=== PATIENT | male | born 1965 | race Caucasian/White ===

== ENCOUNTER 2016-10-25 19:39 | Observation (INO) ==
[2016-10-25 20:09] LABS: Basophils # 0.1 K/mcL (0.0-0.2); Eosinophils # 0.2 K/mcL (0.0-0.6); Hematocrit 43.3 % (37.5-50.1); Hemoglobin 14.5 g/dL (12.9-16.9); Immature Granulocytes % 0.2 % (0-4); Lymphocytes # 2.7 K/mcL (0.6-4.6); Mean Corpuscular HGB Conc 33.5 g/dL (31.6-35.5); Mean Corpuscular Hemoglobin 28.5 pg (28.0-33.3); Mean Corpuscular Volume 85.2 fL (83.0-100.0); Monocytes # 0.6 K/mcL (0.0-1.3); Monocytes % 6.7 %; Neutrophils # 5.6 K/mcL (1.6-8.9); Platelet Count 250 K/mcL (140-400); Red Blood Count 5.08 M/mcL (4.19-5.50); Red Cell Distribution Width 12.3 % (11.5-14.5); Segmented Neutrophils % 61.1 %
[2016-10-25 20:14] LABS: INR 1.1; Prothrombin Time 12.1 Seconds (9.4-12.1)
[2016-10-25 20:17] LABS: Activated Partial Thrombo Time 31.1 Seconds (26.0-36.0)
[2016-10-25 20:23] LABS: Alanine Aminotransferase 13 Units/L (0-55); Albumin 3.5 g/dL (3.5-5.0); Albumin/Globulin Ratio 0.9 (1.1-2.2); Alkaline Phosphatase 86 Units/L (38-126); Aspartate Amino Transferase 13 Units/L (5-34); BUN/Creatinine Ratio 12 (6-26); Bilirubin,Direct 0.2 mg/dL (0.0-0.5); Bilirubin,Indirect 0.2 mg/dL (0.0-1.2); Bilirubin,Total 0.4 mg/dL (0.2-1.2); Blood Urea Nitrogen 14 mg/dL (8-26); Calcium 9.7 mg/dL (8.6-10.8); Carbon Dioxide 22 mEq/L (19-29); Chloride 106 mEq/L (98-109); Globulin 3.7 g/dL (2.4-3.5); Glucose 80 mg/dL (70-99); Osmolality,Calculated 283 (280-300); Potassium 3.9 mEq/L (3.5-4.5); Sodium 137 mEq/L (136-145); Total Protein 7.2 g/dL (6.0-8.3); eGFR For African Americans > 60 (> 60); eGFR For Non-African Americans > 60 (> 60)
[2016-10-25] MEDS ORDERED: Ondansetron 4 MG/2 ML VIAL IVP ONE (20:37)
[2016-10-25] MEDS ORDERED: *HR* Morphine 2 MG/ML SYRINGE IVP ONE (20:37)
--- NOTE | 2016-10-25 20:41 | Emergency Department Note ---
Disposition Clinical Impression: Chest pain Qualifiers: Chest pain type: unspecified Qualified Code(s): R07.9 - Chest pain, unspecified Disposition: Admitted As Inpatient Condition: Good Referrals: NO,PCP [Non-Partnered Physician] - Forms: ED Satisfaction Letter Chest Pain HPI - General Chief Complaint: ED Chest Pain Stated Complaint: Chest Pain, SOB Source: patient Limitations: no limitations Vital Signs Reviewed: Yes Nursing Notes Reviewed: Yes - History of Present Illness Pt complaint: chest pain Onset (ago): hour(s) (1) Duration: constant Onset: during rest Pain Location: substernal Severity scale (1-10): 4 Quality: heaviness Pain Radiation: none Improves with: nothing Worsens with: nothing Associated symptoms: Denies: nausea, vomiting, syncope Treatments prior to arrival chest pain: aspirin, nitroglycerin - Related Data Home Medications Medication Instructions Recorded Confirmed Allopurinol [Zyloprim 300 MG] 300 mg PO DAILY 05/01/15 05/26/16 Aspirin 162 mg PO DAILY 05/01/15 05/26/16 Clopidogrel Bisulfate [Plavix] 75 mg PO DAILY 05/01/15 05/26/16 Famotidine [Pepcid] 40 mg PO DAILY 05/01/15 05/26/16 Nitroglycerin [Nitrostat] 0.4 mg PO AD PRN 05/01/15 05/26/16 Pantoprazole Sodium [Protonix] 40 mg PO DAILY 05/01/15 05/26/16 Pravastatin Sodium [Pravachol] 40 mg PO HS 05/01/15 05/26/16 Sertraline [Zoloft] 100 mg PO DAILY 05/01/15 05/26/16 Fluticasone/Salmeterol [Advair 1 each IH BID 12/03/15 05/26/16 250-50 Diskus] Diclofenac Sodium [Voltaren] 1 appl TP QID PRN 05/27/16 05/27/16 Previous Rx's Medication Instructions Recorded Pregabalin [Lyrica] 25 mg PO DAILY #30 capsule 05/27/16 Allergies Allergy/AdvReac Type Severity Reaction Status Date / Time hydrocodone [From Vicodin] Allergy Hallucinati Verified 10/25/16 19:45 ng ketorolac [From Toradol] Allergy Seizure Verified 10/25/16 19:45 All systems ED: reviewed and negative except as stated. Constitutional: Denies: fever, chills, weakness Respiratory: Denies: hemoptysis Gastrointestinal: Denies: vomiting Chest Pain PMH - Past Medical History Medical history: Reports: CHF, COPD, coronary artery disease, CVA, hyperlipidemia, hypertension, myocardial infarction Surgical history: Reports: angioplasty/stent, cataract Psychiatric history: Reports: anxiety, depression - Social History Smoking Status: Never smoker Alcohol use: Reports: none Drug use: Reports: none Physical Exam - General Limitations: no limitations General appearance: alert - Head Head exam: atraumatic, normocephalic, normal inspection - Eye Eye exam: Present: normal appearance, PERRL, EOMI - Expanded Eye Exam Pupils: Left: reactive - ENT ENT exam: normal exam, normal oropharynx, mucous membranes moist - Expanded ENT Exam External ear exam: Present: normal external inspection Mouth exam: Present: normal external inspection Teeth exam: Present: normal inspection Throat exam: Present: normal inspection - Neck Neck exam: Present: normal inspection, full ROM, trachea midline - Chest Chest inspection: Present: normal inspection, symmetric chest wall rise - Respiratory Respiratory exam: Present: normal lung sounds bilaterally - Cardiovascular Cardiovascular exam: Present: bradycardia - Abdominal Exam Abdominal exam: Present: soft, Non-Tender. Absent: tenderness, distention, guarding, rebound, rigidity - Extremities Exam Extremities exam: Present: normal inspection, full ROM. Absent: tenderness, pedal edema - Expanded Upper Extremity Exam Shoulder exam: Present: normal inspection, full ROM Arm exam: Present: normal inspection, full ROM Elbow exam: Present: normal inspection, full ROM Forearm/Wrist exam: Present: normal inspection, full ROM Hand exam: Present: normal inspection, full ROM Vascular exam: Normal: capillary refill, radial pulse - Expanded Lower Extremity Exam Hip/Pelvis exam: Present: normal inspection, full ROM Upper leg exam: Present: normal inspection, full ROM Knee exam: Present: normal inspection, full ROM Lower leg exam: Present: normal inspection, full ROM Ankle exam: Present: normal inspection, full ROM Foot/toe exam: Present: normal inspection, full ROM Neurovascular/Tendon exam: Absent: motor deficit, sensory deficit, tendon deficit - Back Exam Back exam: Present: normal inspection, full ROM. Absent: tenderness - Neurological Exam Neurological exam: Present: alert, oriented X3 - Expanded Neurological Exam Patient oriented to: Present: person, place, time Coma Scale Eye Opening: Spontaneous Coma Scale Motor Response: Obeys Commands Coma Scale Verbal Response: Oriented Coma Scale Total: 15 - Psychiatric Psychiatric exam: Present: normal affect, normal mood - Skin Skin exam: Present: warm, dry, intact, normal color Course Vital Signs Temperature 97.5 F L 10/25/16 19:41 Pulse Rate 52 10/25/16 19:41 Respiratory Rate 18 10/25/16 19:41 Blood Pressure 169/101 10/25/16 19:41 O2 Sat by Pulse Oximetry 96 10/25/16 19:41 Temperature 97.5 F L 10/25/16 19:41 Pulse Rate 49 10/25/16 21:04 Respiratory Rate 14 10/25/16 20:34 Blood Pressure 157/101 10/25/16 21:04 O2 Sat by Pulse Oximetry 96 10/25/16 21:04 Oxygen Delivery Oxygen Delivery Room Air Chest Pain - Differential Diagnosis Likely: unstable angina pectoris, atypical chest pain, st elevation myocardial infraction, chest pain - Medical Records Medical records reviewed: Yes I reviewed the patient's medical records. - Lab Data Lab results reviewed: Yes I reviewed the patient's lab results. Result diagrams: 10/25/16 20:00 10/25/16 20:00 Lab Results 10/25/16 10/25/16 10/25/16 Range/Units 20:00 20:00 20:00 WBC 9.2 (4.3-11.1) K/mcL RBC 5.08 (4.19-5.50) M/mcL Hgb 14.5 (12.9-16.9) g/dL Hct 43.3 (37.5-50.1) % MCV 85.2 (83.0-100.0) fL MCH 28.5 (28.0-33.3) pg MCHC 33.5 (31.6-35.5) g/dL RDW 12.3 (11.5-14.5) % Plt Count 250 (140-400) K/mcL MPV 10.0 (9.4-12.4) fL Immature Gran % 0.2 (0-4) % Seg Neutrophils % 61.1 % Lymphocytes % 29.0 % Monocytes % 6.7 % Eosinophils % 2.0 % Basophils % 1.0 % Neutrophils # 5.6 (1.6-8.9) K/mcL Lymphocytes # 2.7 (0.6-4.6) K/mcL Monocytes # 0.6 (0.0-1.3) K/mcL Eosinophils # 0.2 (0.0-0.6) K/mcL Basophils # 0.1 (0.0-0.2) K/mcL PT (9.4-12.1) Seconds INR APTT (26.0-36.0) Seconds Sodium 137 (136-145) mEq/L Potassium 3.9 (3.5-4.5) mEq/L Chloride 106 (98-109) mEq/L Carbon Dioxide 22 (19-29) mEq/L BUN 14 (8-26) mg/dL Creatinine 1.15 (0.72-1.25) mg/dL Est GFR ( Amer) > 60 (> 60) Est GFR (Non-Af Amer) > 60 (> 60) BUN/Creatinine Ratio 12 (6-26) Glucose 80 (70-99) mg/dL Calculated Osmolality 283 (280-300) Lactic Acid 1.2 (0.5-2.2) mmol/L Calcium 9.7 (8.6-10.8) mg/dL Total Bilirubin 0.4 (0.2-1.2) mg/dL Direct Bilirubin 0.2 (0.0-0.5) mg/dL Indirect Bilirubin 0.2 (0.0-1.2) mg/dL AST 13 (5-34) Units/L ALT 13 (0-55) Units/L Alkaline Phosphatase 86 (38-126) Units/L Troponin I (0-0.03) ng/mL B-Natriuretic Peptide (0-100) pg/mL Serum Total Protein 7.2 (6.0-8.3) g/dL Albumin 3.5 (3.5-5.0) g/dL Globulin 3.7 H (2.4-3.5) g/dL Albumin/Globulin Ratio 0.9 L (1.1-2.2) 10/25/16 10/25/16 10/25/16 Range/Units 20:00 20:00 20:00 WBC (4.3-11.1) K/mcL RBC (4.19-5.50) M/mcL Hgb (12.9-16.9) g/dL Hct (37.5-50.1) % MCV (83.0-100.0) fL MCH (28.0-33.3) pg MCHC (31.6-35.5) g/dL RDW (11.5-14.5) % Plt Count (140-400) K/mcL MPV (9.4-12.4) fL Immature Gran % (0-4) % Seg Neutrophils % % Lymphocytes % % Monocytes % % Eosinophils % % Basophils % % Neutrophils # (1.6-8.9) K/mcL Lymphocytes # (0.6-4.6) K/mcL Monocytes # (0.0-1.3) K/mcL Eosinophils # (0.0-0.6) K/mcL Basophils # (0.0-0.2) K/mcL PT 12.1 (9.4-12.1) Seconds INR 1.1 APTT 31.1 (26.0-36.0) Seconds Sodium (136-145) mEq/L Potassium (3.5-4.5) mEq/L Chloride (98-109) mEq/L Carbon Dioxide (19-29) mEq/L BUN (8-26) mg/dL Creatinine (0.72-1.25) mg/dL Est GFR ( Amer) (> 60) Est GFR (Non-Af Amer) (> 60) BUN/Creatinine Ratio (6-26) Glucose (70-99) mg/dL Calculated Osmolality (280-300) Lactic Acid (0.5-2.2) mmol/L Calcium (8.6-10.8) mg/dL Total Bilirubin (0.2-1.2) mg/dL Direct Bilirubin (0.0-0.5) mg/dL Indirect Bilirubin (0.0-1.2) mg/dL AST (5-34) Units/L ALT (0-55) Units/L Alkaline Phosphatase (38-126) Units/L Troponin I 0.00 (0-0.03) ng/mL B-Natriuretic Peptide < 10 (0-100) pg/mL Serum Total Protein (6.0-8.3) g/dL Albumin (3.5-5.0) g/dL Globulin (2.4-3.5) g/dL Albumin/Globulin Ratio (1.1-2.2) - Radiology Data Radiology results reviewed: Yes I reviewed the patient's radiology results. - EKG Data EKG shows normal: sinus rhythm Rate: bradycardia (54) Linch/QRS: normal When compared to previous EKG there are: no significant changes (08/12/16)
[2016-10-25] MEDS ORDERED: GI Cocktail 40 ML EACH PO ONE (20:59)
[2016-10-25] MEDS ORDERED: *HR* Heparin 5,000 UNIT/ML VIAL IVP PRN ×2 (22:18)
[2016-10-25] MEDS ORDERED: *HR* Heparin 5,000 UNIT/ML VIAL IVP ONE (22:18)
[2016-10-25] MEDS ORDERED: Naloxone 0.4 MG/ML INJ IVP PRN (22:23)
[2016-10-25] MEDS ORDERED: Acetaminophen 325 MG TABLET PO PRN (22:23)
[2016-10-25] MEDS ORDERED: Nitroglycerin 0.4 MG TAB.SUBL SL PRN (22:28)
[2016-10-25] MEDS ORDERED: Heparin 25,000 UNIT/500 ML D5W 25,000 UNIT/500 ML MLS IVC SCH (22:30)
--- NOTE | 2016-10-25 22:36 | Internal Med History&Physical ---
<Theodora Godinez - Last Filed: 10/25/16 23:18> Date of Encounter: 10/25/16 Time of Encounter: 22:28 Assessment and Plan (1) Chest pain Current visit: Yes Status: Acute Patent reporting chest pressure with intermittent stabbing on left side of chest since 5:30 this evening. Patient with history of CAD with stent to LAD. Last cath showed 50-60% stenosis in Circ and 1st Jaky. Pain was somewhat relieved with nitro, aspirin. EKG shows sinus bradycardia. 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 echocardiogram Cardiology consulted, will need to be called in the morning. Continue aspirin, plavix, statin. Qualifiers: Chest pain type: unspecified Qualified Code(s): R07.9 - Chest pain, unspecified (2) Coronary artery disease Current visit: Yes Status: Acute Patient with history of CAD and stent to LAD in 2012. LHC on 12/04/2015 showed patent stent in LAD, 30% stenosis in mid LAD, 60% stenosis in distal Circ, 50% stenosis in 1st marginal, 30% stenosis in mid RCA and distal RCA. Stress test 05/27/16 showed no evidence of ischemia or infarct and EF of 63%. Cardiology consulted. Patient not on beta stoney due to bradycardia. Continue aspirin, plavix, statin. Qualifiers: Coronary Disease-Associated Artery/Lesion type: [place] artery [place] vs. transplanted heart: [place] heart Associated angina: angina presence unspecified Qualified Code(s): I25.10 - Atherosclerotic heart disease of [place] coronary artery without angina pectoris (3) Hypertension Current visit: Yes Status: Acute Patient's BP running 140s-150s/90s-100s. Patient not on any anti- hypertensives. He is chronically bradycardic and so unable to take beta stoney. Start losartan 12.5mg daily. Qualifiers: Hypertension type: essential hypertension Qualified Code(s): I10 - Essential (primary) hypertension (4) DVT prophylaxis Current visit: Yes Status: Acute anti-embolic stockings Patient on Heparin drip for ACS, additional pharmacologic prophylaxis is not warrented. Internal Medicine - H&P: HPI Chief complaint: chest pain Admitted From: Emergency Dept Plans for Post Hospital Care: Home History of present illness: Mr. Faustin is a 51 year old male with HTN, HLD, GERD, COPD, CAD s/p stent to LAD , CHF, presented to the ED today with complaints of chest pain and shortness of breath. Patient reports chest pain started at about 5:30 this evening, he describes it as non-radiating pressure in the left side of his chest with occasional sharp stabs of pain, accompanied by shortness of breath and occasional sweats. He reports pain is worse when he takes a deep breath, was somewhat relieved by nitro and aspirin taken at home, as well as morphine given in the ED. Patient has history of [place]/CAD with stent to LAD in 2012. He denies any lightheadedness, headache, palpitations, fever, chills, nausea, vomiting, diarrhea. Evaluation in the ED included an EKG which showed sinus bradycardia. Troponin negative at 0.00, BNP negative at < 10. On exam, patient alert and oriented, in no acute distress, reporting he is still having chest pain. Heart has regular, bradycardic rhythm, lungs are clear bilaterally to auscultation. Past Med Surg Social Fam HX - Past Medical History Medical history: CHF, COPD, coronary artery disease, GERD, hyperlipidemia, hypertension, myocardial infarction, TIA Psychiatric history: anxiety, depression - Past Surgical History Surgical History: angioplasty/stent, cataract, knee replacement - Social History Smoking Status: Never smoker Smokeless Tobacco Status: No Alcohol use: none Drug use: none - Family History Father Family Member Ethnicity: Non- Living Status: Age at : 70 Hx Family Cardiac Disorders: Yes Mother Living Status: Age at : 65 Hx Family Cancer: Yes Internal Medicine - H&P: Meds Allopurinol [Zyloprim 300 MG] 300 mg PO DAILY 05/01/15 [History] Aspirin 162 mg PO DAILY 05/01/15 [History] Clopidogrel Bisulfate [Plavix] 75 mg PO DAILY 05/01/15 [History] Famotidine [Pepcid] 40 mg PO DAILY 05/01/15 [History] Nitroglycerin [Nitrostat] 0.4 mg PO AD PRN 05/01/15 [History] Pantoprazole Sodium [Protonix] 40 mg PO DAILY 05/01/15 [History] Pravastatin Sodium [Pravachol] 40 mg PO HS 05/01/15 [History] Sertraline [Zoloft] 100 mg PO DAILY 05/01/15 [History] Fluticasone/Salmeterol [Advair 250-50 Diskus] 1 each IH BID 12/03/15 [History] Pregabalin [Lyrica] 25 mg PO DAILY #30 capsule 05/27/16 [Rx] Cyclobenzaprine [Flexeril] 10 mg PO BID PRN 10/25/16 [History] Tramadol HCl [Ultram] 50 mg PO BID PRN 10/25/16 [History] Allergies hydrocodone [From Vicodin] Allergy (Verified 10/25/16 19:45) Hallucinating ketorolac [From Toradol] Allergy (Verified 10/25/16 19:45) Seizure All Systems PM: A 10-system review of systems was performed and is negative for pertinent findings except as documented above in the HPI. - Constitutional Constitutional: no chills, no fever(s), no night sweats - EENT Eyes: no change in vision, no discharge, no pain, no photophobia Ears: no ear discharge, no ear pain, no tinnitus Nose, mouth and throat: no dysphagia, no nasal discharge, no neck pain, no sore throat - Cardiovascular Cardiovascular ROS IM: chest pain, diaphoresis, dyspnea, no lightheadedness, no palpitations, no syncope - Respiratory Respiratory: pain on inspiration, no cough, no dyspnea, no wheezing, no excessive phlegm production - Gastrointestinal Gastrointestinal: no abdominal pain, no diarrhea, no hematemesis, no hematochezia, no melena, no nausea, no vomiting - Musculoskeletal Musculoskeletal ROS IM: no numbness, no tingling - Integumentary Integumentary IM: no rash, no unusual bruising - Neurological Neurological ROS: no confusion, no convulsions, no focal weakness, no numbness, no tingling, no tremor(s) - Hematologic/Lymphatic Hematologic/Lymphatic: no easy bruising - Constitutional Vitals: Temp Pulse Resp BP Pulse Ox 97.5 F L 49 16 159/100 96 10/25/16 19:41 10/25/16 21:04 10/25/16 22:24 10/25/16 22:24 10/25/16 21:04 General appearance: Present: A&O X 3, pleasant, no acute distress - Head Head exam: Present: atraumatic, normocephalic - Eye Eye exam: Present: PERRL, conjuntiva pink, sclera anicteric Pupils: Present: PERRL - Neck Neck exam general surgery: Present: supple, trachea midline. Absent: lymphadenopathy - Respiratory Respiratory exam: Present: CTAB. Absent: accessory muscle use, rales, rhonchi, wheezes - Cardiovascular Cardiovascular exam: Present: bradycardia, RRR, +S1, +S2. Absent: diastolic murmur, gallop, rubs, systolic murmur - GI/Abdominal GI/Abdominal exam: Present: normal bowel sounds, soft, no peritoneal signs. Absent: distended, tenderness - Extremities Exam Extremities exam: Present: warm, radial pulses palpable and symetrical. Absent : calf tenderness, cyanotic, pedal edema - Neurological Exam Neurological exam: Present: CN II-XII intact, oriented X3, no focal deficits. Absent: facial droop, speech deficit - Skin Skin exam: Present: dry, intact Internal Med - H&P Results - Labs CBC & Chem 7: 10/25/16 20:00 10/25/16 20:00 Labs: All Lab Results (24 Hours) 10/25/16 10/25/16 10/25/16 Range/Units 20:00 20:00 20:00 WBC 9.2 (4.3-11.1) K/mcL RBC 5.08 (4.19-5.50) M/mcL Hgb 14.5 (12.9-16.9) g/dL Hct 43.3 (37.5-50.1) % MCV 85.2 (83.0-100.0) fL MCH 28.5 (28.0-33.3) pg MCHC 33.5 (31.6-35.5) g/dL RDW 12.3 (11.5-14.5) % Plt Count 250 (140-400) K/mcL MPV 10.0 (9.4-12.4) fL Immature Gran % 0.2 (0-4) % Seg Neutrophils % 61.1 % Lymphocytes % 29.0 % Monocytes % 6.7 % Eosinophils % 2.0 % Basophils % 1.0 % Neutrophils # 5.6 (1.6-8.9) K/mcL Lymphocytes # 2.7 (0.6-4.6) K/mcL Monocytes # 0.6 (0.0-1.3) K/mcL Eosinophils # 0.2 (0.0-0.6) K/mcL Basophils # 0.1 (0.0-0.2) K/mcL PT (9.4-12.1) Seconds INR APTT (26.0-36.0) Seconds D-Dimer (0-500) ng/mLFEU Sodium 137 (136-145) mEq/L Potassium 3.9 (3.5-4.5) mEq/L Chloride 106 (98-109) mEq/L Carbon Dioxide 22 (19-29) mEq/L BUN 14 (8-26) mg/dL Creatinine 1.15 (0.72-1.25) mg/dL Est GFR ( Amer) > 60 (> 60) Est GFR (Non-Af Amer) > 60 (> 60) BUN/Creatinine Ratio 12 (6-26) Glucose 80 (70-99) mg/dL Calculated Osmolality 283 (280-300) Lactic Acid 1.2 (0.5-2.2) mmol/L Calcium 9.7 (8.6-10.8) mg/dL Total Bilirubin 0.4 (0.2-1.2) mg/dL Direct Bilirubin 0.2 (0.0-0.5) mg/dL Indirect Bilirubin 0.2 (0.0-1.2) mg/dL AST 13 (5-34) Units/L ALT 13 (0-55) Units/L Alkaline Phosphatase 86 (38-126) Units/L Troponin I (0-0.03) ng/mL B-Natriuretic Peptide (0-100) pg/mL Serum Total Protein 7.2 (6.0-8.3) g/dL Albumin 3.5 (3.5-5.0) g/dL Globulin 3.7 H (2.4-3.5) g/dL Albumin/Globulin Ratio 0.9 L (1.1-2.2) 10/25/16 10/25/16 10/25/16 Range/Units 20:00 20:00 20:00 WBC (4.3-11.1) K/mcL RBC (4.19-5.50) M/mcL Hgb (12.9-16.9) g/dL Hct (37.5-50.1) % MCV (83.0-100.0) fL MCH (28.0-33.3) pg MCHC (31.6-35.5) g/dL RDW (11.5-14.5) % Plt Count (140-400) K/mcL MPV (9.4-12.4) fL Immature Gran % (0-4) % Seg Neutrophils % % Lymphocytes % % Monocytes % % Eosinophils % % Basophils % % Neutrophils # (1.6-8.9) K/mcL Lymphocytes # (0.6-4.6) K/mcL Monocytes # (0.0-1.3) K/mcL Eosinophils # (0.0-0.6) K/mcL Basophils # (0.0-0.2) K/mcL PT 12.1 (9.4-12.1) Seconds INR 1.1 APTT 31.1 (26.0-36.0) Seconds D-Dimer 286 (0-500) ng/mLFEU Sodium (136-145) mEq/L Potassium (3.5-4.5) mEq/L Chloride (98-109) mEq/L Carbon Dioxide (19-29) mEq/L BUN (8-26) mg/dL Creatinine (0.72-1.25) mg/dL Est GFR ( Amer) (> 60) Est GFR (Non-Af Amer) (> 60) BUN/Creatinine Ratio (6-26) Glucose (70-99) mg/dL Calculated Osmolality (280-300) Lactic Acid (0.5-2.2) mmol/L Calcium (8.6-10.8) mg/dL Total Bilirubin (0.2-1.2) mg/dL Direct Bilirubin (0.0-0.5) mg/dL Indirect Bilirubin (0.0-1.2) mg/dL AST (5-34) Units/L ALT (0-55) Units/L Alkaline Phosphatase (38-126) Units/L Troponin I 0.00 (0-0.03) ng/mL B-Natriuretic Peptide < 10 (0-100) pg/mL Serum Total Protein (6.0-8.3) g/dL Albumin (3.5-5.0) g/dL Globulin (2.4-3.5) g/dL Albumin/Globulin Ratio (1.1-2.2) - Diagnostic Studies Chest x-ray Additional comments: Chest X-Ray 10/25/16 19:46 IMPRESSION: No acute process. D/ / Buddy De La Cruz MD / Buddy De La Cruz MD Interpreting Provider: Buddy De La Cruz MD <EvieSurinder - Last Filed: 10/26/16 02:39> Date of Encounter: 10/26/16 Internal Medicine - H&P: HPI History of present illness: Mr. Faustin is a 51 year old male All Systems PM: A 10-system review of systems was performed and is negative for pertinent findings except as documented above in the HPI. - Constitutional Vitals: Temp Pulse Resp BP Pulse Ox 97.9 F 50 16 149/95 95 10/25/16 22:47 10/25/16 22:47 10/25/16 22:47 10/25/16 22:47 10/25/16 22:47 Internal Med - H&P Results - Labs CBC & Chem 7: 10/25/16 20:00 10/25/16 20:00 - Attending Attestation I examined this patient and my medical decision-making was reviewed with the LUGGAGE MAKER/PA/Advanced Practice Nurse/Resident Physician. I agree with the documented findings, disposition and treatment plan as described except to the extent set forth below. Patient with history of coronary artery disease status post stent placement presents with atypical left-sided chest pain started at rest. Currently he continues to have chest pain, somewhat improved with administration of nitroglycerin and morphine. His EKG is without any ischemic changes. Plan: We will place the patient in observation. Trend troponin. Start IV heparin drip per ACS protocol. Nothing by mouth after midnight. Cardiology consult. Check echocardiogram.
[2016-10-25] MEDS ORDERED: traMADol 50 MG TABLET PO PRN (22:56)
--- NOTE | 2016-10-25 23:23 | Event Note ---
Date of Encounter: 10/25/16 Time of Encounter: 23:19 I examined this patient and my medical decision-making was reviewed with the CLERICAL ADMINISTRATIVE ASSISTANT/PA/Advanced Practice Nurse/Resident Physician. I agree with the documented findings, disposition and treatment plan as described except to the extent set forth below. Patient presented to the hospital with precordial chest pain. Currently reports continued mild to moderate dull pressure-like left-sided chest pain associated with shortness of breath. On exam he is in no acute distress. Heart auscultation reveals bradycardic regular S1-S2. Lungs are clear bilaterally I have reviewed his catheter report from November 2016 which shows a patent stent to the LAD and a 60% lesion in the distal circumflex and 50% lesion of the OM1. Assessment: Unstable angina Plan: We will place patient in observation. Nothing by mouth. A heparin drip. Nitroglycerin and morphine IV when necessary. Cardiology consult. Echocardiogram in the morning. Patient may require cardiac catheterization tomorrow to evaluate for his distal circumflex and OM lesions. He is at high risk for morbidity and complications due to ACS and IV heparin which requires frequent monitoring of coagulation parameters.
[2016-10-26 03:47] LABS: Basophils # 0.1 K/mcL (0.0-0.2); Basophils % 0.9 %; Eosinophils # 0.2 K/mcL (0.0-0.6); Eosinophils % 2.6 %; Hematocrit 41.1 % (37.5-50.1); Immature Granulocytes % 0.2 % (0-4); Lymphocytes # 3.2 K/mcL (0.6-4.6); Lymphocytes % 36.4 %; Mean Corpuscular HGB Conc 34.1 g/dL (31.6-35.5); Mean Corpuscular Hemoglobin 29.3 pg (28.0-33.3); Mean Platelet Volume 10.6 fL (9.4-12.4); Monocytes # 0.5 K/mcL (0.0-1.3); Monocytes % 5.4 %; Neutrophils # 4.7 K/mcL (1.6-8.9); Platelet Count 228 K/mcL (140-400); Red Blood Count 4.78 M/mcL (4.19-5.50); Red Cell Distribution Width 12.7 % (11.5-14.5); Segmented Neutrophils % 54.5 %
[2016-10-26 04:01] LABS: BUN/Creatinine Ratio 14 (6-26); Blood Urea Nitrogen 15 mg/dL (8-26); Calcium 9.4 mg/dL (8.6-10.8); Carbon Dioxide 25 mEq/L (19-29); Chloride 103 mEq/L (98-109); Chol/HDL Ratio 5.4 (0-4.9); Cholesterol 196 mg/dL (< 200); Glucose 94 mg/dL (70-99); HDL Cholesterol 36 mg/dL (40-59); LDL Cholesterol,Calculated 141 mg/dL (0-99); Osmolality,Calculated 281 (280-300); Sodium 135 mEq/L (136-145); Triglycerides 93 mg/dL (< 150); eGFR For African Americans > 60 (> 60); eGFR For Non-African Americans > 60 (> 60)
[2016-10-26] MEDS ORDERED: Aspirin 81 MG TAB.CHEW PO SCH (09:00)
[2016-10-26] MEDS ORDERED: Famotidine 20 MG TABLET PO SCH (09:00)
[2016-10-26] MEDS ORDERED: Pregabalin 25 MG CAPSULE PO SCH (09:00)
[2016-10-26] MEDS ORDERED: Budesonide/Formoterol 80/4.5 MDI IH SCH (10:00)
--- NOTE | 2016-10-26 11:09 | Cardiology Consult Note ---
Date of Encounter: 10/26/16 Time of Encounter: 11:00 Assessment and Plan (1) Chest pain Current Visit: Yes Status: Acute Per Cardiology: Known history of recurrent atypical chest pain. Symptoms appear to be atypical upon exam today and reproducible with deep inspiration with production of sharp stabbing left-sided chest pain. Troponins 0.003. Has echo pending, however will switch to limit echo. We discussed potential further ischemic evaluation and the patient himself indicated "I do not think this is my heart". He is agreeable to attempt nitrates and f/u as outpatient unless any abnormal results on limited echo. Will discuss and review with Dr. Salas. Qualifiers: Chest pain type: unspecified Qualified Code(s): R07.9 - Chest pain, unspecified (2) Coronary artery disease Current Visit: Yes Status: Chronic Per Cardiology: Known history of CAD with last heart catheterization November 2015 which showed left main 20%, patent stents to LAD, mid LAD 30%, distal circumflex 60%, OM1 50% , mid RCA 30%, distal RCA 30%. Had negative nuclear stress test April 2016. Last echo November 2015 showed EF 60%, mild diastolic dysfunction, dilated RV with normal function, no significant valvular dysfunction, no pulmonary hypertension. On aspirin, Plavix, statin, and ARB. Taking Ranexa at home. Will add Imdur 30mg PO daily. Has past intolerance to beta stoney. Qualifiers: Coronary Disease-Associated Artery/Lesion type: [place] artery [place] vs. transplanted heart: [place] heart Associated angina: angina presence unspecified Qualified Code(s): I25.10 - Atherosclerotic heart disease of [place] coronary artery without angina pectoris Discussion w patient/family: The assessment and plan as outlined above was discussed with the patient who expressed understanding and agreement. All questions were answered. Thank you for involving us in the care of your patient. Please call with any questions. History of Present Illness Consult date: 10/26/16 Requesting physician: Surinder Case Consult reason: CP Chief complaint: CP History of present illness: Mr. Faustin is a 51 year old male with a relevant past medical history of CAD, obesity, obstructive sleep apnea, hypertension, and hyperlipidemia. Last seen by Dr. Salas January 2016 with recurrent atypical chest pain. Cardiology consult for chest pain evaluation and consideration of repeat catheterization. Patient reports yesterday evening around 5 PM while sitting in a chair he developed left lower chest wall pressure/stabbing sensation with a max pain of 7 out of 10 that has been intermittently waxing and waning. He currently describes it as about a 4-5 out of 10. He reports he took 2 sublingual nitroglycerin pills with minimal relief. She reports episodes of chest tightness about once or twice per day at rest. He indicates he utilize nitroglycerin maybe once or twice in the past week or 2. He does report some mild increase in fatigue and mild increase in dyspnea on exertion. He reports intermittent diaphoresis at all times and does not correlate with other symptoms. He denies any dizziness, syncope, falls. Denies any palpitations. Denies any recent fever, chills, nausea, vomiting, diarrhea. Reports compliance with medications. Past Med Surg Social Fam HX - Past Medical History Attestation: Yes The following information was validated with the patient. Source: patient, old records reviewed Medical history: CHF, COPD, coronary artery disease, GERD, hyperlipidemia, hypertension, myocardial infarction, TIA Psychiatric history: anxiety, depression - Past Surgical History Surgical History: angioplasty/stent, cataract, knee replacement - Social History Smoking Status: Never smoker Smokeless Tobacco Status: No Alcohol use: none Drug use: none - Family History Mother Living Status: Age at : 65 Hx Family Cancer: Yes Father Family Member Ethnicity: Non- Living Status: Age at : 70 Hx Family Cardiac Disorders: Yes Medications and Allergies Allopurinol [Zyloprim 300 MG] 300 mg PO DAILY 05/01/15 [History] Aspirin 162 mg PO DAILY 05/01/15 [History] Clopidogrel Bisulfate [Plavix] 75 mg PO DAILY 05/01/15 [History] Famotidine [Pepcid] 40 mg PO DAILY 05/01/15 [History] Nitroglycerin [Nitrostat] 0.4 mg PO AD PRN 05/01/15 [History] Pantoprazole Sodium [Protonix] 40 mg PO DAILY 05/01/15 [History] Pravastatin Sodium [Pravachol] 40 mg PO HS 05/01/15 [History] Sertraline [Zoloft] 100 mg PO DAILY 05/01/15 [History] Fluticasone/Salmeterol [Advair 250-50 Diskus] 1 each IH BID 12/03/15 [History] Cyclobenzaprine [Flexeril] 10 mg PO BID PRN 10/25/16 [History] Tramadol HCl [Ultram] 50 mg PO BID PRN 10/25/16 [History] Allergies hydrocodone [From Vicodin] Allergy (Verified 10/26/16 09:06) Hallucinating ketorolac [From Toradol] Allergy (Verified 10/26/16 09:06) Seizure All Systems Review: A 10-system review of systems was performed and is negative for pertinent findings except as documented above in the HPI. - Constitutional Constitutional: fatigue - Cardiovascular Cardiovascular: as per HPI, chest pain at rest, dyspnea on exertion Physical Examination Vital Signs, Last 4 Hours Temp Pulse Resp BP Pulse Ox 10/26/16 10:51 97.9 F 47 15 133/86 94 10/26/16 08:15 98 10/26/16 08:03 18 98 General: Conversant, No Apparent Distress HEENT: Atraumatic, Normocephaly, Mucus Membranes Moist Neck: No JVD, Normal carotid pulses Cardiac: Reg Rate and Rhythm, Normal S1 and S2, No Murmur Lungs: Normal Breath Sounds, No Wheeze, Rales, Rhonchi Neuro: Alert and responsive, No focal deficits noted Abdomen: Soft, Non-Tender Skin: No rashes noted on visualized skin Musculoskeletal: No Chest Wall Tenderness, Other (Left lower chest wall pressure worsened today with deep inspiration and described as a stabbing sensation) Extremities: No Clubbing, No Cyanosis, No Edema, Normal Pulses Results 10/26/16 03:18 10/26/16 03:18 Lab Results Laboratory Tests 10/25/16 10/25/16 10/25/16 20:00 20:00 20:00 INR D-Dimer AST 13 ALT 13 Troponin I 0.00 B-Natriuretic Peptide < 10 LDL Cholesterol, Calc 10/25/16 10/26/16 10/26/16 20:00 03:18 03:18 INR 1.1 D-Dimer 286 AST ALT Troponin I 0.00 B-Natriuretic Peptide LDL Cholesterol, Calc 141 H 10/26/16 08:20 INR D-Dimer AST ALT Troponin I 0.00 B-Natriuretic Peptide LDL Cholesterol, Calc ITS Impressions Chest X-Ray 10/25/16 19:46 IMPRESSION: No acute process. D/ / Buddy De La Cruz MD / Buddy De La Cruz MD Interpreting Provider: Buddy De La Cruz MD Active Medications Acetaminophen (Tylenol) 650 mg PO Q6HR PRN PRN Reason: Mild Pain (1-3) Stop: 04/26/17 22:24 Last Admin: 10/26/16 04:09 Dose: 650 mg Allopurinol (Zyloprim) 300 mg PO DAILY [facility] Stop: 04/27/17 09:01 Aspirin (Aspirin) 162 mg PO DAILY [facility] Stop: 04/27/17 09:01 Budesonide/Formoterol Fumarate (Symbicort) 2 puff IH BIDR [facility] Stop: 04/27/17 10:01 Last Admin: 10/26/16 08:02 Dose: 2 puff Clopidogrel Bisulfate (Plavix) 75 mg PO DAILY [facility] Stop: 04/27/17 09:01 Cyclobenzaprine HCl (Flexeril) 10 mg PO BID PRN PRN Reason: back pain Stop: 04/26/17 22:57 Docusate Sodium (Colace) 100 mg PO BID PRN PRN Reason: Constipation Stop: 04/26/17 22:24 Famotidine (Pepcid) 40 mg PO DAILY [facility] PRN Reason: Protocol Stop: 04/27/17 09:01 Heparin Sodium (Porcine) (Heparin) 4,000 unit IVP Q6HR PRN PRN Reason: SEE COMMENTS Stop: 04/26/17 22:19 Heparin Sodium (Porcine) (Heparin) 2,000 unit IVP Q6H PRN PRN Reason: SEE COMMENTS Stop: 04/26/17 22:19 Last Admin: 10/26/16 06:43 Dose: 2,000 unit Heparin Sodium/Dextrose (Heparin 25,000 Unit/500 Ml D5w) 25,000 unit in 500 mls @ 19.99 mls/hr IVC .Q24H SHELBY; 7.63 UNIT/KG/HR PRN Reason: Protocol Stop: 04/26/17 22:31 Last Titration: 10/26/16 06:37 Dose: 9.54 unit/kg/hr, 25 mls/hr Losartan Potassium (Cozaar) 12.5 mg PO DAILY [facility] PRN Reason: Protocol Stop: 04/26/17 23:31 Last Admin: 10/26/16 00:01 Dose: 12.5 mg Naloxone HCl (Narcan) 0.4 mg IVP Q2MIN PRN PRN Reason: Opioid Reversal Stop: 04/26/17 22:24 Nitroglycerin (Nitroglycerin) 0.4 mg SL Q5MIN PRN PRN Reason: Chest Pain Stop: 04/26/17 22:29 Last Admin: 10/26/16 04:09 Dose: 0.4 mg Omeprazole (Prilosec) 20 mg PO DAILY@0730 [facility] Stop: 04/27/17 07:31 Pregabalin (Lyrica) 25 mg PO DAILY [facility] Stop: 04/27/17 09:01 Sertraline HCl (Zoloft) 100 mg PO DAILY [facility] Stop: 04/27/17 09:01 Simvastatin (Zocor) 40 mg PO HS [facility] Stop: 04/26/17 23:01 Last Admin: 10/26/16 00:01 Dose: 40 mg Tramadol HCl (Ultram) 50 mg PO BID PRN PRN Reason: Moderate Pain Stop: 04/26/17 22:57 Last Admin: 10/26/16 00:02 Dose: 50 mg - Imaging and Cardiology Stress Test: report reviewed Echo: report reviewed Cardiac cath: report reviewed - EKG Interpretation EKG results cardiology: personally reviewed, normal ECG, sinus rhythm, no diagnostic ischemia, other (Sinus rhythm on telemetry) Consult Discharge Plan - Plan Referrals: Reddy Reich MD [Primary Care Provider] -
[2016-10-26] MEDS ORDERED: Isosorbide MONOnitrate (24 HR) 30 MG TAB.ER.24H PO SCH (12:30)
[2016-10-26] MEDS ORDERED: Perflutren Lipid Microsphere 1.3 ML in 0.9 % Sodium Chloride 8.7 ML IVP ONE (13:51)
[2016-10-26 14:45] VITALS: BP 141/99
--- NOTE | 2016-10-26 16:10 | Discharge Summary ---
Date of Encounter: 10/26/16 Time of Encounter: 14:00 - Discharge Diagnosis (1) Chest pain Priority: Primary Status: Resolved Comments: Patient denied chest pain on day of discharge. Chest x-ray negative. Troponins negative 3. Was seen and evaluated by cardiology who recommended medical management with Imdur added to his regimen. Echocardiogram revealing preserved ejection fraction. Follow-up outpatient Qualifiers: Chest pain type: unspecified Qualified Code(s): R07.9 - Chest pain, unspecified (2) COPD (chronic obstructive pulmonary disease) Priority: Secondary Status: Chronic Comments: No acute exacerbation. Patient denies shortness of breath above his norm. Qualifiers: COPD type: chronic bronchitis Qualified Code(s): J41.0 - Simple chronic bronchitis (3) Coronary artery disease Priority: Secondary Status: Chronic Qualifiers: Coronary Disease-Associated Artery/Lesion type: [place] artery [place] vs. transplanted heart: [place] heart Associated angina: angina presence unspecified Qualified Code(s): I25.10 - Atherosclerotic heart disease of [place] coronary artery without angina pectoris (4) Hypertension Priority: Primary Status: Acute Comments: Not on any antihypertensive medications at home. He is chronically bradycardic so he was started on a low dose ARB. Blood pressure improving on day of discharge, follow-up outpatient and check blood pressure daily at home Qualifiers: Hypertension type: essential hypertension Qualified Code(s): I10 - Essential (primary) hypertension (5) DVT prophylaxis Priority: Primary Status: Acute Comments: Observation patient. Up ad sonido. - Discharge Medications Prescriptions: Isosorbide MONOnitrate (24 HR) [Imdur] 30 mg PO DAILY #30 tab.er.24h Losartan [Cozaar] 12.5 mg PO DAILY #15 tablet Home Medications: Allopurinol [Zyloprim 300 MG] 300 mg PO DAILY 05/01/15 [History] Aspirin 162 mg PO DAILY 05/01/15 [History] Clopidogrel Bisulfate [Plavix] 75 mg PO DAILY 05/01/15 [History] Famotidine [Pepcid] 40 mg PO DAILY 05/01/15 [History] Nitroglycerin [Nitrostat] 0.4 mg PO AD PRN 05/01/15 [History] Pantoprazole Sodium [Protonix] 40 mg PO DAILY 05/01/15 [History] Pravastatin Sodium [Pravachol] 40 mg PO HS 05/01/15 [History] Sertraline [Zoloft] 100 mg PO DAILY 05/01/15 [History] Fluticasone/Salmeterol [Advair 250-50 Diskus] 1 each IH BID 12/03/15 [History] Cyclobenzaprine [Flexeril] 10 mg PO BID PRN 10/25/16 [History] Tramadol HCl [Ultram] 50 mg PO BID PRN 10/25/16 [History] Isosorbide MONOnitrate (24 HR) [Imdur] 30 mg PO DAILY #30 tab.er.24h 10/26/16 [ Rx] Losartan [Cozaar] 12.5 mg PO DAILY #15 tablet 10/26/16 [Rx] Allergies/Adverse Reactions: Allergies hydrocodone [From Vicodin] Allergy (Verified 10/26/16 09:06) Hallucinating ketorolac [From Toradol] Allergy (Verified 10/26/16 09:06) Seizure Procedures/tests Complete & Pending: Procedures Performed prior 72 hours Category Date Time Status ECG 12 lead ECG [ECG] AM 0600 Y 10/26/16 06:00 Ordered EV limited echo w enhance Routine Y 10/26/16 12:05 Completed Date of admission: 10/25/16 22:01 Primary care physician: Reddy Reich MD Consults: 10/25/16 22:25 Consult to Cardiology [CONS] Routine Comment: Consulting Provider: Samson James Reason for Consult: 51M with chest pain, relieved by nitro, history of CAD with stent to LAD. Call Completed: No Discharging clinician: Magaly Sahni Anticipated date of discharge: 10/26/16 - Patient Status Disposition: Home, Self-Care Condition: Good Functional capacity at discharge: independent ambulation Overall status at discharge: patient is back to baseline - Discharge Instructions Follow Up With: Reddy Reich MD [Primary Care Provider] - Cardiology [facility] [Provider Group] Additional Instructions: Follow-up with primary care provider within one to 2 weeks, follow-up with cardiology in 4-5 weeks - Diet and Activity Activity: increase activity as tolerated Diet: low fat, low cholesterol, low salt diet Hospital course: Mr. Faustin is a 51 year old male with past medical history of hypertension, hyperlipidemia, GERD, COPD, CAD status post stent to LAD. Presented to the emergency department chief complaint chest pain and shortness of breath. Patient stating that the chest pain started on the evening of presentation and was described as nonradiating, pressure-like on the left side of his chest and with occasional sharp stabs of pain. Associated symptoms include shortness of breath and occasional sweats. Patient stating the pain was worse when he took a deep breath and somewhat relieved with nitroglycerin and aspirin at home. Morphine in the emergency department also helped his pain. He is stent to LAD from 2012. Patient denied any lightheadedness, palpitations, nausea or vomiting. Workup in the emergency department unremarkable. EKG revealing sinus bradycardia. Chest x-ray negative. Patient was admitted to the hospitalist service for further evaluation and management. Cardiology was brought on board who performed a limited echocardiogram that revealed a preserved ejection fraction of 60-65% and recommended medical management with the addition of Imdur to the patient's regimen. Troponins negative 3. He was hypertensive and was started on low-dose losartan given his chronic bradycardia , he cannot tolerate a beta stoney. He was discharged home in stable condition and will follow-up with his primary care provider then with cardiology in 3-4 weeks. ITS Impressions Chest X-Ray 10/25/16 19:46 IMPRESSION: No acute process. D/ / Buddy De La Cruz MD / Buddy De La Cruz MD Interpreting Provider: Buddy De La Cruz MD Limited echocardiogram impressions: LVEF 60-65%. Normal left ventricular size and systolic function. Normal right ventricular function. - Time Spent with Patient Total time spent providing and/or coordinating discharge services: - Constitutional Vitals: Temp Pulse Resp BP Pulse Ox 97.8 F 52 18 141/99 95 10/26/16 14:45 10/26/16 14:45 10/26/16 14:45 10/26/16 14:45 10/26/16 14:45 General appearance: Present: A&O X 3, pleasant, no acute distress, answers questions appropriately - Head Head exam: Present: atraumatic, normocephalic - Eye Eye exam: Present: PERRL, conjuntiva pink, sclera anicteric Pupils: Present: PERRL - Neck Neck exam general surgery: Present: supple, trachea midline. Absent: lymphadenopathy - Respiratory Respiratory exam: Present: CTAB. Absent: accessory muscle use, rales, respiratory distress, rhonchi, wheezes - Cardiovascular Cardiovascular exam: Present: RRR, +S1, +S2. Absent: diastolic murmur, gallop, rubs, systolic murmur - GI/Abdominal GI/Abdominal exam: Present: normal bowel sounds, soft, no peritoneal signs. Absent: distended, tenderness - Extremities Exam Extremities exam: Present: warm, radial pulses palpable and symetrical. Absent : calf tenderness, cyanotic, pedal edema - Neurological Exam Neurological exam: Present: alert, CN II-XII intact, normal gait, oriented X3, no focal deficits, strengths equal and symetr throughout. Absent: pronater drift, facial droop, speech deficit - Skin Skin exam: Present: dry, intact, normal color, warm
--- NOTE | 2016-10-26 16:19 | Event Note ---
Date of Encounter: 10/26/16 Time of Encounter: 16:20 - Cardiology Event Note Per discussion with Dr. Salas, echo ok and will s/o, re-consult PRN, f/u scheduled. Patient agreeable to plan.
--- NOTE | 2016-10-26 18:20 | Electrocardiograph Report ---
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
[2016-10-27] MEDS ORDERED: Aspirin 81 MG TAB.CHEW PO SCH (09:00)
== END 2016-10-26 17:10 | disposition home or self-care (01) ==
LOC: 3BNU 19:39 → EMEROO 19:39 → SUATTDRO 22:01 → 3BNU 22:27
PROVIDERS: ADMIT Internal Medicine; ATTEND Nurse Practitioner Family

== ENCOUNTER 2017-05-06 17:19 | Observation (INO) ==
--- NOTE | 2017-05-06 17:51 | Emergency Department Note ---
Disposition Clinical Impression: Chest pain of uncertain etiology Disposition: Admitted As Inpatient Condition: Good Referrals: Davie Hanley DO [Primary Care Provider] - Forms: ED Satisfaction Letter Time of Disposition: 19:31 Chest Pain HPI - General Chief Complaint: ED Chest Pain Stated Complaint: Chest Pain Time Seen by Provider: 05/06/17 17:43 Source: patient Limitations: language barrier Vital Signs Reviewed: Yes Nursing Notes Reviewed: Yes - History of Present Illness HPI Narrative: Mr. Faustin, 52-year-old male, presents from home for evaluation of chest tightness. Onset 16:15 this afternoon while he was sitting at rest. He has associated palpitations, dyspnea, nausea, left arm heaviness and left face/jaw tingling. Dyspnea worse with light exertion. His symptoms persist at this time. Last catheter-unknown to patient Last stress test-unknown to patient PMH: HI 2 with stent 2-these symptoms are similar with the left arm heaviness, nausea, dyspnea but different in that he has palpitations and chest tightness not chest heaviness. History recurrent bronchitis-these symptoms are similar with the chest tightness but different with the presence of left arm heaviness, nausea, dyspnea. CHF, COPD, hypertension, hyperlipidemia, TIA. ROS: Positive: Chest tightness, nausea, dyspnea, left arm heaviness, left jaw/face tingling, palpitations Negative: Vomiting, back pain, diaphoresis, abdominal pain Severity scale (1-10): 7 - Related Data Home Medications Medication Instructions Recorded Confirmed Allopurinol [Zyloprim 300 MG] 300 mg PO DAILY 05/01/15 05/06/17 Aspirin 162 mg PO DAILY 05/01/15 05/06/17 Clopidogrel Bisulfate [Plavix] 75 mg PO DAILY 05/01/15 05/06/17 Famotidine [Pepcid] 40 mg PO DAILY 05/01/15 05/06/17 Nitroglycerin [Nitrostat] 0.4 mg PO AD PRN 05/01/15 05/06/17 Pantoprazole Sodium [Protonix] 40 mg PO DAILY 05/01/15 05/06/17 Sertraline [Zoloft] 100 mg PO DAILY 05/01/15 05/06/17 Fluticasone/Salmeterol [Advair 1 each IH BID 07/06/16 12/08/17 250-50 Diskus] Naproxen Sodium [Aleve] 220 mg PO BID PRN 05/06/17 05/06/17 Allergies Allergy/AdvReac Type Severity Reaction Status Date / Time hydrocodone [From Vicodin] Allergy Hallucinati Verified 10/26/16 09:06 ng ketorolac [From Toradol] Allergy Seizure Verified 10/26/16 09:06 All systems ED: reviewed and negative except as stated. Review of Systems: As Per HPI Chest Pain PMH - Past Medical History Medical history: Reports: CHF, COPD, coronary artery disease, GERD, hyperlipidemia, hypertension, myocardial infarction, TIA Surgical history: Reports: angioplasty/stent, cataract, knee replacement Psychiatric history: Reports: anxiety, depression - Social History Smoking Status: Never smoker Alcohol use: Reports: none Drug use: Reports: none Physical Exam Vital Signs Reviewed General: Patient is alert, oriented, and in no acute distress. HEENT: No facial asymmetry. Head is normocephalic and atraumatic. Oral mucosa moist. Trachea midline. Dentition poor. Trace bilateral pedal edema. Cardiovascular: Heart regular rate and rhythm without clicks, rubs, gallops, or murmurs. No JVD. PMI nondisplaced. Respiratory: Symmetric chest rise with good respiratory effort. Bilateral breath sounds are clear without wheezing, crackles, or rhonchi. Abdomen: Obese. Bowel sounds present normoactive x-4 quadrants. Abdomen is soft, nondistended, and nontender. Able to assess organomegaly secondary to patient's body habitus. Musculoskeletal: Occasionally moving all extremities. Neuro: Alert and oriented 4. Skin: Warm, dry, intact. Psych: Patient's affect is appropriate for situation. - General Limitations: language barrier General appearance: alert, in no apparent distress Course Course Narrative: Patient symptoms are clinically concerning for ACS versus pulmonary etiology. Will workup as such. Given that the patient is well within the 4 hour window of uncertainty with troponin as well as also full cardiac risk factors, will recommend bringing him into the hospital for observation to rule out ACS. Patient's lab work is grossly unremarkable with exception of mild hyperglycemia. His troponin 0.01. EKG is unchanged from previous. Chest x- ray is unremarkable. Discussed this with the patient is agreeable to admission for chest pain rule out ACS. I discussed the patient with the admitting hospitalist, Dr. Mello, who agrees to accept the patient continued evaluation and management of chest pain rule out acute coronary syndrome. Chest X-Ray 05/06/17 17:51 IMPRESSION: No acute cardiopulmonary disease. D/ / Angelo Buckner MD / Angelo Buckner MD Interpreting Provider: Angelo Buckner MD Vital Signs Temperature 98.1 F 05/06/17 17:22 Pulse Rate 57 05/06/17 17:22 Respiratory Rate 19 05/06/17 17:22 Blood Pressure 170/99 05/06/17 17:22 O2 Sat by Pulse Oximetry 96 05/06/17 17:22 Temperature 98.1 F 05/06/17 17:22 Pulse Rate 52 05/06/17 18:08 Respiratory Rate 18 05/06/17 18:08 Blood Pressure 151/92 05/06/17 18:08 O2 Sat by Pulse Oximetry 95 05/06/17 18:08 Oxygen Delivery Oxygen Delivery Room Air Chest Pain - Lab Data Result diagrams: 05/06/17 18:07 05/06/17 18:07 Lab Results 05/06/17 05/06/17 05/06/17 Range/Units 18:07 18:07 18:07 WBC 8.0 (4.3-11.1) K/mcL RBC 4.88 (4.19-5.50) M/mcL Hgb 13.9 (12.9-16.9) g/dL Hct 42.9 (37.5-50.1) % MCV 87.9 (83.0-100.0) fL MCH 28.5 (28.0-33.3) pg MCHC 32.4 (31.6-35.5) g/dL RDW 13.1 (11.5-14.5) % Plt Count 248 (140-400) K/mcL MPV 10.4 (9.4-12.4) fL Immature Gran % 0.2 (0-4) % Seg Neutrophils % 61.3 % Lymphocytes % 28.9 % Monocytes % 5.9 % Eosinophils % 2.7 % Basophils % 1.0 % Neutrophils # 4.9 (1.6-8.9) K/mcL Lymphocytes # 2.3 (0.6-4.6) K/mcL Monocytes # 0.5 (0.0-1.3) K/mcL Eosinophils # 0.2 (0.0-0.6) K/mcL Basophils # 0.1 (0.0-0.2) K/mcL Sodium 139 (136-145) mEq/L Potassium 4.3 (3.5-4.5) mEq/L Chloride 106 (98-109) mEq/L Carbon Dioxide 22 (19-29) mEq/L BUN 15 (8-26) mg/dL Creatinine 1.06 (0.72-1.25) mg/dL Est GFR ( Amer) > 60 (> 60) Est GFR (Non-Af Amer) > 60 (> 60) BUN/Creatinine Ratio 14 (6-26) Glucose 103 H (70-99) mg/dL Calculated Osmolality 289 (280-300) Calcium 9.1 (8.6-10.8) mg/dL Troponin I 0.01 (0-0.03) ng/mL B-Natriuretic Peptide (0-100) pg/mL 05/06/17 Range/Units 18:07 WBC (4.3-11.1) K/mcL RBC (4.19-5.50) M/mcL Hgb (12.9-16.9) g/dL Hct (37.5-50.1) % MCV (83.0-100.0) fL MCH (28.0-33.3) pg MCHC (31.6-35.5) g/dL RDW (11.5-14.5) % Plt Count (140-400) K/mcL MPV (9.4-12.4) fL Immature Gran % (0-4) % Seg Neutrophils % % Lymphocytes % % Monocytes % % Eosinophils % % Basophils % % Neutrophils # (1.6-8.9) K/mcL Lymphocytes # (0.6-4.6) K/mcL Monocytes # (0.0-1.3) K/mcL Eosinophils # (0.0-0.6) K/mcL Basophils # (0.0-0.2) K/mcL Sodium (136-145) mEq/L Potassium (3.5-4.5) mEq/L Chloride (98-109) mEq/L Carbon Dioxide (19-29) mEq/L BUN (8-26) mg/dL Creatinine (0.72-1.25) mg/dL Est GFR ( Amer) (> 60) Est GFR (Non-Af Amer) (> 60) BUN/Creatinine Ratio (6-26) Glucose (70-99) mg/dL Calculated Osmolality (280-300) Calcium (8.6-10.8) mg/dL Troponin I (0-0.03) ng/mL B-Natriuretic Peptide 15 (0-100) pg/mL Heart Score - Score History: Moderately Suspicious EKG: Non Specific repolarisation Disturbance Age: 45-65 Risk Factors: Equal/Greater than 3 risk factor or history of atherosclerotic disease Troponin: Less than normal limit HEART Score Total: 5
[2017-05-06] MEDS ORDERED: Aspirin 81 MG TAB.CHEW PO ONE (17:55)
[2017-05-06] MEDS ORDERED: Nitroglycerin 0.4 MG TAB.SUBL SL PRN (17:55)
[2017-05-06 18:15] LABS: Basophils # 0.1 K/mcL (0.0-0.2); Eosinophils # 0.2 K/mcL (0.0-0.6); Eosinophils % 2.7 %; Hematocrit 42.9 % (37.5-50.1); Hemoglobin 13.9 g/dL (12.9-16.9); Immature Granulocytes % 0.2 % (0-4); Lymphocytes # 2.3 K/mcL (0.6-4.6); Lymphocytes % 28.9 %; Mean Corpuscular HGB Conc 32.4 g/dL (31.6-35.5); Mean Corpuscular Hemoglobin 28.5 pg (28.0-33.3); Mean Corpuscular Volume 87.9 fL (83.0-100.0); Mean Platelet Volume 10.4 fL (9.4-12.4); Monocytes # 0.5 K/mcL (0.0-1.3); Monocytes % 5.9 %; Neutrophils # 4.9 K/mcL (1.6-8.9); Platelet Count 248 K/mcL (140-400); Red Blood Count 4.88 M/mcL (4.19-5.50); Red Cell Distribution Width 13.1 % (11.5-14.5); Segmented Neutrophils % 61.3 %
[2017-05-06 18:27] LABS: BUN/Creatinine Ratio 14 (6-26); Blood Urea Nitrogen 15 mg/dL (8-26); Calcium 9.1 mg/dL (8.6-10.8); Carbon Dioxide 22 mEq/L (19-29); Chloride 106 mEq/L (98-109); Glucose 103 mg/dL (70-99); Osmolality,Calculated 289 (280-300); Potassium 4.3 mEq/L (3.5-4.5); Sodium 139 mEq/L (136-145); eGFR For African Americans > 60 (> 60); eGFR For Non-African Americans > 60 (> 60)
--- NOTE | 2017-05-06 19:07 | Emergency Department Note ---
START Narrative - START START: I examined this patient and my medical decision-making was reviewed with the Resident Physician. I agree with the documented findings, disposition and treatment plan as described except to the extent set forth below. 52 year old male presents to the ED with complaints of midsternal chest pain that radiates into the left side of his chest associated with diaphoresis, exertional dyspnea and nausea and has a history of two cardiac stents that were placed in 2006 and 2011. Lindsey states that this is simliar to the way he felt then and in fact it feels bit worse. He follows with Dr. Salas. Cardiopulomonary workup has reuslted and the troponin is negative although he has many concerning risk factors and prediositipons to ACS. We will admit ot medicine. ASA/nitro given.
[2017-05-07] MEDS ORDERED: Naloxone 0.4 MG/ML INJ IVP PRN (01:40)
[2017-05-07] MEDS ORDERED: Acetaminophen 325 MG TABLET PO PRN (01:40)
[2017-05-07] MEDS ORDERED: Mag Hydrox/Al Hydrox/Simeth 30 ML UDC PO PRN (01:40)
[2017-05-07] MEDS ORDERED: Ondansetron 4 MG/2 ML VIAL IVP PRN (01:40)
--- NOTE | 2017-05-07 01:48 | Internal Med History&Physical ---
Date of Encounter: 05/07/17 Time of Encounter: 21:30 Assessment and Plan (1) Chest pain Current visit: Yes Status: Resolved Atypical chest pain. He had PTCA in the past. Stress test done in April last year which was negative with normal EF and echocardiogram showed no significant valvular or wall motion abnormality. We will check his cardiac enzymes and if they are negative we will do a stress test in the morning. Patient will continue aspirin and Plavix. Beta stoney cannot be given due to low heart rate. At profile will be checked in the morning Qualifiers: Chest pain type: unspecified Qualified Code(s): R07.9 - Chest pain, unspecified (2) COPD (chronic obstructive pulmonary disease) Current visit: Yes Status: Chronic Add albuterol nebs Qualifiers: COPD type: chronic bronchitis Chronic bronchitis type: unspecified Qualified Code(s): J42 - Unspecified chronic bronchitis (3) Hypertension Current visit: Yes Status: Acute Elevated blood pressure. Heart rate is under 60 therefore beta stoney cannot be used. Add lisinopril Qualifiers: Hypertension type: essential hypertension Qualified Code(s): I10 - Essential (primary) hypertension (4) Dyslipidemia Current visit: Yes Status: Acute As above Internal Medicine - H&P: HPI Chief complaint: Chest pain Admitted From: Home Plans for Post Hospital Care: Home History of present illness: Patient was seen on May 06 and note was dictated after midnight. Mr. Faustin is a 52 year old male past medical history significant for coronary artery disease status post PTCA, hypertension dyslipidemia COPD CHF and morbid obesity. Patient presented with substernal nonradiating chest pain which lasted for a few minutes but continued on on recurrent basis during last few days. He did not take nitroglycerin at home but in the ER that was given and patient has not noticed much difference. It was noticed that he takes Protonix for his GERD but also take naproxen at home. Chest pain does not aggravated with ambulation or does not get better with rest. No accompanying abdominal pain nausea vomiting diarrhea dysuria urgency frequency hematuria shortness of breath cough or any other symptoms otherwise. Past Med Surg Social Fam HX - Past Medical History Medical history: CHF, COPD, coronary artery disease, GERD, hyperlipidemia, hypertension, myocardial infarction, TIA Psychiatric history: anxiety, depression - Past Surgical History Surgical History: angioplasty/stent, cataract, knee replacement - Social History Smoking Status: Never smoker Smokeless Tobacco Status: No Alcohol use: none Drug use: none - Family History Mother Living Status: Hx Family Cancer: Yes Father Family Member Ethnicity: Non- Living Status: Hx Family Cardiac Disorders: Yes Internal Medicine - H&P: Meds Allopurinol [Zyloprim 300 MG] 300 mg PO DAILY 05/01/15 [History] Aspirin 162 mg PO DAILY 05/01/15 [History] Clopidogrel Bisulfate [Plavix] 75 mg PO DAILY 05/01/15 [History] Famotidine [Pepcid] 40 mg PO DAILY 05/01/15 [History] Nitroglycerin [Nitrostat] 0.4 mg PO AD PRN 05/01/15 [History] Pantoprazole Sodium [Protonix] 40 mg PO DAILY 05/01/15 [History] Sertraline [Zoloft] 100 mg PO DAILY 05/01/15 [History] Fluticasone/Salmeterol [Advair 250-50 Diskus] 1 each IH BID 12/03/15 [History] Naproxen Sodium [Aleve] 220 mg PO BID PRN 05/06/17 [History] 3 Allergy/AdvReac Type Severity Reaction Status Date / Time hydrocodone [From Vicodin] Allergy Hallucinati Verified 10/26/16 09:06 ng ketorolac [From Toradol] Allergy Seizure Verified 10/26/16 09:06 All Systems PM: A 10-system review of systems was performed and is negative for pertinent findings except as documented above in the HPI. - Constitutional Constitutional: no chills, no fever(s), no night sweats - EENT Eyes: no change in vision, no discharge, no pain, no photophobia Ears: no ear discharge, no ear pain, no tinnitus Nose, mouth and throat: no dysphagia, no nasal discharge, no neck pain, no sore throat - Cardiovascular Cardiovascular ROS IM: no chest pain, no diaphoresis, no dyspnea, no lightheadedness, no palpitations, no syncope - Respiratory Respiratory: no cough, no dyspnea, no wheezing, no excessive phlegm production - Gastrointestinal Gastrointestinal: no abdominal pain, no diarrhea, no hematemesis, no hematochezia, no melena, no nausea, no vomiting - Musculoskeletal Musculoskeletal ROS IM: no numbness, no tingling - Integumentary Integumentary IM: no rash, no unusual bruising - Neurological Neurological ROS: no confusion, no convulsions, no focal weakness, no numbness, no tingling, no tremor(s) - Hematologic/Lymphatic Hematologic/Lymphatic: no easy bruising - Constitutional Vitals: Temp Pulse Resp BP Pulse Ox 98.2 F 52 15 169/91 95 05/06/17 21:48 05/06/17 21:48 05/06/17 21:48 05/06/17 21:48 05/06/17 21:48 General appearance: Present: A&O X 3, no acute distress, answers questions appropriately - Head Head exam: Present: atraumatic, normocephalic - Eye Eye exam: Present: PERRL, conjuntiva pink, sclera anicteric Pupils: Present: PERRL - Neck Neck exam general surgery: Present: supple, trachea midline. Absent: lymphadenopathy - Respiratory Respiratory exam: Present: CTAB. Absent: accessory muscle use, rales, rhonchi, wheezes - Cardiovascular Cardiovascular exam: Present: RRR, +S1, +S2. Absent: diastolic murmur, gallop, rubs, systolic murmur - GI/Abdominal GI/Abdominal exam: Present: normal bowel sounds, soft, no peritoneal signs. Absent: distended, tenderness - Extremities Exam Extremities exam: Present: warm, radial pulses palpable and symmetrical. Absent : calf tenderness, cyanotic, pedal edema - Neurological Exam Neurological exam: Present: CN II-XII intact, oriented X3, no focal deficits. Absent: pronater drift, facial droop, speech deficit - Skin Skin exam: Present: dry, intact Internal Med - H&P Results - Labs CBC & Chem 7: 05/06/17 18:07 05/06/17 18:07
[2017-05-07 03:19] LABS: Chol/HDL Ratio 4.5 (0-4.9)
[2017-05-07] MEDS: Ipratropium/Albuterol Neb 3 ML IH SCH ×4 (03:46→21:48)
[2017-05-07] MEDS ORDERED: Regadenoson 0.4 MG/5 ML SYRINGE IVP ONE (07:45)
[2017-05-07] MEDS: Aspirin 81 MG TAB.CHEW PO SCH (09:50)
[2017-05-07] MEDS: Famotidine 20 MG TABLET PO SCH (09:50)
[2017-05-07] MEDS: Budesonide/Formoterol 80/4.5 MDI IH SCH ×2 (12:19→21:48)
--- NOTE | 2017-05-07 16:23 | Internal Med Progress Note ---
Date of Encounter: 05/07/17 Time of Encounter: 09:55 - Assessment and plan (1) COPD (chronic obstructive pulmonary disease) Current Visit: Yes Status: Chronic Assessment and plan: Chronic. No acute exacerbation at this time. Lungs are clear and diminished without wheezing, rales, rhonchi. Patient is not in distress. Titrate oxygen as needed and maintain sats greater than 92%. Continue nebulizer treatments as needed. Qualifiers: COPD type: chronic bronchitis Chronic bronchitis type: unspecified Qualified Code(s): J42 - Unspecified chronic bronchitis (2) Chest pain Current Visit: Yes Status: Resolved Assessment and plan: Patient is a 52-year-old male with past medical history for coronary disease status post PTCA, hypertension, dyslipidemia, CHF, obesity, COPD. With diffuse chest pain on both right and left side. Onset while watching TV on the day of admission. Admission note relates that patient had had the same chest pain in the days before. The pain was not relieved by nitroglycerin and aspirin. There are no aggravating or relieving factors. The chest pain is not reproducible. During exam today, patient reports 3/10 chest pain with associated shortness of breath nausea and diaphoresis. He denies any vomiting. Patient had limited echo in Sep, 2016. LVEF is 60-65% with normal LV size and systolic function and normal wall segment motion. Patient had LHC in November, that showed moderate atherosclerotic CAD. Left ventricle is normal. Patient had stent from prior procedure and LAD which was patent. EF was 50%. At that time on total medical therapy was recommended, as well as aggressive risk factor modification. Patient is having a stress test this visit, he has a 2 day stress test due to BMI. We do not have stress testing on Sundays, he will wait until Tuesday to continue testing. He is aware and agreeable. Into the telemetry Aspirin daily. Nitroglycerin for chest pain as needed. Stress test pending Consider cardiology consultation based on stress test results. Qualifiers: Chest pain type: unspecified Qualified Code(s): R07.9 - Chest pain, unspecified (3) Hypertension Current Visit: Yes Status: Acute Assessment and plan: Chronic. Monitor vital signs and continue home medications. Qualifiers: Hypertension type: essential hypertension Qualified Code(s): I10 - Essential (primary) hypertension (4) Dyslipidemia Current Visit: Yes Status: Acute Assessment and plan: Chronic. Continue home medications. (5) DVT prophylaxis Current Visit: Yes Status: Acute Assessment and plan: Patient is ambulatory. Heparin subcutaneous. - Time Spent With Patient less than 15 minutes - Subjective Interval history: Patient was evaluated bedtime 9:55 AM. at bedside. He reports 3/10 diffuse chest pain starting on the right radiating to the left. He describes it as a tightness. He has associated shortness of breath and nausea, diaphoresis. He denies any vomiting. Patient is a nonsmoker. Onset of chest pain yesterday at 4:30 while he was home watching TV. Patient is aware that he is a 2 day stress test. We do not have stress test tomorrow on Tuesday, he will have to wait until Tuesday to complete testing. He denies any questions. - Constitutional Vitals: Temp Pulse Resp BP Pulse Ox 97.6 F 53 16 118/55 97 05/07/17 15:22 05/07/17 15:22 05/07/17 16:14 05/07/17 15:22 05/07/17 16:14 General appearance: Present: cooperative, A&O X 3, pleasant, no acute distress, answers questions appropriately - Head Head exam: Present: atraumatic, normal inspection, normocephalic - Eye Eye exam: Present: normal appearance, conjuntiva pink, sclera anicteric - Neck Neck exam general surgery: Present: supple, trachea midline. Absent: lymphadenopathy - Respiratory Respiratory exam: Present: CTAB. Absent: accessory muscle use, rales, rhonchi, wheezes - Cardiovascular Cardiovascular exam: Present: RRR, +S1, +S2. Absent: diastolic murmur, gallop, rubs, systolic murmur - GI/Abdominal GI/Abdominal exam: Present: normal bowel sounds, soft, no peritoneal signs. Absent: distended, hepatomegaly, tenderness - Extremities Exam Extremities exam: Present: normal capillary refill, normal inspection, warm, radial pulses palpable and symmetrical. Absent: calf tenderness, cyanotic, pedal edema, tenderness - Neurological Exam Neurological exam: Present: alert, oriented X3, no focal deficits. Absent: facial droop, speech deficit - Skin Skin exam: Present: dry, intact, normal color, warm. Absent: rash Internal Medicine: Result - Labs CBC & Chem 7: 05/06/17 18:07 05/06/17 18:07 Labs: Cardiac Enzymes 05/07/17 Range/Units 02:46 Troponin I 0.01 (0-0.03) ng/mL Consult Discharge Plan - Plan Referrals: Davie Hanley DO [Primary Care Provider] -
[2017-05-07] MEDS: *HR* Heparin 5,000 UNIT/ML VIAL SQ SCH (20:35)
[2017-05-08] MEDS: *HR* Heparin 5,000 UNIT/ML VIAL SQ SCH ×3 (05:01→20:51)
[2017-05-08] MEDS: Ipratropium/Albuterol Neb 3 ML IH SCH ×4 (05:26→22:11)
[2017-05-08] MEDS: Famotidine 20 MG TABLET PO SCH (07:48)
[2017-05-08] MEDS: Aspirin 81 MG TAB.CHEW PO SCH (07:48)
[2017-05-08] MEDS: Budesonide/Formoterol 80/4.5 MDI IH SCH ×2 (11:17→22:11)
--- NOTE | 2017-05-08 12:19 | Internal Med Progress Note ---
Date of Encounter: 05/08/17 Time of Encounter: 09:05 - Assessment and plan (1) COPD (chronic obstructive pulmonary disease) Current Visit: Yes Status: Chronic Assessment and plan: Chronic. No acute exacerbation at this time. Lungs are clear and diminished without wheezing, rales, rhonchi. Patient is not in distress. Titrate oxygen as needed and maintain sats greater than 92%. Continue nebulizer treatments as needed. Patient reports relief from chest pain since getting regular breathing treatments. Qualifiers: COPD type: chronic bronchitis Chronic bronchitis type: unspecified Qualified Code(s): J42 - Unspecified chronic bronchitis (2) Chest pain Current Visit: Yes Status: Resolved Assessment and plan: Patient is a 52-year-old male with past medical history for coronary disease status post PTCA, hypertension, dyslipidemia, CHF, obesity, COPD. With diffuse chest pain on both right and left side. Onset while watching TV on the day of admission. Admission note relates that patient had had the same chest pain in the days before. The pain was not relieved by nitroglycerin and aspirin. There are no aggravating or relieving factors. The chest pain is not reproducible. During exam today, patient denies chest pain since beginning scheduled breathing treatments. The suggestive of noncardiac chest pain, however, will proceed with stress test. Patient had limited echo in Sep, 2016. LVEF is 60-65% with normal LV size and systolic function and normal wall segment motion. Patient had LHC in November, that showed moderate atherosclerotic CAD. Left ventricle is normal. Patient had stent from prior procedure and LAD which was patent. EF was 50%. At that time on total medical therapy was recommended, as well as aggressive risk factor modification. Patient is having a stress test this visit, he has a 2 day stress test due to BMI. We do not have stress testing on Sundays, he will wait until Tuesday to continue testing. He is aware and agreeable. Patient has heart score 5. Due to this moderate risk, patient will stay overnight to continue stress test tomorrow. Into the telemetry Aspirin daily. Nitroglycerin for chest pain as needed. Stress test pending Consider cardiology consultation based on stress test results. Qualifiers: Chest pain type: unspecified Qualified Code(s): R07.9 - Chest pain, unspecified (3) Hypertension Current Visit: Yes Status: Acute Assessment and plan: Chronic. Monitor vital signs and continue home medications. Qualifiers: Hypertension type: essential hypertension Qualified Code(s): I10 - Essential (primary) hypertension (4) Dyslipidemia Current Visit: Yes Status: Acute Assessment and plan: Chronic. Continue home medications. Lipid panel within normal limits. (5) DVT prophylaxis Current Visit: Yes Status: Acute Assessment and plan: Patient is ambulatory. Heparin subcutaneous. Patient is bedside in chair - Subjective Interval history: Patient was evaluated at bedside 0905 AM. Patient denies chest pain since yesterday. He states that he has not had any difficulty at all since he started doing routine breathing treatments. Chest pain could be related to COPD exacerbation, however, patient has a heart score of 5 which is concerning for moderate risk for cardiac event. Patient had asked to be discharged to return for stress test tomorrow, after consideration and patient's risk factors including obesity, hypertension, hyperlipidemia, concerning history and prior coronary artery disease, we agreed that he should stay and finish stress test tomorrow. He was agreeable. He denies chest pain, shortness of breath, nausea vomiting or diarrhea, no fever or chills. He denies headache or blurred vision. If stress test is negative in the morning, patient will be discharged. - Constitutional Vitals: Temp Pulse Resp BP Pulse Ox 97.2 F L 55 17 130/74 97 05/08/17 11:07 05/08/17 11:07 05/08/17 11:19 05/08/17 11:07 05/08/17 11:19 General appearance: Present: cooperative, A&O X 3, pleasant, no acute distress, answers questions appropriately - Head Head exam: Present: atraumatic, normal inspection, normocephalic - Eye Eye exam: Present: normal appearance, conjuntiva pink, sclera anicteric - Neck Neck exam general surgery: Present: normal inspection, supple, trachea midline. Absent: lymphadenopathy, tenderness - Respiratory Respiratory exam: Present: decreased breath sounds, CTAB. Absent: accessory muscle use, chest wall tenderness, rales, respiratory distress, rhonchi, wheezes - Cardiovascular Cardiovascular exam: Present: RRR, +S1, +S2. Absent: diastolic murmur, gallop, rubs, systolic murmur - GI/Abdominal GI/Abdominal exam: Present: normal bowel sounds, soft. Absent: distended, hepatomegaly, tenderness - Extremities Exam Extremities exam: Present: normal capillary refill, normal inspection, warm, radial pulses palpable and symmetrical. Absent: calf tenderness, cyanotic, pedal edema, tenderness - Neurological Exam Neurological exam: Present: alert, oriented X3, no focal deficits. Absent: facial droop, speech deficit - Skin Skin exam: Present: dry, intact, normal color, warm. Absent: rash Internal Medicine: Result - Labs CBC & Chem 7: 05/06/17 18:07 05/06/17 18:07 Consult Discharge Plan - Plan Referrals: Davie Hanley DO [Primary Care Provider] -
--- NOTE | 2017-05-09 02:18 | Electrocardiograph Report ---
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
[2017-05-09] MEDS: Ipratropium/Albuterol Neb 3 ML IH SCH ×2 (04:20→10:34)
[2017-05-09] MEDS: *HR* Heparin 5,000 UNIT/ML VIAL SQ SCH (04:48)
[2017-05-09] MEDS: Famotidine 20 MG TABLET PO SCH (08:32)
[2017-05-09] MEDS: Aspirin 81 MG TAB.CHEW PO SCH (08:35)
[2017-05-09] MEDS: Budesonide/Formoterol 80/4.5 MDI IH SCH (10:37)
[2017-05-09 11:39] VITALS: BP 147/66
--- NOTE | 2017-05-09 14:20 | Discharge Summary ---
Date of Encounter: 05/09/17 Time of Encounter: 08:55 - Discharge Diagnosis (1) COPD (chronic obstructive pulmonary disease) Priority: Primary Status: Chronic Comments: Chronic. No obvious acute exacerbation at this time. His lungs are clear diminished, there is no wheezing, rales, rhonchi, no respiratory distress. He is not requiring supplemental oxygen. Patient reports that he has felt better since he was receiving nebulizer treatments while he was admitted. He has had no chest pain since prior to admission. He will continue his regular home medications after discharge. Qualifiers: COPD type: chronic bronchitis Chronic bronchitis type: unspecified Qualified Code(s): J42 - Unspecified chronic bronchitis (2) Chest pain Priority: Secondary Status: Resolved Comments: Patient is a 52-year-old male with past medical history for coronary disease status post PTCA, hypertension, dyslipidemia, CHF, obesity, COPD. With diffuse chest pain on both right and left side. Onset while watching TV on the day of admission. Admission note relates that patient had had the same chest pain in the days before. The pain was not relieved by nitroglycerin and aspirin. There are no aggravating or relieving factors. The chest pain is not reproducible. During exam today, patient denies chest pain since beginning scheduled breathing treatments. The suggestive of noncardiac chest pain, however, will proceed with stress test. Patient had limited echo in Sep, 2016. LVEF is 60-65% with normal LV size and systolic function and normal wall segment motion. Patient had LHC in November, that showed moderate atherosclerotic CAD. Left ventricle is normal. Patient had stent from prior procedure and LAD which was patent. EF was 50%. At that time on total medical therapy was recommended, as well as aggressive risk factor modification. Patient is having a stress test this visit, he has a 2 day stress test due to BMI. We do not have stress testing on Sundays, he will wait until Tuesday to continue testing. He is aware and agreeable. Patient has heart score 5. Due to this moderate risk, patient will stay overnight to continue stress test as planned instead of discharging and returning to finish outpatient. Stress test was negative, gated EF is 59%. There was a mild intensity, fixed perfusion defect involving the inferior wall. Findings were sales representative advertising of artifact. Continue home medications. Qualifiers: Chest pain type: unspecified Qualified Code(s): R07.9 - Chest pain, unspecified (3) Hypertension Priority: Secondary Status: Acute Comments: Chronic. Continue home medications. Qualifiers: Hypertension type: essential hypertension Qualified Code(s): I10 - Essential (primary) hypertension (4) Dyslipidemia Priority: Secondary Status: Chronic Comments: Chronic. Continue home medications. Lipid panel was within normal limits. (5) DVT prophylaxis Priority: Secondary Status: Acute Comments: Patient is ambulatory. He was also getting heparin subcutaneously. Patient has been up and in the chair. - Discharge Medications Home Medications: Allopurinol [Zyloprim 300 MG] 300 mg PO DAILY 05/01/15 [History] Aspirin 162 mg PO DAILY 05/01/15 [History] Clopidogrel Bisulfate [Plavix] 75 mg PO DAILY 05/01/15 [History] Famotidine [Pepcid] 40 mg PO DAILY 05/01/15 [History] Nitroglycerin [Nitrostat] 0.4 mg PO AD PRN 05/01/15 [History] Pantoprazole Sodium [Protonix] 40 mg PO DAILY 05/01/15 [History] Sertraline [Zoloft] 100 mg PO DAILY 05/01/15 [History] Fluticasone/Salmeterol [Advair 250-50 Diskus] 1 each IH BID 12/03/15 [History] Naproxen Sodium [Aleve] 220 mg PO BID PRN 05/06/17 [History] Allergies/Adverse Reactions: 3 Allergy/AdvReac Type Severity Reaction Status Date / Time hydrocodone [From Vicodin] Allergy Hallucinati Verified 10/26/16 09:06 ng ketorolac [From Toradol] Allergy Seizure Verified 10/26/16 09:06 Procedures/tests Complete & Pending: Procedures Performed prior 72 hours Category Date Time Status NM ramila perf SPECT multi [NM] Routine Exams 05/07/17 01:40 Taken SP pharm nuclear stress Routine Y 05/07/17 01:39 Completed Date of admission: 05/06/17 20:34 Primary care physician: Davie Hanley DO Discharging clinician: Fiona Stanford Anticipated date of discharge: 05/09/17 - Patient Status Disposition: Home, Self-Care Condition: Good Functional capacity at discharge: independent ambulation Overall status at discharge: patient is back to baseline - Discharge Instructions Follow Up With: Davie Hanley DO [Primary Care Provider] - Additional Instructions: Please resume your normal home medications. Please follow-up with your primary care provider in the next 7-10 days for recheck. Return to the emergency department as needed for any other problems or concerns , or if symptoms return or worsen. Return to her normal activities and diet as tolerated. - Diet and Activity Activity: increase activity as tolerated Diet: advance to your usual diet Hospital course: Mr. Faustin is a 52 year old male who presented to the emergency department with COPD exacerbation, as well as chest pain. Chest pain was relieved with multiple breathing treatments. Chest pain was most likely related to COPD exacerbation. Patient with extensive prior cardiac history, due to this and the heart score 5. He was held over first 2 day stress instead of going home on the day in between. Hospital does not provide stress test on Tuesday, he was held over until Tuesday. He denies chest pain on discharge. His vitals are stable and within normal limits. He will continue his home medications after discharge. Please see assessment and plan for hospital course. - Time Spent with Patient Total time spent providing and/or coordinating discharge services: Less than 30 minutes - Constitutional Vitals: Temp Pulse Resp BP Pulse Ox 97.5 F L 74 18 147/66 96 05/09/17 11:37 05/09/17 11:37 05/09/17 11:37 05/09/17 11:37 05/09/17 11:37 General appearance: Present: cooperative, A&O X 3, pleasant, no acute distress, answers questions appropriately - Head Head exam: Present: atraumatic, normal inspection, normocephalic - Eye Eye exam: Present: normal appearance, conjuntiva pink, sclera anicteric - Neck Neck exam general surgery: Present: supple, trachea midline. Absent: lymphadenopathy, tenderness - Respiratory Respiratory exam: Present: CTAB. Absent: accessory muscle use, chest wall tenderness, rales, respiratory distress, rhonchi, wheezes - Cardiovascular Cardiovascular exam: Present: RRR, +S1, +S2. Absent: diastolic murmur, gallop, rubs, systolic murmur - GI/Abdominal GI/Abdominal exam: Present: normal bowel sounds, soft, no peritoneal signs. Absent: distended, hepatomegaly, tenderness - Extremities Exam Extremities exam: Present: normal capillary refill, normal inspection, warm, radial pulses palpable and symmetrical. Absent: calf tenderness, cyanotic, pedal edema, tenderness - Neurological Exam Neurological exam: Present: alert, oriented X3, no focal deficits, pronater drift. Absent: altered, facial droop, speech deficit - Skin Skin exam: Present: dry, intact, normal color, warm. Absent: rash
== END 2017-05-09 14:58 | disposition home or self-care (01) ==
LOC: 3BNU 17:19 → EMEROO 17:19 → 3BNU 20:47
PROVIDERS: ADMIT Internal Medicine; ATTEND Registered Nurse

== ENCOUNTER 2017-06-24 19:22 | Observation (INO) ==
[2017-06-24 21:16] LABS: Basophils # 0.1 K/mcL (0.0-0.2); Eosinophils # 0.2 K/mcL (0.0-0.6); Eosinophils % 2.6 %; Hematocrit 43.6 % (37.5-50.1); Hemoglobin 14.5 g/dL (12.9-16.9); Immature Granulocytes % 0.3 % (0-4); Lymphocytes # 2.7 K/mcL (0.6-4.6); Lymphocytes % 31.2 %; Mean Corpuscular HGB Conc 33.3 g/dL (31.6-35.5); Mean Corpuscular Hemoglobin 28.9 pg (28.0-33.3); Mean Corpuscular Volume 86.9 fL (83.0-100.0); Mean Platelet Volume 10.3 fL (9.4-12.4); Monocytes # 0.5 K/mcL (0.0-1.3); Monocytes % 5.6 %; Neutrophils # 5.2 K/mcL (1.6-8.9); Platelet Count 236 K/mcL (140-400); Red Blood Count 5.02 M/mcL (4.19-5.50); Red Cell Distribution Width 12.6 % (11.5-14.5); Segmented Neutrophils % 59.3 %
[2017-06-24 21:32] LABS: BUN/Creatinine Ratio 15 (6-26); Blood Urea Nitrogen 15 mg/dL (6-20); Calcium 9.9 mg/dL (8.6-10.3); Carbon Dioxide 23 mEq/L (23-29); Chloride 105 mEq/L (98-107); Glucose 98 mg/dL (70-105); Osmolality,Calculated 281 (280-300); Potassium 4.1 mEq/L (3.5-5.1); Sodium 135 mEq/L (136-145); eGFR For African Americans > 60 (> 60); eGFR For Non-African Americans > 60 (> 60)
--- NOTE | 2017-06-24 21:41 | Emergency Department Note ---
Disposition Clinical Impression: Chest pain Qualifiers: Chest pain type: unspecified Qualified Code(s): R07.9 - Chest pain, unspecified Disposition: Admitted As Inpatient Condition: Good Time of Disposition: 21:46 General Adult HPI - General Chief complaint: ED Chest Pain Stated complaint: CP, SOB Time Seen by Provider: 06/24/17 21:09 Source: patient Limitations: no limitations Nursing Notes Reviewed: Yes Vital Signs Reviewed: Yes - History of Present Illness HPI Narrative: Patient is a 52-year-old male that presents to the emergency department with chest pain that began around 1730. He states that the chest pain is in his left chest and radiates into his neck, jaw and into his left arm. States that he has also been a little bit lightheaded with this. The patient reports that he has been nauseated, short of breath and has had some stomach pain with it. Patient states this feels similar to a previous [place]. States that nothing seems to make it any better. He describes the pain as pressure-like and rates it as an 8 out of 10. He states that his most recent cath approximately 2 years ago. Pain Scale: 4 - Related Data Home Medications Medication Instructions Recorded Confirmed Allopurinol [Zyloprim 300 MG] 300 mg PO DAILY 05/01/15 05/06/17 Aspirin 162 mg PO DAILY 05/01/15 05/06/17 Clopidogrel Bisulfate [Plavix] 75 mg PO DAILY 05/01/15 05/06/17 Nitroglycerin [Nitrostat] 0.4 mg PO AD PRN 05/01/15 05/06/17 Sertraline [Zoloft] 100 mg PO DAILY 05/01/15 05/06/17 Fluticasone/Salmeterol [Advair 1 each IH BID 12/03/15 05/06/17 250-50 Diskus] Albuterol Sulfate [Ventolin Hfa] 2 puff IH Q4H PRN 06/24/17 06/24/17 Cyclobenzaprine HCl 5 mg PO TID PRN 06/24/17 06/24/17 Diclofenac Sodium [Voltaren] 2 - 4 gm TP QID PRN 06/24/17 06/24/17 Dicyclomine [Bentyl] 10 - 20 mg PO QID PRN 06/24/17 06/24/17 Isosorbide MONOnitrate (24 HR) 60 mg PO DAILY 06/24/17 06/24/17 [Imdur] Pantoprazole Sodium [Protonix] 40 mg PO DAILY 06/24/17 06/24/17 Ranitidine HCl [Zantac] 300 mg PO HS 06/24/17 06/24/17 Allergies Allergy/AdvReac Type Severity Reaction Status Date / Time hydrocodone [From Vicodin] Allergy Hallucinati Verified 10/26/16 09:06 ng ketorolac [From Toradol] Allergy Seizure Verified 10/26/16 09:06 All systems ED: reviewed and negative except as stated. Cardiovascular: Reports: chest pain Respiratory: Reports: dyspnea Gastrointestinal: Reports: abdominal pain, nausea Past Medical History - Past Medical History Medical history: Reports: CHF, COPD, coronary artery disease, GERD, hyperlipidemia, hypertension, myocardial infarction, TIA Surgical history: Reports: angioplasty/stent, cataract, knee replacement Psychiatric history: Reports: anxiety, depression - Social History Smoking Status: Never smoker Smokeless Tobacco Status: No Alcohol use: Reports: none Drug use: Reports: none Physical Exam - General Limitations: no limitations General appearance: alert, in no apparent distress - Head Head exam: atraumatic, normocephalic - Eye Eye exam: Present: normal appearance, EOMI - Neck Neck exam: Present: normal inspection. Absent: full ROM, trachea midline - Respiratory Respiratory exam: Present: normal lung sounds bilaterally. Absent: respiratory distress, wheezes - Cardiovascular Cardiovascular exam: Present: regular rate, normal rhythm, normal heart sounds, +S1, +S2 - Abdominal Exam Abdominal exam: Present: soft, Non-Tender, normal bowel sounds - Neurological Exam Neurological exam: Present: alert, oriented X3 - Psychiatric Psychiatric exam: Present: normal affect, normal mood - Skin Skin exam: Present: warm, dry, intact Course Vital Signs Temperature 98.5 F 06/24/17 19:47 Pulse Rate 57 06/24/17 19:47 Respiratory Rate 20 06/24/17 19:47 Blood Pressure 180/106 06/24/17 19:47 O2 Sat by Pulse Oximetry 96 06/24/17 19:47 Temperature 98.5 F 06/24/17 19:47 Pulse Rate 53 06/24/17 22:43 Respiratory Rate 16 06/24/17 22:43 Blood Pressure 134/88 06/24/17 22:43 O2 Sat by Pulse Oximetry 95 06/24/17 22:43 Oxygen Delivery Oxygen Delivery Room Air Medical Decision Making - MDM Narrative Medical decision making narrative: Due to the patient having chest pain and body aches we will order a CBC, BMP, troponin, chest x-ray and an EKG. due to the patient's presenting history and extensive cardiac history that he has had the patient will need to be admitted to the hospital for further evaluation and management. The patient's EKG showed a sinus bradycardia at a rate of 58 bpm. troponin was negative. The remainder of the patient's laboratory testing was unremarkable. Chest x-ray showed no acute process per radiology read. The patient is currently stable. The patient will be given a trial of nitroglycerin. The patient will need to be admitted to the hospital for further evaluation and management. - Medical Records Medical records reviewed: Yes I reviewed the patient's medical records. - Lab Data Lab results reviewed: Yes I reviewed the patient's lab results. Result diagrams: 06/24/17 21:01 06/24/17 21:01 Lab Results 06/24/17 06/24/17 06/24/17 Range/Units 21:01 21:01 21:01 WBC 8.7 (4.3-11.1) K/mcL RBC 5.02 (4.19-5.50) M/mcL Hgb 14.5 (12.9-16.9) g/dL Hct 43.6 (37.5-50.1) % MCV 86.9 (83.0-100.0) fL MCH 28.9 (28.0-33.3) pg MCHC 33.3 (31.6-35.5) g/dL RDW 12.6 (11.5-14.5) % Plt Count 236 (140-400) K/mcL MPV 10.3 (9.4-12.4) fL Immature Gran % 0.3 (0-4) % Seg Neutrophils % 59.3 % Lymphocytes % 31.2 % Monocytes % 5.6 % Eosinophils % 2.6 % Basophils % 1.0 % Neutrophils # 5.2 (1.6-8.9) K/mcL Lymphocytes # 2.7 (0.6-4.6) K/mcL Monocytes # 0.5 (0.0-1.3) K/mcL Eosinophils # 0.2 (0.0-0.6) K/mcL Basophils # 0.1 (0.0-0.2) K/mcL Sodium 135 L (136-145) mEq/L Potassium 4.1 (3.5-5.1) mEq/L Chloride 105 (98-107) mEq/L Carbon Dioxide 23 (23-29) mEq/L BUN 15 (6-20) mg/dL Creatinine 1.03 (0.70-1.30) mg/dL Est GFR ( Amer) > 60 (> 60) Est GFR (Non-Af Amer) > 60 (> 60) BUN/Creatinine Ratio 15 (6-26) Glucose 98 (70-105) mg/dL Calculated Osmolality 281 (280-300) Calcium 9.9 (8.6-10.3) mg/dL Troponin I < 0.03 (< 0.04) ng/mL - Radiology Data Radiology results reviewed: Yes I reviewed the patient's radiology results. Chest X-Ray 06/24/17 19:49 IMPRESSION: No acute process. D/ / Pily Cuevas MD / Pily Cuevas MD Interpreting Provider: Pily Cuevas MD - EKG Data EKG #1 EKG attestation: Yes I reviewed and interpreted this EKG. EKG results narrative: EKG showed a sinus bradycardia at a rate of 58 bpm, OK interval of 187, curious duration of 101, QTC of 377 with a normal axis. No STEMI noted on EKG. This is compared to previous EKG on 05/06/17 which showed sinus bradycardia at a rate of 54 bpm. Attestation Statement - Attestation Attestation: I examined this patient and my medical decision-making was reviewed with the Resident Physician. I agree with the documented findings, disposition and treatment plan as described except to the extent set forth below. Patiently and left chest pain radiating to his jaw and left arm. Patient is a history of coronary artery disease. His last heart catheter was then 2012, and his last heart catheter was 2 years ago. He has nitroglycerin home but he did not take it. He states he gets a headache. He recently saw Dr. Mac and stated that he would need a Holter monitor and a heart catheter coming up in the near future. On examination he is in no acute distress. He is hypertensive with a systolic blood pressure 180. Lungs clear. Heart regular rate and rhythm. His heart rate is in the 50s. Plan. Cardiac workup. Nitroglycerin trial. Likely admission.
[2017-06-24] MEDS: Nitroglycerin 0.4 MG TAB.SUBL SL PRN ×2 (21:53→22:00)
[2017-06-24] MEDS ORDERED: Aspirin 325 MG TABLET PO ONE (22:03)
[2017-06-24] MEDS ORDERED: *HR* FentaNYL (PF) 100 MCG/2 ML VIAL IVP ONE (22:36)
[2017-06-25] MEDS ORDERED: Naloxone 0.4 MG/ML INJ IVP PRN (00:07)
[2017-06-25] MEDS ORDERED: Nitroglycerin 1 INCH/GM PACKET TP ONE (00:22)
[2017-06-25] MEDS: Ondansetron 4 MG/2 ML VIAL IVP PRN ×2 (00:49→09:47)
[2017-06-25] MEDS ORDERED: Diclofenac Sodium [Voltaren] 2 GM TP PRN (00:58)
--- NOTE | 2017-06-25 01:12 | Internal Med History&Physical ---
Date of Encounter: 06/25/17 Time of Encounter: 00:15 Assessment and Plan (1) Chest pain Current visit: Yes Status: Acute left-sided chest pain. Trend troponins. Monitor with telemetry. History of coronary artery disease and PTCA. Negative stress test last month. Will consult cardiology for recommendations. Patient reports that he saw Dr. Mac recently and was advised that he may need Holter monitor and cardiac catheterization as outpatient. Qualifiers: Chest pain type: precordial pain Qualified Code(s): R07.2 - Precordial pain (2) Abdominal pain Current visit: Yes Status: Acute Patient complaining of lower abdominal pain with associated nausea. We will get CT scan of the abdomen and pelvis. Keep nothing by mouth for now. Qualifiers: Abdominal location: lower abdomen, unspecified Qualified Code(s): R10.30 - Lower abdominal pain, unspecified (3) COPD (chronic obstructive pulmonary disease) Current visit: Yes Status: Chronic Not in acute extubation. Will use bronchodilators as needed. Qualifiers: COPD type: chronic bronchitis Chronic bronchitis type: unspecified Qualified Code(s): J42 - Unspecified chronic bronchitis (4) Leg pain, bilateral Current visit: Yes Status: Acute Possibly due to restless leg syndrome. Will start Requip (5) Hypertension Current visit: Yes Status: Chronic Blood pressure was elevated earlier today but has now improved. Will continue home medications Qualifiers: Hypertension type: essential hypertension Qualified Code(s): I10 - Essential (primary) hypertension (6) Coronary artery disease Current visit: Yes Status: Chronic Continue aspirin, statin. Check lipid profile. Qualifiers: Coronary Disease-Associated Artery/Lesion type: [place] artery [place] vs. transplanted heart: [place] heart Associated angina: angina presence unspecified Qualified Code(s): I25.10 - Atherosclerotic heart disease of [place] coronary artery without angina pectoris Internal Medicine - H&P: HPI Chief complaint: Chest pain Admitted From: Emergency Dept Plans for Post Hospital Care: Home History of present illness: Mr. Faustin is a 52 year old male patient with a history of coronary artery disease status post PTCA, hypertension, dyslipidemia, COPD, CHF presented to the ER with complaints of left-sided chest pain. This began yesterday evening. Pain was mainly in the left side of the chest and radiating up to the jaw and left arm. He came to the ER and was given pain medications with improvement in his symptoms. He also describes abdominal pain in the lower abdominal quadrants. Associated with nausea. No cough but she does have occasional shortness of breath. He also complains of cramping pain in his lower extremities that again began yesterday. Patient was hospitalized in April 2017 with complaints of chest pain. During that time he underwent cardiac stress test which was negative for ischemia or infarct. He says his chest pain improved but did not go away completely following that hospitalization. Past Med Surg Social Fam HX - Past Medical History Attestation: Yes The following information was validated with the patient. Source: patient Medical history: COPD, coronary artery disease, GERD, hyperlipidemia, hypertension, myocardial infarction, TIA Psychiatric history: anxiety, depression - Past Surgical History Surgical History: angioplasty/stent, cataract, knee replacement - Social History Smoking Status: Never smoker Smokeless Tobacco Status: No Alcohol use: none Drug use: none - Family History Mother Living Status: Hx Family Cancer: Yes Father Family Member Ethnicity: Non- Living Status: Hx Family Cardiac Disorders: Yes Internal Medicine - H&P: Meds Allopurinol [Zyloprim 300 MG] 300 mg PO DAILY 05/01/15 [History] Aspirin 81 mg PO BID 05/01/15 [History] Clopidogrel Bisulfate [Plavix] 75 mg PO DAILY 05/01/15 [History] Nitroglycerin [Nitrostat] 0.4 mg PO Q5M PRN 05/01/15 [History] Sertraline [Zoloft] 100 mg PO BID 05/01/15 [History] Fluticasone/Salmeterol [Advair 250-50 Diskus] 1 each IH BID 12/03/15 [History] Albuterol Sulfate [Ventolin Hfa] 2 puff IH Q4H PRN 06/24/17 [History] Cyclobenzaprine HCl 5 mg PO TID PRN 06/24/17 [History] Diclofenac Sodium [Voltaren] 2 - 4 gm TP QID PRN 06/24/17 [History] Dicyclomine [Bentyl] 10 - 20 mg PO QID PRN 06/24/17 [History] Isosorbide MONOnitrate (24 HR) [Imdur] 60 mg PO DAILY 06/24/17 [History] Pantoprazole Sodium [Protonix] 40 mg PO DAILY 06/24/17 [History] Ranitidine HCl [Zantac] 300 mg PO HS 06/24/17 [History] 3 Allergy/AdvReac Type Severity Reaction Status Date / Time hydrocodone [From Vicodin] Allergy Hallucinati Verified 10/26/16 09:06 ng ketorolac [From Toradol] Allergy Seizure Verified 10/26/16 09:06 All Systems PM: A 10-system review of systems was performed and is negative for pertinent findings except as documented above in the HPI. - Constitutional Constitutional: no chills, no fever(s), no night sweats - EENT Eyes: no change in vision, no discharge, no pain, no photophobia Ears: no ear discharge, no ear pain, no tinnitus Nose, mouth and throat: no dysphagia, no nasal discharge, no neck pain, no sore throat - Cardiovascular Cardiovascular ROS IM: chest pain, dyspnea, no diaphoresis, no lightheadedness, no palpitations, no syncope - Respiratory Respiratory: no cough, no dyspnea, no wheezing, no excessive phlegm production - Gastrointestinal Gastrointestinal: no abdominal pain, no diarrhea, no hematemesis, no hematochezia, no melena, no nausea, no vomiting - Musculoskeletal Musculoskeletal ROS IM: no numbness, no tingling - Integumentary Integumentary IM: no rash, no unusual bruising - Neurological Neurological ROS: no confusion, no convulsions, no focal weakness, no numbness, no tingling, no tremor(s) - Hematologic/Lymphatic Hematologic/Lymphatic: no easy bruising - Constitutional Vitals: Temp Pulse Resp BP Pulse Ox 98.0 F 82 16 136/90 94 06/25/17 00:21 06/25/17 00:21 06/25/17 00:21 06/25/17 00:21 06/25/17 00:21 General appearance: Present: cooperative, A&O X 3, morbidly obese, answers questions appropriately - Respiratory Respiratory exam: Present: CTAB. Absent: accessory muscle use, rales, rhonchi, wheezes - Cardiovascular Cardiovascular exam: Present: RRR, +S1, +S2. Absent: diastolic murmur, gallop, rubs, systolic murmur Additional comments: Left-sided chest wall tenderness present - GI/Abdominal GI/Abdominal exam: Present: normal bowel sounds, soft, tenderness (Lower abdominal quadrants), no peritoneal signs. Absent: distended - Extremities Exam Extremities exam: Present: warm, radial pulses palpable and symmetrical. Absent : calf tenderness, cyanotic, pedal edema - Neurological Exam Neurological exam: Present: CN II-XII intact, oriented X3, no focal deficits. Absent: facial droop, speech deficit - Skin Skin exam: Present: dry, intact Internal Med - H&P Results - Labs CBC & Chem 7: 06/24/17 21:01 06/24/17 21:01 - EKG Data -: EKG Interpreted by Myself EKG shows normal: sinus rhythm Rate: bradycardia - EKG Data EKG comments: 06/25/17 01:13 Sinus rhythm with bradycardia heart rate of 58 - Impressions Impressions Chest X-Ray 06/24/17 19:49 IMPRESSION: No acute process. D/ / Pily Cuevas MD / Pily Cuevas MD Interpreting Provider: Pily Cuevas MD
[2017-06-25] MEDS ORDERED: Isosorbide MONOnitrate (24 HR) 60 MG TAB.ER.24H PO SCH (09:00)
--- NOTE | 2017-06-25 09:58 | Electrocardiograph Report ---
[place] [id number] Test Date: 2017-06-24 Pat Name: Kwesi Faustin Department: 102 Room: 3B Gender: M [place] Man: : 1965 Requested By: Amirah See Order Number: [id number] Reading MD: Sushila Diaz Measurements Intervals [place] Rate: 58 P: 7 PA: 187 QRS: 6 QRSD: 101 T: 34 QT: 381 QTc: 377 Interpretive Statements SINUS BRADYCARDIA Electronically Signed On 06-25-2017 9:56:42 EST by Sushila Diaz
[2017-06-25] MEDS ORDERED: Budesonide/Formoterol 80/4.5 MDI IH SCH (10:00)
[2017-06-25] MEDS: Aspirin 81 MG TAB.CHEW PO SCH ×2 (10:16→19:47)
[2017-06-25] MEDS ORDERED: Gabapentin 100 MG CAPSULE PO ONE (11:00)
--- NOTE | 2017-06-25 13:20 | Cardiology Consult Note ---
Date of Encounter: 06/25/17 Time of Encounter: 12:00 Assessment and Plan (1) Chest pain Current Visit: Yes Status: Acute Chest pain atypical, has ruled out for ACS by EKG and enzematic criteria, previous stress test normal approximately three weeks ago, low probability of cardiac etiololgy of chest pain. Pt reports previous studies were all normal before LHC/PCI 2007 at [facility], [facility], have requested previous records for evaluation. Will add low dose beta blockade, Ranexa for optimum medical tx, increase ambulation and monitor response. Qualifiers: Chest pain type: other chest pain Qualified Code(s): R07.89 - Other chest pain; R07.8 - Other chest pain (2) CAD (coronary artery disease) Current Visit: Yes Status: Chronic Qualifiers: Coronary Disease-Associated Artery/Lesion type: [place] artery [place] vs. transplanted heart: [place] heart Associated angina: angina presence unspecified Qualified Code(s): I25.10 - Atherosclerotic heart disease of [place] coronary artery without angina pectoris (3) Abdominal pain Current Visit: Yes Status: Acute unclear etiology, vague and varied response to questions, appreciate efforts of primary care team, CT pending. Qualifiers: Abdominal location: epigastric Qualified Code(s): R10.13 - Epigastric pain (4) Leg pain Current Visit: Yes Status: Acute Unclear etiology, does not describe claudication symptoms, appreciate primary care team efforts. Qualifiers: Laterality: bilateral Qualified Code(s): M79.604 - Pain in right leg; M79.605 - Pain in left leg; M79.605 - Pain in left leg (5) Hypertension Current Visit: Yes Status: Chronic Not well controlled, will monitor with addition of Ranexa and Coreg. Qualifiers: Hypertension type: essential hypertension Qualified Code(s): I10 - Essential (primary) hypertension Discussion w patient/family: The assessment and plan as outlined above was discussed with the patient and/or family members who expressed understanding and agreement. All questions were answered. Thank you for involving us in the care of your patient. Please call with any questions. History of Present Illness Consult date: 06/25/17 Requesting physician: Ondina Cochran Consult reason: Chest pain Chief complaint: Chest pain History of present illness: Mr. Faustin is a 52 year old male who presents to the ER with multple complaints, including left sided chest pain. He reports two day history of left sided chest pain, dull ache which sometimes becomes a sharp stabbing pain, 10/10 at most severe but usually 3/10, associated with radiation into left shoulder, occurs at rest, not provoked by activity, lasts two minutes to twenty four hours. He is able to fall asleep during episodes of chest pain. He has not tried sl ntg for this discomfort. Pt reports similar pain in 04/2017, when he was hospitalized for similar pain, underwent full ACS evaluation including troponins, EKg and stress imaging, all of which were essentially normal. He reports the chest pain improved for several days, now is back. He also complains of legs cramping intermittantly, GERD with epigastric burning which is more severe, does not feel medications for GERD are working. Past Med Surg Social Fam HX - Past Medical History Medical history: COPD, coronary artery disease, GERD, hyperlipidemia, hypertension, myocardial infarction, TIA Psychiatric history: anxiety, depression - Past Surgical History Surgical History: angioplasty/stent, cataract, knee replacement - Social History Smoking Status: Never smoker Smokeless Tobacco Status: No Alcohol use: none Drug use: none - Family History Mother Living Status: Hx Family Cancer: Yes Father Family Member Ethnicity: Non- Living Status: Hx Family Cardiac Disorders: Yes Medications and Allergies Allopurinol [Zyloprim 300 MG] 300 mg PO DAILY 05/01/15 [History] Aspirin 81 mg PO BID 05/01/15 [History] Clopidogrel Bisulfate [Plavix] 75 mg PO DAILY 05/01/15 [History] Nitroglycerin [Nitrostat] 0.4 mg PO Q5M PRN 05/01/15 [History] Sertraline [Zoloft] 100 mg PO BID 05/01/15 [History] Fluticasone/Salmeterol [Advair 250-50 Diskus] 1 each IH BID 12/03/15 [History] Albuterol Sulfate [Ventolin Hfa] 2 puff IH Q4H PRN 06/24/17 [History] Cyclobenzaprine HCl 5 mg PO TID PRN 06/24/17 [History] Diclofenac Sodium [Voltaren] 2 - 4 gm TP QID PRN 06/24/17 [History] Dicyclomine [Bentyl] 10 - 20 mg PO QID PRN 06/24/17 [History] Isosorbide MONOnitrate (24 HR) [Imdur] 60 mg PO DAILY 06/24/17 [History] Pantoprazole Sodium [Protonix] 40 mg PO DAILY 06/24/17 [History] Ranitidine HCl [Zantac] 300 mg PO HS 06/24/17 [History] 3 Allergy/AdvReac Type Severity Reaction Status Date / Time hydrocodone [From Vicodin] Allergy Hallucinati Verified 10/26/16 09:06 ng ketorolac [From Toradol] Allergy Seizure Verified 10/26/16 09:06 All Systems Review: A 10-system review of systems was performed and is negative for pertinent findings except as documented above in the HPI. - Constitutional Constitutional: fatigue, lethargy - Cardiovascular Cardiovascular: as per HPI - Respiratory Respiratory: cough - Gastrointestinal Gastrointestinal: abdominal pain, nausea - Musculoskeletal Musculoskeletal: arthralgias, muscle cramps, muscle weakness, other (Cramps in legs and arms, ) - Neurological Neurological: dizziness Physical Examination Vital Signs, Last 4 Hours Temp Pulse Resp BP Pulse Ox 06/25/17 12:00 97.7 F 50 16 123/81 93 General: Conversant HEENT: Atraumatic, Normocephaly Neck: No JVD Cardiac: Reg Rate and Rhythm, Normal S1 and S2, Other (positive S4, chest wall tender to palpation, does not reproduce admitting chest pain.) Lungs: Normal Breath Sounds, No Wheeze, Rales, Rhonchi Neuro: Alert and responsive, No focal deficits noted Abdomen: Soft, Other (mild epigastric tenderness, no rebound) Skin: No rashes noted on visualized skin Musculoskeletal: No Chest Wall Tenderness Extremities: No Clubbing, No Cyanosis, No Edema, Normal Pulses Results 06/24/17 21:01 06/24/17 21:01 Lab Results 06/25/17 06/25/17 03:17 09:47 Troponin I < 0.03 < 0.03 Consult Discharge Plan - Plan Referrals: Davie Hanley DO [Primary Care Provider] -
--- NOTE | 2017-06-25 16:40 | Internal Med Progress Note ---
Date of Encounter: 06/25/17 Time of Encounter: 16:36 - Assessment and plan (1) Chest pain Current Visit: Yes Status: Acute Assessment and plan: Patient presented to the emergency room for evaluation of left-sided chest pain. Toponins normal Continue cardiac monitoring History of coronary artery disease and PTCA. Patient reports that he saw Dr. Mac recently and was advised that he may need Holter monitor and cardiac catheterization as outpatient. Cardiology saw and made the following observations: Atypical chest pain, has ruled out for ACS by EKG and enzyme criteria. Stress test completed 3 weeks ago with low probability of cardiac etiology of chest pain Cardiology has requested reports from RN for LHC/PCI 2008 Added low dose beta blockade, Ranexa for optimum medical tx, increase ambulation and monitor response. Qualifiers: Chest pain type: precordial pain Qualified Code(s): R07.2 - Precordial pain (2) CAD (coronary artery disease) Current Visit: Yes Status: Chronic Assessment and plan: Please see plan above under chest pain Cardiac catheterization 12/04/[address] Mac Qualifiers: Coronary Disease-Associated Artery/Lesion type: [place] artery [place] vs. transplanted heart: [place] heart Associated angina: angina presence unspecified Qualified Code(s): I25.10 - Atherosclerotic heart disease of [place] coronary artery without angina pectoris (3) Abdominal pain Current Visit: Yes Status: Acute Assessment and plan: Patient had complained of diffuse abdominal pain Currently tolerating his diet CT of abdomen and pelvis was reviewed Impression of cholelithiasis with no CT evidence of acute cholecystitis or biliary obstruction No bowel obstruction or perforation Qualifiers: Abdominal location: lower abdomen, unspecified Qualified Code(s): R10.30 - Lower abdominal pain, unspecified (4) Leg pain, bilateral Current Visit: Yes Status: Acute Assessment and plan: Patient states he has a long history of lower back problems with multiple injections and ablation in the past. He states the leg pain has been going on for some time and wakes him up at night. Discussed different modalities. Abdomen Neurontin Continue Requip (5) Hypertension Current Visit: Yes Status: Chronic Assessment and plan: Pressure stable heart rate in the 50s Continue medications as per cardiology service Qualifiers: Hypertension type: essential hypertension Qualified Code(s): I10 - Essential (primary) hypertension (6) Cholelithiasis Current Visit: Yes Status: Acute Assessment and plan: Seen on CT of abdomen and pelvis Asymptomatic at this time Qualifiers: Cholecystitis presence: without cholecystitis Biliary obstruction: without biliary obstruction Qualified Code(s): K80.20 - Calculus of gallbladder without cholecystitis without obstruction (7) Back pain Current Visit: Yes Status: Chronic Assessment and plan: Patient has long-standing history of back problems and states he has spina bifida, reports new symptoms of leg pain and tingling add a Lidoderm patch add tramadol MRI of the thoracic and lumbar spine Qualifiers: Back pain location: low back pain Chronicity: chronic Back pain laterality: bilateral Sciatica presence: unspecified whether sciatica present Qualified Code(s): M54.5 - Low back pain; G89.29 - Other chronic pain; G89.29 - Other chronic pain - Subjective Interval history: Patient is having no chest pain at this time. His abdominal pain is much better. His major complaint now is pain and numbness and tingling of both lower extremities and tingling into his hands. He has are frustrated as he states he was told by his cardiology on an outpatient basis as he probably needed to have a cardiac catheterization. Cardiology saw him today and are going to manage him medically. He also has a history of multiple spinal injections and an ablation by that no longer practices in the area and outpatient pain clinic. He feels that his back pain and leg discomfort has been getting worse and worse and interferes with his sleep. He denies fever, chills, shortness of breath, chest pain, headache, nausea, vomiting, changes in bowel or bladder or syncope. He states his left side is weaker than his right. Discussed with him at length pain control methods that he has tried in the past and we have come to an agreement on some things to try on this admission. - Constitutional Vitals: Temp Pulse Resp BP Pulse Ox 98.5 F 55 16 113/70 93 06/25/17 15:14 06/25/17 15:14 06/25/17 15:14 06/25/17 15:14 06/25/17 15:14 General appearance: Present: cooperative, A&O X 3, morbidly obese, pleasant, no acute distress, obese, answers questions appropriately - Head Head exam: Present: atraumatic, normocephalic - Eye Eye exam: Present: conjuntiva pink, sclera anicteric - Neck Neck exam general surgery: Present: supple, trachea midline. Absent: lymphadenopathy - Respiratory Respiratory exam: Present: CTAB. Absent: accessory muscle use, rales, rhonchi, wheezes - Cardiovascular Cardiovascular exam: Present: RRR, +S1, +S2. Absent: diastolic murmur, gallop, rubs, systolic murmur - GI/Abdominal GI/Abdominal exam: Present: normal bowel sounds, soft, no peritoneal signs. Absent: distended, tenderness Additional comments: Obese - Extremities Exam Extremities exam: Present: warm, radial pulses palpable and symmetrical. Absent : calf tenderness, cyanotic, pedal edema - Neurological Exam Neurological exam: Present: alert, oriented X3, no focal deficits, strengths equal and symetr throughout. Absent: pronater drift, facial droop, speech deficit - Skin Skin exam: Present: dry, intact, warm Internal Medicine: Result - Labs CBC & Chem 7: 06/24/17 21:01 06/24/17 21:01 Labs: Cardiac Enzymes 06/25/17 06/25/17 Range/Units 03:17 09:47 Troponin I < 0.03 < 0.03 (< 0.04) ng/mL - Impressions Impressions Abdomen/Pelvis CT 06/25/17 00:58 IMPRESSION: 1. Cholelithiasis with no CT evidence of acute cholecystitis or biliary obstruction. 2. No bowel obstruction or perforation. D/ / 06/25/2017 10:27:48 Craig Causey MD / jaky Interpreting Provider: Craig Causey MD Consult Discharge Plan - Plan Referrals: Davie Hanley DO [Primary Care Provider] -
[2017-06-25] MEDS: traMADol 50 MG TABLET PO PRN (16:56)
[2017-06-25] MEDS: Gabapentin 100 MG CAPSULE PO SCH (19:47)
[2017-06-25] MEDS: Ranolazine 500 MG TAB.ER.12H PO SCH (19:47)
[2017-06-25] MEDS ORDERED: rOPINIRole 0.25 MG TABLET PO SCH (21:00)
[2017-06-26] MEDS: traMADol 50 MG TABLET PO PRN ×2 (01:13→08:40)
[2017-06-26] MEDS: Gabapentin 100 MG CAPSULE PO SCH (08:39)
[2017-06-26] MEDS: Aspirin 81 MG TAB.CHEW PO SCH (08:40)
[2017-06-26] MEDS: Ranolazine 500 MG TAB.ER.12H PO SCH (08:40)
[2017-06-26 11:26] VITALS: BP 132/82
--- NOTE | 2017-06-26 12:20 | Discharge Summary ---
Date of Encounter: 06/26/17 Time of Encounter: 12:18 - Discharge Diagnosis (1) Chest pain Priority: Primary Status: Acute Comments: Patient presented to the emergency room for evaluation of left-sided chest pain. Toponins normal History of coronary artery disease and PTCA. Patient reports that he saw Dr. Mac recently and was advised that he may need Holter monitor and cardiac catheterization as outpatient. Patient without palpitaions or chest pain overnight Cardiology saw and made the following observations: Atypical chest pain, has ruled out for ACS by EKG and enzyme criteria. Stress test completed 3 weeks ago with low probability of cardiac etiology of chest pain Cardiology has requested reports from [facility] for LHC/PCI 2008 Added low dose beta blockade, Ranexa for optimum medical tx, increase ambulation and monitor response. Qualifiers: Chest pain type: precordial pain Qualified Code(s): R07.2 - Precordial pain (2) CAD (coronary artery disease) Priority: Primary Status: Chronic Comments: Please see plan above under chest pain Cardiac catheterization 12/04/[address] Mac Qualifiers: Coronary Disease-Associated Artery/Lesion type: [place] artery [place] vs. transplanted heart: [place] heart Associated angina: angina presence unspecified Qualified Code(s): I25.10 - Atherosclerotic heart disease of [place] coronary artery without angina pectoris (3) Abdominal pain Priority: Primary Status: Chronic Comments: Patient had complained of diffuse abdominal pain Currently tolerating his diet with no further complaints positive normal bowel movement CT of abdomen and pelvis was reviewed Impression of cholelithiasis with no CT evidence of acute cholecystitis or biliary obstruction No bowel obstruction or perforation Qualifiers: Abdominal location: lower abdomen, unspecified Qualified Code(s): R10.30 - Lower abdominal pain, unspecified (4) Leg pain, bilateral Priority: Primary Status: Acute Comments: Patient states he has a long history of lower back problems with multiple injections and ablation in the past. He states the leg pain has been going on for some time and wakes him up at night. He had some leg tingeling when ambulating today but overall his symptoms are better this am Discussed different modalities. Continue Neurontin Continue Requip MRI of thoracic and lumbar spine reviewed with patient/ they are going to f/u with pain management doctor outpatient (5) Hypertension Priority: Secondary Status: Chronic Comments: Pressure stable heart rate in the 50s Continue medications as per cardiology services Qualifiers: Hypertension type: essential hypertension Qualified Code(s): I10 - Essential (primary) hypertension (6) Cholelithiasis Priority: Secondary Status: Chronic Comments: follow up with PCP Qualifiers: Cholecystitis presence: without cholecystitis Biliary obstruction: without biliary obstruction Qualified Code(s): K80.20 - Calculus of gallbladder without cholecystitis without obstruction (7) Back pain Priority: Primary Status: Chronic Comments: to f/u with outpatient pain management Qualifiers: Back pain location: low back pain Chronicity: chronic Back pain laterality: bilateral Sciatica presence: unspecified whether sciatica present Qualified Code(s): M54.5 - Low back pain; G89.29 - Other chronic pain; G89.29 - Other chronic pain - Discharge Medications Prescriptions: Gabapentin [Neurontin] 100 mg PO TID #21 capsule Ranolazine [Ranexa] 1,000 mg PO BID 30 Days #120 tab.er.12h rOPINIRole [Requip] 0.25 mg PO HS #30 tablet Home Medications: Allopurinol [Zyloprim 300 MG] 300 mg PO DAILY 05/01/15 [History] Aspirin 81 mg PO BID 05/01/15 [History] Clopidogrel Bisulfate [Plavix] 75 mg PO DAILY 05/01/15 [History] Nitroglycerin [Nitrostat] 0.4 mg PO Q5M PRN 05/01/15 [History] Sertraline [Zoloft] 100 mg PO BID 05/01/15 [History] Fluticasone/Salmeterol [Advair 250-50 Diskus] 1 each IH BID 12/03/15 [History] Albuterol Sulfate [Ventolin Hfa] 2 puff IH Q4H PRN 06/24/17 [History] Cyclobenzaprine HCl 5 mg PO TID PRN 06/24/17 [History] Diclofenac Sodium [Voltaren] 2 - 4 gm TP QID PRN 06/24/17 [History] Dicyclomine [Bentyl] 10 - 20 mg PO QID PRN 06/24/17 [History] Pantoprazole Sodium [Protonix] 40 mg PO DAILY 06/24/17 [History] Ranitidine HCl [Zantac] 300 mg PO HS 06/24/17 [History] Gabapentin [Neurontin] 100 mg PO TID #21 capsule 06/26/17 [Rx] Ranolazine [Ranexa] 1,000 mg PO BID 30 Days #120 tab.er.12h 06/26/17 [Rx] rOPINIRole [Requip] 0.25 mg PO HS #30 tablet 06/26/17 [Rx] Allergies/Adverse Reactions: 3 Allergy/AdvReac Type Severity Reaction Status Date / Time hydrocodone [From Vicodin] Allergy Hallucinati Verified 10/26/16 09:06 ng ketorolac [From Toradol] Allergy Seizure Verified 10/26/16 09:06 Procedures/tests Complete & Pending: Procedures Performed prior 72 hours Category Date Time Status CT abd pelvis w iv no oral [CT] Routine Cat Scan 06/25/17 00:58 Completed MR lumbar spine wo con [MR] Routine MRI 06/25/17 16:28 Completed MR thoracic spine wo con [MR] Routine MRI 06/25/17 16:30 Completed Date of admission: 06/24/17 23:25 Primary care physician: Davie Hanley DO Consults: 06/25/17 00:08 Consult to Cardiology [CONS] Routine Comment: Consulting Provider: Cardiology Erika Reason for Consult: Chest Pain Call Completed: No Discharging clinician: Astrid Aggarwal Anticipated date of discharge: 06/26/17 - Patient Status Disposition: Home, Self-Care Condition: Good Functional capacity at discharge: independent ambulation Overall status at discharge: patient is progressing back to baseline - Discharge Instructions Instructions: Heart Failure (DC), Chest Pain (DC), Chronic Hypertension (DC) Follow Up With: Davie Hanley DO [Primary Care Provider] - - Diet and Activity Activity: resume usual activities as tolerated Diet: advance to your usual diet Interval History: Patient sitting up in chair, no chest pain or SOB on room air, tolerating diet, leg pain and numbness/tingeling improved, tingeling remains. Ready for discharge , all questions asked. Hospital course: please see assessment and plan - Time Spent with Patient Total time spent providing and/or coordinating discharge services: - Constitutional Vitals: Temp Pulse Resp BP Pulse Ox 97.8 F 55 16 132/82 96 06/26/17 11:25 06/26/17 11:25 06/26/17 11:25 06/26/17 11:25 06/26/17 11:25 General appearance: Present: cooperative, A&O X 3, morbidly obese, pleasant, no acute distress, obese, answers questions appropriately - Head Head exam: Present: atraumatic, normocephalic - Eye Eye exam: Present: conjuntiva pink, sclera anicteric - Neck Neck exam general surgery: Present: supple, trachea midline. Absent: lymphadenopathy - Respiratory Respiratory exam: Present: CTAB. Absent: accessory muscle use, rales, rhonchi, wheezes - Cardiovascular Cardiovascular exam: Present: RRR, +S1, +S2. Absent: diastolic murmur, gallop, rubs, systolic murmur - GI/Abdominal GI/Abdominal exam: Present: normal bowel sounds, soft, no peritoneal signs. Absent: distended, tenderness - Extremities Exam Extremities exam: Present: warm, radial pulses palpable and symmetrical. Absent : calf tenderness, cyanotic, pedal edema - Neurological Exam Neurological exam: Present: alert, oriented X3, no focal deficits, strengths equal and symetr throughout. Absent: pronater drift, facial droop, speech deficit - Skin Skin exam: Present: dry, intact, warm
== END 2017-06-26 13:17 | disposition home or self-care (01) ==
LOC: 3BNU 19:22 → EMEROO 19:22 → 3BNU 23:38
PROVIDERS: ADMIT Internal Medicine; ATTEND Registered Nurse

== ENCOUNTER 2018-03-04 01:21 | Inpatient (IN) ==
[2018-03-04 01:55] LABS: Basophils # 0.1 K/mcL (0.0-0.2); Basophils % 0.6 %; Eosinophils # 0.2 K/mcL (0.0-0.6); Eosinophils % 2.1 %; Hematocrit 41.2 % (37.5-50.1); Hemoglobin 13.6 g/dL (12.9-16.9); Immature Granulocytes % 0.3 % (0-4); Lymphocytes # 2.9 K/mcL (0.6-4.6); Lymphocytes % 29.2 %; Mean Corpuscular Hemoglobin 28.6 pg (28.0-33.3); Mean Corpuscular Volume 86.6 fL (83.0-100.0); Mean Platelet Volume 10.6 fL (9.4-12.4); Monocytes # 0.6 K/mcL (0.0-1.3); Monocytes % 5.5 %; Neutrophils # 6.2 K/mcL (1.6-8.9); Platelet Count 235 K/mcL (140-400); Red Blood Count 4.76 M/mcL (4.19-5.50); Segmented Neutrophils % 62.3 %
[2018-03-04 02:01] LABS: INR 1.2; Prothrombin Time 13.2 Seconds (9.4-12.1)
[2018-03-04 02:03] LABS: Activated Partial Thrombo Time 35.1 Seconds (26.0-36.0)
[2018-03-04 02:06] LABS: BUN/Creatinine Ratio 14 (6-26); Blood Urea Nitrogen 16 mg/dL (6-20); Calcium 9.9 mg/dL (8.6-10.3); Carbon Dioxide 26 mEq/L (23-29); Chloride 103 mEq/L (98-107); Glucose 106 mg/dL (70-105); Osmolality,Calculated 282 (280-300); Potassium 3.9 mEq/L (3.5-5.1); Sodium 135 mEq/L (136-145); Troponin I < 0.03 ng/mL (< 0.04); eGFR For Non-African Americans > 60 (> 60)
[2018-03-04] MEDS ORDERED: Aspirin 81 MG TAB.CHEW PO ONE (03:21)
--- NOTE | 2018-03-04 03:23 | Emergency Department Note ---
Disposition Clinical Impression: Chest pain Qualifiers: Chest pain type: unspecified Qualified Code(s): R07.9 - Chest pain, unspecified Disposition: Admitted As Inpatient Condition: Good Referrals: Davie Hanley DO [Primary Care Provider] - Forms: ED Satisfaction Letter Chest Pain HPI - General Chief Complaint: ED Chest Pain Stated Complaint: Chest Pain Time Seen by Provider: 03/04/18 02:55 Source: patient Mode of arrival: private vehicle Limitations: no limitations Vital Signs Reviewed: Yes Nursing Notes Reviewed: Yes - History of Present Illness HPI Narrative: 53-year-old male with a past medical history of coronary and lives in, CVA, stents, GERD, CAD, hypertension, airway, degenerative disc disease presents to the emergency department for evaluation of midsternal chest pain with radiation to the left arm and neck. Patient states this started about 3 hours prior to arrival, came on all of a sudden while he was sitting in a chair fishing [place]. Pain does get worse with exertion, pain feels like a pressure and whenever he takes a deep breath he has a sharp stabbing pain. He states at home he took a nitroglycerin tablet and this was ineffective. Patient states he was prescribed lisinopril which he started today, he states the last time he was on lisinopril the same sort of pain happened, he is prescribed lisinopril by solar crew member Dr. Mac, it was not called in so Dr. Winkler his family provider reinitiated. Patient states he has had increasing shortness of breath with exertion for "a while". Patient states he is on Plavix and 162 mg of aspirin daily. He states he has been compliant. Patient also complains of increasing GERD-type symptoms for the last few days, he does take Prilosec for these symptoms. Patient denies any smoking history, history of chewing tobacco that he stopped several years ago. Patient denies any drug or alcohol use. Patient denies recent illness, fever, chills, shortness of breath, difficulty breathing, abdominal pain, nausea, vomiting, constipation, diarrhea. Patient denies edema or weight gain. Patient states during the evening and night he is frequently bradycardic and a heart rate in the 40s and 50s are his normal. Last heart catheter Has been at least 2 years ago, he follows with cardiology Dr. Salas and Dr. Mac Pt complaint: chest pain Onset (ago): hour(s) Duration: constant Onset: during rest Pain Location: substernal, left chest Severity scale (1-10): 8 Quality: other Pain Radiation: LUE, neck Improves with: nothing Worsens with: exertion Treatments prior to arrival chest pain: nitroglycerin - Related Data Home Medications Medication Instructions Recorded Confirmed Allopurinol [Zyloprim 300 MG] 300 mg PO DAILY 05/01/15 06/24/17 Aspirin 81 mg PO BID 05/01/15 06/24/17 Clopidogrel Bisulfate [Plavix] 75 mg PO DAILY 05/01/15 06/24/17 Nitroglycerin [Nitrostat] 0.4 mg PO Q5M PRN 05/01/15 06/24/17 Sertraline [Zoloft] 100 mg PO BID 05/01/15 06/24/17 Fluticasone/Salmeterol [Advair 1 each IH BID 12/03/15 06/24/17 250-50 Diskus] Albuterol Sulfate [Ventolin Hfa] 2 puff IH Q4H PRN 06/24/17 06/24/17 Cyclobenzaprine HCl 5 mg PO TID PRN 06/24/17 06/24/17 Diclofenac Sodium [Voltaren] 2 - 4 gm TP QID PRN 06/24/17 06/24/17 Dicyclomine [Bentyl] 10 - 20 mg PO QID PRN 06/24/17 06/24/17 Pantoprazole Sodium [Protonix] 40 mg PO DAILY 06/24/17 06/24/17 Ranitidine HCl [Zantac] 300 mg PO HS 06/24/17 06/24/17 Previous Rx's Medication Instructions Recorded Gabapentin [Neurontin] 100 mg PO TID #21 capsule 06/26/17 Ranolazine [Ranexa] 1,000 mg PO BID 30 Days #120 06/26/17 tab.er.12h rOPINIRole [Requip] 0.25 mg PO HS #30 tablet 06/26/17 Allergies Allergy/AdvReac Type Severity Reaction Status Date / Time hydrocodone [From Vicodin] Allergy Hallucinati Verified 03/04/18 01:31 ng ketorolac [From Toradol] Allergy Seizure Verified 10/06/18 01:31 All systems ED: reviewed and negative except as stated. Review of Systems: As Per HPI Chest Pain PMH - Past Medical History Medical history: Reports: COPD, coronary artery disease, GERD, hyperlipidemia, hypertension, myocardial infarction, TIA Surgical history: Reports: angioplasty/stent, cataract, knee replacement Psychiatric history: Reports: anxiety, depression - Social History Smoking Status: Never smoker Alcohol use: Reports: none Drug use: Reports: none Physical Exam - General Limitations: no limitations General appearance: alert, in no apparent distress - Head Head exam: atraumatic, normocephalic, normal inspection - Eye Eye exam: Present: normal appearance, PERRL, EOMI - ENT ENT exam: mucous membranes moist - Neck Neck exam: Present: normal inspection, full ROM, trachea midline - Chest Chest inspection: Present: normal inspection, symmetric chest wall rise - Respiratory Respiratory exam: Present: normal lung sounds bilaterally - Cardiovascular Cardiovascular exam: Present: normal rhythm, bradycardia, normal heart sounds - Abdominal Exam Abdominal exam: Present: soft, Non-Tender, normal bowel sounds. Absent: tenderness, distention, guarding, rebound, rigidity - Extremities Exam Extremities exam: Present: normal inspection, full ROM. Absent: tenderness, pedal edema - Neurological Exam Neurological exam: Present: alert, oriented X3 - Psychiatric Psychiatric exam: Present: normal affect, normal mood - Skin Skin exam: Present: warm, dry, intact, normal color Course Course Narrative: Well-developed, well-hydrated male in no acute distress. Respirations are easy and even. Patient is bradycardic with a resting heart rate between 45 and 50 bpm, patient is normotensive. Physical exam is benign. Lungs are clear to auscultate, heart rate. Cardiac S1, S2, no peripheral edema; EKG reveals sinus bradycardia with a ventricle rate of 53 bpm, [place] interval 164 ms, QTC 403 ms, no evidence of ischemia, no ST elevation or depression, no change from previous EKG. Initial labs returned benign, troponin less than 0.03, chest x-ray unremarkable per cardiology. Initial HEART score 4. - Reevaluation(s) Reevaluation #1: Patient's chest pain continues to be 5 or 6/10. Continues in the same intensity. He continues to rest quietly no physical change in status. We will trial nitroglycerin. Patient was given a GI cocktail, he did state that this helped his pain a little bit but not very much. Due to patient's extensive history, ongoing chest pain patient will need to be admitted to the hospital for serial troponins and ACS rule out, I spoke with patient and family was agreeable plan of care. Hospital's paged at this time. Time: 04:13 Reevaluation #2: Spoke with hospitalist Dr. Vasquez, agreeable to admit to the hospital for ACS evaluation. Patient and family who continue to be agreeable to plan of care. We will transition care to the hospitalist team at this time. Time: 04:28 Vital Signs Temperature 98 F 03/04/18 01:29 Pulse Rate 53 03/04/18 01:29 Respiratory Rate 18 03/04/18 01:29 Blood Pressure 163/89 03/04/18 01:29 O2 Sat by Pulse Oximetry 93 03/04/18 01:29 Temperature 98 F 03/04/18 01:29 Pulse Rate 47 03/04/18 03:52 Respiratory Rate 19 03/04/18 03:52 Blood Pressure 145/85 03/04/18 03:52 O2 Sat by Pulse Oximetry 98 03/04/18 03:52 Oxygen Delivery Oxygen Delivery Room Air Chest Pain - Differential Diagnosis Likely: stable angina, unstable angina pectoris, atypical chest pain. Unlikely : fracture of rib, pneumothorax, st elevation myocardial infraction, chest pain , biliary colic - Medical Records Medical records reviewed: Yes I reviewed the patient's medical records. - Lab Data Lab results reviewed: Yes I reviewed the patient's lab results. Result diagrams: 03/04/18 01:37 03/04/18 01:37 Lab Results 03/04/18 03/04/18 03/04/18 Range/Units 01:37 01:37 01:37 WBC 10.0 (4.3-11.1) K/mcL RBC 4.76 (4.19-5.50) M/mcL Hgb 13.6 (12.9-16.9) g/dL Hct 41.2 (37.5-50.1) % MCV 86.6 (83.0-100.0) fL MCH 28.6 (28.0-33.3) pg MCHC 33.0 (31.6-35.5) g/dL RDW 13.0 (11.5-14.5) % Plt Count 235 (140-400) K/mcL MPV 10.6 (9.4-12.4) fL Immature Gran % 0.3 (0-4) % Seg Neutrophils % 62.3 % Lymphocytes % 29.2 % Monocytes % 5.5 % Eosinophils % 2.1 % Basophils % 0.6 % Neutrophils # 6.2 (1.6-8.9) K/mcL Lymphocytes # 2.9 (0.6-4.6) K/mcL Monocytes # 0.6 (0.0-1.3) K/mcL Eosinophils # 0.2 (0.0-0.6) K/mcL Basophils # 0.1 (0.0-0.2) K/mcL PT 13.2 H (9.4-12.1) Seconds INR 1.2 APTT 35.1 (26.0-36.0) Seconds Sodium 135 L (136-145) mEq/L Potassium 3.9 (3.5-5.1) mEq/L Chloride 103 (98-107) mEq/L Carbon Dioxide 26 (23-29) mEq/L BUN 16 (6-20) mg/dL Creatinine 1.15 (0.70-1.30) mg/dL Est GFR ( Amer) > 60 (> 60) Est GFR (Non-Af Amer) > 60 (> 60) BUN/Creatinine Ratio 14 (6-26) Glucose 106 H (70-105) mg/dL Calculated Osmolality 282 (280-300) Calcium 9.9 (8.6-10.3) mg/dL Troponin I < 0.03 (< 0.04) ng/mL - Radiology Data Radiology results reviewed: Yes I reviewed the patient's radiology results. - EKG Data EKG attestation: Yes I reviewed and interpreted this EKG. Heart Score - Score History: Moderately Suspicious EKG: Normal Age: 45-65 Risk Factors: Equal/Greater than 3 risk factor or history of atherosclerotic disease Troponin: Less than normal limit HEART Score Total: 4
[2018-03-04] MEDS ORDERED: GI Cocktail 40 ML EACH PO ONE (03:44)
[2018-03-04] MEDS ORDERED: Nitroglycerin 0.4 MG TAB.SUBL SL ONE (03:59)
[2018-03-04] MEDS ORDERED: Nitroglycerin 0.4 MG TAB.SUBL SL PRN (06:32)
[2018-03-04] MEDS ORDERED: Acetaminophen 325 MG TABLET PO PRN (07:34)
[2018-03-04] MEDS ORDERED: *HR* OxyCODONE Immed Rel 5 MG TABLET PO PRN (07:34)
[2018-03-04] MEDS ORDERED: Naloxone 0.4 MG/ML INJ IVP PRN (07:34)
[2018-03-04] MEDS: *HR* HYDROcodone/Acet 5/325 mg TABLET PO PRN ×2 (08:08→13:58)
[2018-03-04] MEDS: Gabapentin 100 MG CAPSULE PO SCH ×3 (08:08→21:17)
[2018-03-04] MEDS: Ranolazine 500 MG TAB.ER.12H PO SCH ×2 (08:08→21:17)
[2018-03-04] MEDS: Aspirin 81 MG TAB.CHEW PO SCH ×2 (08:08→21:17)
[2018-03-04 08:34] LABS: Troponin I < 0.03 ng/mL (< 0.04)
--- NOTE | 2018-03-04 08:58 | Internal Med History&Physical ---
Date of Encounter: 03/04/18 Time of Encounter: 08:10 Internal Medicine - H&P: HPI Chief complaint: chest pain Admitted From: Home History of present illness: Mr. Faustin is a 53 year old male with past neck or history of CAD status post PCI 2, hypertension, GERD, CVA, morbid obesity, presented to the ED with sudden onset of chest pain. Started last night at 11:00pm while he was fishing , sharp in nature, radiates to left side of the neck/face, associated with nausea. No aggravating factors, no relief with nitroglycerin. He was last seen by cardiology about 3 weeks ago when he was started on lisinopril. He took the first dose yesterday and states that he may have had similar type of reaction last time he was on it too. Denies any fever/chills, shortness of breath, cough, sputum production, abdominal pain, change in bowel habits, dysuria, joint pain, or rash. No sick contacts. Claims compliance to aspirin, Plavix, Ranexa but is not taking statin or Imdur for unclear reason. He is also on CPAP for MELISSA. In the ED, he was afebrile and hemodynamically stable. Labwork was largely unremarkable with negative troponin. EKG sinus bradycardia without ST elevation or depression. Chest x-ray did not show any acute cardiopulmonary processes. He was given aspirin 324 mg, GI cocktail, and sublingual nitro with minor relief of his symptoms. Past Med Surg Social Fam HX - Past Medical History Medical history: COPD, coronary artery disease, GERD, hyperlipidemia, hypertension, myocardial infarction, TIA Additional medical history: back pain Psychiatric history: anxiety, depression - Past Surgical History Surgical History: angioplasty/stent, cataract, other Additional surgical history: LEFT KNEE SCOPE - Social History Smoking Status: Never smoker Smokeless Tobacco Status: Yes Alcohol use: none Drug use: none - Family History Mother Living Status: Hx Family Cancer: Yes Father Family Member Ethnicity: Non- Living Status: Hx Family Cardiac Disorders: Yes Internal Medicine - H&P: Meds Allopurinol [Zyloprim 300 MG] 300 mg PO DAILY 05/01/15 [History] Aspirin 81 mg PO BID 05/01/15 [History] Clopidogrel Bisulfate [Plavix] 75 mg PO DAILY 05/01/15 [History] Nitroglycerin [Nitrostat] 0.4 mg PO Q5M PRN 05/01/15 [History] Sertraline [Zoloft] 100 mg PO BID 05/01/15 [History] Fluticasone/Salmeterol [Advair 250-50 Diskus] 1 each IH BID 12/03/15 [History] Albuterol Sulfate [Ventolin Hfa] 2 puff IH Q4H PRN 06/24/17 [History] Cyclobenzaprine HCl 5 mg PO TID PRN 06/24/17 [History] Pantoprazole Sodium [Protonix] 40 mg PO DAILY 06/24/17 [History] Ranitidine HCl [Zantac] 300 mg PO HS 06/24/17 [History] Gabapentin [Neurontin] 100 mg PO TID #21 capsule 06/26/17 [Rx] Ranolazine [Ranexa] 1,000 mg PO BID 30 Days #120 tab.er.12h 06/26/17 [Rx] 3 Allergy/AdvReac Type Severity Reaction Status Date / Time hydrocodone [From Vicodin] Allergy Hallucinati Verified 03/04/18 01:31 ng ketorolac [From Toradol] Allergy Seizure Verified 03/04/18 01:31 All Systems PM: A 10-system review of systems was performed and is negative for pertinent findings except as documented above in the HPI. - Constitutional Vitals: Temp Pulse Resp BP Pulse Ox 97.6 F 45 16 129/84 96 03/04/18 05:47 03/04/18 05:47 03/04/18 05:47 03/04/18 05:47 03/04/18 05:47 Exam: General: Alert and oriented, not in acute distress. HEENT:EOM, pupils equal, round and reactive. Cardiovascular:Normal S1 & S2, No JVD. Pulse regular. Epigastric/subxiphoid tenderness on palpation Lungs: clear to auscultation, no wheezes/rales Abdomen:Soft, non-tender, no rigidity. Epigastric/subxiphoid tenderness Extremities:No deformity or swelling Neurological:Normal cognition and motor skills. Non-focal Skin:Normal color, no rash, no lesions. Pulses:Carotid and radial pulses normal +2. Rest of the physical exam is non contributory Internal Med - H&P Results - Labs CBC & Chem 7: 03/04/18 01:37 03/04/18 01:37 Labs: Cardiac Enzymes 03/04/18 Range/Units 08:00 Troponin I < 0.03 (< 0.04) ng/mL - Assessment and plan (1) Chest pain Current Visit: Yes Status: Acute Assessment and plan: Atypical in nature, less likely to be cardiac in origin with epigastric/ subxiphoid tenderness with negative cardiac markers and EKG Stress test April 2017 was negative. Left heart catheterization in November 2015 did not show any significant obstructive CAD that needed intervention claims compliance to dual antiplatelet and Ranexa, but not on statin or Imdur ? reason He is certainly at risk to develop PUD given his usages of DAPT. Patient does not recall having any significant findings on EGD done > 5 years ago Will check 1 more troponin to rule out ACS Echocardiogram Will add Carafate to Protonix and Zantac. May benefit from outpatient EGD Will defer initiation of statin and Imdur to outpatient Qualifiers: Chest pain type: unspecified Qualified Code(s): R07.9 - Chest pain, unspecified (2) CAD (coronary artery disease) Current Visit: No Status: Chronic Assessment and plan: Status post PCI 2. On dual-antiplatelet agents and Ranexa Unclear why patient is not on statin or Imdur resume home meds, check troponin as above Echo defer decision on statin and imdur to outpatient Qualifiers: Coronary Disease-Associated Artery/Lesion type: [place] artery [place] vs. transplanted heart: [place] heart Associated angina: angina presence unspecified Qualified Code(s): I25.10 - Atherosclerotic heart disease of [place] coronary artery without angina pectoris (3) GERD (gastroesophageal reflux disease) Current Visit: Yes Status: Chronic Assessment and plan: on protonix and zantac at home add carafate as above may benefit from outpatient EGD Qualifiers: Esophagitis presence: esophagitis presence not specified Qualified Code(s) : K21.9 - Gastro-esophageal reflux disease without esophagitis (4) Morbid obesity with BMI of 40.0-44.9, adult Current Visit: No Status: Chronic Assessment and plan: Counseling and education provided (5) DVT prophylaxis Current Visit: No Status: Acute Assessment and plan: SCD - Time Spent With Patient Total time spent is greater than 50% in coordination of care (as documented) at patient's floor/unit and/or counseling patient:
[2018-03-04 09:48] LABS: Cholesterol 174 mg/dL (< 200); HDL Cholesterol 35 mg/dL (40-59); LDL Cholesterol,Calculated 124 mg/dL (0-99); Triglycerides 76 mg/dL (< 150)
[2018-03-04] MEDS: Budesonide/Formoterol 80/4.5 MDI IH SCH ×2 (10:59→20:55)
[2018-03-04] MEDS: Sucralfate 1 GM TABLET PO SCH ×3 (11:55→21:17)
[2018-03-04] MEDS: Famotidine 20 MG TABLET PO SCH (21:17)
[2018-03-05 05:10] LABS: Basophils # 0.1 K/mcL (0.0-0.2); Basophils % 0.8 %; Eosinophils # 0.2 K/mcL (0.0-0.6); Eosinophils % 2.3 %; Hematocrit 40.8 % (37.5-50.1); Hemoglobin 13.3 g/dL (12.9-16.9); Immature Granulocytes % 0.4 % (0-4); Lymphocytes # 2.5 K/mcL (0.6-4.6); Lymphocytes % 34.9 %; Mean Corpuscular HGB Conc 32.6 g/dL (31.6-35.5); Mean Corpuscular Hemoglobin 28.4 pg (28.0-33.3); Mean Corpuscular Volume 87.2 fL (83.0-100.0); Mean Platelet Volume 10.8 fL (9.4-12.4); Monocytes # 0.4 K/mcL (0.0-1.3); Monocytes % 5.6 %; Platelet Count 201 K/mcL (140-400); Red Blood Count 4.68 M/mcL (4.19-5.50); Red Cell Distribution Width 13.3 % (11.5-14.5)
[2018-03-05 05:31] LABS: BUN/Creatinine Ratio 16 (6-26); Blood Urea Nitrogen 20 mg/dL (6-20); Calcium 9.6 mg/dL (8.6-10.3); Carbon Dioxide 28 mEq/L (23-29); Chloride 104 mEq/L (98-107); Glucose 99 mg/dL (70-105); Magnesium 2.1 mg/dL (1.6-2.6); Osmolality,Calculated 285 (280-300); Potassium 4.3 mEq/L (3.5-5.1); Sodium 136 mEq/L (136-145); eGFR For Non-African Americans 59 (> 60)
[2018-03-05] MEDS ORDERED: Perflutren Lipid Microsphere 1.3 ML in 0.9 % Sodium Chloride 8.7 ML IVP ONE (07:37)
[2018-03-05] MEDS ORDERED: Perflutren Lipid Microsphere 2 ML VIAL ONE (07:43)
[2018-03-05] MEDS: Ranolazine 500 MG TAB.ER.12H PO SCH ×2 (08:28→21:00)
[2018-03-05] MEDS: Aspirin 81 MG TAB.CHEW PO SCH ×2 (08:28→21:00)
[2018-03-05] MEDS: Gabapentin 100 MG CAPSULE PO SCH ×3 (08:28→21:00)
[2018-03-05] MEDS: Sucralfate 1 GM TABLET PO SCH ×4 (08:28→21:00)
[2018-03-05] MEDS: Budesonide/Formoterol 80/4.5 MDI IH SCH ×2 (10:31→22:49)
--- NOTE | 2018-03-05 13:50 | Internal Med Progress Note ---
<DashawnGentry Tavares - Last Filed: 03/05/18 16:22> Hospitalist Progress Note - Encounter Date of Encounter: 03/05/18 Time of Encounter: 13:50 - Subjective Interval History: Mr. Faustin is a 53M with PMH of CAD s/p PCI 2, HTN, GERD, CVA, morbid obesity. He presented to the ED on 03/04 with sudden onset of chest pain which started the previous night at 11:00pm while he was fishing. He described it as sharp in nature, radiating to left side of the neck/face, and accompanied by some dizziness and nausea. The chest pain was refractory to nitroglycerin, but reproducible with palpation and on deep inspiration. He was last seen by cardiology about 3 weeks ago when he was started on lisinopril. He took the first dose on 03/03 and states that he may have had similar type of reaction last time he was on it too. CXR from the ED revealed no acute abnormalities. EKG showed sinus bradycardia with no ST changes. Troponins x2 were <0.03. Pt seen and examined at bedside. No acute events overnight. Pt states he still is experiencing chest pain rated 8/10. He denies any fever, chills, shortness of breath, cough, sputum production, abdominal pain, change in bowel habits, difficulty urinating, numbness, or headache. He does complain of some tingling in his right foot which started this morning. - Exam Vitals: Temp Pulse Resp BP Pulse Ox 97.4 F L 49 18 162/88 96 03/05/18 11:59 03/05/18 11:59 03/05/18 11:59 03/05/18 11:59 03/05/18 11:59 Exam: General: obese male. no acute distress HEENT: normocephalic and atraumatic head. Eyes PERRL, EOMI, with no scleral icterus. Poor dentition. Neck: supple, trachea midline, no lymphadenopathy Heart: RRR +S1 +S2. no murmurs, clicks, or rubs appreciated Lungs: CTA bilaterally. Non-labored breathing. no wheezes, rales, or rhonchi GI: abdomen soft, mildly distended, non-tender. normoactive bowel sounds Extremities: radial pulses palpable and symmetrical. no cyanosis or edema. Neuro: A&Ox3. no focal deficits. no speech difficulty or abnormality Skin: warm, dry, intact - Assessment and Plan (1) Chest pain Current Visit: Yes Status: Acute Assessment and Plan: Atypical chest pain with features resembling stable angina when pt walking down the hallway, however pain is also reproducible on palpation and during deep inspiration. Stress test April 2017 was negative does have hx of GERD Negative troponins x3 No EKG changes CXR was unremarkable Echo showed LVEF 60-65%, mild LV diastolic dsyfunction, mild mitral regurg, and mild pulmonary HTN Pt cannot tolerate BB due to bradycardia Unable to tolerate statin due to nausea and stomach upset Continue Pepcid, Prilosec, and Carafate. May benefit from outpatient EGD Consulted cardio and wait for their recommendations (2) CAD (coronary artery disease) Current Visit: No Status: Chronic Assessment and Plan: Status post PCI 2 On ASA, Plavix, and Ranexa (3) GERD (gastroesophageal reflux disease) Current Visit: Yes Status: Chronic Assessment and Plan: On Protonix and Zantac at home Continue dual PPI and carafate may benefit from outpatient EGD (4) Morbid obesity with BMI of 40.0-44.9, adult Current Visit: Yes Status: Chronic Assessment and Plan: Chronic issue Discussed lifestyle modifications. DVT Prophylaxis: pt ambulatory. Discussed the importance of ambulating each hour while awake. - Time Spent with Patient Total time spent is greater than 50% in coordination of care (as documented) at patient's floor/unit and/or counseling patient: Internal Medicine: Result - Labs CBC & Chem 7: 03/05/18 03:37 03/05/18 03:37 Labs: Short CBC 03/05/18 Range/Units 03:37 WBC 7.1 (4.3-11.1) K/mcL Hgb 13.3 (12.9-16.9) g/dL Hct 40.8 (37.5-50.1) % Plt Count 201 (140-400) K/mcL Neutrophils # 4.0 (1.6-8.9) K/mcL BMP 03/05/18 03:37 Sodium 136 Potassium 4.3 Chloride 104 Carbon Dioxide 28 BUN 20 Creatinine 1.27 Glucose 99 Calcium 9.6 - ABG Interpretation ABG results: PT/INR, D-dimer PT 13.2 Seconds (9.4-12.1) H 03/04/18 01:37 - Impressions Impressions Echocardiogram 03/05/18 09:47 Impressions: LVEF 60-65%. Normal LV chamber size, wall thickness and function. Mild left ventricular diastolic dysfunction. Normal right ventricular structure and function. Mild mitral regurgitation. Consult Discharge Plan - Plan Referrals: Davie Hanley DO [Primary Care Provider] - <Cortez Flanagan - Last Filed: 03/05/18 16:53> Hospitalist Progress Note - Encounter Date of Encounter: 03/05/18 - Exam Vitals: Temp Pulse Resp BP Pulse Ox 98.3 F 65 16 164/94 97 03/05/18 16:26 03/05/18 16:26 03/05/18 16:26 03/05/18 16:26 03/05/18 16:26 - Assessment and Plan (1) Chest pain Current Visit: Yes Status: Acute (2) CAD (coronary artery disease) Current Visit: No Status: Chronic (3) GERD (gastroesophageal reflux disease) Current Visit: Yes Status: Chronic (4) Morbid obesity with BMI of 40.0-44.9, adult Current Visit: Yes Status: Chronic - Time Spent with Patient Total time spent is greater than 50% in coordination of care (as documented) at patient's floor/unit and/or counseling patient: Internal Medicine: Result - Labs CBC & Chem 7: 03/05/18 03:37 03/05/18 03:37 Labs: Short CBC 03/05/18 Range/Units 03:37 WBC 7.1 (4.3-11.1) K/mcL Hgb 13.3 (12.9-16.9) g/dL Hct 40.8 (37.5-50.1) % Plt Count 201 (140-400) K/mcL Neutrophils # 4.0 (1.6-8.9) K/mcL BMP 03/05/18 03:37 Sodium 136 Potassium 4.3 Chloride 104 Carbon Dioxide 28 BUN 20 Creatinine 1.27 Glucose 99 Calcium 9.6 Cardiac Enzymes 03/05/18 Range/Units 14:41 Troponin I < 0.03 (< 0.04) ng/mL - ABG Interpretation ABG results: PT/INR, D-dimer PT 13.2 Seconds (9.4-12.1) H 03/04/18 01:37 - Impressions Impressions Echocardiogram 03/05/18 09:47 Impressions: LVEF 60-65%. Normal LV chamber size, wall thickness and function. Mild left ventricular diastolic dysfunction. Normal right ventricular structure and function. Mild mitral regurgitation. - Attending Attestation I examined this patient and my medical decision-making was reviewed with the Resident Physician Dr. Tamez. I agree with the documented findings, disposition and treatment plan as described except to the extent set forth below. Mr. Faustin is a 53 year old male with past neck or history of CAD status post PCI 2, hypertension, GERD, CVA, morbid obesity, presented to the ED with sudden onset of chest pain. Pt stated his CP located subs sternal and epigastric region , radiating to his neck and arm. He got another episode of CP this morning after taking a small walk. gen: A, A, O x 3 Chest: Diminished BS B/l Heart: S1S2+ RRR No murmurs a/p 1. Acute CP 2. h/o CAD Angina equivalent chest pain No acute ischemic changes on EKG Had normal stress test in 05/15, however high risk pt and his CP is concerning so consulted Card for further eval <Gentry Tamez - Last Filed: 03/05/18 16:22> (1) Chest pain Qualifiers: Chest pain type: unspecified Qualified Code(s): R07.9 - Chest pain, unspecified (2) CAD (coronary artery disease) Qualifiers: Coronary Disease-Associated Artery/Lesion type: [place] artery [place] vs. transplanted heart: [place] heart Associated angina: angina presence unspecified Qualified Code(s): I25.10 - Atherosclerotic heart disease of [place] coronary artery without angina pectoris (3) GERD (gastroesophageal reflux disease) Qualifiers: Esophagitis presence: esophagitis presence not specified Qualified Code(s): K21.9 - Gastro-esophageal reflux disease without esophagitis <Cortez Flanagan - Last Filed: 03/05/18 16:53> (1) Chest pain Qualifiers: Chest pain type: unspecified Qualified Code(s): R07.9 - Chest pain, unspecified (2) CAD (coronary artery disease) Qualifiers: Coronary Disease-Associated Artery/Lesion type: [place] artery [place] vs. transplanted heart: [place] heart Associated angina: angina presence unspecified Qualified Code(s): I25.10 - Atherosclerotic heart disease of [place] coronary artery without angina pectoris (3) GERD (gastroesophageal reflux disease) Qualifiers: Esophagitis presence: esophagitis presence not specified Qualified Code(s): K21.9 - Gastro-esophageal reflux disease without esophagitis
[2018-03-05] MEDS: *HR* HYDROcodone/Acet 5/325 mg TABLET PO PRN ×2 (14:20→21:01)
[2018-03-05] MEDS: Famotidine 20 MG TABLET PO SCH (21:00)
[2018-03-06] MEDS: Sucralfate 1 GM TABLET PO SCH ×4 (07:37→19:51)
[2018-03-06] MEDS: *HR* HYDROcodone/Acet 5/325 mg TABLET PO PRN (07:58)
[2018-03-06] MEDS: Aspirin 81 MG TAB.CHEW PO SCH ×2 (07:58→19:52)
[2018-03-06] MEDS: Ranolazine 500 MG TAB.ER.12H PO SCH ×2 (07:58→19:51)
[2018-03-06] MEDS: Gabapentin 100 MG CAPSULE PO SCH ×3 (07:59→19:51)
[2018-03-06] MEDS: Budesonide/Formoterol 80/4.5 MDI IH SCH ×2 (08:26→21:59)
--- NOTE | 2018-03-06 09:56 | Cardiology Consult Note ---
<Evie Blackwell Nuha - Last Filed: 03/06/18 10:19> Date of Encounter: 03/06/18 Time of Encounter: 09:00 Assessment and Plan (1) Chest pain Current Visit: Yes Status: Acute Atypical/typical chest pain symptoms. Worsens with exertion, improves with rest. Also with reproducible chest wall tenderness. Multiple recent admissions with chest pain. Troponin negative, ECG without ischemic changes. Recent negative nuclear stress 04/2017. On nitrates/ranexa; unable to tolerate BB d/t bradycardia (avg HR=50's). On asa/ plavix. Cannot tolerate statin d/t nausea. Given recurrent symptoms recommend LHC with possible PCI to r/o ischemic etiology. A/R/B discussed, he is agreeable to proceed. Keep NPO except medications. Recommend outpatient MELISSA evaluation. Qualifiers: Chest pain type: precordial pain Qualified Code(s): R07.2 - Precordial pain (2) Hypertension Current Visit: No Status: Chronic Resume home Imdur. Recently started on norvasc as outpt, reportedly unable to tolerate. Further mgmt per primary service. Qualifiers: Hypertension type: essential hypertension Qualified Code(s): I10 - Essential (primary) hypertension (3) CAD (coronary artery disease) Current Visit: No Status: Chronic Plan as above. Hx of CAD s/p PCI most recently in 2012. Asa, plavix, nitrates and ranexa. Unable to tolerate statin d/t nausea. Qualifiers: Coronary Disease-Associated Artery/Lesion type: [place] artery [place] vs. transplanted heart: [place] heart Associated angina: angina presence unspecified Qualified Code(s): I25.10 - Atherosclerotic heart disease of [place] coronary artery without angina pectoris Discussion w patient/family: The assessment and plan as outlined above was discussed with the patient and/or family members who expressed understanding and agreement. All questions were answered. Thank you for involving us in the care of your patient. Please call with any questions. The patient will be discussed and reviewed with Dr. Bauman; changes to be made accordingly. History of Present Illness Consult date: 03/06/18 Requesting physician: Cortez Flanagan Consult reason: Chest pain Chief complaint: Chest pain History of present illness: Mr. Faustin is a 53 year old male with PMHx significant of CAD s/p PCI (2012), HTN , obesity, GERD, and CVA who presented to the ED early Tuesday morning after developing midsternal chest discomfort while fishing late Tuesday evening. Chest discomfort described as sharp, stabbing with radiation to left side of chest, down left arm, and up into left side of neck. He reports he took a NTG with minor relief which prompted ED evaluation. Associated symptoms include elevated blood pressure, which, per patient, is new. Pain lasted for several hours until given medications in the ED. Troponin negative. No acute ischemic ECG changes present. He reports ambulating in the hallways over the weekend and chest discomfort worsened; was associated with shortness of breath and dizziness; Cardiology consulted for further recommendations. Prior CV testing: TTE 03/05/18: LVEF 60-65%, mild LVDD< mild MR, mild PH, normal wall motion Nuclear stress (2-day) 11/2015: perfusion imaging negative for ischemia or infarct. LHC 11/2015: stable CAD; patent pLAD stent, otherwise mild-moderate non- obstructive CAD. Past Med Surg Social Fam HX - Past Medical History Attestation: Yes The following information was validated with the patient. Source: patient Medical history: COPD, coronary artery disease, GERD, hyperlipidemia, hypertension, myocardial infarction, TIA Additional medical history: back pain Psychiatric history: anxiety, depression - Past Surgical History Surgical History: angioplasty/stent, cataract, other Additional surgical history: LEFT KNEE SCOPE - Social History Smoking Status: Never smoker Smokeless Tobacco Status: Yes Alcohol use: none Drug use: none - Family History Mother Living Status: Hx Family Cardiac Disorders: Yes (HTN) Hx Family Cancer: Yes Hx Family Psychosocial Disorders: Yes (mental illness) Father Family Member Ethnicity: Non- Living Status: Hx Family Cardiac Disorders: Yes (CAD) Hx Family Neurologic Disorders: Yes (CVA) Medications and Allergies Allopurinol [Zyloprim 300 MG] 300 mg PO DAILY 05/01/15 [History] Aspirin 81 mg PO BID 05/01/15 [History] Clopidogrel Bisulfate [Plavix] 75 mg PO DAILY 05/01/15 [History] Nitroglycerin [Nitrostat] 0.4 mg PO Q5M PRN 05/01/15 [History] Sertraline [Zoloft] 200 mg PO DAILY 05/01/15 [History] Fluticasone/Salmeterol [Advair 250-50 Diskus] 1 each IH BID 12/03/15 [History] Albuterol Sulfate [Ventolin Hfa] 2 puff IH Q4H PRN 06/24/17 [History] Cyclobenzaprine HCl 5 mg PO TID PRN 06/24/17 [History] Pantoprazole Sodium [Protonix] 40 mg PO DAILY 06/24/17 [History] Ranitidine HCl [Zantac] 300 mg PO HS 06/24/17 [History] Gabapentin [Neurontin] 100 mg PO TID #21 capsule 06/26/17 [Rx] Isosorbide MONOnitrate (24 HR) [Imdur] 60 mg PO DAILY 03/06/18 [History] Lisinopril-HCTZ 20-12.5 [Prinzide 20-12.5] 1 tab PO DAILY 03/06/18 [History] 3 Allergy/AdvReac Type Severity Reaction Status Date / Time hydrocodone [From Vicodin] Allergy Hallucinati Verified 03/04/18 01:31 ng ketorolac [From Toradol] Allergy Seizure Verified 03/04/18 01:31 All Systems Review: The remainder of the systems were reviewed and are negative - Cardiovascular Cardiovascular: as per HPI Physical Examination Vital Signs, Last 4 Hours Temp Pulse Resp BP Pulse Ox 03/06/18 08:28 16 98 03/06/18 07:06 97.7 F 50 17 144/91 95 General: Conversant, Other (morbidly obese) HEENT: Atraumatic, Normocephaly, Mucus Membranes Moist Neck: No JVD, Normal carotid pulses Cardiac: Reg Rate and Rhythm, Normal S1 and S2, No Murmur Lungs: Normal Breath Sounds, No Wheeze, Rales, Rhonchi Neuro: Alert and responsive, No focal deficits noted Abdomen: Soft, Non-Tender Skin: No rashes noted on visualized skin Musculoskeletal: No Chest Wall Tenderness Extremities: No Clubbing, No Cyanosis, No Edema, Normal Pulses Results 03/05/18 03:37 03/05/18 03:37 Lab Results 03/05/18 14:41 Troponin I < 0.03 Active Medications Acetaminophen (Tylenol) 650 mg PO Q6HR PRN PRN Reason: Mild Pain/Fever Stop: 09/03/18 07:35 Hydrocodone Bitart/Acetaminophen (Delight 5-325 Mg) 1 tab PO Q6HR PRN PRN Reason: Moderate Pain Stop: 09/03/18 07:35 Last Admin: 03/06/18 07:58 Dose: 1 tab Albuterol Sulfate (Albuterol Inhaler) 2 puff IH Q4H PRN PRN Reason: Shortness Of Breath Stop: 09/03/18 07:36 Allopurinol (Zyloprim) 300 mg PO DAILY [facility] Stop: 09/03/18 09:01 Last Admin: 03/06/18 07:58 Dose: 300 mg Aspirin (Aspirin) 81 mg PO BID [facility] Stop: 09/03/18 09:01 Last Admin: 03/06/18 07:58 Dose: 81 mg Budesonide/Formoterol Fumarate (Symbicort) 2 puff IH BIDR [facility] Stop: 09/03/18 10:01 Last Admin: 03/06/18 08:26 Dose: 2 puff Clopidogrel Bisulfate (Plavix) 75 mg PO DAILY [facility] Stop: 09/03/18 09:01 Last Admin: 03/06/18 07:59 Dose: 75 mg Cyclobenzaprine HCl (Flexeril) 5 mg PO TID PRN PRN Reason: Muscle Spasm Famotidine (Pepcid) 40 mg PO HS [facility] Stop: 09/03/18 21:01 Last Admin: 03/05/18 21:00 Dose: 40 mg Gabapentin (Neurontin) 100 mg PO TID [facility] Stop: 09/03/18 09:01 Last Admin: 03/06/18 07:59 Dose: 100 mg Naloxone HCl (Narcan) 0.4 mg IVP Q2MIN PRN PRN Reason: SEE COMMENTS Stop: 09/03/18 07:35 Nitroglycerin (Nitroglycerin) 0.4 mg SL Q5MIN PRN PRN Reason: Chest Pain Stop: 09/03/18 06:33 Omeprazole (Prilosec) 20 mg PO DAILY@0630 [facility] Stop: 09/03/18 09:01 Last Admin: 03/06/18 04:22 Dose: Not Given Oxycodone HCl (Roxicodone) 10 mg PO Q6HR PRN PRN Reason: Severe Pain Stop: 09/03/18 07:35 Ranolazine (Ranexa) 1,000 mg PO BID [facility] Stop: 09/03/18 09:01 Last Admin: 03/06/18 07:58 Dose: 1,000 mg Sertraline HCl (Zoloft) 100 mg PO BID [facility] Stop: 09/03/18 09:01 Last Admin: 03/06/18 07:59 Dose: 100 mg Sucralfate (Carafate) 1 gm PO QIDAC [facility] Stop: 09/03/18 11:31 Last Admin: 03/06/18 07:37 Dose: Not Given - Imaging and Cardiology Stress Test: report reviewed Echo: report reviewed Cardiac cath: report reviewed Other Results: 12 hour tele avg HR: 50 SB. - EKG Interpretation EKG results cardiology: personally reviewed, normal ECG Consult Discharge Plan - Plan Referrals: Davie Hanley DO [Primary Care Provider] - 03/11/18 8:00 am <Berny Bauman - Last Filed: 03/06/18 11:27> Date of Encounter: 03/06/18 - Attending Attestation I have personally performed a face to face evaluation on this patient. I have reviewed and agree with the care plan. History and Exam by me shows: CC: Chest pain Pt presented to ER with ongoing chest pain. Pt reports was fishing, sitting still, developed severe 8/10 chest pain, sharp, stabbing, radiating into his left shoulder and left jaw, associated with nausea and shortness of breath, mild diaphoresis. Severe pain lasted around fifteen minutes, improved to 4/10, nausea resolved. He went home, took sl ntg approx 45 mins after pain started, with no change in chest discomfort. He came to the ER, chest pain relieved with sl ntg and narcotic analgesia. His intial troponins were normal. He was admitted to [facility], and has provoked similar chest pain with ambulation in the [place] after fifty feet of walking, improved with rest. He did not report symptoms to nursing or request sl ntg. He reports chest pain is similar to previous presentations for unstable angina, for which he underwent LHC/PCI with ERIKA LAD. PMH: reviewed. ROS: reviewed, addition: pt is on disability due to chronic low back pain, reports ruptured discs. PE: Pt seen and examined, agree with findings as documented IMP/Plan: 1. Unstable angina, troponins negativbe so far. Discussed risks and benefits of LHC/Possible, pt elects to proceed. 2. CAD; severe single vessel CAD, previous PCI with ERIKA LAD, undertaken for acute AR, stent site widely patent at last [facility] 12/12, mild to moderate other vessels, no focal obstruction requiring intervention at that time. 3. Hypertension: controlled on current meds, intolerant of beta blockers due to bradycardia and fatique.. 4. Hyperlipidemia, following with primary care, has been unable to tolerate statin tx. 5. GERD: fairly well controlled on current meds. 6. Depresson: stable at present 7. Chronic low back pain secondary to multiple level disc disease. Assessment and Plan Discussion w patient/family: The assessment and plan as outlined above was discussed with the patient and/or family members who expressed understanding and agreement. All questions were answered. Thank you for involving us in the care of your patient. Please call with any questions. History of Present Illness History of present illness: Mr. Faustin is a 53 year old male All Systems Review: The remainder of the systems were reviewed and are negative Physical Examination Vital Signs, Last 4 Hours Temp Pulse Resp BP Pulse Ox 03/06/18 10:51 97.6 F 49 17 156/100 97 03/06/18 08:28 16 98 Results 03/05/18 03:37 03/06/18 09:19 Lab Results 03/05/18 03/06/18 14:41 09:19 Sodium 137 Potassium 4.6 Chloride 104 Carbon Dioxide 27 BUN 18 Creatinine 1.26 Glucose 102 Calcium 9.9 Troponin I < 0.03
[2018-03-06] MEDS ORDERED: Ondansetron 4 MG/2 ML VIAL IVP PRN (10:05)
[2018-03-06 10:24] LABS: BUN/Creatinine Ratio 14 (6-26); Blood Urea Nitrogen 18 mg/dL (6-20); Calcium 9.9 mg/dL (8.6-10.3); Carbon Dioxide 27 mEq/L (23-29); Chloride 104 mEq/L (98-107); Glucose 102 mg/dL (70-105); Osmolality,Calculated 286 (280-300); Potassium 4.6 mEq/L (3.5-5.1); Sodium 137 mEq/L (136-145); eGFR For Non-African Americans 59 (> 60)
--- NOTE | 2018-03-06 10:47 | Internal Med Progress Note ---
<DashawnGentry Tavares - Last Filed: 03/06/18 16:41> Hospitalist Progress Note - Encounter Date of Encounter: 03/06/18 Time of Encounter: 10:47 - Subjective Interval History: Mr. Faustin is a 53M with PMH of CAD s/p PCI 2, HTN, GERD, CVA, morbid obesity. He presented to the ED on 03/04 with sudden onset of chest pain which started the previous night at 11:00pm while he was fishing. He described it as sharp in nature, radiating to left side of the neck/face, and accompanied by some dizziness and nausea. The chest pain was refractory to nitroglycerin, but reproducible with palpation and on deep inspiration. He was last seen by cardiology about 3 weeks ago when he was started on lisinopril. He took the first dose on 03/03 and states that he may have had similar type of reaction last time he was on it too. CXR from the ED revealed no acute abnormalities. EKG showed sinus bradycardia with no ST changes. Troponins x2 were <0.03. Pt seen and examined at bedside. No acute events overnight. Pt states he still is experiencing chest pain rated 5/10. He denies any fever, chills, shortness of breath, cough, sputum production, abdominal pain, change in bowel habits, difficulty urinating, numbness, or headache. He does complain of some continued tingling in his right foot. - Exam Vitals: Temp Pulse Resp BP Pulse Ox 97.7 F 50 16 144/91 98 03/06/18 07:06 03/06/18 07:06 03/06/18 08:28 03/06/18 07:06 03/06/18 08:28 Exam: General: obese male. no acute distress HEENT: normocephalic and atraumatic head. Eyes PERRL, EOMI, with no scleral icterus. Poor dentition. Neck: supple, trachea midline, no lymphadenopathy Heart: RRR +S1 +S2. no murmurs, clicks, or rubs appreciated Lungs: CTA bilaterally. Non-labored breathing. no wheezes, rales, or rhonchi GI: abdomen soft, mildly distended, non-tender. normoactive bowel sounds Extremities: radial pulses palpable and symmetrical. no cyanosis or edema. Neuro: A&Ox3. no focal deficits. no speech difficulty or abnormality Skin: warm, dry, intact - Assessment and Plan (1) Chest pain Current Visit: Yes Status: Acute Assessment and Plan: Atypical chest pain with features resembling stable angina when pt walking down the hallway, however pain is also reproducible on palpation and during deep inspiration. Stress test April 2017 was negative does have hx of GERD Negative troponins x3 No EKG changes CXR was unremarkable Echo showed LVEF 60-65%, mild LV diastolic dsyfunction, mild mitral regurg, and mild pulmonary HTN Pt cannot tolerate BB due to bradycardia Unable to tolerate statin due to nausea and stomach upset Continue Pepcid, Prilosec, and Carafate. May benefit from outpatient EGD Scheduled for [facility] today with cardiology (2) Hypertension Current Visit: No Status: Chronic Assessment and Plan: Continued HTN Most recent BP 144/91 Start Imdur Unable to tolerate BB due to bradycardia (3) CAD (coronary artery disease) Current Visit: No Status: Chronic Assessment and Plan: Status post PCI 2 On ASA, Plavix, and Ranexa (4) GERD (gastroesophageal reflux disease) Current Visit: Yes Status: Chronic Assessment and Plan: On Protonix and Zantac at home Continue dual PPI and carafate may benefit from outpatient EGD (5) Morbid obesity with BMI of 40.0-44.9, adult Current Visit: Yes Status: Chronic Assessment and Plan: Chronic issue Discussed lifestyle modifications. DVT Prophylaxis: SQ Lovenox - Time Spent with Patient Total time spent is greater than 50% in coordination of care (as documented) at patient's floor/unit and/or counseling patient: Internal Medicine: Result - Labs CBC & Chem 7: 03/06/18 10:34 03/06/18 09:19 Labs: BMP 03/06/18 09:19 Sodium 137 Potassium 4.6 Chloride 104 Carbon Dioxide 27 BUN 18 Creatinine 1.26 Glucose 102 Calcium 9.9 Cardiac Enzymes 03/05/18 Range/Units 14:41 Troponin I < 0.03 (< 0.04) ng/mL - ABG Interpretation ABG results: PT/INR, D-dimer PT 13.2 Seconds (9.4-12.1) H 03/04/18 01:37 - Impressions Impressions Echocardiogram 03/05/18 09:47 Impressions: LVEF 60-65%. Normal LV chamber size, wall thickness and function. Mild left ventricular diastolic dysfunction. Normal right ventricular structure and function. Mild mitral regurgitation. Consult Discharge Plan - Plan Referrals: Davie Hanley DO [Primary Care Provider] - 03/11/18 8:00 am <Cortez Flanagan - Last Filed: 03/06/18 17:24> Hospitalist Progress Note - Encounter Date of Encounter: 03/06/18 - Exam Vitals: Temp Pulse Resp BP Pulse Ox 97.6 F 45 16 111/70 94 03/06/18 16:46 03/06/18 17:08 03/06/18 17:08 03/06/18 17:08 03/06/18 17:08 - Assessment and Plan (1) Hypertension Current Visit: No Status: Chronic (2) Chest pain Current Visit: Yes Status: Acute (3) CAD (coronary artery disease) Current Visit: No Status: Chronic (4) GERD (gastroesophageal reflux disease) Current Visit: Yes Status: Chronic (5) Morbid obesity with BMI of 40.0-44.9, adult Current Visit: Yes Status: Chronic - Time Spent with Patient Total time spent is greater than 50% in coordination of care (as documented) at patient's floor/unit and/or counseling patient: Internal Medicine: Result - Labs CBC & Chem 7: 03/06/18 10:34 03/06/18 09:19 Labs: Short CBC 03/06/18 Range/Units 10:34 WBC 7.7 (4.3-11.1) K/mcL Hgb 14.2 (12.9-16.9) g/dL Hct 43.6 (37.5-50.1) % Plt Count 236 (140-400) K/mcL Neutrophils # 4.9 (1.6-8.9) K/mcL BMP 03/06/18 09:19 Sodium 137 Potassium 4.6 Chloride 104 Carbon Dioxide 27 BUN 18 Creatinine 1.26 Glucose 102 Calcium 9.9 - ABG Interpretation ABG results: PT/INR, D-dimer PT 13.2 Seconds (9.4-12.1) H 03/04/18 01:37 - Attending Attestation I examined this patient and my medical decision-making was reviewed with the Resident Physician Dr. Tamez. I agree with the documented findings, disposition and treatment plan as described except to the extent set forth below. Mr. Faustin is a 53 year old male with past neck or history of CAD status post PCI 2, hypertension, GERD, CVA, morbid obesity, presented to the ED with sudden onset of chest pain. Pt stated his CP located subs sternal and epigastric region , radiating to his neck and arm. He got another episode of CP this morning after taking a small walk. He still c/o on and off CP and GONZALEZ. gen: A, A, O x 3 Chest: Diminished BS B/l Heart: S1S2+ RRR No murmurs a/p 1. Acute CP 2. h/o CAD Angina equivalent chest pain No acute ischemic changes on EKG Had normal stress test in 05/15, however high risk pt and his CP is concerning Scheduled for LHC today switched him to full admission today since he needs to stay in the hospital more than 2 nights. <Gentry Tamez - Last Filed: 03/06/18 16:41> (1) Chest pain Qualifiers: Chest pain type: unspecified Qualified Code(s): R07.9 - Chest pain, unspecified (2) Hypertension Qualifiers: Hypertension type: essential hypertension Qualified Code(s): I10 - Essential (primary) hypertension (3) CAD (coronary artery disease) Qualifiers: Coronary Disease-Associated Artery/Lesion type: [place] artery [place] vs. transplanted heart: [place] heart Associated angina: angina presence unspecified Qualified Code(s): I25.10 - Atherosclerotic heart disease of [place] coronary artery without angina pectoris (4) GERD (gastroesophageal reflux disease) Qualifiers: Esophagitis presence: esophagitis presence not specified Qualified Code(s): K21.9 - Gastro-esophageal reflux disease without esophagitis <Cortez Flanagan - Last Filed: 03/06/18 17:24> (1) Hypertension Qualifiers: Hypertension type: essential hypertension Qualified Code(s): I10 - Essential (primary) hypertension (2) Chest pain Qualifiers: Chest pain type: unspecified Qualified Code(s): R07.9 - Chest pain, unspecified (3) CAD (coronary artery disease) Qualifiers: Coronary Disease-Associated Artery/Lesion type: [place] artery [place] vs. transplanted heart: [place] heart Associated angina: angina presence unspecified Qualified Code(s): I25.10 - Atherosclerotic heart disease of [place] coronary artery without angina pectoris (4) GERD (gastroesophageal reflux disease) Qualifiers: Esophagitis presence: esophagitis presence not specified Qualified Code(s): K21.9 - Gastro-esophageal reflux disease without esophagitis
[2018-03-06 11:24] LABS: Basophils # 0.1 K/mcL (0.0-0.2); Basophils % 0.9 %; Eosinophils # 0.2 K/mcL (0.0-0.6); Eosinophils % 2.6 %; Hematocrit 43.6 % (37.5-50.1); Hemoglobin 14.2 g/dL (12.9-16.9); Immature Granulocytes % 0.4 % (0-4); Lymphocytes # 2.2 K/mcL (0.6-4.6); Lymphocytes % 28.8 %; Mean Corpuscular HGB Conc 32.6 g/dL (31.6-35.5); Mean Corpuscular Hemoglobin 28.5 pg (28.0-33.3); Mean Corpuscular Volume 87.4 fL (83.0-100.0); Mean Platelet Volume 10.8 fL (9.4-12.4); Monocytes # 0.4 K/mcL (0.0-1.3); Monocytes % 4.7 %; Neutrophils # 4.9 K/mcL (1.6-8.9); Platelet Count 236 K/mcL (140-400); Red Blood Count 4.99 M/mcL (4.19-5.50); Red Cell Distribution Width 13.1 % (11.5-14.5); Segmented Neutrophils % 62.6 %
[2018-03-06] MEDS: Isosorbide MONOnitrate (24 HR) 60 MG TAB.ER.24H PO SCH (12:15)
[2018-03-06] MEDS ORDERED: Heparin 1,000 UNITS/500 mL 500 ML ONE (14:46)
[2018-03-06] MEDS ORDERED: *HR* Heparin 10,000 UNIT/10 ML VIAL ONE (14:46)
[2018-03-06] MEDS ORDERED: 0.9 % Sodium Chloride 2,000 ML ONE (14:46)
[2018-03-06] MEDS ORDERED: Nitroglycerin 1,000 MCG/10 ML VIAL IV ONE (14:47)
[2018-03-06] MEDS ORDERED: ISOVUE-370 200 ML INFUS..BTL IV ONE (14:47)
--- NOTE | 2018-03-06 14:58 | Pre-Sedation Evaluation ---
Pre-sedation evaluation - Pre-sedation checklist Date of procedure: 03/06/18 Procedure: heart cath Recent Vitals: Last Vital Signs Temp 97.6 F 03/06/18 10:51 Pulse 49 03/06/18 10:51 Resp 17 03/06/18 10:51 BP 156/100 03/06/18 10:51 Pulse Ox 97 03/06/18 10:51 H&P (including ROS) documented in medical record: Yes Previous reaction to sedatives/anesthetics: No Dietary Status: NPO after Midnight Dentition: No loose teeth or bridges ASA Classification *see protocol: CLASS II-Mild systemic disease Cardiac Registry (Cardio Only) - Functional Capacity Functional Capacity: >=4 METS with symptoms - Clincal Frailty Scale Clinical Frailty Scale: Managing Well
[2018-03-06] MEDS ORDERED: *HR* Midazolam HCl 2 MG/2 ML VIAL ONE (15:17)
[2018-03-06] MEDS ORDERED: *HR* FentaNYL (PF) 100 MCG/2 ML VIAL ONE (15:17)
[2018-03-06] MEDS ORDERED: Tirofiban 12.5 MG/250ML 12.5 MG/250 ML BAG IVC SCH (16:15)
--- NOTE | 2018-03-06 16:28 | Invasive Diagnostic Lab Proc ---
Name: Kwesi Faustin Date of Study: 03/06/2018 Date: 1965 Ht: 72.0in Medical Record#: [id number] Age: 53 Wt: 306.66lb Gender: Male BSA: 2.55 Order #: [id number] BMI: 41.58 Physicians Procedure Physician: Marek Paz MD Referring MD: Referring MD: Staff Name Position Time In [facility] RT (R) Monitor 03:19 PM Mamie Hyman RN Loop Drier Operator 03:19 PM [facility] RT (R) Scrub 03:19 PM Indications Indication Unstable Angina Procedures Performed Procedure L HRT ARTERY/VENTRICLE ANGIO PRQ CARD ERIKA STENT W/ANGIO 1 VSL PRQ CARD STENT W/ANGIO ADDL Pre-Procedure Checklist Informed consent is complete signed and on chart. H&P is on chart. ID band is on and ID verified with patient. Patient NPO for procedure The procedure was described for the patient and questions were answered. Blood Pressure: 156/100 ECG is on chart. Rhythm: NSR Plan of Care Patient will tolerate the procedure without complications. Adequate level of comfort will be maintained. Hemodynamics will remain stable Patient will recover from procedure without complications. Respiratory function will be maintained. Cardiac rhythm will remain stable. Patient temperature will be maintained. Patient and/or family have verbalized understanding of the procedure. Patient Education Chief Complaint/Reason for Test: Cardiac Cath Developmental Category: Adult (18-64 years) Developmentally Appropriate for Age: Yes Learning Barriers: None Education Needs: Procedure Education Method: Verbal Information Taught: Cardiac Cath Educational Evaluation: Able to repeat information Intravenous Access Time IV Size Location DC'd Fluid/Drip Rate Units RN 03:00 PM 20g 1 1/4" Patent On Arrival Rt Antecubital 0.9NaCl 25 ml/hr Mamie Hyman RN Allergies TORADOL VICODIN hydrocodone ketorolac acetaminophen Hydromorphone Vital Signs Time BP (mmHg) HR (bpm) O2 Sat. RR (bpm) LOC 156 / 100 49 97 % 17 5 = Fully awake and oriented or at pre-proc level 03:20 PM / % 5 = Fully awake and oriented or at pre-proc level 03:20 PM / % 4 = Oriented but drowsy 03:35 PM / % 4 = Oriented but drowsy 03:50 PM / % 4 = Oriented but drowsy 03:17 PM 155 / 124 49 99 % 18 03:19 PM 132 / 82 47 98 % 15 03:23 PM 128 / 84 47 97 % 14 03:28 PM 135 / 81 47 98 % 16 03:33 PM 136 / 79 48 96 % 12 03:38 PM 139 / 79 48 98 % 15 03:43 PM 137 / 72 48 97 % 13 03:48 PM 132 / 78 46 98 % 11 03:53 PM 133 / 79 46 99 % 14 03:58 PM 129 / 74 46 98 % 12 04:03 PM 139 / 78 47 99 % 12 04:08 PM 145 / 76 48 99 % 16 04:13 PM 127 / 81 49 % 14 Procedural Medications Time Medication Dose Units Method Given By 03:20 PM Oxygen 2 L/min nasal cannula Mamie Hyman RN 03:20 PM Versed 1 mg Intravenous Mamie Hyman RN 03:20 PM Fentanyl 50 mcg Intravenous Mamie Hyman RN 03:30 PM Lidocaine 2% 20 ml Subcutaneous Marek Paz MD 03:37 PM Heparin 5000 units Intravenous Mamie Hyman RN 03:37 PM Aggrastat Bolus: 71 ml Intravenous Mamie Hyman RN 03:38 PM Aggrastat 12.5mg/250ml 25.5 ml Intravenous Mamie Hyman RN 04:09 PM Plavix 75 mg Orally Mamie Hyman RN ASA Classification: CLASS II- Mild systemic disease (i.e. well-controlled diabetes, hypertension, asthma, cigarette smoking) Nahum Score Preprocedure Postprocedure Activity 2- Moves 4 extremities sustained head lift Activity 2- Moves 4 extremities sustained head lift Circulation 2- SBP +/= 20 points of pre-anesthetic level Circulation 2- SBP +/= 20 points of pre-anesthetic level Consciousness 2- Awake and alert oriented x 3 Consciousness 2- Awake and alert oriented x 3 O2 Saturation 2- Able to maintain O2 satruation of 92% on room air O2 Saturation 2- Able to maintain O2 satruation of 92% on room air Respiratory 2- Able to deep breathe and cough well Respiratory 2- Able to deep breathe and cough well Total Score 10 Total Score 10 Contrast Agent: Isovue Diagnostic Contrast: 269 ml Total Contrast: 269 ml Fluoro Dose: 61875 mGy Activated Clotting Time Time Seconds to Clot 04:11 PM 232 Procedure Log Time Note Enter By 02:59 PM CathStat 03:17 PM Vitals capture started with the following parameters, Patient=Adult, Interval=5 min, Initial Cnnsnlnw=118 mmHg, Deflation Rate=5 mmHg, Cuff placed on Right Arm 03:17 PM HR=49 bpm, BNPR=529/124 mmhg, SpO2=99.0 %, Resp=18 B/min 03:18 PM NIBP STAT measurement started. 03:19 PM HR=47 bpm, SOSV=916/82 mmhg, SpO2=98.0 %, Resp=15 B/min 03:19 PM Pt arrived to bed laborer 2 at 15:19 twilson 03:19 PM Theodora Ruiz RT (R) Position: Monitor Time in: 15:19 twilson 03:19 PM Mamie Hyman RN Position: Loop Drier Operator Time in: 15:19 twilson 03:19 PM Theodora Whaley (R) Position: Scrub Time in: 15:19 twilson 03:19 PM Patient charges- Angio tray pack, Navilyst 3mm J, Pulse Oximetry and ACIST tubing and transducer twilson : PM Case Delayed no twilson : PM Hair removed from procedure site in procedure lab using clippers. Bilateral groin prepped with Chloraprep by Theodora Ruiz (R), then patient was draped. Skin intact. tw: PM Physician arrived 15:20 twilson :20 PM Meet and greet completed : PM Sign in performed according to hospital policy. Informed consent was obtained. tw: PM Procedure start 15:20 twilson PM Time: 15:20 Oxygen on at 2 L/min per nasal cannula by Mamie Hyman RN ilson : PM Time: 15:20 Versed 1 mg Intravenous Given by Mamie Hyman RN ilson PM Time: 15:20 Fentanyl 50 mcg Intravenous Given by Mamie Hyman RN ilson : PM Time: 15:20 Patient comfortable and pain free: Yes tw: PM Time: 15:20LOC: 5 = Fully awake and oriented or at pre-proc level twilson : PM Recorded ECG: HR=48 Condition=Condition 1 03:22 PM ASA Class CLASS II- Mild systemic disease (i.e. well-controlled diabetes, hypertension, asthma, cigarette smoking) twilson 03:23 PM HR=47 bpm, XUOO=271/84 mmhg, SpO2=97.0 %, Resp=14 B/min 03:27 PM Time out was performed according to hospital policy. Conscious sedation and anesthesia was achieved (see medication log with in this report above) twilson 03:28 PM HR=47 bpm, UNAW=931/81 mmhg, SpO2=98.0 %, Resp=16 B/min 03:30 PM Time: 15:30 20 ml Lidocaine 2% to right groin Subcutaneous Given by Marek Paz MD twilson 03:30 PM Micro-Introducer Kit utilized for sheath placement twilson 03:31 PM Isovue 370 - 200ml contrast [address] Paz. twilson 03:31 PM Access obtained by percutaneous puncture. 6Fr 10cm Terumo [place] sheath placed in right Femoral artery. [id number] twilson 03:31 PM 5Fr FR 4 catheter inserted over the wire DN twilson 03:31 PM Wire removed twilson 03:31 PM RCA angiography performed in multiple views. twilson 03:31 PM Recorded Pressure: Ao, HR=48, Condition=Condition 1 (Aorta) Ao 124/89/105 03:32 PM Wire reinserted. twilson 03:32 PM Catheter removed twilson 03:33 PM HR=48 bpm, RILW=287/79 mmhg, SpO2=96.0 %, Resp=12 B/min 03:33 PM 5Fr FL 4 catheter inserted over the wire DN twilson 03:34 PM Recorded Pressure: Ao, HR=51, Condition=Condition 1 (Aorta) Ao 118/81/98 03:34 PM Wire removed twilson 03:35 PM LCA angiography performed in multiple views. twilson 03:35 PM Time: 15:20LOC: 4 = Oriented but drowsy twilson 03:35 PM Time: 15:20 Patient comfortable and pain free: Yes twilson 03:36 PM Wire reinserted. twilson 03:36 PM Catheter removed twilson 03:36 PM Recorded Pressure: LV, HR=50, Condition=Condition 1 (Left Ventricle) LV 145/22/24 03:36 PM Recorded Pressure: LV, Ao, HR=68, Condition=Condition 1 (Left Ventricle) LV 116/22/35, (Aorta) Ao 161/22/104 03:37 PM 6Fr XB LAD 3.5 Cordis guide catheter was used to cannulate the PCI vessel successfully. reused? No twilson 03:37 PM Wire removed twilson 03:37 PM Time: 15:37 Heparin 5000 units Intravenous Given by Mamie Hyman RN twilson 03:38 PM HR=48 bpm, TSYN=755/79 mmhg, SpO2=98.0 %, Resp=15 B/min 03:38 PM Time: 15:37 Aggrastat Bolus: 71 ml Intravenous Given by Mamie Hyman RN Oliver pump twilson 03:38 PM Time: 15:38 Aggrastat 12.5mg/250ml 25.5 ml Intravenous Given by Mamie Hyman RN Oliver pump twilson 03:38 PM Recorded Pressure: Ao, HR=48, Condition=Condition 1 (Aorta) Ao 131/79/99 03:40 PM .014 BMW Jones 190cm guide wire across target lesion- successful. reused? No twilson 03:41 PM Recorded Pressure: Ao, HR=49, Condition=Condition 1 (Aorta) Ao 116/78/95 03:41 PM 2.0 mm x 12 mm Emerge Monorail balloon across target lesion- successful. reused? No twilson 03:42 PM Inflation device was opened. twilson 03:42 PM Balloon inflated @ 6 rose marie for 10 seconds twilson 03:42 PM Balloon catheter removed intact. twilson 03:42 PM Recorded Pressure: Ao, HR=47, Condition=Condition 1 (Aorta) Ao 120/73/93 03:42 PM PCI lesion in 1st Marginal. Pre Stenosis: 90 Pre SHANDRA Flow: 3: Complete and Brisk Flow/Perfusion twilson 03:42 PM Coronary Dominance: right twilson 03:43 PM HR=48 bpm, TDHW=027/72 mmhg, SpO2=97.0 %, Resp=13 B/min 03:43 PM Lesion found in Distal Circumflex. Pre Stenosis: 70 Pre SHANDRA Flow: 3: Complete and Brisk Flow/Perfusion twilson 03:43 PM Circumflex, Obtuse Marginal, Left Posterior Descending, and Left Posterolateral Coronary Arteries with 90 % stenosis. If graft is supplying this area, 0 % stenosis twilson 03:43 PM Lesion found in Proximal LAD. Pre Stenosis: 70 Pre SHANDRA Flow: 3: Complete and Brisk Flow/Perfusion twilson 03:43 PM Proximal Left Anterior Descending Coronary Artery with 70% stenosis. If graft is supplying this territory, 0 % stenosis. twilson 03:43 PM 2.75mm x 16mm Synergy drug-eluting stent across target lesion- successful Lot #[id number] twilson 03:45 PM Stent deployed @ 11 rose marie for 10 seconds twilson 03:45 PM Stent balloon reinflated @ 11 rose marie for 8 seconds twilson 03:45 PM Stent balloon reinflated @ 15 rose marie for 9 seconds twilson 03:45 PM Recorded Pressure: Ao, HR=49, Condition=Condition 1 (Aorta) Ao 131/84/104 03:48 PM HR=46 bpm, FDXW=964/78 mmhg, SpO2=98.0 %, Resp=11 B/min 03:49 PM Stent delivery system removed intact. twilson 03:49 PM BMW guidewire repositioned into LAD. twilson 03:49 PM 2.0x12 balloon reinserted. twilson 03:49 PM Balloon inflated @ 6 rose marie for 6 seconds twilson 03:50 PM Time: 15:35 Patient comfortable and pain free: Yes twilson 03:50 PM Time: 15:35LOC: 4 = Oriented but drowsy twilson 03:50 PM Recorded Pressure: Ao, HR=46, Condition=Condition 1 (Aorta) Ao 145/83/106 03:51 PM Balloon catheter removed intact. twilson 03:52 PM Recorded Pressure: Ao, HR=46, Condition=Condition 1 (Aorta) Ao 142/83/105 03:52 PM Called for 2N bed. twilson 03:53 PM HR=46 bpm, SDTE=542/79 mmhg, SpO2=99.0 %, Resp=14 B/min 03:53 PM 3.0mm x 24mm Synergy drug-eluting stent across target lesion- successful Lot #[id number] twilson 03:54 PM Stent deployed @ 9 rose marie for 11 seconds twilson 03:55 PM Stent balloon reinflated @ 16 rose marie for 15 seconds twilson 03:55 PM Stent balloon reinflated @ 18 rose marie for 12 seconds twilson 03:55 PM Patient will go to 2N5 when procedure is complete. twilson 03:56 PM Stent balloon reinflated @ 18 rose marie for 5 seconds twilson 03:56 PM Recorded Pressure: Ao, HR=48, Condition=Condition 1 (Aorta) Ao 136/86/107 03:56 PM Stent balloon reinflated @ 18 orse marie for 5 seconds twilson 03:58 PM HR=46 bpm, ANSE=369/74 mmhg, SpO2=98.0 %, Resp=12 B/min 03:59 PM 3.5 mm x 20mm NC Emerge balloon across target lesion- successful. reused? No twilson 03:59 PM Balloon inflated @ 12 rose marie for 20 seconds twilson 03:59 PM Balloon inflated @ 12 rose marie for 16 seconds twilson 03:59 PM Recorded Pressure: Ao, HR=47, Condition=Condition 1 (Aorta) Ao 130/82/101 04:00 PM Balloon inflated @ 18 rose marie for 10 seconds twilson 04:01 PM Balloon catheter removed intact. twilson 04:01 PM Repositioning guidewire. twilson 04:02 PM Reshaping guidewire. twilson 04:02 PM Guidewire reinserted. twilson 04:03 PM HR=47 bpm, XTRG=922/78 mmhg, SpO2=99.0 %, Resp=12 B/min 04:04 PM Recorded Pressure: Ao, HR=48, Condition=Condition 1 (Aorta) Ao 125/74/96 04:08 PM HR=48 bpm, SYXJ=904/76 mmhg, SpO2=99.0 %, Resp=16 B/min 04:08 PM Guidewire removed, intact. twilson 04:09 PM J-wire reinserted. twilson 04:09 PM Guide catheter removed, intact. twilson 04:09 PM J-wire removed, intact. twilson 04:09 PM ACT drawn. twilson 04:09 PM Time: 16:09 Plavix 75 mg Orally Given by Mamie Hyman RN twilson 04:09 PM Aggrastat to run for 6 hours. twilson 04:10 PM Procedure completed at 16:10 03/06/2018 twilson 04:10 PM Did you address SHANDRA flow and Dominance? Yes twilson 04:10 PM Sign out completed: Radiation Dose 2253.12 mGy, 90910 cGy/cm2 Fluoro Time: 13.7 Isovue 370 - 200ml contrast 269 ml given by Marek Paz MD. Complications: None. The patient was discharged out of the catheterization laboratory technician in stable condition. Cardiac Rehab Consult needed: YesConfirmed administered medications: Yes twilson 04:10 PM Isovue 370 - 500ml,1 Bottle(s) used. twilson 04:11 PM Sheath left in place to be pulled on floor/holding areaV+Pad twilson 04:11 PM At 16:11 the ACT was 232 seconds. twilson 04:11 PM Estimated Blood Loss: less than 20cc twilson 04:11 PM Post ECG Sinus Bradycardia twilson 04:11 PM Post Blood Pressure 145/76 twilson 04:12 PM 16:11 Post Pulses Bilateral DP & PT 2+ twilson 04:12 PM 16:12 Post Pulses Bilateral radial 2+ twilson 04:12 PM Information taught Cardiac Cath and PCI twilson 04:12 PM Education needs Procedure, Plan of Care, and Responsibilities of Patient in Care twilson 04:12 PM Learning barriers :None twilson 04:12 PM Education Methods Verbal twilson 04:12 PM Education evaluation Able to repeat information twilson 04:12 PM Site status No bleeding/hematoma - Rt Groin as reported by Sites, Theodora RT (R) at 16:12 twilson 04:12 PM Opsite applied twilson 04:12 PM Family placed in consult room. twilson 04:12 PM Delay to floor No twilson 04:13 PM Patient to return to lab for staged PCI of distal circ and ramus. twilson 04:13 PM HR=49 bpm, GYHD=367/81 mmhg, Resp=14 B/min 04:14 PM Time: 15:50 Patient comfortable and pain free: Yes twilson 04:14 PM Time: 15:50LOC: 4 = Oriented but drowsy twilson 04:16 PM Report given to Ludmila DE GUZMAN Pt taken to 2N Room #5. 16:16 twilson 04:17 PM Patient out of room: 16:17 twilson 04:18 PM Lesion found in Ramus. Pre Stenosis: 70 Pre SHANDRA Flow: twilson 04:18 PM Ramus with 70% stenosis. If graft is supplying this area, 0 % stenosis twilson Complications Complication None Hemodynamics Pressures Site Systolic/A Wave Diastolic/V Wave Mean AO 124 89 105 AO 118 81 98 LV 145 22 24 LV 116 22 35 AO 161 22 104 AO 131 79 99 AO 116 78 95 AO 120 73 93 AO 131 84 104 AO 145 83 106 AO 142 83 105 AO 136 86 107 AO 130 82 101 AO 125 74 96 Post Procedure Information Blood Pressure: 145/76 mmHg Rhythm: Sinus Bradycardia Post procedural instructions were given Closure Device Time Device Success/Fail 03/06/2018 4:17:00 PM Manual Compression Site Checks Time Location Status Staff Sheath In? Note 04:12 PM Rt Groin No bleeding/hematoma Sites, Theodora RT (R) Pulses Time Site Pre-Procedure Post-Procedure Note 03/06/2018 3:00:00 PM Bilateral DP 2+ 03/06/2018 3:00:00 PM Bilateral radial 2+ 4:11:00 PM Bilateral DP & PT 2+ 4:12:00 PM Bilateral radial 2+ Updated by Theodora Ruiz RT (R) on 03/06/2018 4:23:16 PM electronically signed on 03/06/2018 4:24:24 PM with status of Final
[2018-03-06] MEDS ORDERED: *HR* Atropine Sulfate 1 MG/10 ML SYRINGE ONE (18:17)
[2018-03-06] MEDS ORDERED: 0.9 % Sodium Chloride 1,000 ML ONE (18:18)
[2018-03-06] MEDS: Famotidine 20 MG TABLET PO SCH (19:51)
[2018-03-07 04:31] LABS: Basophils # 0.1 K/mcL (0.0-0.2); Basophils % 0.7 %; Eosinophils # 0.2 K/mcL (0.0-0.6); Eosinophils % 2.7 %; Hematocrit 37.7 % (37.5-50.1); Immature Granulocytes % 0.3 % (0-4); Lymphocytes # 1.8 K/mcL (0.6-4.6); Lymphocytes % 23.8 %; Mean Corpuscular HGB Conc 33.2 g/dL (31.6-35.5); Mean Corpuscular Hemoglobin 28.7 pg (28.0-33.3); Mean Corpuscular Volume 86.5 fL (83.0-100.0); Mean Platelet Volume 10.5 fL (9.4-12.4); Monocytes # 0.5 K/mcL (0.0-1.3); Monocytes % 7.1 %; Neutrophils # 4.9 K/mcL (1.6-8.9); Platelet Count 137 K/mcL (140-400); Red Blood Count 4.36 M/mcL (4.19-5.50); Red Cell Distribution Width 13.3 % (11.5-14.5); Segmented Neutrophils % 65.4 %
[2018-03-07 04:32] LABS: Hemoglobin 12.5 g/dL (12.9-16.9)
[2018-03-07 04:50] LABS: BUN/Creatinine Ratio 12 (6-26); Blood Urea Nitrogen 16 mg/dL (6-20); Calcium 9.5 mg/dL (8.6-10.3); Carbon Dioxide 27 mEq/L (23-29); Chloride 106 mEq/L (98-107); Glucose 89 mg/dL (70-105); Osmolality,Calculated 285 (280-300); Potassium 4.2 mEq/L (3.5-5.1); Sodium 137 mEq/L (136-145); eGFR For Non-African Americans 55 (> 60)
[2018-03-07] MEDS ORDERED: *HR* Enoxaparin 40 MG/0.4 ML SYRINGE SQ SCH (06:00)
[2018-03-07] MEDS: Budesonide/Formoterol 80/4.5 MDI IH SCH (07:43)
[2018-03-07] MEDS: Sucralfate 1 GM TABLET PO SCH ×2 (07:44→11:14)
[2018-03-07] MEDS: Ranolazine 500 MG TAB.ER.12H PO SCH (07:44)
[2018-03-07] MEDS: Gabapentin 100 MG CAPSULE PO SCH (07:44)
[2018-03-07] MEDS: Isosorbide MONOnitrate (24 HR) 60 MG TAB.ER.24H PO SCH (07:44)
[2018-03-07] MEDS: Aspirin 81 MG TAB.CHEW PO SCH (07:44)
--- NOTE | 2018-03-07 07:48 | Internal Med Progress Note ---
Hospitalist Progress Note - Encounter Date of Encounter: 03/07/18 Time of Encounter: 07:48 - Subjective Interval History: Mr. Faustin is a 53M with PMH of CAD s/p PCI 2, HTN, GERD, CVA, morbid obesity. He presented to the ED on 03/04 with sudden onset of chest pain which started the previous night at 11:00pm while he was fishing. He described it as sharp in nature, radiating to left side of the neck/face, and accompanied by some dizziness and nausea. The chest pain was refractory to nitroglycerin, but reproducible with palpation and on deep inspiration. He was last seen by cardiology about 3 weeks ago when he was started on lisinopril. He took the first dose on 03/03 and states that he may have had similar type of reaction last time he was on it too. CXR from the ED revealed no acute abnormalities. EKG showed sinus bradycardia with no ST changes. Troponins x2 were <0.03. Pt seen and examined at bedside. No acute events overnight. Pt states he still is experiencing chest pain rated 5/10. He denies any fever, chills, shortness of breath, cough, sputum production, abdominal pain, change in bowel habits, difficulty urinating, numbness, or headache. He does complain of some continued tingling in his right foot. - Exam Vitals: Temp Pulse Resp BP Pulse Ox 98.5 F 50 16 111/66 95 03/07/18 07:35 03/07/18 07:41 03/07/18 07:43 03/07/18 07:35 03/07/18 07:43 - Assessment and Plan (1) Chest pain Current Visit: Yes Status: Acute (2) Hypertension Current Visit: No Status: Chronic (3) CAD (coronary artery disease) Current Visit: No Status: Chronic (4) GERD (gastroesophageal reflux disease) Current Visit: Yes Status: Chronic (5) Morbid obesity with BMI of 40.0-44.9, adult Current Visit: Yes Status: Chronic - Time Spent with Patient Total time spent is greater than 50% in coordination of care (as documented) at patient's floor/unit and/or counseling patient: Internal Medicine: Result - Labs CBC & Chem 7: 03/07/18 04:08 03/07/18 04:08 Labs: Short CBC 03/07/18 Range/Units 04:08 WBC 7.4 (4.3-11.1) K/mcL Hgb 12.5 L D (12.9-16.9) g/dL Hct 37.7 (37.5-50.1) % Plt Count 137 L (140-400) K/mcL Neutrophils # 4.9 (1.6-8.9) K/mcL BMP 03/07/18 04:08 Sodium 137 Potassium 4.2 Chloride 106 Carbon Dioxide 27 BUN 16 Creatinine 1.35 H Glucose 89 Calcium 9.5 - ABG Interpretation ABG results: PT/INR, D-dimer PT 13.2 Seconds (9.4-12.1) H 03/04/18 01:37 Consult Discharge Plan - Plan Referrals: Davie Hanley DO [Primary Care Provider] - 03/11/18 8:00 am (1) Chest pain Qualifiers: Chest pain type: unspecified Qualified Code(s): R07.9 - Chest pain, unspecified (2) Hypertension Qualifiers: Hypertension type: essential hypertension Qualified Code(s): I10 - Essential (primary) hypertension (3) CAD (coronary artery disease) Qualifiers: Coronary Disease-Associated Artery/Lesion type: [place] artery Teller vs. transplanted heart: [place] heart Associated angina: angina presence unspecified Qualified Code(s): I25.10 - Atherosclerotic heart disease of [place] coronary artery without angina pectoris (4) GERD (gastroesophageal reflux disease) Qualifiers: Esophagitis presence: esophagitis presence not specified Qualified Code(s): K21.9 - Gastro-esophageal reflux disease without esophagitis
[2018-03-07] MEDS ORDERED: 0.9 % Sodium Chloride 1,000 ML IVC SCH (09:15)
--- NOTE | 2018-03-07 09:52 | Electrocardiograph Report ---
[place] [id number] Test Date: 2018-03-04 Pat Name: Kwesi Faustin Department: 104 Room: [facility] Gender: M Survey Party Chief: STEVAN : 1965 Requested By: Errol Delgadillo Order Number: [id number] Reading MD: Joey Salas Measurements Intervals [place] Rate: 53 P: -5 MO: 164 QRS: 8 QRSD: 93 T: 34 QT: 421 QTc: 403 Interpretive Statements SINUS BRADYCARDIA Electronically Signed On 03-07-2018 9:51:14 EDT by Joey Salas
--- NOTE | 2018-03-07 10:56 | Cardiology Progress Note ---
Date of Encounter: 03/07/18 Time of Encounter: 09:30 Assessment and Plan (1) Chest pain Current Visit: Yes Status: Acute Atypical/typical chest pain symptoms. Worsens with exertion, improves with rest. Also with reproducible chest wall tenderness. Multiple recent admissions with chest pain. Troponin negative, ECG without ischemic changes. Recent negative nuclear stress 04/2017. On nitrates/ranexa; unable to tolerate BB d/t bradycardia (avg HR=50's). On asa/ plavix. Cannot tolerate statin d/t nausea. [facility] 03/06/18: s/p successful PTCA/ERIKA to OM and pLAD; recommended for outpatient staged PCI to Ramus and dLCX--will coordinate outpatient f/u with Dr. Paz. Importance of uninterrupted DAPT (asa + plavix) discussed for a minimum of 1 year, continue nitrates and ranexa. Cardiac rehab. Mild KESHA noted, IVF ordered by primary service. Mild reduction in H/H, order placed to recheck CBC at 12. Cardiology will sign-off, will coordinate outpatient follow-up. Recommend outpatient MELISSA evaluation. Qualifiers: Chest pain type: precordial pain Qualified Code(s): R07.2 - Precordial pain (2) Hypertension Current Visit: No Status: Chronic Resume home Imdur. Recently started on norvasc as outpt, reportedly unable to tolerate. Further mgmt per primary service. Qualifiers: Hypertension type: essential hypertension Qualified Code(s): I10 - Essential (primary) hypertension (3) CAD (coronary artery disease) Current Visit: No Status: Chronic Plan as above. Hx of CAD s/p PCI most recently in 2012. Asa, plavix, nitrates and ranexa. Unable to tolerate statin d/t nausea. Qualifiers: Coronary Disease-Associated Artery/Lesion type: [place] artery [place] vs. transplanted heart: [place] heart Associated angina: angina presence unspecified Qualified Code(s): I25.10 - Atherosclerotic heart disease of [place] coronary artery without angina pectoris Discussion w patient/family: The assessment and plan as outlined above was discussed with the patient and/or family members who expressed understanding and agreement. All questions were answered. Thank you for involving us in the care of your patient. Please call with any questions. The patient will be discussed and reviewed with Dr. Bauman; changes to be made accordingly. Subjective Principal diagnosis: Chest pain, unstable angina Interval history: Seen and examined. No chest pain overnight. No issues with right groin cath site. Plan of care discussed with patient and family. Objective Vital Signs, Last 4 Hours Temp Pulse Resp BP Pulse Ox 03/07/18 10:12 50 18 92 03/07/18 07:43 16 95 03/07/18 07:41 50 03/07/18 07:35 98.5 F 46 16 111/66 96 General: Conversant, Other (morbidly obese) HEENT: Atraumatic, Normocephaly Cardiac: Reg Rate and Rhythm (bradycardiac), Normal S1 and S2 Lungs: Normal Breath Sounds Neuro: Alert and responsive Abdomen: Soft Skin: No rashes noted on visualized skin Musculoskeletal: No Chest Wall Tenderness Extremities: No Edema, Normal Pulses Other: right groin cath site: no hematoma, ecchymosis, or bleeding noted. +2 DP/PT pulses. Results 03/07/18 04:08 03/07/18 04:08 Lab Results 03/07/18 03/07/18 04:08 04:08 WBC 7.4 Hgb 12.5 L D Hct 37.7 Plt Count 137 L Sodium 137 Potassium 4.2 Chloride 106 Carbon Dioxide 27 BUN 16 Creatinine 1.35 H Glucose 89 Calcium 9.5 Active Medications Acetaminophen (Tylenol) 650 mg PO Q6HR PRN PRN Reason: Mild Pain/Fever Stop: 09/03/18 07:35 Hydrocodone Bitart/Acetaminophen ([place] 5-325 Mg) 1 tab PO Q6HR PRN PRN Reason: Moderate Pain Stop: 09/03/18 07:35 Last Admin: 03/06/18 07:58 Dose: 1 tab Albuterol Sulfate (Albuterol Inhaler) 2 puff IH Q4H PRN PRN Reason: Shortness Of Breath Stop: 09/03/18 07:36 Allopurinol (Zyloprim) 300 mg PO DAILY [facility] Stop: 09/03/18 09:01 Last Admin: 03/07/18 07:44 Dose: 300 mg Aspirin (Aspirin) 81 mg PO BID [place] Stop: 09/03/18 09:01 Last Admin: 03/07/18 07:44 Dose: 81 mg Budesonide/Formoterol Fumarate (Symbicort) 2 puff IH BIDR [facility] Stop: 09/03/18 10:01 Last Admin: 03/07/18 07:43 Dose: 2 puff Clopidogrel Bisulfate (Plavix) 75 mg PO DAILY [facility] Stop: 09/03/18 09:01 Last Admin: 03/07/18 07:44 Dose: 75 mg Cyclobenzaprine HCl (Flexeril) 5 mg PO TID PRN PRN Reason: Muscle Spasm Enoxaparin Sodium (Lovenox) 40 mg SQ 0600 [facility] PRN Reason: Protocol Stop: 09/06/18 06:01 Last Admin: 03/07/18 06:20 Dose: 40 mg Famotidine (Pepcid) 40 mg PO HS [facility] Stop: 09/03/18 21:01 Last Admin: 03/06/18 19:51 Dose: 40 mg Gabapentin (Neurontin) 100 mg PO TID [facility] Stop: 09/03/18 09:01 Last Admin: 03/07/18 07:44 Dose: 100 mg Sodium Chloride (0.9 % Sodium Chloride) 1,000 mls @ 75 mls/hr IVC .[id number] [facility] Stop: 09/06/18 09:16 Last Admin: 03/07/18 10:11 Dose: 75 mls/hr Isosorbide Mononitrate (Imdur) 60 mg PO DAILY [facility] Stop: 09/05/18 10:31 Last Admin: 03/07/18 07:44 Dose: 60 mg Naloxone HCl (Narcan) 0.4 mg IVP Q2MIN PRN PRN Reason: SEE COMMENTS Stop: 09/03/18 07:35 Nitroglycerin (Nitroglycerin) 0.4 mg SL Q5MIN PRN PRN Reason: Chest Pain Stop: 09/03/18 06:33 Omeprazole (Prilosec) 20 mg PO DAILY@0630 [facility] Stop: 09/03/18 09:01 Last Admin: 03/07/18 06:20 Dose: 20 mg Ondansetron HCl (Zofran) 4 mg IVP Q6HR PRN; Protocol PRN Reason: Nausea Stop: 09/05/18 10:06 Last Admin: 03/06/18 10:16 Dose: 4 mg Oxycodone HCl (Roxicodone) 10 mg PO Q6HR PRN PRN Reason: Severe Pain Stop: 09/03/18 07:35 Last Admin: 03/06/18 17:21 Dose: 10 mg Ranolazine (Ranexa) 1,000 mg PO BID [facility] Stop: 09/03/18 09:01 Last Admin: 03/07/18 07:44 Dose: 1,000 mg Sertraline HCl (Zoloft) 100 mg PO BID [facility] Stop: 09/03/18 09:01 Last Admin: 03/07/18 07:44 Dose: 100 mg Sucralfate (Carafate) 1 gm PO QIDAC [facility] Stop: 09/03/18 11:31 Last Admin: 03/07/18 07:44 Dose: 1 gm - Imaging and Cardiology Echo: report reviewed Cardiac cath: report reviewed Other Results: 12 hour tele: avg HR=49 SB. No events noted. - EKG Interpretation EKG results cardiology: personally reviewed Consult Discharge Plan - Plan Referrals: Davie Hanley DO [Primary Care Provider] - 03/11/18 8:00 am
[2018-03-07 11:18] VITALS: BP 135/76
[2018-03-07 12:36] LABS: Basophils # 0.1 K/mcL (0.0-0.2); Basophils % 0.6 %; Eosinophils # 0.2 K/mcL (0.0-0.6); Eosinophils % 2.1 %; Hematocrit 39.1 % (37.5-50.1); Hemoglobin 12.6 g/dL (12.9-16.9); Immature Granulocytes % 0.4 % (0-4); Lymphocytes # 2.1 K/mcL (0.6-4.6); Lymphocytes % 27.1 %; Mean Corpuscular HGB Conc 32.2 g/dL (31.6-35.5); Mean Corpuscular Hemoglobin 28.6 pg (28.0-33.3); Mean Corpuscular Volume 88.9 fL (83.0-100.0); Monocytes # 0.4 K/mcL (0.0-1.3); Monocytes % 5.2 %; Platelet Count 158 K/mcL (140-400); Red Cell Distribution Width 13.2 % (11.5-14.5); Segmented Neutrophils % 64.6 %
--- NOTE | 2018-03-07 14:13 | Discharge Summary ---
<Gentry Tamez - Last Filed: 03/07/18 17:00> - NOTES TO OUTPATIENT PROVIDER Notes to Outpatient Provider: see hospital course Date of Encounter: 03/07/18 Time of Encounter: 14:11 - Discharge Diagnosis (1) Chest pain Priority: Primary Status: Acute Assessment and Plan: Atypical chest pain with features resembling stable angina when pt walking down the hallway, however pain is also reproducible on palpation and during deep inspiration. Stress test April 2017 was negative does have hx of GERD Negative troponins x3 No EKG changes CXR was unremarkable Echo showed LVEF 60-65%, mild LV diastolic dsyfunction, mild mitral regurg, and mild pulmonary HTN Pt cannot tolerate BB due to bradycardia Unable to tolerate statin due to nausea and stomach upset Continue Pepcid, Prilosec, and Carafate. May benefit from outpatient EGD Had LHC on 03/06 with 2 stents placed Continue ASA, Plavix, Ranexa, Lisinopril, and Imdur Qualifiers: Chest pain type: unspecified Qualified Code(s): R07.9 - Chest pain, unspecified (2) Hypertension Priority: Secondary Status: Chronic Assessment and Plan: Continued HTN Most recent BP 135/76 Unable to tolerate BB due to bradycardia Continue Lisinopril and Imdur Qualifiers: Hypertension type: essential hypertension Qualified Code(s): I10 - Essential (primary) hypertension (3) CAD (coronary artery disease) Priority: Secondary Status: Chronic Assessment and Plan: Status post LHC as above Continue ASA, Plavix, and Ranexa Unable to tolerate BB due to bradycardia Unable to tolerate statin due to nausea/vomiting Qualifiers: Coronary Disease-Associated Artery/Lesion type: [place] artery [place] vs. transplanted heart: [place] heart Associated angina: angina presence unspecified Qualified Code(s): I25.10 - Atherosclerotic heart disease of [place] coronary artery without angina pectoris (4) GERD (gastroesophageal reflux disease) Priority: Secondary Status: Chronic Assessment and Plan: On Protonix and Zantac at home Continue dual PPI and carafate may benefit from outpatient EGD Qualifiers: Esophagitis presence: esophagitis presence not specified Qualified Code(s) : K21.9 - Gastro-esophageal reflux disease without esophagitis (5) Morbid obesity with BMI of 40.0-44.9, adult Priority: Secondary Status: Chronic Assessment and Plan: Chronic issue Discussed lifestyle modifications. Hospital course: Mr. Faustin is a 53 year old male with PMH of CAD s/p PCI 2, HTN, GERD, CVA, morbid obesity. He presented to the ED on 03/04 with sudden onset of chest pain which started the previous night at 11:00pm while he was fishing. He described it as sharp in nature, radiating to left side of the neck/face, and accompanied by some dizziness and nausea. The chest pain was refractory to nitroglycerin, but reproducible with palpation and on deep inspiration. He was last seen by cardiology about 3 weeks ago when he was started on lisinopril. He took the first dose on 03/03 and states that he may have had similar type of reaction last time he was on it too. CXR from the ED revealed no acute abnormalities. EKG showed sinus bradycardia with no ST changes. Troponins x2 were <0.03. While in the hospital the chest pain did not improve and worsened with exertion. Cardiology was consulted and a LHC was scheduled. 2 stents were placed during LHC on 03/06. Discharge discussed with: patient, nurse, inbound sales consultant - Time Spent with Patient Total time spent providing and/or coordinating discharge services: - Discharge Medications Prescriptions: Aspirin 81 mg PO BID 30 Days #30 tab.chew Clopidogrel Bisulfate [Plavix] 75 mg PO DAILY 30 Days #30 tablet Ranolazine [Ranexa] 1,000 mg PO BID 30 Days #120 tab.er.12h Sucralfate [Carafate] 1 gm PO QIDAC 30 Days #60 tablet Home Medications: Allopurinol [Zyloprim 300 MG] 300 mg PO DAILY 05/01/15 [History] Nitroglycerin [Nitrostat] 0.4 mg PO Q5M PRN 05/01/15 [History] Sertraline [Zoloft] 200 mg PO DAILY 05/01/15 [History] Fluticasone/Salmeterol [Advair 250-50 Diskus] 1 each IH BID 12/03/15 [History] Albuterol Sulfate [Ventolin Hfa] 2 puff IH Q4H PRN 06/24/17 [History] Cyclobenzaprine HCl 5 mg PO TID PRN 06/24/17 [History] Pantoprazole Sodium [Protonix] 40 mg PO DAILY 06/24/17 [History] Ranitidine HCl [Zantac] 300 mg PO HS 06/24/17 [History] Gabapentin [Neurontin] 100 mg PO TID #21 capsule 06/26/17 [Rx] Isosorbide MONOnitrate (24 HR) [Imdur] 60 mg PO DAILY 03/06/18 [History] Lisinopril-HCTZ 20-12.5 [Prinzide 20-12.5] 1 tab PO DAILY 03/06/18 [History] Aspirin 81 mg PO BID 30 Days #30 tab.chew 03/07/18 [Rx] Clopidogrel Bisulfate [Plavix] 75 mg PO DAILY 30 Days #30 tablet 03/07/18 [Rx] Ranolazine [Ranexa] 1,000 mg PO BID 30 Days #120 tab.er.12h 03/07/18 [Rx] Sucralfate [Carafate] 1 gm PO QIDAC 30 Days #60 tablet 03/07/18 [Rx] Allergies/Adverse Reactions: 3 Allergy/AdvReac Type Severity Reaction Status Date / Time hydrocodone [From Vicodin] Allergy Hallucinati Verified 03/04/18 01:31 ng ketorolac [From Toradol] Allergy Seizure Verified 03/04/18 01:31 Date of admission: 03/06/18 18:22 Primary care physician: Davie Hanley DO Discharging clinician: Gentry Mullins Constitutional Vitals: Temp Pulse Resp BP Pulse Ox 98.3 F 52 17 135/76 96 03/07/18 11:30 03/07/18 11:30 03/07/18 11:30 03/07/18 11:30 03/07/18 11:30 Exam: General: obese male. no acute distress HEENT: normocephalic and atraumatic head. Eyes PERRL, EOMI, with no scleral icterus. Poor dentition. Neck: supple, trachea midline, no lymphadenopathy Heart: RRR +S1 +S2. no murmurs, clicks, or rubs appreciated Lungs: CTA bilaterally. Non-labored breathing. no wheezes, rales, or rhonchi GI: abdomen soft, mildly distended, non-tender. normoactive bowel sounds Extremities: radial pulses palpable and symmetrical. no cyanosis or edema. Neuro: A&Ox3. no focal deficits. no speech difficulty or abnormality Skin: warm, dry, intact - Patient Status Disposition: Home, Self-Care Condition: Good Functional capacity at discharge: independent ambulation Overall status at discharge: patient is back to baseline - Discharge Instructions Instructions: Left Heart Catheterization (DC) Follow Up With: Davie Hanley DO [Primary Care Provider] - 03/11/18 8:00 am - Diet and Activity Activity: increase activity as tolerated, resume usual activities as tolerated Diet: low fat, low cholesterol, low salt diet <[id number] A - Last Filed: 03/07/18 17:28> Orders not resulted at time of discharge: Pending orders 03/08/18 04:00 Basic Metabolic Panel AM 0400 Complete Blood Count [HEME] AM 0400 Date of Encounter: 03/07/18 - Discharge Diagnosis (1) Hypertension Status: Chronic Qualifiers: Hypertension type: essential hypertension Qualified Code(s): I10 - Essential (primary) hypertension (2) Chest pain Status: Acute Qualifiers: Chest pain type: unspecified Qualified Code(s): R07.9 - Chest pain, unspecified (3) CAD (coronary artery disease) Status: Chronic Qualifiers: Coronary Disease-Associated Artery/Lesion type: [place] artery [place] vs. transplanted heart: [place] heart Associated angina: angina presence unspecified Qualified Code(s): I25.10 - Atherosclerotic heart disease of [place] coronary artery without angina pectoris (4) GERD (gastroesophageal reflux disease) Status: Chronic Qualifiers: Esophagitis presence: esophagitis presence not specified Qualified Code(s) : K21.9 - Gastro-esophageal reflux disease without esophagitis (5) Morbid obesity with BMI of 40.0-44.9, adult Status: Chronic Hospital course: Mr. Faustin is a 53 year old male - Time Spent with Patient Total time spent providing and/or coordinating discharge services: Date of admission: 03/06/18 18:22 Primary care physician: Davie Hanley DO - Constitutional Vitals: Temp Pulse Resp BP Pulse Ox 98.3 F 52 17 135/76 96 03/07/18 11:30 03/07/18 11:30 03/07/18 11:30 03/07/18 11:30 03/07/18 11:30 - Attending Attestation Agree with discharge summary as above. He was discharged on aspirin and plavix s /p [facility] with drug eluting stents to OM and LAD. Follow up with cardiology outpatient
--- NOTE | 2018-03-08 09:45 | Electrocardiograph Report ---
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
== END 2018-03-07 14:31 | disposition home or self-care (01) | DRG 247 ==
LOC: EMEROOARM 01:21 → 3BNU 01:21 → SUATTDRO 04:33 → 3BNU 05:25 → 2NNU 03-06 16:11 → SUATTDRO 03-06 18:22
PROVIDERS: ADMIT Pediatrics; ATTEND Student in an Organized Health Care Education/Training Program

== ENCOUNTER 2018-03-07 20:59 | Observation (INO) ==
[2018-03-07 23:19] LABS: Basophils # 0.1 K/mcL (0.0-0.2); Basophils % 0.6 %; Eosinophils # 0.2 K/mcL (0.0-0.6); Eosinophils % 2.3 %; Hematocrit 37.5 % (37.5-50.1); Hemoglobin 12.4 g/dL (12.9-16.9); Immature Granulocytes % 0.3 % (0-4); Lymphocytes # 2.3 K/mcL (0.6-4.6); Lymphocytes % 29.1 %; Mean Corpuscular HGB Conc 33.1 g/dL (31.6-35.5); Mean Corpuscular Hemoglobin 28.4 pg (28.0-33.3); Mean Platelet Volume 10.7 fL (9.4-12.4); Monocytes # 0.5 K/mcL (0.0-1.3); Monocytes % 5.6 %; Platelet Count 161 K/mcL (140-400); Red Blood Count 4.36 M/mcL (4.19-5.50); Red Cell Distribution Width 13.2 % (11.5-14.5); Segmented Neutrophils % 62.1 %
[2018-03-07 23:46] LABS: BUN/Creatinine Ratio 13 (6-26); Blood Urea Nitrogen 17 mg/dL (6-20); Calcium 9.8 mg/dL (8.6-10.3); Carbon Dioxide 24 mEq/L (23-29); Chloride 105 mEq/L (98-107); Glucose 113 mg/dL (70-105); Osmolality,Calculated 286 (280-300); Sodium 137 mEq/L (136-145); eGFR For Non-African Americans 56 (> 60)
[2018-03-07 23:52] LABS: Troponin I 0.16 ng/mL (< 0.04)
[2018-03-08] MEDS ORDERED: Nitroglycerin 0.4 MG TAB.SUBL SL ONE (00:26)
[2018-03-08] MEDS ORDERED: Aspirin 325 MG TABLET PO ONE (00:26)
--- NOTE | 2018-03-08 00:32 | Emergency Department Note ---
Disposition Clinical Impression: Elevated troponin I level Chest pain Qualifiers: Chest pain type: precordial pain Qualified Code(s): R07.2 - Precordial pain Disposition: Admitted As Inpatient Condition: Good Chest Pain HPI - General Chief Complaint: ED Chest Pain Stated Complaint: "CP/Had 2 Stents Put in 03/06/18" Time Seen by Provider: 03/07/18 23:59 Source: patient Mode of arrival: private vehicle Limitations: no limitations Vital Signs Reviewed: Yes Nursing Notes Reviewed: Yes - History of Present Illness HPI Narrative: 53-year-old male presents emergency department for a pressure type of chest pain that radiates up to his left neck that started around 1800, this has remained constant. It is worse with ambulation as he become short of breath with exertion. Patient states chest pain started after he stood up from a chair and walked across the living room to a couch, once he got lay down the chest pain started has not lessened. She also states an elevated blood pressure from his normal. Patient denies diaphoresis, nausea, vomiting, edema, fevers, chills. Pt is not on anticoagulation, he is on DAPT. Patient was released earlier yesterday around 3 PM after being admitted for chest pain Days prior, on 03/06/18 he underwent a PCI where he received 2 stents with a plan for 2 more stents on an outpatient basis. Patient denies complications with PCI, he states dressing is dry and intact without complications. PCI was obtained through the right femoral. Pt complaint: chest pain Onset (ago): hour(s) Duration: constant Pain Location: substernal, left chest Severity scale (1-10): 8 Pain Radiation: neck Improves with: nothing Worsens with: nothing - Related Data Home Medications Medication Instructions Recorded Confirmed Allopurinol [Zyloprim 300 MG] 300 mg PO DAILY 05/01/15 03/08/18 Nitroglycerin [Nitrostat] 0.4 mg PO Q5M PRN 05/01/15 03/08/18 Sertraline [Zoloft] 200 mg PO DAILY 05/01/15 03/08/18 Fluticasone/Salmeterol [Advair 1 each IH BID 12/03/15 03/08/18 250-50 Diskus] Albuterol Sulfate [Ventolin Hfa] 2 puff IH Q4H PRN 06/24/17 03/08/18 Cyclobenzaprine HCl 5 mg PO TID PRN 06/24/17 03/08/18 Pantoprazole Sodium [Protonix] 40 mg PO DAILY 06/24/17 03/08/18 Ranitidine HCl [Zantac] 300 mg PO HS 06/24/17 03/08/18 Isosorbide MONOnitrate (24 HR) 60 mg PO DAILY 03/06/18 03/08/18 [Imdur] Lisinopril-HCTZ 20-12.5 [Prinzide 1 each PO DAILY 03/08/18 03/08/18 20-12.5] Sucralfate [Carafate] 1 gm PO ACHS 03/08/18 03/08/18 Previous Rx's Medication Instructions Recorded Gabapentin [Neurontin] 100 mg PO TID #21 capsule 06/26/17 Aspirin 81 mg PO BID 30 Days #30 tab.chew 03/07/18 Clopidogrel Bisulfate [Plavix] 75 mg PO DAILY 30 Days #30 tablet 03/07/18 Ranolazine [Ranexa] 1,000 mg PO BID 30 Days #120 03/07/18 tab.er.12h Allergies Allergy/AdvReac Type Severity Reaction Status Date / Time hydrocodone [From Vicodin] Allergy Hallucinati Verified 03/04/18 01:31 ng ketorolac [From Toradol] Allergy Seizure Verified 03/04/18 01:31 All systems ED: reviewed and negative except as stated. Review of Systems: As Per HPI Chest Pain PMH - Past Medical History Medical history: Reports: COPD, coronary artery disease, GERD, hyperlipidemia, hypertension, myocardial infarction, TIA Surgical history: Reports: angioplasty/stent, cataract, other Psychiatric history: Reports: anxiety, depression - Social History Smoking Status: Never smoker Alcohol use: Reports: none Drug use: Reports: none Physical Exam - General Limitations: no limitations General appearance: alert, in no apparent distress - Head Head exam: atraumatic, normocephalic, normal inspection - Eye Eye exam: Present: normal appearance, PERRL, EOMI - ENT ENT exam: mucous membranes moist - Neck Neck exam: Present: normal inspection, full ROM, trachea midline - Chest Chest inspection: Present: normal inspection, symmetric chest wall rise - Respiratory Respiratory exam: Present: normal lung sounds bilaterally - Cardiovascular Cardiovascular exam: Present: regular rate, normal rhythm, normal heart sounds, other (Procedures the right femoral artery from PCI is dry and intact, no palpable hematoma, no complications) - Abdominal Exam Abdominal exam: Present: soft, Non-Tender, normal bowel sounds - Back Exam Back exam: Present: normal inspection - Neurological Exam Neurological exam: Present: alert, oriented X3 - Psychiatric Psychiatric exam: Present: normal affect, normal mood - Skin Skin exam: Present: warm, dry, intact, normal color Course Course Narrative: Pleasant male in no acute distress. Respirations are easy and even. Patient is afebrile, not hypoxic. Physical exam is essentially benign. There is a dressing to the right groin from PCI on 03/06/18. Dressing is dry and intact, no palpable hematoma, no complications. EKG reveals sinus bradycardia with ventricular rate of 54 beats for minute DE interval 165 ms, QTC 402 ms, no sign of ST elevation or depression, comparison to this recent EKG there is no acute changes. Patient is chronically bradycardic. I do not appreciate any peripheral edema, no adventitious lung sounds. We will give 325 mg of aspirin, nitroglycerin sublingual, repeat EKG, and monitor with telemetry. Protocol orders were placed in triage, CBC and BMP are at baseline and benign, chest x-ray is negative. Troponin is elevated at 0.16, I am more inclined to believe this is related to the heart catheter patient had yesterday versus any ischemia that his current. We do not have a troponin after PCI to ensure that they are trending down. Initial plan will be admission for serial troponins pending repeat EKG. Patient and are agreeable to plan of care. - Reevaluation(s) Reevaluation #1: Patient resting quietly, repeat EKG with sinus bradycardia, continues without evidence of ST elevation or depression. At this time we will plan for admission to the hospital and will page the hospitalist. Patient continues to be agreeable plan of care. Time: 01:41 Reevaluation #2: Patient has been resting comfortably, chest pain greatly reduce after 1 nitroglycerin. He remained vitally stable. Spoke with hospitalist regarding case for admission, they prefer a consult with cardiology regarding possible need for heparinization patient has elevated troponin after a cardiac procedureyesterday. I did speak with Dr. Salas through cardiology, due to patient resting without any chest pain at this time, they state to hold heparin and to continue to monitor with serial troponins. I have re-paged hospitalist with plan for admission. Time: 02:39 Reevaluation #3: Spoke with hospitalist, plan for admission at this time. Patient continues to be agreeable plan of care. He continues to be comfortable. We will transfer care to the hospitalist inpatient team at this time. Vital Signs Temperature 98.4 F 03/07/18 21:08 Pulse Rate 55 03/07/18 21:08 Respiratory Rate 16 03/07/18 21:08 Blood Pressure 154/87 03/07/18 21:08 O2 Sat by Pulse Oximetry 96 03/07/18 21:08 Temperature 97.9 F 03/08/18 23:41 Pulse Rate 57 03/08/18 23:41 Respiratory Rate 15 03/08/18 23:41 Blood Pressure 136/68 03/08/18 23:41 O2 Sat by Pulse Oximetry 94 03/08/18 23:41 Oxygen Delivery Oxygen Delivery Room Air Chest Pain - Differential Diagnosis Likely: stable angina, unstable angina pectoris, chest pain. Unlikely: fracture of rib, pneumothorax, atypical chest pain, st elevation myocardial infraction, costalchondritis, biliary colic - Medical Records Medical records reviewed: Yes I reviewed the patient's medical records. - Lab Data Lab results reviewed: Yes I reviewed the patient's lab results. Result diagrams: 03/08/18 12:22 03/08/18 12:22 Lab Results 03/07/18 03/07/18 03/08/18 Range/Units 22:53 22:53 01:34 WBC 8.0 (4.3-11.1) K/mcL RBC 4.36 (4.19-5.50) M/mcL Hgb 12.4 L (12.9-16.9) g/dL Hct 37.5 (37.5-50.1) % MCV 86.0 (83.0-100.0) fL MCH 28.4 (28.0-33.3) pg MCHC 33.1 (31.6-35.5) g/dL RDW 13.2 (11.5-14.5) % Plt Count 161 (140-400) K/mcL MPV 10.7 (9.4-12.4) fL Immature Gran % 0.3 (0-4) % Seg Neutrophils % 62.1 % Lymphocytes % 29.1 % Monocytes % 5.6 % Eosinophils % 2.3 % Basophils % 0.6 % Neutrophils # 5.0 (1.6-8.9) K/mcL Lymphocytes # 2.3 (0.6-4.6) K/mcL Monocytes # 0.5 (0.0-1.3) K/mcL Eosinophils # 0.2 (0.0-0.6) K/mcL Basophils # 0.1 (0.0-0.2) K/mcL Sodium 137 (136-145) mEq/L Potassium 4.0 (3.5-5.1) mEq/L Chloride 105 (98-107) mEq/L Carbon Dioxide 24 (23-29) mEq/L BUN 17 (6-20) mg/dL Creatinine 1.32 H (0.70-1.30) mg/dL Est GFR ( Amer) > 60 (> 60) Est GFR (Non-Af Amer) 56 L (> 60) BUN/Creatinine Ratio 13 (6-26) Glucose 113 H (70-105) mg/dL Calculated Osmolality 286 (280-300) Calcium 9.8 (8.6-10.3) mg/dL Troponin I 0.16 H* 0.19 H* (< 0.04) ng/mL - Radiology Data Radiology results reviewed: Yes I reviewed the patient's radiology results. - EKG Data EKG attestation: Yes I reviewed and interpreted this EKG. Heart Score - Score History: Highly Suspicious EKG: Normal Age: 45-65 Risk Factors: Equal/Greater than 3 risk factor or history of atherosclerotic disease Troponin: Greater than 3x normal limit HEART Score Total: 7
--- NOTE | 2018-03-08 03:06 | Emergency Department Note ---
Disposition Clinical Impression: Elevated troponin I level Chest pain Qualifiers: Chest pain type: unspecified Qualified Code(s): R07.9 - Chest pain, unspecified Disposition: Admitted As Inpatient Condition: Good General Adult HPI - General Chief complaint: ED Chest Pain Stated complaint: "CP/Had 2 Stents Put in 03/06/18" Time Seen by Provider: 03/07/18 23:59 Source: patient Mode of arrival: private vehicle Limitations: no limitations Nursing Notes Reviewed: Yes Vital Signs Reviewed: Yes - History of Present Illness Pain Scale: 8 - Related Data Home Medications Medication Instructions Recorded Confirmed Allopurinol [Zyloprim 300 MG] 300 mg PO DAILY 05/01/15 03/06/18 Nitroglycerin [Nitrostat] 0.4 mg PO Q5M PRN 05/01/15 03/06/18 Sertraline [Zoloft] 200 mg PO DAILY 05/01/15 03/06/18 Fluticasone/Salmeterol [Advair 1 each IH BID 12/03/15 03/06/18 250-50 Diskus] Albuterol Sulfate [Ventolin Hfa] 2 puff IH Q4H PRN 06/24/17 03/06/18 Cyclobenzaprine HCl 5 mg PO TID PRN 06/24/17 03/06/18 Pantoprazole Sodium [Protonix] 40 mg PO DAILY 06/24/17 03/06/18 Ranitidine HCl [Zantac] 300 mg PO HS 06/24/17 03/06/18 Isosorbide MONOnitrate (24 HR) 60 mg PO DAILY 03/06/18 03/06/18 [Imdur] Lisinopril-HCTZ 20-12.5 [Prinzide 1 tab PO DAILY 03/06/18 03/06/18 20-12.5] Previous Rx's Medication Instructions Recorded Gabapentin [Neurontin] 100 mg PO TID #21 capsule 06/26/17 Aspirin 81 mg PO BID 30 Days #30 tab.chew 03/07/18 Clopidogrel Bisulfate [Plavix] 75 mg PO DAILY 30 Days #30 tablet 03/07/18 Ranolazine [Ranexa] 1,000 mg PO BID 30 Days #120 03/07/18 tab.er.12h Sucralfate [Carafate] 1 gm PO QIDAC 30 Days #60 tablet 03/07/18 Allergies Allergy/AdvReac Type Severity Reaction Status Date / Time hydrocodone [From Vicodin] Allergy Hallucinati Verified 03/04/18 01:31 ng ketorolac [From Toradol] Allergy Seizure Verified 03/04/18 01:31 Past Medical History - Past Medical History Medical history: Reports: COPD, coronary artery disease, GERD, hyperlipidemia, hypertension, myocardial infarction, TIA Surgical history: Reports: angioplasty/stent, cataract, other Psychiatric history: Reports: anxiety, depression - Social History Smoking Status: Never smoker Smokeless Tobacco Status: Yes Alcohol use: Reports: none Drug use: Reports: none Physical Exam - General Limitations: no limitations General appearance: alert, in no apparent distress Course Vital Signs Temperature 98.4 F 03/07/18 21:08 Pulse Rate 55 03/07/18 21:08 Respiratory Rate 16 03/07/18 21:08 Blood Pressure 154/87 03/07/18 21:08 O2 Sat by Pulse Oximetry 96 03/07/18 21:08 Temperature 98.4 F 03/07/18 21:08 Pulse Rate 50 03/08/18 02:14 Respiratory Rate 16 03/08/18 02:14 Blood Pressure 147/86 03/08/18 02:14 O2 Sat by Pulse Oximetry 96 03/08/18 02:14 Oxygen Delivery Oxygen Delivery Room Air Medical Decision Making - Medical Records Medical records reviewed: Yes I reviewed the patient's medical records. - Lab Data Lab results reviewed: Yes I reviewed the patient's lab results. Result diagrams: 03/07/18 22:53 03/07/18 22:53 Lab Results 03/07/18 03/07/18 Range/Units 22:53 22:53 WBC 8.0 (4.3-11.1) K/mcL RBC 4.36 (4.19-5.50) M/mcL Hgb 12.4 L (12.9-16.9) g/dL Hct 37.5 (37.5-50.1) % MCV 86.0 (83.0-100.0) fL MCH 28.4 (28.0-33.3) pg MCHC 33.1 (31.6-35.5) g/dL RDW 13.2 (11.5-14.5) % Plt Count 161 (140-400) K/mcL MPV 10.7 (9.4-12.4) fL Immature Gran % 0.3 (0-4) % Seg Neutrophils % 62.1 % Lymphocytes % 29.1 % Monocytes % 5.6 % Eosinophils % 2.3 % Basophils % 0.6 % Neutrophils # 5.0 (1.6-8.9) K/mcL Lymphocytes # 2.3 (0.6-4.6) K/mcL Monocytes # 0.5 (0.0-1.3) K/mcL Eosinophils # 0.2 (0.0-0.6) K/mcL Basophils # 0.1 (0.0-0.2) K/mcL Sodium 137 (136-145) mEq/L Potassium 4.0 (3.5-5.1) mEq/L Chloride 105 (98-107) mEq/L Carbon Dioxide 24 (23-29) mEq/L BUN 17 (6-20) mg/dL Creatinine 1.32 H (0.70-1.30) mg/dL Est GFR ( Amer) > 60 (> 60) Est GFR (Non-Af Amer) 56 L (> 60) BUN/Creatinine Ratio 13 (6-26) Glucose 113 H (70-105) mg/dL Calculated Osmolality 286 (280-300) Calcium 9.8 (8.6-10.3) mg/dL Troponin I 0.16 H* (< 0.04) ng/mL - Radiology Data Radiology results reviewed: Yes I reviewed the patient's radiology results. Chest X-Ray 03/07/18 21:11 IMPRESSION: 1. No acute cardiopulmonary disease. D/ / Chilango Atkinson MD / Chilango Atkinson MD Interpreting Provider: Chilango Atkinson MD - EKG Data EKG #1 EKG attestation: Yes I reviewed and interpreted this EKG. EKG results narrative: EKG shows a sinus bradycardia with ventricular rate of 54. Nonspecific T-wave abnormality. No acute ST segment elevation or depression. No significant change from prior EKG dated 03/04/2018. Attestation Statement - Attestation Attestation: I, Freddy Lopez MD, personally evaluated this patient and discussed their management with the resident physician. I reviewed the resident's note and agree with the documented findings, medical decision making, and plan of care. 53-year-old male who had a cardiac catheter and stent placement a on 03/06 and presents to the emergency department tonight complaining of some left lower chest pain which started about 6 PM this evening while he was lying on the couch watching television. He states this feels similar to his usual heart pains. The pain did radiate up to his neck. It also made him short of breath with mild nausea and mild diaphoresis. Pain was improved here with nitroglycerin. At time of my exam patient resting comfortably states he still has very minimal discomfort in his left lower chest. On examination patient is a well-developed obese male in no acute distress. He is alert and oriented 3. There is no cyanosis or diaphoresis. Chest is nontender to palpation. Breath sounds are clear and equal bilaterally. Heart regular. Abdomen soft and nontender with normal bowel sounds. No pedal edema. EKG shows a sinus bradycardia with no acute changes. Chest x-ray negative. Labs reviewed. Troponin 0.16. This is likely related to his recent stent placement however he will need admitted for trending of the troponin. Elisha discussed the case with the hospital manager grain origination specialist, Dr. Salas, and he recommended admission for trending of troponins but did not recommend heparin at this time. The hospitalist, Dr. Zambrano, was consulted and accepted admission of the patient.
--- NOTE | 2018-03-08 04:49 | Internal Med History&Physical ---
Date of Encounter: 03/08/18 Time of Encounter: 04:46 Internal Medicine - H&P: HPI Chief complaint: Chest pain Admitted From: Home Plans for Post Hospital Care: Home History of present illness: Kwesi Faustin is a 53 year old obese man with a history of hypertension and CAD s/p PCI x 2 who was admitted here from 03/04- for acute onset chest pain requiring nitroglycerin drip. EKG showed sinus bradycardia and troponins were negative. He ended up having left heart cath done for unstable angina on 03/06 with 2 stents placed although was found to have severe three-vessel CAD and is recommended to have a staged intervention in a month for 2 more vessels. He was discharged yesterday on dual antiplatelet therapy, nitrates and ranolazine. He is unable to tolerate beta blockers due to bradycardia and statin because of nausea. He presents now for hours after his discharge stating that about 6 PM while sitting at rest watching TV he started having sharp chest pain with associated shortness of breath. He did not take nitroglycerin at home and waited till he arrived here where he received 1 sublingual dose which brought on modest relief but not completely. He also received another loading dose of aspirin. EKG showed again sinus bradycardia with no acute ischemic changes and nitroglycerin nitrator operator batch sr technical sales consultant was contacted who recommended continue to trend troponins but not initiating heparin at this time pending their evaluation. At this time he is laying comfortably in bed in no acute distress but states that the pain lingers although mild. He is no longer short of breath and feels he will be able to get some sleep. Past Med Surg Social Fam HX - Past Medical History Medical history: COPD, coronary artery disease, GERD, hyperlipidemia, hypertension, myocardial infarction, TIA Additional medical history: back pain Psychiatric history: anxiety, depression - Past Surgical History Surgical History: angioplasty/stent, cataract, other Additional surgical history: LEFT KNEE SCOPE - Social History Smoking Status: Never smoker Smokeless Tobacco Status: Yes Alcohol use: none Drug use: none - Family History Mother Living Status: Hx Family Cardiac Disorders: Yes (HTN) Hx Family Cancer: Yes Father Family Member Ethnicity: Non- Living Status: Hx Family Cardiac Disorders: Yes (CAD) Hx Family Neurologic Disorders: Yes (CVA) Internal Medicine - H&P: Meds Allopurinol [Zyloprim 300 MG] 300 mg PO DAILY 05/01/15 [History] Nitroglycerin [Nitrostat] 0.4 mg PO Q5M PRN 05/01/15 [History] Sertraline [Zoloft] 200 mg PO DAILY 05/01/15 [History] Fluticasone/Salmeterol [Advair 250-50 Diskus] 1 each IH BID 12/03/15 [History] Albuterol Sulfate [Ventolin Hfa] 2 puff IH Q4H PRN 06/24/17 [History] Cyclobenzaprine HCl 5 mg PO TID PRN 06/24/17 [History] Pantoprazole Sodium [Protonix] 40 mg PO DAILY 06/24/17 [History] Ranitidine HCl [Zantac] 300 mg PO HS 06/24/17 [History] Gabapentin [Neurontin] 100 mg PO TID #21 capsule 06/26/17 [Rx] Isosorbide MONOnitrate (24 HR) [Imdur] 60 mg PO DAILY 03/06/18 [History] Lisinopril-HCTZ 20-12.5 [Prinzide 20-12.5] 1 tab PO DAILY 03/06/18 [History] Aspirin 81 mg PO BID 30 Days #30 tab.chew 03/07/18 [Rx] Clopidogrel Bisulfate [Plavix] 75 mg PO DAILY 30 Days #30 tablet 03/07/18 [Rx] Ranolazine [Ranexa] 1,000 mg PO BID 30 Days #120 tab.er.12h 03/07/18 [Rx] Sucralfate [Carafate] 1 gm PO QIDAC 30 Days #60 tablet 03/07/18 [Rx] 3 Allergy/AdvReac Type Severity Reaction Status Date / Time hydrocodone [From Vicodin] Allergy Hallucinati Verified 03/04/18 01:31 ng ketorolac [From Toradol] Allergy Seizure Verified 03/04/18 01:31 All Systems PM: A 10-system review of systems was performed and is negative for pertinent findings except as documented above in the HPI. - Constitutional Vitals: Temp Pulse Resp BP Pulse Ox 98.4 F 50 13 137/75 96 03/07/18 21:08 03/08/18 02:14 03/08/18 03:26 03/08/18 03:26 03/08/18 02:14 Exam: Vitals: Reviewed General: Obese white male lying comfortably in bed in no acute distress Skin: Warm and supple HEENT: Moist mucous membranes. No conjunctivae pallor. Neck: No lymphadenopathy. No JVD. No carotid bruits. No palpable thyroid. Chest: Normal thoracic expansion. Normal breath sounds. Clear to auscultation. Heart: Normal S1 & S2; rhythmic. No rubs or murmurs. Abdomen: Non-distended, soft and non-tender to palpation. No peritoneal reaction. Extremities: No clubbing, cyanosis or edema. No calf tenderness. Normal distal pulses. Neurological: Awake, alert and oriented to person, place and time. No focal deficits. Psych: Affect appropriate. Internal Med - H&P Results - Labs CBC & Chem 7: 03/07/18 22:53 03/07/18 22:53 - Assessment and plan (1) Chest pain Current Visit: Yes Status: Acute Assessment and plan: The patient has known CAD w/ recent PCI and could be having post-PCI ACS. For now we will continue to trend troponins, monitor on telemetry and continue dual-antiplatelet therapy. Cardiology consult requested. Qualifiers: Chest pain type: precordial pain Qualified Code(s): R07.2 - Precordial pain (2) Elevated troponin I level Current Visit: Yes Status: Acute Assessment and plan: Unclear how new this finding is in relation to the PCI as the procedure itself could have caused this mild elevation however we do not have a post-procedure level and prior to that they were negative. Therefore it warrants continued follow up especially given his current clinical symptoms. (3) Hypertension Current Visit: Yes Status: Chronic Assessment and plan: Will resume home antihypertensives. Qualifiers: Hypertension type: essential hypertension Qualified Code(s): I10 - Essential (primary) hypertension (4) GERD (gastroesophageal reflux disease) Current Visit: Yes Status: Chronic Assessment and plan: On PPI. Qualifiers: Esophagitis presence: without esophagitis Qualified Code(s): K21.9 - Gastro -esophageal reflux disease without esophagitis (5) Morbid obesity with BMI of 40.0-44.9, adult Current Visit: Yes Status: Chronic Assessment and plan: Will benefit from billet bed operator consultation (6) DVT prophylaxis Current Visit: Yes Status: Acute Assessment and plan: Heparin SubQ - Time Spent With Patient Total time spent is greater than 50% in coordination of care (as documented) at patient's floor/unit and/or counseling patient: Greater than 35 minutes
[2018-03-08] MEDS: *HR* Heparin 5,000 UNIT/ML VIAL SQ SCH ×3 (06:10→20:03)
[2018-03-08] MEDS: Budesonide/Formoterol 80/4.5 MDI IH SCH ×2 (07:49→20:24)
[2018-03-08 08:16] LABS: INR 1.1; Prothrombin Time 12.5 Seconds (9.4-12.1)
--- NOTE | 2018-03-08 08:54 | Cardiology Consult Note ---
<Sammi Perez E - Last Filed: 03/08/18 08:51> Date of Encounter: 03/08/18 Time of Encounter: 08:53 Assessment and Plan (1) Chest pain Current Visit: Yes Status: Acute Patient had PCI with placement of 2 ERIKA on 03/06 with original plan being to return in 1 month for outpatient staged PCI. Patient returned to ED after discharge on 03/07/18 with the same symptoms of chest pressure with radiation of pain to the neck as he had on 03/06/18. LHC showed LAD 24 mm 70 stenosis, ERIKA was placed. 1st marginal showed 16mm 90% stenosis, ERIKA was placed. Circumflex showed 70% stenosis of the distal circumflex, Ramus showed 70% steonsis. RCA and LMCA free of disease. Echo shoed LVEF 60-65% mild Left ventricular diastolic disfunction, mild mitral regurgitation, and mild pulmonary hypertension. Patient currently on ASA, Plavix, Renexa, Lisinopril, and Imdur. Cannot tolerate BB due to bradycardia or statins due to nausea/vomiting. Plan is for PCI later this afternoon. (2) Elevated troponin I level Current Visit: Yes Status: Acute on admission on 03/06/18 serial troponins <0.03, on admission 03/08/18 serial troponins 0.16 and 0.19 No post PCI troponin from 03/06/18 Plan: PCI later today (3) Hypertension Current Visit: Yes Status: Chronic Currently on Lisinopril at home Well controlled when not having chest pain in the systolic pressures in the 100' s-120's and diastolic pressures in the 60's-70's Continue Lisinopril (4) Morbid obesity with BMI of 40.0-44.9, adult Current Visit: Yes Status: Chronic nutritional consult as per medicine service (5) DVT prophylaxis Current Visit: Yes Status: Acute Currently Heparin SubQ Discussion w patient/family: The assessment and plan as outlined above was discussed with the patient and/or family members who expressed understanding and agreement. All questions were answered. Thank you for involving us in the care of your patient. Please call with any questions. History of Present Illness Consult date: 03/08/18 Requesting physician: Nahum Zambrano Consult reason: Recurrent chest pain after PCI 03/06 Chief complaint: Chest pressure and pain History of present illness: Mr. Faustin is a 53 year old male post PCI 03/06/18 with two ERIKA placed in the LAD and 1st marginal. Scheduled for outpatient staged PCI for remaining lesions in circumflex and ramus stenosis in one month. Patient was discharged home on and return to the ED with chest pressure that radiated to his neck that started at 1800 on 03/08/18. He was laying on the couch when this pressure started. He stated that this is the same feeling that brought him in on 03/06/18 and in 2012 when he had his original two ERIKA placed. EKG in ED showed sinus bradycardia with no ischemic changes. Was given ASA and one nitro in the ED with partial resolution of his chest pressure. Troponins were trended and were 0.16 and 0.19. Past Med Surg Social Fam HX - Past Medical History Medical history: COPD, coronary artery disease, GERD, hyperlipidemia, hypertension, myocardial infarction, TIA Additional medical history: back pain Psychiatric history: anxiety, depression - Past Surgical History Surgical History: angioplasty/stent, cataract, other Additional surgical history: LEFT KNEE SCOPE - Social History Smoking Status: Never smoker Smokeless Tobacco Status: Yes Alcohol use: none Drug use: none - Family History Mother Living Status: Hx Family Cardiac Disorders: Yes (HTN) Hx Family Cancer: Yes Father Family Member Ethnicity: Non- Living Status: Hx Family Cardiac Disorders: Yes (CAD) Hx Family Neurologic Disorders: Yes (CVA) Medications and Allergies Allopurinol [Zyloprim 300 MG] 300 mg PO DAILY 05/01/15 [History] Nitroglycerin [Nitrostat] 0.4 mg PO Q5M PRN 05/01/15 [History] Sertraline [Zoloft] 200 mg PO DAILY 05/01/15 [History] Fluticasone/Salmeterol [Advair 250-50 Diskus] 1 each IH BID 12/03/15 [History] Albuterol Sulfate [Ventolin Hfa] 2 puff IH Q4H PRN 06/24/17 [History] Cyclobenzaprine HCl 5 mg PO TID PRN 06/24/17 [History] Pantoprazole Sodium [Protonix] 40 mg PO DAILY 06/24/17 [History] Ranitidine HCl [Zantac] 300 mg PO HS 06/24/17 [History] Gabapentin [Neurontin] 100 mg PO TID #21 capsule 06/26/17 [Rx] Isosorbide MONOnitrate (24 HR) [Imdur] 60 mg PO DAILY 03/06/18 [History] Aspirin 81 mg PO BID 30 Days #30 tab.chew 03/07/18 [Rx] Clopidogrel Bisulfate [Plavix] 75 mg PO DAILY 30 Days #30 tablet 03/07/18 [Rx] Ranolazine [Ranexa] 1,000 mg PO BID 30 Days #120 tab.er.12h 03/07/18 [Rx] Lisinopril-HCTZ 20-12.5 [Prinzide 20-12.5] 1 each PO DAILY 03/08/18 [History] Sucralfate [Carafate] 1 gm PO ACHS 03/08/18 [History] 3 Allergy/AdvReac Type Severity Reaction Status Date / Time hydrocodone [From Vicodin] Allergy Hallucinati Verified 03/04/18 01:31 ng ketorolac [From Toradol] Allergy Seizure Verified 03/04/18 01:31 All Systems Review: The remainder of the systems were reviewed and are negative - Constitutional Constitutional: fatigue, no weakness, no weight gain - Cardiovascular Cardiovascular: chest pain at rest, radiating jaw, neck or arm pain, no irregular heart rhythm, no leg edema, no palpitations - Respiratory Respiratory: no cough, no wheezing - Integumentary Integumentary: no erythema, no rash, no unusual bruising Physical Examination Vital Signs, Last 4 Hours Temp Pulse Resp BP Pulse Ox 03/08/18 07:52 16 97 03/08/18 07:09 98.1 F 49 14 131/7 94 General: Conversant HEENT: Atraumatic, Normocephaly Neck: No JVD, Normal carotid pulses Cardiac: No Murmur, Other (bradycardia, regular rhythm) Lungs: Normal Breath Sounds, No Wheeze, Rales, Rhonchi Neuro: Alert and responsive, No focal deficits noted Abdomen: Soft, Non-Tender Skin: No rashes noted on visualized skin Musculoskeletal: No Chest Wall Tenderness Extremities: No Clubbing, No Cyanosis, No Edema Results 03/07/18 22:53 03/07/18 22:53 Lab Results 03/08/18 03/08/18 03/08/18 07:09 07:09 07:09 INR 1.1 APTT 34.0 Troponin I 0.16 H* Consult Discharge Plan - Plan Referrals: Davie Hanley, [Primary Care Provider] - 03/16/18 8:30 am <Berny Bauman - Last Filed: 03/08/18 12:14> Date of Encounter: 03/08/18 - Attending Attestation I examined this patient and my medical decision-making was reviewed with the Resident Physician. I agree with the documented findings, disposition and treatment plan as described except to the extent set forth below. CC: Chest pain HPI: Pt reports was at rest sitting on his couch, developed sudden onset of 8/ 10 chest pain, mid sternal, accompanied by shortness of breath, mild diaphoresis , lasted approximately 5 mins at that severity, then slowly decreased to 4/10 for another twenty minutes. He presented to the ER, received sl ntg with improvement in his chest pain from 5/10 to 1/10 over fifteen minutes. He notes chest pain completely resolved after approx. an hour, has not reoccurred since admit. He notes chest pain consistent with previous anginal pain, same as during balloon inflation 03/06/2018. He recently underwent PCI Proximal OM1 and proximal LAD with placement of ERIKA x 1 at each site, plan was for staged PCI of mid LAD and distal CX at a later date. PMH: Reviewed ROS: Reviewed Labs, Xrays reviewed PE: pt seen and examined, agree with findings as documented. IMP:Plan: 1. Unstable angina, recurrent CP with known 2 vessel CAD, recommend proceed to [facility] with anticipation of PCI distal CX and possible PCI mid LAD, risk ahnd benefits discussed, pt elects to proceed. 2. CAD : severe double vessel CAD with so far partial revascularization 3. Troponin elevation: unclear if new or residual minimal elevation following successful PCI x 2 sites 03/06/2018, will continue to trend in AM 4. Hypertension: controlled on current meds. 5. Morbid obesity: will discuss more aggressive lifestyle changes at hospital discharge. Assessment and Plan Discussion w patient/family: The assessment and plan as outlined above was discussed with the patient and/or family members who expressed understanding and agreement. All questions were answered. Thank you for involving us in the care of your patient. Please call with any questions. History of Present Illness History of present illness: Mr. Faustin is a 53 year old male All Systems Review: The remainder of the systems were reviewed and are negative Physical Examination Vital Signs, Last 4 Hours Temp Pulse Resp BP Pulse Ox 03/08/18 07:52 16 97 03/08/18 07:09 98.1 F 49 14 131/7 94 Results 03/07/18 22:53 03/07/18 22:53 Lab Results 03/08/18 03/08/18 03/08/18 07:09 07:09 07:09 INR 1.1 APTT 34.0 Troponin I 0.16 H*
[2018-03-08] MEDS: Sucralfate 1 GM TABLET PO SCH ×4 (09:44→20:03)
[2018-03-08] MEDS: Gabapentin 100 MG CAPSULE PO SCH ×3 (09:44→20:03)
[2018-03-08] MEDS: Ranolazine 500 MG TAB.ER.12H PO SCH ×2 (09:46→20:03)
[2018-03-08] MEDS: Lisinopril-HCTZ 20-12.5mg TABLET PO SCH (09:47)
[2018-03-08] MEDS: Aspirin 81 MG TAB.CHEW PO SCH (09:48)
[2018-03-08] MEDS: Isosorbide MONOnitrate (24 HR) 60 MG TAB.ER.24H PO SCH (09:49)
--- NOTE | 2018-03-08 09:50 | Electrocardiograph Report ---
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
--- NOTE | 2018-03-08 11:10 | Event Note ---
Date of Encounter: 03/08/18 Time of Encounter: 11:09 P53 M with Morbid Obesity, HTN, CAD, s/p [facility] 03/06 , patient had PCI with placement of 2 ERIKA on 03/06 with original plan being to return in 1 month for outpatient staged PCI. Patient returned to ED after discharge on 03/07/18 with chest pain and troponin elevation At time of review, still complaining of 2/10 chest pain Physical exam unremarkable Cardio is following and plans to go to cath this afternoon Continue current management
--- NOTE | 2018-03-08 11:46 | Pre-Sedation Evaluation ---
Pre-sedation evaluation - Pre-sedation checklist Date of procedure: 03/08/18 Procedure: heart cath Recent Vitals: Last Vital Signs Temp 98.1 F 03/08/18 07:09 Pulse 49 03/08/18 07:09 Resp 16 03/08/18 07:52 BP 131/7 03/08/18 07:09 Pulse Ox 97 03/08/18 07:52 H&P (including ROS) documented in medical record: Yes Previous reaction to sedatives/anesthetics: No Dietary Status: NPO after Midnight Dentition: No loose teeth or bridges ASA Classification *see protocol: CLASS II-Mild systemic disease Plan of Care: Pt appropriate candidate for procedure/moderate/conscious sedation , Risks/benefits of procedure/sedation discussed w/ patient/family Cardiac Registry (Cardio Only) - Functional Capacity Functional Capacity: >=4 METS with symptoms - Clincal Frailty Scale Clinical Frailty Scale: Managing Well
[2018-03-08 12:43] LABS: Basophils % 0.6 %; Eosinophils # 0.2 K/mcL (0.0-0.6); Eosinophils % 2.6 %; Hematocrit 39.6 % (37.5-50.1); Hemoglobin 12.9 g/dL (12.9-16.9); Immature Granulocytes % 0.3 % (0-4); Lymphocytes # 1.7 K/mcL (0.6-4.6); Lymphocytes % 25.7 %; Mean Corpuscular HGB Conc 32.6 g/dL (31.6-35.5); Mean Corpuscular Hemoglobin 28.6 pg (28.0-33.3); Mean Corpuscular Volume 87.8 fL (83.0-100.0); Mean Platelet Volume 10.8 fL (9.4-12.4); Monocytes # 0.3 K/mcL (0.0-1.3); Monocytes % 5.2 %; Neutrophils # 4.3 K/mcL (1.6-8.9); Platelet Count 170 K/mcL (140-400); Red Blood Count 4.51 M/mcL (4.19-5.50); Red Cell Distribution Width 13.1 % (11.5-14.5); Segmented Neutrophils % 65.6 %
[2018-03-08 13:13] LABS: BUN/Creatinine Ratio 13 (6-26); Blood Urea Nitrogen 15 mg/dL (6-20); Calcium 9.7 mg/dL (8.6-10.3); Carbon Dioxide 27 mEq/L (23-29); Chloride 105 mEq/L (98-107); Glucose 106 mg/dL (70-105); Osmolality,Calculated 287 (280-300); Potassium 4.3 mEq/L (3.5-5.1); Sodium 138 mEq/L (136-145); eGFR For Non-African Americans > 60 (> 60)
[2018-03-08] MEDS: Famotidine 20 MG TABLET PO SCH (20:03)
[2018-03-09] MEDS: *HR* Heparin 5,000 UNIT/ML VIAL SQ SCH ×3 (05:37→21:25)
[2018-03-09] MEDS: Budesonide/Formoterol 80/4.5 MDI IH SCH ×2 (07:41→21:02)
[2018-03-09] MEDS: Isosorbide MONOnitrate (24 HR) 60 MG TAB.ER.24H PO SCH (09:00)
[2018-03-09] MEDS: Aspirin 81 MG TAB.CHEW PO SCH (09:00)
[2018-03-09] MEDS: Gabapentin 100 MG CAPSULE PO SCH ×3 (09:00→21:25)
[2018-03-09] MEDS: Lisinopril-HCTZ 20-12.5mg TABLET PO SCH (09:01)
[2018-03-09] MEDS: Sucralfate 1 GM TABLET PO SCH ×4 (09:01→21:25)
[2018-03-09] MEDS: Ranolazine 500 MG TAB.ER.12H PO SCH ×2 (09:01→21:25)
[2018-03-09 09:27] LABS: Basophils # 0.1 K/mcL (0.0-0.2); Eosinophils # 0.2 K/mcL (0.0-0.6); Eosinophils % 2.9 %; Hematocrit 41.5 % (37.5-50.1); Hemoglobin 13.5 g/dL (12.9-16.9); Immature Granulocytes % 0.4 % (0-4); Lymphocytes # 2.2 K/mcL (0.6-4.6); Lymphocytes % 29.9 %; Mean Corpuscular HGB Conc 32.5 g/dL (31.6-35.5); Mean Corpuscular Hemoglobin 28.7 pg (28.0-33.3); Mean Corpuscular Volume 88.1 fL (83.0-100.0); Mean Platelet Volume 10.9 fL (9.4-12.4); Monocytes # 0.4 K/mcL (0.0-1.3); Monocytes % 5.3 %; Neutrophils # 4.4 K/mcL (1.6-8.9); Platelet Count 167 K/mcL (140-400); Red Blood Count 4.71 M/mcL (4.19-5.50); Red Cell Distribution Width 13.2 % (11.5-14.5); Segmented Neutrophils % 60.5 %
[2018-03-09 09:46] LABS: BUN/Creatinine Ratio 11 (6-26); Blood Urea Nitrogen 14 mg/dL (6-20); Calcium 9.8 mg/dL (8.6-10.3); Carbon Dioxide 24 mEq/L (23-29); Chloride 105 mEq/L (98-107); Glucose 106 mg/dL (70-105); Osmolality,Calculated 283 (280-300); Potassium 4.2 mEq/L (3.5-5.1); Sodium 136 mEq/L (136-145); eGFR For Non-African Americans 59 (> 60)
--- NOTE | 2018-03-09 10:03 | Internal Med Progress Note ---
Hospitalist Progress Note - Encounter Date of Encounter: 03/09/18 Time of Encounter: 10:03 - Subjective Interval History: Seen and examined at the bedside Awaiting [facility] Chest pain free But complaining of epigastric discomfort, has a hx of GERD - Exam Vitals: Temp Pulse Resp BP Pulse Ox 98.3 F 50 16 135/74 95 03/09/18 04:24 03/09/18 04:24 03/09/18 07:41 03/09/18 04:24 03/09/18 07:41 Exam: Vitals: Reviewed General: Obese white male lying comfortably in bed in no acute distress Skin: Warm and supple HEENT: Moist mucous membranes. No conjunctivae pallor. Neck: No lymphadenopathy. No JVD. No carotid bruits. No palpable thyroid. Chest: Normal thoracic expansion. Normal breath sounds. Clear to auscultation. Heart: Normal S1 & S2; rhythmic. No rubs or murmurs. Abdomen: Non-distended, soft and non-tender to palpation. No peritoneal reaction. Extremities: No clubbing, cyanosis or edema. No calf tenderness. Normal distal pulses. Neurological: Awake, alert and oriented to person, place and time. No focal deficits. Psych: Affect appropriate. - Assessment and Plan (1) Hypertension Current Visit: Yes Status: Chronic Assessment and Plan: Continue home meds (2) DVT prophylaxis Current Visit: Yes Status: Acute Assessment and Plan: Heparin SubQ (3) Chest pain Current Visit: Yes Status: Acute Assessment and Plan: The patient has known CAD w/ recent PCI He was scheduled for outpatient staged PCI Awaiting [facility] by cardio today Continue ASA, Plavix, ACEI Not on BB due to bradycardia Not on statin due to intolerance Cardio following, input appreciated (4) GERD (gastroesophageal reflux disease) Current Visit: Yes Status: Chronic Assessment and Plan: continue home PPI (5) Morbid obesity with BMI of 40.0-44.9, adult Current Visit: Yes Status: Chronic Assessment and Plan: 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 (6) Elevated troponin I level Current Visit: Yes Status: Acute Assessment and Plan: as in chest pain - Time Spent with Patient Total time spent is greater than 50% in coordination of care (as documented) at patient's floor/unit and/or counseling patient: Plan of Care Discussed with: patient Internal Medicine: Result - Labs CBC & Chem 7: 03/09/18 08:18 03/09/18 08:18 Labs: Short CBC 03/08/18 03/09/18 Range/Units 12:22 08:18 WBC 6.5 7.3 (4.3-11.1) K/mcL Hgb 12.9 13.5 (12.9-16.9) g/dL Hct 39.6 41.5 (37.5-50.1) % Plt Count 170 167 (140-400) K/mcL Neutrophils # 4.3 4.4 (1.6-8.9) K/mcL BMP 03/08/18 03/09/18 12:22 08:18 Sodium 138 136 Potassium 4.3 4.2 Chloride 105 105 Carbon Dioxide 27 24 BUN 15 14 Creatinine 1.12 1.26 Glucose 106 H 106 H Calcium 9.7 9.8 - ABG Interpretation ABG results: PT/INR, D-dimer PT 12.5 Seconds (9.4-12.1) H 03/08/18 07:09 Consult Discharge Plan - Plan Referrals: Davie Hanley DO [Primary Care Provider] - 03/16/18 8:30 am (1) Hypertension Qualifiers: Hypertension type: essential hypertension Qualified Code(s): I10 - Essential (primary) hypertension (3) Chest pain Qualifiers: Chest pain type: precordial pain Qualified Code(s): R07.2 - Precordial pain (4) GERD (gastroesophageal reflux disease) Qualifiers: Esophagitis presence: without esophagitis Qualified Code(s): K21.9 - Gastro- esophageal reflux disease without esophagitis
[2018-03-09] MEDS ORDERED: Heparin 1,000 UNITS/500 mL 500 ML ONE (14:39)
[2018-03-09] MEDS ORDERED: ISOVUE-370 200 ML INFUS..BTL IV ONE (14:39)
[2018-03-09] MEDS ORDERED: Nitroglycerin 1,000 MCG/10 ML VIAL IV ONE (14:39)
[2018-03-09] MEDS ORDERED: 0.9 % Sodium Chloride 1,000 ML ONE ×2 (14:39→14:58)
[2018-03-09] MEDS ORDERED: *HR* Heparin 10,000 UNIT/10 ML VIAL ONE (14:39)
[2018-03-09] MEDS ORDERED: *HR* Midazolam HCl 5 MG/5 ML VIAL IVP ONE (14:58)
[2018-03-09] MEDS ORDERED: *HR* Bivalirudin 250 MG VIAL IVC ONE (14:58)
--- NOTE | 2018-03-09 15:05 | Pre-Sedation Evaluation ---
Pre-sedation evaluation - Pre-sedation checklist Date of procedure: 03/09/18 Procedure: heart cath Recent Vitals: Last Vital Signs Temp 98.3 F 03/09/18 11:29 Pulse 56 03/09/18 11:29 Resp 16 03/09/18 11:29 BP 133/96 03/09/18 11:29 Pulse Ox 93 03/09/18 11:29 H&P (including ROS) documented in medical record: Yes Previous reaction to sedatives/anesthetics: No Dietary Status: NPO after Midnight Airway Assessment: Patient can open mouth completely, TMJ function normal Dentition: No loose teeth or bridges Possible difficult airway: No ASA Classification *see protocol: CLASS IV-Severe systemic disease/constant threat to pt's life Cardiac Registry (Cardio Only) - Functional Capacity Functional Capacity: >=4 METS without symptoms - Clincal Frailty Scale Clinical Frailty Scale: Managing Well
--- NOTE | 2018-03-09 16:29 | Event Note ---
Date of Encounter: 03/09/18 Time of Encounter: 16:27 - Cardiology Event Note Discussed with Dr Bauman, diagnostic C completed today. Unable to insert correct catheter size in the right femoral artery to complete PCI. Recommended radial approach tomorrow.
[2018-03-09] MEDS ORDERED: *HR* Morphine 2 MG/ML SYRINGE ONE (16:56)
--- NOTE | 2018-03-09 17:57 | Invasive Diagnostic Lab Proc ---
Name: Kwesi Faustin Date of Study: 03/09/2018 Date: 1965 Ht: 72.0in Medical Record#: [id number] Age: 53 Wt: 299.83lb Gender: Male BSA: 2.53 Order #: [id number] BMI: 40.61 Physicians Procedure Physician: Alonzo Mac MD, [facility] Referring MD: Referring MD: Staff Name Position Time In Joseph Theodora RT (R) Scrub 02:56 PM [facility] RT (R) Monitor 02:56 PM Piedad Roy RN Psychologist Industrial Organizational 02:56 PM Indications Indication Non-Stemi Procedures Performed Procedure Failed Procedure Pre-Procedure Checklist Informed consent is complete signed and on chart. H&P is on chart. ID band is on and ID verified with patient. Patient NPO for procedure The procedure was described for the patient and questions were answered. Blood Pressure: 133/96 ECG is on chart. Rhythm: NSR Plan of Care Patient will tolerate the procedure without complications. Adequate level of comfort will be maintained. Hemodynamics will remain stable Patient will recover from procedure without complications. Respiratory function will be maintained. Cardiac rhythm will remain stable. Patient temperature will be maintained. Patient and/or family have verbalized understanding of the procedure. Patient Education Chief Complaint/Reason for Test: Cardiac Cath Developmental Category: Adult (18-64 years) Developmentally Appropriate for Age: Yes Learning Barriers: None Education Needs: Procedure Education Method: Verbal Information Taught: Cardiac Cath Educational Evaluation: Able to repeat information Intravenous Access Time IV Size Location DC'd Fluid/Drip Rate Units RN 18g 1 /" Patent On Arrival Rt Antecubital 0.9NaCl 50 ml/hr Piedad Roy RN Allergies TORADOL VICODIN hydrocodone ketorolac acetaminophen Hydromorphone Vital Signs Time BP (mmHg) HR (bpm) O2 Sat. RR (bpm) LOC 02:57 PM / % 5 = Fully awake and oriented or at pre-proc level 02:59 PM 137 / 68 48 94 % 20 03:04 PM 124 / 70 48 98 % 22 03:09 PM 123 / 74 47 95 % 18 03:14 PM 116 / 65 49 96 % 18 03:19 PM 125 / 71 48 98 % 15 03:24 PM 121 / 71 47 97 % 6 03:29 PM 111 / 65 48 96 % 16 03:34 PM 114 / 70 48 96 % 12 03:39 PM 118 / 63 48 95 % 19 03:44 PM 121 / 67 47 98 % 3 03:49 PM 125 / 63 48 92 % 5 03:55 PM 121 / 70 46 95 % 17 03:59 PM 127 / 68 46 93 % 12 04:04 PM 128 / 73 46 96 % 10 04:20 PM 122 / 82 48 94 % 16 5 = Fully awake and oriented or at pre-proc level 04:35 PM 131 / 80 49 94 % 18 5 = Fully awake and oriented or at pre-proc level 04:50 PM 162 / 99 46 94 % 18 5 = Fully awake and oriented or at pre-proc level 05:05 PM 162 / 98 47 95 % 18 5 = Fully awake and oriented or at pre-proc level 05:20 PM 139 / 92 52 95 % 16 5 = Fully awake and oriented or at pre-proc level 05:30 PM 140 / 93 47 95 % 18 5 = Fully awake and oriented or at pre-proc level 05:45 PM 139 / 83 47 95 % 18 5 = Fully awake and oriented or at pre-proc level Procedural Medications Time Medication Dose Units Method Given By 03:03 PM Oxygen 2 L/min nasal cannula Piedad Roy RN 03:03 PM Versed 2 mg Intravenous Piedad Roy RN 03:12 PM Lidocaine 2% 10 ml Subcutaneous Alonzo Mac MD, FACC 03:12 PM Versed 1 mg Intravenous Piedad Roy RN 03:20 PM Lidocaine 2% 5 ml Subcutaneous Alonzo Mac MD, FACC 03:37 PM Heparin 5000 units Intravenous Piedad Roy RN 05:02 PM Morphine mg ASA Classification: CLASS III- Severe systemic disease (i.e. prior AMI, diabetes with vascular complications, morbid obesity) Nahum Score Preprocedure Postprocedure Activity 2- Moves 4 extremities sustained head lift Activity 2- Moves 4 extremities sustained head lift Circulation 2- SBP +/= 20 points of pre-anesthetic level Circulation 2- SBP +/= 20 points of pre-anesthetic level Consciousness 2- Awake and alert oriented x 3 Consciousness 2- Awake and alert oriented x 3 O2 Saturation 2- Able to maintain O2 satruation of 92% on room air O2 Saturation 2- Able to maintain O2 satruation of 92% on room air Respiratory 2- Able to deep breathe and cough well Respiratory 2- Able to deep breathe and cough well Total Score 10 Total Score 10 Contrast Agent: Isovue Diagnostic Contrast: 30 ml Total Contrast: 30 ml Fluoro Dose: 7087 mGy Activated Clotting Time Time Seconds to Clot 03:47 PM 400 04:00 PM 204 Procedure Log Time Note Enter By 02:56 PM 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 [email or web address] 02:57 PM Case Delayed No kkallner :57 PM Physician arrived 14:57 kkallner :57 PM ASA Class CLASS III- Severe systemic disease (i.e. prior AMI, diabetes with vascular complications, morbid obesity) kkallner 02:57 PM Meet and greet completed kk:57 PM Sign in performed according to hospital policy. Informed consent was obtained. kkallner :57 PM Procedure start 14:57 kkallner :57 PM Time: 14:57 Patient comfortable and pain free: Yes kkallner :57 PM Time: 14:57LOC: 5 = Fully awake and oriented or at pre-proc level kkallner 02:57 PM Clinical Presentation: Unstable angina kkallner :57 PM Hair removed from procedure site in holding area using clippers. Bilateral groin prepped with Chloraprep by Theodora Ruiz RT (R), then patient was draped. Skin intact. [email or web address] 02:58 PM CathStat 02:59 PM Vitals capture started with the following parameters, Patient=Adult, Interval=5 min, Initial Lxeihtlc=078 mmHg, Deflation Rate=5 mmHg, Cuff placed on Right Arm 02:59 PM HR=48 bpm, NFBC=100/68 mmhg, SpO2=94 %, Resp=20 B/min 03:03 PM Time: 15:03 Oxygen on at 2 L/min per nasal cannula by Piedad Roy RN kkall 03:03 PM Time: 15:03 Versed 2 mg Intravenous Given by Piedad Roy RN [email or web address] 03:04 PM HR=48 bpm, IQLR=600/70 mmhg, SpO2=98 %, Resp=22 B/min 03:08 PM Recorded ECG: HR=49 Condition=Condition 1 03:09 PM HR=47 bpm, PHWW=833/74 mmhg, SpO2=95.0 %, Resp=18 B/min 03:11 PM Pressure channel 2 zeroed. 03:12 PM Time out was performed according to hospital policy. Conscious sedation and anesthesia was achieved (see medication log with in this report above) tsites 03:12 PM Time: 15:12 10 ml Lidocaine 2% to right groin Subcutaneous Given by Alonzo Mac MD, [facility] tsites 03:12 PM Time: 15:12 Versed 1 mg Intravenous Given by Piedad Roy RN tsites 03:14 PM HR=49 bpm, TXYJ=466/65 mmhg, SpO2=96.0 %, Resp=18 B/min 03:19 PM HR=48 bpm, UDBB=851/71 mmhg, SpO2=98.0 %, Resp=15 B/min 03:20 PM Time: 15:20 5 ml Lidocaine 2% to right groin Subcutaneous Given by Alonzo Mac MD, [facility] tsites 03:21 PM Unsuccessful access attempt # 1 into the right Femoral artery. Manual pressure applied to achieve hemostasis.. tsites 03:22 PM Micro-Introducer Kit utilized for sheath placement tsites 03:22 PM Access obtained by percutaneous puncture. 5Fr 10cm Micro kit sheath placed in right Femoral artery. [id number] tsites 03:22 PM Sheath exchanged for a 6 Fr 11 cm Terumo Quentin sheath [id number] tsites 03:22 PM PCI Status Urgent tsites 03:23 PM Inflation device was opened. tsites 03:24 PM HR=47 bpm, TGLK=308/71 mmhg, SpO2=97 %, Resp=6 B/min 03:25 PM unable to advance sheath . sheath pulled manual pressure held to right groin per Dr. Bauman tsites 03:29 PM HR=48 bpm, FIBO=484/65 mmhg, SpO2=96 %, Resp=16 B/min 03:30 PM Micro-Introducer Kit utilized for sheath placement tsites 03:30 PM Access obtained by percutaneous puncture. 5Fr 10cm Micro kit sheath placed in right Femoral artery. [id number] tsites 03:30 PM Sheath exchanged for a 6 Fr 11 cm Terumo Quentin sheath [id number] tsites 03:32 PM 0.035 145cm Navilyst 3mmJ wire [id number] tsites 03:32 PM .035 Amplatz 260cm guide wire across target lesion- successful. reused? No tsites 03:33 PM 6Fr XB LAD 3.5 [place] Bright-Tip guide catheter was used to cannulate the PCI vessel successfully. reused? No tsites 03:34 PM HR=48 bpm, ROGL=570/70 mmhg, SpO2=96 %, Resp=12 B/min 03:37 PM Time: 15:37 Heparin 5000 units Intravenous Given by Piedad Roy RN tsites 03:38 PM wire reinserted catheter removed tsites 03:39 PM HR=48 bpm, XBDC=433/63 mmhg, SpO2=95 %, Resp=19 B/min 03:40 PM 6Fr JL4 [place] Bright-Tip guide catheter was used to cannulate the PCI vessel successfully. reused? No tsites 03:44 PM HR=47 bpm, VBZS=742/67 mmhg, SpO2=98.0 %, Resp=3 B/min 03:45 PM .014 ChoICE PT Extra Support 260cm guide wire across target lesion- successful. reused? No tsites 03:47 PM ACT drawn tsites 03:47 PM At 15:47 the ACT was 400 seconds. tsites 03:48 PM Guide wire removed intact. tsites 03:48 PM amplatz reinserted catheter removed tsites 03:49 PM HR=48 bpm, HJXU=181/63 mmhg, SpO2=92 %, Resp=5 B/min 03:50 PM 6Fr JL5 Runway guide catheter was used to cannulate the PCI vessel successfully. reused? No tsites 03:50 PM amplatz reinserted catheter removed tsites 03:51 PM 6Fr AL2 Runway guide catheter was used to cannulate the PCI vessel successfully. reused? No tsites 03:53 PM choice PT reinserted tsites 03:55 PM HR=46 bpm, DIUF=168/70 mmhg, SpO2=95 %, Resp=17 B/min 03:59 PM HR=46 bpm, AUGU=839/68 mmhg, SpO2=93 %, Resp=12 B/min 04:03 PM Guide catheter removed intact. tsites 04:03 PM Guide wire removed intact. tsites 04:03 PM unable to get wire across lesion tsites 04:04 PM HR=46 bpm, GBDG=767/73 mmhg, SpO2=96 %, Resp=10 B/min 04:05 PM Procedure completed at 16:05 03/09/2018 tsites 04:05 PM Sign out completed: Radiation Dose 1010 mGy, 7087 cGy/cm2 Fluoro Time: 10.8 Isovue 370 - 200ml contrast 30 ml given by Alonzo Mac MD, [facility]. Complications: None. 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 Cardiac Rehab Consult needed: NoConfirmed administered medications: Yes tsites 04:06 PM Isovue 370 - 200ml,1 Bottle(s) used. tsites 04:06 PM Sheath left in place to be pulled on floor/holding areaV+Pad tsites 04:06 PM Estimated Blood Loss: minimal tsites 04:06 PM Post ECG Sinus Bradycardia tsites 04:06 PM Post Blood Pressure 128/73 tsites 04:06 PM 16:06 Post Pulses Bilateral DP & PT 2+ tsites 04:06 PM Information taught Cardiac Cath tsites 04:07 PM Education needs Procedure, Plan of Care, and Responsibilities of Patient in Care tsites 04:07 PM Learning barriers :None tsites 04:07 PM Education Methods Verbal tsites 04:07 PM Education evaluation Able to repeat information tsites 04:07 PM Site status No bleeding/hematoma - Rt Groin as reported by Theodora Ruiz RT (R) at 16:07 tsites 04:07 PM Opsite applied tsites 04:09 PM Report given to zackary DE GUZMAN Pt taken to Holding room Room #3. 16:09 tsites 04:09 PM Delay to floor Bed availability tsites 04:10 PM Patient out of room: 16:09 tsites 04:10 PM Family placed in consult room. tsites 04:10 PM Lesion found in Distal Circumflex. Pre Stenosis: 70 Pre SHANDRA Flow: 3: Complete and Brisk Flow/Perfusion tsites 04:11 PM Circumflex, Obtuse Marginal, Left Posterior Descending, and Left Posterolateral Coronary Arteries with 70 % stenosis. If graft is supplying this area, 0 % stenosis tsites 04:[address] Bauman notified of patient's c/o mid chest pain 6-12/06. New orders received for Morphine 2 mg IV x 1 now. [email or web address] 05:00 PM Morphine 2 mg IV slow push as per 's order for c/o chest pain -12/06. [email or web address] 05:02 PM Time: 17:02 Morphine 2 mg IV Given by Carl DE GUZMAN. kwitte 05:[address] Bauman in to see patient and speak with him and his . kwitte 05:16 PM right femoral artery sheath pulled per Piedad Roy RN. Manual pressure being held with Vpad at present. kwitte 05:26 PM Bleeding noted to right femoral artery, Manual pressure continues per Theodora Ruiz RT. Piedad Roy RN at bedside. kwitte 05:40 PM Oozing noted to right femoral artery, Manual pressure continues with Vpad per Theodora Ruiz RT. kwitte 05:45 PM Hemostasis obtained to right femoral artery. kwitte 05:50 PM Report given to Koko DE GUZMAN Pt taken to Holding room Room #[id number]. 17:50 kwitte 05:50 PM Complications: None kwitte 05:50 PM Patient out of room: 17:50 carl Complications Complication None None Hemodynamics Post Procedure Information Blood Pressure: 128/73 mmHg Rhythm: Sinus Bradycardia Post procedural instructions were given Closure Device Time Device Success/Fail 03/09/2018 4:09:00 PM Manual Compression Successful Site Checks Time Location Status Staff Sheath In? Note 04:07 PM Rt Groin No bleeding/hematoma Theodora Ruiz RT (R) Yes 04:20 PM Rt Groin No bleeding/ No Hematoma Zackary Sneed RN Yes 04:35 PM Rt Groin No bleeding/ No Hematoma Zackary Sneed RN Yes 04:50 PM Rt Groin No bleeding/ No Hematoma Zackary Sneed RN Yes 05:05 PM Rt Groin No bleeding/ No Hematoma Zackary Sneed RN Yes 05:20 PM Rt Groin No bleeding/ No Hematoma Zackary Sneed RN Yes 05:26 PM Rt Groin Bleeding Zackary Sneed RN 05:40 PM Rt Groin Oozing Zackary Sneed RN 05:45 PM Rt Groin No bleeding/ No Hematoma Naren, Zackary RN Pulses Time Site Pre-Procedure Post-Procedure Note Bilateral DP & PT 2+ Bilateral radial 2+ 4:06:00 PM Bilateral DP & PT 2+ 03/09/2018 4:50:00 PM Bilateral DP & PT 2+ 03/09/2018 5:20:00 PM Bilateral DP & PT 2+ Updated by Zackary Sneed RN on 03/09/2018 5:52:02 PM Zackary Sneed RN electronically signed on 03/09/2018 5:52:38 PM with status of Final
[2018-03-09] MEDS: 0.9 % Sodium Chloride 1,000 ML IVC SCH (18:04)
[2018-03-09] MEDS: Famotidine 20 MG TABLET PO SCH (21:25)
[2018-03-10 04:35] LABS: Basophils # 0.1 K/mcL (0.0-0.2); Basophils % 0.9 %; Eosinophils # 0.2 K/mcL (0.0-0.6); Eosinophils % 2.4 %; Hematocrit 37.9 % (37.5-50.1); Hemoglobin 12.7 g/dL (12.9-16.9); Immature Granulocytes % 0.2 % (0-4); Lymphocytes # 2.4 K/mcL (0.6-4.6); Lymphocytes % 30.3 %; Mean Corpuscular HGB Conc 33.5 g/dL (31.6-35.5); Mean Corpuscular Hemoglobin 28.8 pg (28.0-33.3); Mean Corpuscular Volume 85.9 fL (83.0-100.0); Mean Platelet Volume 10.6 fL (9.4-12.4); Monocytes # 0.5 K/mcL (0.0-1.3); Monocytes % 5.7 %; Neutrophils # 4.9 K/mcL (1.6-8.9); Platelet Count 183 K/mcL (140-400); Red Blood Count 4.41 M/mcL (4.19-5.50); Red Cell Distribution Width 13.2 % (11.5-14.5); Segmented Neutrophils % 60.5 %
[2018-03-10 04:56] LABS: BUN/Creatinine Ratio 14 (6-26); Blood Urea Nitrogen 17 mg/dL (6-20); Calcium 9.6 mg/dL (8.6-10.3); Carbon Dioxide 24 mEq/L (23-29); Chloride 105 mEq/L (98-107); Glucose 106 mg/dL (70-105); Osmolality,Calculated 282 (280-300); Potassium 3.9 mEq/L (3.5-5.1); Sodium 135 mEq/L (136-145); eGFR For Non-African Americans 60 (> 60)
[2018-03-10] MEDS: *HR* Heparin 5,000 UNIT/ML VIAL SQ SCH ×3 (05:50→22:54)
[2018-03-10] MEDS: Lisinopril-HCTZ 20-12.5mg TABLET PO SCH (07:59)
[2018-03-10] MEDS: Aspirin 81 MG TAB.CHEW PO SCH (07:59)
[2018-03-10] MEDS: Ranolazine 500 MG TAB.ER.12H PO SCH ×2 (08:00→20:44)
[2018-03-10] MEDS: Isosorbide MONOnitrate (24 HR) 60 MG TAB.ER.24H PO SCH (08:00)
[2018-03-10] MEDS: Gabapentin 100 MG CAPSULE PO SCH ×3 (08:00→20:44)
[2018-03-10] MEDS: Sucralfate 1 GM TABLET PO SCH ×4 (08:00→20:44)
--- NOTE | 2018-03-10 10:29 | Internal Med Progress Note ---
Hospitalist Progress Note - Encounter Date of Encounter: 03/10/18 Time of Encounter: 10:27 - Subjective Interval History: Patient states he has 2/10 chest pain this AM. Denies SOB, fevers/chills, palpitations. - Exam Vitals: Temp Pulse Resp BP Pulse Ox 98.4 F 50 17 135/65 95 03/10/18 06:46 03/10/18 06:46 03/10/18 06:46 03/10/18 06:46 03/10/18 06:46 Exam: General: Obese, NAD Skin: Warm and supple HEENT: Moist mucous membranes. No conjunctivae pallor. Neck: No lymphadenopathy. No JVD. No carotid bruits. No palpable thyroid. Chest: Normal thoracic expansion. Normal breath sounds. Clear to auscultation. Heart: Normal S1 & S2; rhythmic. No rubs or murmurs. Abdomen: Non-distended, soft and non-tender to palpation. No peritoneal reaction. Extremities: No clubbing, cyanosis or edema. No calf tenderness. Normal distal pulses. Neurological: Awake, alert and oriented to person, place and time. No focal deficits. - Assessment and Plan (1) Chest pain Current Visit: Yes Status: Acute Assessment and Plan: The patient has known CAD w/ recent PCI He was scheduled for outpatient staged PCI Continue ASA, Plavix, ACEI Not on BB due to bradycardia Not on statin due to intolerance Cardio following, input appreciated LHC via femoral access unsuccessful. Plan for LHC via radial access today. (2) Hypertension Current Visit: Yes Status: Chronic Assessment and Plan: Continue home meds (3) GERD (gastroesophageal reflux disease) Current Visit: Yes Status: Chronic Assessment and Plan: continue home PPI (4) Morbid obesity with BMI of 40.0-44.9, adult Current Visit: Yes Status: Chronic Assessment and Plan: Chronic (5) Elevated troponin I level Current Visit: Yes Status: Acute Assessment and Plan: Plan as above. Peaked at 0.19 now improved to 0.16 (6) DVT prophylaxis Current Visit: Yes Status: Acute Assessment and Plan: Heparin SubQ - Time Spent with Patient Total time spent is greater than 50% in coordination of care (as documented) at patient's floor/unit and/or counseling patient: Internal Medicine: Result - Labs CBC & Chem 7: 03/10/18 04:02 03/10/18 04:02 Labs: Short CBC 03/10/18 Range/Units 04:02 WBC 8.0 (4.3-11.1) K/mcL Hgb 12.7 L (12.9-16.9) g/dL Hct 37.9 (37.5-50.1) % Plt Count 183 (140-400) K/mcL Neutrophils # 4.9 (1.6-8.9) K/mcL BMP 03/10/18 04:02 Sodium 135 L Potassium 3.9 Chloride 105 Carbon Dioxide 24 BUN 17 Creatinine 1.25 Glucose 106 H Calcium 9.6 - ABG Interpretation ABG results: PT/INR, D-dimer PT 12.5 Seconds (9.4-12.1) H 03/08/18 07:09 Consult Discharge Plan - Plan Referrals: Davie Hanley DO [Primary Care Provider] - 03/16/18 8:30 am (1) Chest pain Qualifiers: Chest pain type: precordial pain Qualified Code(s): R07.2 - Precordial pain (2) Hypertension Qualifiers: Hypertension type: essential hypertension Qualified Code(s): I10 - Essential (primary) hypertension (3) GERD (gastroesophageal reflux disease) Qualifiers: Esophagitis presence: without esophagitis Qualified Code(s): K21.9 - Gastro- esophageal reflux disease without esophagitis
[2018-03-10] MEDS: Budesonide/Formoterol 80/4.5 MDI IH SCH ×2 (11:05→20:02)
--- NOTE | 2018-03-10 14:41 | Pre-Sedation Evaluation ---
Pre-sedation evaluation - Pre-sedation checklist Date of procedure: 03/09/18 Procedure: heart cath Recent Vitals: Last Vital Signs Temp 97.9 F 03/10/18 10:57 Pulse 57 03/10/18 10:57 Resp 16 03/10/18 11:07 BP 111/69 03/10/18 10:57 Pulse Ox 95 03/10/18 11:07 H&P (including ROS) documented in medical record: Yes Previous reaction to sedatives/anesthetics: No Dietary Status: NPO after Midnight Dentition: No loose teeth or bridges ASA Classification *see protocol: CLASS II-Mild systemic disease Cardiac Registry (Cardio Only) - Functional Capacity Functional Capacity: >=4 METS with symptoms - Clincal Frailty Scale Clinical Frailty Scale: Vulnerable
[2018-03-10] MEDS ORDERED: 0.9 % Sodium Chloride 1,000 ML ONE (14:50)
[2018-03-10] MEDS ORDERED: Heparin 1,000 UNITS/500 mL 500 ML ONE (14:50)
[2018-03-10] MEDS ORDERED: *HR* Heparin 10,000 UNIT/10 ML VIAL ONE (14:50)
[2018-03-10] MEDS ORDERED: ISOVUE-370 200 ML INFUS..BTL IV ONE (14:50)
[2018-03-10] MEDS ORDERED: Nitroglycerin 1,000 MCG/10 ML VIAL IV ONE (14:51)
[2018-03-10] MEDS ORDERED: *HR* FentaNYL (PF) 100 MCG/2 ML VIAL ONE (15:25)
[2018-03-10] MEDS ORDERED: *HR* Midazolam HCl 2 MG/2 ML VIAL ONE (15:25)
[2018-03-10] MEDS ORDERED: Tirofiban 12.5 MG/250ML 12.5 MG/250 ML BAG IVC SCH (16:15)
[2018-03-10] MEDS ORDERED: Tirofiban 12.5 MG/250ML 12.5 MG/250 ML BAG ONE (16:18)
--- NOTE | 2018-03-10 16:26 | Invasive Diagnostic Lab Proc ---
Name: Kwesi Faustin Date of Study: 03/10/2018 Date: 1965 Ht: 72.0in Medical Record#: [id number] Age: 53 Wt: 297.62lb Gender: Male BSA: 2.52 Order #: [id number] BMI: 40.31 Physicians Procedure Physician: Marek Paz MD Referring MD: Referring MD: Staff Name Position Time In RonnieMusa nguyen RN Monitor 03:17 PM Mamie Hyman RN Mill Oiler 03:17 PM Theodora Whaley RT (R) Scrub 03:17 PM Indications Indication Unstable Angina Procedures Performed Procedure PRQ CARD ERIKA STENT W/ANGIO 1 VSL Pre-Procedure Checklist Informed consent is complete signed and on chart. H&P is on chart. ID band is on and ID verified with patient. Patient NPO for procedure The procedure was described for the patient and questions were answered. Blood Pressure: 135/65 ECG is on chart. Rhythm: Sinus Bradycardia Plan of Care Patient will tolerate the procedure without complications. Adequate level of comfort will be maintained. Hemodynamics will remain stable Patient will recover from procedure without complications. Respiratory function will be maintained. Cardiac rhythm will remain stable. Patient temperature will be maintained. Patient and/or family have verbalized understanding of the procedure. Patient Education Chief Complaint/Reason for Test: PCI Developmental Category: Adult (18-64 years) Developmentally Appropriate for Age: Yes Learning Barriers: None Education Needs: Procedure Education Method: Verbal Information Taught: PCI Educational Evaluation: Able to repeat information Intravenous Access Time IV Size Location DC'd Fluid/Drip Rate Units RN 18g 1 /" Patent On Arrival Rt Antecubital 0.9NaCl Mamie Hyman RN Allergies TORADOL VICODIN hydrocodone ketorolac acetaminophen Hydromorphone Vital Signs Time BP (mmHg) HR (bpm) O2 Sat. RR (bpm) LOC 03:19 PM / % 5 = Fully awake and oriented or at pre-proc level 03:23 PM 112 / 69 48 92 % 15 03:38 PM 122 / 68 48 98 % 12 03:43 PM 125 / 74 51 96 % 10 03:49 PM 129 / 75 52 98 % 11 03:53 PM 118 / 67 53 95 % 13 03:59 PM 124 / 72 49 98 % 15 04:03 PM 117 / 70 48 95 % 15 Procedural Medications Time Medication Dose Units Method Given By 03:20 PM Oxygen 2 L/min nasal cannula Mamie Hyman RN 03:29 PM Versed 1 mg Intravenous Musa Trujillo RN 03:29 PM Fentanyl 50 mcg Intravenous Musa Trujillo RN 03:34 PM Lidocaine 2% 15 ml Subcutaneous Marek Paz MD 03:36 PM Fentanyl 50 mcg Intravenous Mamie Hyman RN 03:37 PM Heparin 5000 units Intravenous Mamie Hyman RN 03:51 PM Nitroglycerin 200 mcg Intracoronary Yusuf Paz MD 03:53 PM Nitroglycerin 200 mcg Intracoronary Yusuf Paz MD 03:38 PM Aggrastat Bolus: 66.5 ml Intravenous Mamie Hyman RN 03:39 PM Aggrastat 12.5mg/250ml 24 ml/hr Intravenous Mamie Hyman RN ASA Classification: CLASS II- Mild systemic disease (i.e. well-controlled diabetes, hypertension, asthma, cigarette smoking) Nahum Score Preprocedure Postprocedure Activity 2- Moves 4 extremities sustained head lift Activity 2- Moves 4 extremities sustained head lift Circulation 2- SBP +/= 20 points of pre-anesthetic level Circulation 2- SBP +/= 20 points of pre-anesthetic level Consciousness 2- Awake and alert oriented x 3 Consciousness 2- Awake and alert oriented x 3 O2 Saturation 2- Able to maintain O2 satruation of 92% on room air O2 Saturation 2- Able to maintain O2 satruation of 92% on room air Respiratory 2- Able to deep breathe and cough well Respiratory 2- Able to deep breathe and cough well Total Score 10 Total Score 10 Contrast Agent: Isovue Diagnostic Contrast: 80 ml Total Contrast: 80 ml Fluoro Dose: 6588 mGy Procedure Log Time Note Enter By 03:08 PM CathStat 03:17 PM 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 Bilateral groin prepped with Chloraprep by Mamie Hyman RN, then patient was draped. Skin intact. [facility] : PM Physician arrived 15: [facility] : PM Meet and greet completed [facility] : PM Sign in performed according to hospital policy. Informed consent was obtained. [facility] : PM Procedure start 15:[facility] : PM Time: 15:19 Patient comfortable and pain free: Yes [facility] : PM Time: 15:LOC: 5 = Fully awake and oriented or at pre-proc level [facility] : PM Time: 15:20 Oxygen on at 2 L/min per nasal cannula by Mamie Hyman RN 03:22 PM Vitals capture started with the following parameters, Patient=Adult, Interval=5 min, Initial Rhthurzq=585 mmHg, Deflation Rate=5 mmHg, Cuff placed on Right Arm 03:22 PM Vitals capture stopped. 03:23 PM NIBP STAT measurement started. 03:23 PM HR=48 bpm, PDWP=211/69 mmhg, SpO2=92.0 %, Resp=15 B/min, Comment=nsr 03:29 PM Time: 15:29 Versed 1 mg Intravenous Given by Musa Trujillo RN 03:29 PM Time: 15:29 Fentanyl 50 mcg Intravenous Given by Musa Trujillo RN 03:34 PM Time out was performed according to hospital policy. Conscious sedation and anesthesia was achieved (see medication log with in this report above) [facility] :34 PM Time: 15:34 15 ml Lidocaine 2% to right groin Subcutaneous Given by MD devi Chavira 03:35 PM Micro-Introducer Kit utilized for sheath placement [facility] 03:35 PM Access obtained by percutaneous puncture. 6Fr 10cm Cordis Mee sheath placed in right Femoral artery. [id number] [facility] PM PCI Status [facility]gent [facility] 03:35 PM 6Fr XB3.5 Cordis guide catheter was used to cannulate the PCI vessel successfully. reused? No [facility] 03:36 PM Time: 15:36 Fentanyl 50 mcg Intravenous Given by Mamie Hyman RN jcenid 03:38 PM Time: 15:37 Heparin 5000 units Intravenous Given by Mamie Hyman RN jcenid 03:38 PM Vitals capture started with the following parameters, Patient=Adult, Interval=5 min, Initial Bsavkjco=999 mmHg, Deflation Rate=5 mmHg, Cuff placed on Right Arm 03:38 PM .014 [employer] [place] 300cm guide wire across target lesion- successful. reused? No jcallihan 03:38 PM Inflation device was opened. [email or web address] 03:38 PM HR=48 bpm, JPCK=404/68 mmhg, SpO2=98.0 %, Resp=12 B/min 03:38 PM Time: 15:38 Aggrastat Bolus: 66.5 ml Intravenous Given by Mamie Hyman RN Oliver pump jcallihan 03:39 PM Recorded Pressure: Ao, HR=49, Condition=Condition 1 (Aorta) Ao 114/75/92 03:39 PM Time: 15:39 Aggrastat 12.5mg/250ml 24 ml/hr Intravenous Given by Mamie Hyman RN Oliver pump jcallihan 03:40 PM Lesion found in Distal Circumflex. Pre Stenosis: 70 Pre SHANDRA Flow: 3: Complete and Brisk Flow/Perfusion jcallihan 03:40 PM Circumflex, Obtuse Marginal, Left Posterior Descending, and Left Posterolateral Coronary Arteries with 70 % stenosis. If graft is supplying this area, 0 % stenosis jcallihan 03:43 PM HR=51 bpm, OPLX=723/74 mmhg, SpO2=96.0 %, Resp=10 B/min, Comment=sb 03:44 PM 2.0 mm x 12 mm Emerge Monorail balloon across target lesion- successful. reused? No jcallihan 03:44 PM Recorded Pressure: Ao, HR=51, Condition=Condition 1 (Aorta) Ao 91/63/76 03:44 PM Balloon inflated @ 6 rose marie for 10 seconds [email or web address] 03:45 PM Balloon inflated @ 6 rose marie for 10 seconds jcallihan 03:45 PM Recorded Pressure: Ao, HR=51, Condition=Condition 1 (Aorta) Ao 118/75/93 03:46 PM Balloon catheter removed intact. jcallihan 03:47 PM 2.5mm x 15mm Cordis EluNIR drug-eluting stent across target lesion- successful Lot #[id number] jcallihan 03:48 PM Recorded Pressure: Ao, HR=52, Condition=Condition 1 (Aorta) Ao 115/77/95 03:49 PM Stent deployed @ 10 rose marie for 12 seconds [email or web address] 03:49 PM HR=52 bpm, TQYB=450/75 mmhg, SpO2=98.0 %, Resp=11 B/min, Comment=sb 03:49 PM Stent balloon reinflated @ 12 rose marie for 9 seconds [email or web address] 03:50 PM Recorded Pressure: Ao, HR=53, Condition=Condition 1 (Aorta) Ao 126/81/100 03:51 PM Time: 15:51 Nitroglycerin 200 mcg Intracoronary Given by Yusuf Paz MD [facility] 03:52 PM Stent delivery system removed intact. [email or web address] 03:53 PM Time: 15:53 Nitroglycerin 200 mcg Intracoronary Given by Yusuf Paz MD jcallihwendy 03:53 PM HR=53 bpm, KUIB=976/67 mmhg, SpO2=95.0 %, Resp=13 B/min, Comment=sb 03:54 PM Guide catheter removed intact. jcallihan 03:54 PM Guide wire removed intact. [email or web address] 03:56 PM Procedure completed at 15:56 03/10/2018 jcallihan 03:56 PM Did you address SHANDRA flow and Dominance? Yes jcallihan 03:58 PM Sign out completed: Radiation Dose 950 mGy, 6588 cGy/cm2 Fluoro Time: 5.8 Isovue 370 - 200ml contrast 80 ml given by Marek Paz MD. Complications: None. 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 Cardiac Rehab Consult needed: YesConfirmed administered medications: Yes jcallihan 03:59 PM Isovue 370 - 200ml,1 Bottle(s) used. [email or web address] 03:59 PM HR=49 bpm, LJHA=483/72 mmhg, SpO2=98.0 %, Resp=15 B/min, Comment=sb 03:59 PM Arterial sheath pulled, Angio-seal closure device used and was Successful [id number] S/N. jcallihan 03:59 PM Estimated Blood Loss: less than 20cc jcallihan 03:59 PM Post ECG Sinus Bradycardia jcallihan 03:59 PM Post Blood Pressure 124[facility] PM 16:00 Post Pulses Bilateral DP 2+ [facility] 04[facility] PM Information taught Cardiac Cath, PCI, and [facility]ioseal [facility] 04:02 PM ASA Class CLASS II- Mild systemic disease (i.e. well-controlled diabetes, hypertension, asthma, cigarette smoking) [facility] 04:02 PM Education needs Procedure, Plan of Care, and Responsibilities of Patient in Care [facility] 04:02 PM Learning barriers :None [facility] 04:02 PM Education Methods Verbal [facility] 04:02 PM Education evaluation Able to repeat information [facility] 04:02 PM Site status No bleeding/hematoma - Rt Groin as reported by Sites, Theodora RT (R) at 16:02 [facility] 04:02 PM Opsite applied [facility] 04:02 PM Plavix, Effient or Brilinta given Yes [facility] 04:03 PM Family placed in consult room. [facility] 04:03 PM Complications: None [facility] 04:03 PM HR=48 bpm, KHJF=584/70 mmhg, SpO2=95.0 %, Resp=15 B/min, Comment=sb Complications Complication None None None Hemodynamics Pressures Site Systolic/A Wave Diastolic/V Wave Mean AO 114 75 92 AO 91 63 76 AO 118 75 93 AO 115 77 95 AO 126 81 100 Post Procedure Information Blood Pressure: 124/72 mmHg Rhythm: Sinus Bradycardia Post procedural instructions were given Closure Device Time Device Success/Fail 03/10/2018 3:56:00 PM Angio-Seal VIP Successful Site Checks Time Location Status Staff Sheath In? Note 04:02 PM Rt Groin No bleeding/hematoma Sites, Theodora RT (R) Pulses Time Site Pre-Procedure Post-Procedure Note Bilateral radial 2+ Bilateral DP 2+ 4:00:00 PM Bilateral DP 2+ Updated by Musa Trujillo RN on 03/10/2018 4:17:34 PM electronically signed on 03/10/2018 4:18:21 PM with status of Final
[2018-03-10] MEDS: Famotidine 20 MG TABLET PO SCH (20:44)
[2018-03-11] MEDS: 0.9 % Sodium Chloride 1,000 ML IVC SCH (05:18)
[2018-03-11] MEDS: *HR* Heparin 5,000 UNIT/ML VIAL SQ SCH (05:25)
[2018-03-11 06:07] LABS: Basophils % 0.5 %; Eosinophils # 0.2 K/mcL (0.0-0.6); Eosinophils % 1.9 %; Hemoglobin 12.6 g/dL (12.9-16.9); Immature Granulocytes % 0.4 % (0-4); Lymphocytes # 2.2 K/mcL (0.6-4.6); Lymphocytes % 26.9 %; Mean Corpuscular HGB Conc 33.2 g/dL (31.6-35.5); Mean Corpuscular Hemoglobin 28.5 pg (28.0-33.3); Mean Platelet Volume 10.6 fL (9.4-12.4); Monocytes # 0.4 K/mcL (0.0-1.3); Monocytes % 5.3 %; Neutrophils # 5.4 K/mcL (1.6-8.9); Platelet Count 170 K/mcL (140-400); Red Blood Count 4.42 M/mcL (4.19-5.50); Red Cell Distribution Width 12.9 % (11.5-14.5)
[2018-03-11 06:26] LABS: BUN/Creatinine Ratio 13 (6-26); Blood Urea Nitrogen 18 mg/dL (6-20); Calcium 9.8 mg/dL (8.6-10.3); Carbon Dioxide 24 mEq/L (23-29); Chloride 104 mEq/L (98-107); Glucose 104 mg/dL (70-105); Osmolality,Calculated 282 (280-300); Potassium 3.9 mEq/L (3.5-5.1); Sodium 135 mEq/L (136-145); eGFR For Non-African Americans 54 (> 60)
[2018-03-11 06:43] VITALS: BP 134/68
[2018-03-11] MEDS: Budesonide/Formoterol 80/4.5 MDI IH SCH (07:40)
[2018-03-11] MEDS: Sucralfate 1 GM TABLET PO SCH (08:19)
[2018-03-11] MEDS: Ranolazine 500 MG TAB.ER.12H PO SCH (08:19)
[2018-03-11] MEDS: Gabapentin 100 MG CAPSULE PO SCH (08:19)
[2018-03-11] MEDS: Lisinopril-HCTZ 20-12.5mg TABLET PO SCH (08:20)
[2018-03-11] MEDS: Aspirin 81 MG TAB.CHEW PO SCH (08:20)
[2018-03-11] MEDS: Isosorbide MONOnitrate (24 HR) 60 MG TAB.ER.24H PO SCH (08:20)
--- NOTE | 2018-03-11 10:03 | Cardiology Progress Note ---
Date of Encounter: 03/11/18 Time of Encounter: 10:01 Assessment and Plan (1) Chest pain Current Visit: No Status: Acute Mr. Faustin presented to the hospital with chest pain after recent PCI on 03/06. He was seen to have mild troponin elevation may been secondary to his recent stent placement. Known residual disease on heart catheter. He was recommended for repeat left heart catheter. 03/06/18 out-pt LHC showed LAD 24 mm 70 stenosis, ERIKA was placed. 1st marginal showed 16mm 90% stenosis, ERIKA was placed. Circumflex showed 70% stenosis of the distal circumflex, Ramus showed 70% steonsis. RCA and LMCA free of disease. Echo showed LVEF 60-65% mild Left ventricular diastolic disfunction, mild mitral regurgitation, and mild pulmonary hypertension. On repeat left heart catheter on 03/09/2018 catheter was unable to be advanced for circumflex PCI. He underwent a third heart catheterization on 03/10/2018 with successful PCI to his left circumflex artery. He is chest pain-free. There is no complications from this procedure. His kidney function remains normal. Patient currently on ASA, Plavix, Renexa, Lisinopril, and Imdur. importance of DAPT uninterrupted for one year reviewed with patient. Cannot tolerate BB due to bradycardia or statins due to nausea/vomiting. We will schedule outpatient follow-up in 2-[address] Paz. Cardiac rehabilitation consulted. Qualifiers: Chest pain type: precordial pain Qualified Code(s): R07.2 - Precordial pain (2) Elevated troponin I level Current Visit: Yes Status: Acute on admission on 03/06/18 serial troponins <0.03, on admission 03/08/18 serial troponins 0.16 and 0.19 No post PCI troponin from 03/06/18, may be secondary to recent intervention. No thrombus seen on repeat LHC. (3) Hypertension Current Visit: No Status: Chronic Blood pressure is acceptable. Qualifiers: Hypertension type: essential hypertension Qualified Code(s): I10 - Essential (primary) hypertension (4) Morbid obesity with BMI of 40.0-44.9, adult Current Visit: Yes Status: Chronic nutritional consult as per medicine service Discussion w patient/family: The assessment and plan as outlined above was discussed with the patient and/or family members who expressed understanding and agreement. All questions were answered. Thank you for involving us in the care of your patient. Please call with any questions. Subjective Principal diagnosis: CAD Interval history: Mr. Venegas is status post PCI to his circumflex artery. He denies problems with his right groin site. Objective Vital Signs, Last 4 Hours Temp Pulse Resp BP Pulse Ox 03/11/18 07:41 18 96 03/11/18 06:41 98.2 F 56 18 134/68 92 General: Conversant, No Apparent Distress HEENT: Atraumatic, Normocephaly, Mucus Membranes Moist Neck: No JVD, Normal carotid pulses Cardiac: Reg Rate and Rhythm, Normal S1 and S2, No Murmur Lungs: Normal Breath Sounds, No Wheeze, Rales, Rhonchi Neuro: Alert and responsive, No focal deficits noted Abdomen: Soft, Non-Tender Skin: No rashes noted on visualized skin Musculoskeletal: No Chest Wall Tenderness Extremities: No Clubbing, No Cyanosis, No Edema, Normal Pulses Results 03/11/18 05:38 03/11/18 05:38 Lab Results 03/11/18 03/11/18 05:38 05:38 WBC 8.3 Hgb 12.6 L Hct 38.0 Plt Count 170 Sodium 135 L Potassium 3.9 Chloride 104 Carbon Dioxide 24 BUN 18 Creatinine 1.37 H Glucose 104 Calcium 9.8 - Imaging and Cardiology Echo: report reviewed Cardiac cath: report reviewed - EKG Interpretation EKG results cardiology: personally reviewed Consult Discharge Plan - Plan Referrals: Davie Hanley DO [Primary Care Provider] - 03/16/18 8:30 am
--- NOTE | 2018-03-11 11:10 | Discharge Summary ---
- NOTES TO OUTPATIENT PROVIDER Notes to Outpatient Provider: Follow-up with Cardiology 2-3 weeks. Orders not resulted at time of discharge: Pending orders 03/10/18 16:03 ECG 12 lead ECG [ECG] Routine ECG 12 lead ECG [ECG] Stat 03/11/18 07:00 ECG 12 lead ECG [ECG] Routine Date of Encounter: 03/11/18 Time of Encounter: 11:07 - Discharge Diagnosis (1) Chest pain Priority: Primary Status: Acute Qualifiers: Chest pain type: precordial pain Qualified Code(s): R07.2 - Precordial pain (2) Hypertension Priority: Secondary Status: Chronic Qualifiers: Hypertension type: essential hypertension Qualified Code(s): I10 - Essential (primary) hypertension (3) GERD (gastroesophageal reflux disease) Priority: Secondary Status: Chronic Qualifiers: Esophagitis presence: without esophagitis Qualified Code(s): K21.9 - Gastro -esophageal reflux disease without esophagitis (4) Morbid obesity with BMI of 40.0-44.9, adult Priority: Secondary Status: Chronic (5) Elevated troponin I level Priority: Secondary Status: Acute (6) DVT prophylaxis Priority: Secondary Status: Acute Hospital course: Kwesi Faustin is a 53 year old obese man with a history of hypertension and CAD s/p PCI x 2 who was admitted here from Mar 04- Mar 07 for acute onset chest pain requiring nitroglycerin drip. EKG showed sinus bradycardia and troponins were negative. He ended up having left heart cath done on 03/06 with 2 stents placed although was found to have severe three-vessel CAD and is recommended to have a staged intervention in a month for 2 more vessels. He was discharged yesterday on dual antiplatelet therapy, nitrates and ranolazine. He is unable to tolerate beta blockers due to bradycardia and statin because of nausea. He presents now 4 hours after his discharge stating that about 6 PM while sitting at rest watching TV he started having sharp chest pain with associated shortness of breath. He did not take nitroglycerin at home and waited till he arrived here where he received 1 sublingual dose which brought on modest relief but not completely. He also received another loading dose of aspirin. EKG showed again sinus bradycardia with no acute ischemic changes and dining room hostess education assistant was contacted who recommended continue to trend troponins. Given he has known CAD with recent stent, he was admitted for ACS likely post- PCI. Cardiology was consulted. Troponin treded andstated in 0.16 to 0.19 range. He underwent a repeat LHC on 03/10/18 via radial artery with successful PCI to left circumflex artery. (a femoral artery attempt was not successful on 03/09/18). He has remained chest pain free since procedure. Creatinine ranged from 1.1-1.37 during hospitalization which is his baseline. Patient stable for discharge to follow-up with Cardiology in 2-3 weeks. Continuing DAPT on discharge. - Time Spent with Patient Total time spent providing and/or coordinating discharge services: - Discharge Medications Home Medications: Allopurinol [Zyloprim 300 MG] 300 mg PO DAILY 05/01/15 [History] Nitroglycerin [Nitrostat] 0.4 mg PO Q5M PRN 05/01/15 [History] Fluticasone/Salmeterol [Advair 250-50 Diskus] 1 each IH BID 12/03/15 [History] Albuterol Sulfate [Ventolin Hfa] 2 puff IH Q4H PRN 06/24/17 [History] Cyclobenzaprine HCl 5 mg PO TID PRN 06/24/17 [History] Pantoprazole Sodium [Protonix] 40 mg PO DAILY 06/24/17 [History] Ranitidine HCl [Zantac] 300 mg PO HS 06/24/17 [History] Gabapentin [Neurontin] 100 mg PO TID #21 capsule 06/26/17 [Rx] Isosorbide MONOnitrate (24 HR) [Imdur] 60 mg PO DAILY 03/06/18 [History] Aspirin 81 mg PO BID 30 Days #30 tab.chew 03/07/18 [Rx] Clopidogrel Bisulfate [Plavix] 75 mg PO DAILY 30 Days #30 tablet 03/07/18 [Rx] Ranolazine [Ranexa] 1,000 mg PO BID 30 Days #120 tab.er.12h 03/07/18 [Rx] Lisinopril-HCTZ 20-12.5 [Prinzide 20-12.5] 1 each PO DAILY 03/08/18 [History] Sucralfate [Carafate] 1 gm PO ACHS 03/08/18 [History] Sertraline [Zoloft] 200 mg PO DAILY 03/09/18 [History] rOPINIRole [Requip] 0.25 mg PO HS 03/09/18 [History] Allergies/Adverse Reactions: 3 Allergy/AdvReac Type Severity Reaction Status Date / Time hydrocodone [From Vicodin] Allergy Hallucinati Verified 03/04/18 01:31 ng ketorolac [From Toradol] Allergy Seizure Verified 03/04/18 01:31 Date of admission: 03/08/18 02:55 Primary care physician: Davie Hanley DO Consults: 03/08/18 03:09 Consult to Cardiology [CONS] Routine Comment: Consulting Provider: Cardiology [place] Reason for Consult: Recurring chest pain after recent PCI Call Completed: Yes 03/08/18 04:52 Consult to Nutrition [CONS] Routine Comment: Consulting Provider: NUTRITION Reason for Dietary Consult: Diet Education 03/10/18 16:03 Consult to Cardiac Rehabilitation-Phase1 [CONS] Routine Comment: Reason for Consult: AMI Call Completed: Yes Consult to Nurse Navigator [CONS] Routine Comment: Discharging clinician: Rafael Mello - Constitutional Vitals: Temp Pulse Resp BP Pulse Ox 98.2 F 56 18 134/68 96 03/11/18 06:41 03/11/18 06:41 03/11/18 07:41 03/11/18 06:41 03/11/18 07:41 Exam: General: Obese, NAD Skin: Warm and supple HEENT: Moist mucous membranes. No conjunctivae pallor. Neck: No lymphadenopathy. No JVD. No carotid bruits. No palpable thyroid. Chest: Normal thoracic expansion. Normal breath sounds. Clear to auscultation. Heart: Normal S1 & S2; rhythmic. No rubs or murmurs. Abdomen: Non-distended, soft and non-tender to palpation. No peritoneal reaction. Extremities: No clubbing, cyanosis or edema. No calf tenderness. Normal distal pulses. Neurological: Awake, alert and oriented to person, place and time. No focal deficits. - Patient Status Disposition: Home, Self-Care Condition: Good Functional capacity at discharge: independent ambulation Overall status at discharge: patient is back to baseline - Discharge Instructions Follow Up With: Davie Hanley DO [Primary Care Provider] - 03/16/18 8:30 am - Diet and Activity Activity: return to work once cleared by your PCP/specialist Diet: low fat, low cholesterol, low salt diet
== END 2018-03-11 13:12 | disposition home or self-care (01) ==
LOC: EMEROOARM 20:59 → 2NENU 20:59 → SUATTDRO 03-08 02:55 → 2NENU 03-08 03:33
PROVIDERS: ADMIT Internal Medicine; ATTEND Student in an Organized Health Care Education/Training Program

== ENCOUNTER 2018-12-03 16:28 | Inpatient (IN) ==
[2018-12-03] MEDS ORDERED: Aspirin 81 MG TAB.CHEW PO STA (16:36)
[2018-12-03] MEDS ORDERED: Ondansetron ODT 4 MG TAB.RAPDIS SL ONE (17:05)
[2018-12-03] MEDS: Nitroglycerin 0.4 MG TAB.SUBL SL PRN ×3 (17:07→17:44)
[2018-12-03 17:13] LABS: Basophils # 0.1 K/mcL (0.0-0.2); Basophils % 0.6 %; Eosinophils # 0.3 K/mcL (0.0-0.6); Eosinophils % 3.5 %; Hematocrit 40.6 % (37.5-50.1); Hemoglobin 13.2 g/dL (12.9-16.9); Immature Granulocytes % 0.3 % (0-4); Lymphocytes % 25.3 %; Mean Corpuscular HGB Conc 32.5 g/dL (31.6-35.5); Mean Corpuscular Hemoglobin 27.4 pg (28.0-33.3); Mean Corpuscular Volume 84.2 fL (83.0-100.0); Mean Platelet Volume 10.8 fL (9.4-12.4); Monocytes # 0.4 K/mcL (0.0-1.3); Monocytes % 5.7 %; Platelet Count 241 K/mcL (140-400); Red Blood Count 4.82 M/mcL (4.19-5.50); Red Cell Distribution Width 13.4 % (11.5-14.5); Segmented Neutrophils % 64.6 %; White Blood Count 7.8 K/mcL (4.3-11.1)
[2018-12-03 17:35] LABS: BUN/Creatinine Ratio 10 (6-26); Blood Urea Nitrogen 10 mg/dL (6-20); Calcium 9.2 mg/dL (8.6-10.3); Carbon Dioxide 25 mEq/L (23-29); Chloride 107 mEq/L (98-107); Glucose 121 mg/dL (70-105); Osmolality,Calculated 288 (280-300); Potassium 3.2 mEq/L (3.5-5.1); Sodium 139 mEq/L (136-145); eGFR For African Americans > 60 (> 60); eGFR For Non-African Americans > 60 (> 60)
[2018-12-03 17:38] LABS: Troponin I < 0.03 ng/mL (< 0.04)
[2018-12-03] MEDS ORDERED: *HR* Heparin 5,000 UNIT/ML VIAL IVP PRN (18:13)
[2018-12-03] MEDS ORDERED: *HR* Heparin 5,000 UNIT/ML VIAL IVP ONE (18:13)
[2018-12-03] MEDS: Heparin 25,000 UNIT/250 ML D5W 25,000 UNIT/250 ML IV.SOLN IVC SCH (18:43)
[2018-12-03 19:16] LABS: INR 1.1
[2018-12-03] MEDS ORDERED: Nitroglycerin 0.4 MG TAB.SUBL SL PRN (20:37)
[2018-12-03] MEDS ORDERED: Pantoprazole 40 MG VIAL IVP ONE (21:26)
[2018-12-03] MEDS ORDERED: Morphine Sulfate 2 MG/ML SYRINGE IVP ONE (21:27)
[2018-12-03] MEDS ORDERED: Benzonatate 100 MG CAPSULE PO PRN (21:28)
[2018-12-03] MEDS ORDERED: Budesonide/Formoterol 160/4.5 1 PUFF INH IH PRN (21:28)
[2018-12-03] MEDS: Lisinopril-HCTZ 20-12.5mg TABLET PO SCH (21:49)
[2018-12-03] MEDS: amLODIPine 5 MG TABLET PO SCH (21:50)
[2018-12-04 01:13] LABS: Basophils # 0.1 K/mcL (0.0-0.2); Basophils % 0.8 %; Eosinophils # 0.3 K/mcL (0.0-0.6); Eosinophils % 3.7 %; Hematocrit 40.1 % (37.5-50.1); Hemoglobin 12.9 g/dL (12.9-16.9); Immature Granulocytes % 0.4 % (0-4); Lymphocytes # 2.8 K/mcL (0.6-4.6); Lymphocytes % 33.1 %; Mean Corpuscular HGB Conc 32.2 g/dL (31.6-35.5); Mean Corpuscular Volume 87.2 fL (83.0-100.0); Mean Platelet Volume 10.6 fL (9.4-12.4); Monocytes # 0.5 K/mcL (0.0-1.3); Monocytes % 6.1 %; Neutrophils # 4.7 K/mcL (1.6-8.9); Platelet Count 231 K/mcL (140-400); Red Cell Distribution Width 13.5 % (11.5-14.5); Segmented Neutrophils % 55.9 %; White Blood Count 8.5 K/mcL (4.3-11.1)
[2018-12-04 01:35] LABS: Alanine Aminotransferase 16 Units/L (7-52); Albumin 3.7 g/dL (3.5-5.7); Albumin/Globulin Ratio 1.4 (1.1-2.2); Alkaline Phosphatase 104 Units/L (34-104); Aspartate Amino Transferase 14 Units/L (13-39); BUN/Creatinine Ratio 12 (6-26); Bilirubin,Total 0.4 mg/dL (0.3-1.0); Blood Urea Nitrogen 13 mg/dL (6-20); Calcium 9.3 mg/dL (8.6-10.3); Carbon Dioxide 27 mEq/L (23-29); Chloride 106 mEq/L (98-107); Globulin 2.7 g/dL (2.4-3.5); Glucose 99 mg/dL (70-105); Magnesium 2.1 mg/dL (1.6-2.6); Osmolality,Calculated 292 (280-300); Potassium 3.6 mEq/L (3.5-5.1); Sodium 141 mEq/L (136-145); Total Protein 6.4 g/dL (6.4-8.9); eGFR For African Americans > 60 (> 60); eGFR For Non-African Americans > 60 (> 60)
[2018-12-04 01:47] LABS: Thyroid Stimulating Hormone 1.215 mcIU/mL (0.340-5.600)
[2018-12-04] MEDS: *HR* Heparin 5,000 UNIT/ML VIAL IVP PRN (04:50)
[2018-12-04] MEDS ORDERED: Regadenoson 0.4 MG/5 ML SYRINGE IVP ONE (11:32)
[2018-12-04] MEDS: Gabapentin 100 MG CAPSULE PO SCH ×3 (13:06→20:22)
[2018-12-04] MEDS: Aspirin 81 MG TAB.CHEW PO SCH ×2 (13:06→20:21)
[2018-12-04] MEDS: Lisinopril-HCTZ 20-12.5mg TABLET PO SCH (13:06)
[2018-12-04] MEDS: amLODIPine 5 MG TABLET PO SCH (13:06)
[2018-12-04] MEDS: Heparin 25,000 UNIT/250 ML D5W 25,000 UNIT/250 ML IV.SOLN IVC SCH (16:38)
[2018-12-04] MEDS: rOPINIRole 0.25 MG TABLET PO SCH (20:21)
[2018-12-05] MEDS: amLODIPine 5 MG TABLET PO SCH (09:35)
[2018-12-05] MEDS: Lisinopril-HCTZ 20-12.5mg TABLET PO SCH (09:35)
[2018-12-05] MEDS: Gabapentin 100 MG CAPSULE PO SCH ×3 (09:35→20:11)
[2018-12-05] MEDS: Aspirin 81 MG TAB.CHEW PO SCH ×2 (09:35→20:12)
[2018-12-05] MEDS: Heparin 25,000 UNIT/250 ML D5W 25,000 UNIT/250 ML IV.SOLN IVC SCH (14:27)
[2018-12-05] MEDS: *HR* Heparin 5,000 UNIT/ML VIAL IVP PRN (20:10)
[2018-12-05] MEDS: rOPINIRole 0.25 MG TABLET PO SCH (20:12)
[2018-12-06] MEDS: Heparin 25,000 UNIT/250 ML D5W 25,000 UNIT/250 ML IV.SOLN IVC SCH (09:10)
[2018-12-06] MEDS: Lisinopril-HCTZ 20-12.5mg TABLET PO SCH (09:11)
[2018-12-06] MEDS: Gabapentin 100 MG CAPSULE PO SCH ×3 (09:11→20:10)
[2018-12-06] MEDS: Aspirin 81 MG TAB.CHEW PO SCH ×2 (09:11→20:10)
[2018-12-06] MEDS: amLODIPine 5 MG TABLET PO SCH (09:11)
[2018-12-06] MEDS ORDERED: Verapamil 5 MG/2 ML VIAL ONE (10:27)
[2018-12-06] MEDS ORDERED: *HR* Midazolam HCl 2 MG/2 ML VIAL ONE ×2 (10:27→10:46)
[2018-12-06] MEDS ORDERED: *HR* Heparin 10,000 UNIT/10 ML VIAL ONE (10:28)
[2018-12-06] MEDS ORDERED: *HR* FentaNYL (PF) 100 MCG/2 ML VIAL ONE (10:28)
[2018-12-06] MEDS ORDERED: Heparin 1,000 UNITS/500 mL 500 ML ONE (10:28)
[2018-12-06] MEDS ORDERED: 0.9 % Sodium Chloride 1,000 ML ONE ×2 (10:28→10:31)
[2018-12-06] MEDS ORDERED: ISOVUE-370 200 ML INFUS..BTL ONE ×2 (10:28→11:03)
[2018-12-06] MEDS ORDERED: Nitroglycerin 1,000 MCG/10 ML VIAL IV ONE (10:29)
[2018-12-06] MEDS: rOPINIRole 0.25 MG TABLET PO SCH (20:09)
[2018-12-07 02:32] LABS: Hematocrit 38.3 % (37.5-50.1); Hemoglobin 12.4 g/dL (12.9-16.9); Mean Corpuscular HGB Conc 32.4 g/dL (31.6-35.5); Mean Corpuscular Hemoglobin 27.9 pg (28.0-33.3); Mean Corpuscular Volume 86.3 fL (83.0-100.0); Mean Platelet Volume 11.2 fL (9.4-12.4); Platelet Count 220 K/mcL (140-400); Red Blood Count 4.44 M/mcL (4.19-5.50); Red Cell Distribution Width 13.6 % (11.5-14.5)
[2018-12-07 02:45] LABS: BUN/Creatinine Ratio 14 (6-26); Blood Urea Nitrogen 14 mg/dL (6-20); Calcium 9.4 mg/dL (8.6-10.3); Carbon Dioxide 25 mEq/L (23-29); Chloride 104 mEq/L (98-107); Glucose 112 mg/dL (70-105); Osmolality,Calculated 285 (280-300); Potassium 3.4 mEq/L (3.5-5.1); Sodium 137 mEq/L (136-145); eGFR For African Americans > 60 (> 60); eGFR For Non-African Americans > 60 (> 60)
[2018-12-07 07:58] VITALS: BP 141/82
[2018-12-07] MEDS: Lisinopril-HCTZ 20-12.5mg TABLET PO SCH (08:48)
[2018-12-07] MEDS: Aspirin 81 MG TAB.CHEW PO SCH (08:49)
[2018-12-07] MEDS: Gabapentin 100 MG CAPSULE PO SCH (08:49)
[2018-12-07] MEDS: amLODIPine 5 MG TABLET PO SCH (08:49)
== END 2018-12-07 11:03 | disposition home or self-care (01) | DRG 246 ==
LOC: 3BNU 16:28 → EMEROOARM 16:28 → SUATTDRO 20:35 → 3BNU 20:52
PROVIDERS: ADMIT Internal Medicine Nephrology; ATTEND Family Medicine

== ENCOUNTER 2019-01-06 11:41 | Inpatient (IN) ==
[2019-01-06 12:29] LABS: Basophils # 0.1 K/mcL (0.0-0.2); Basophils % 0.7 %; Eosinophils # 0.2 K/mcL (0.0-0.6); Eosinophils % 2.8 %; Hematocrit 39.2 % (37.5-50.1); Hemoglobin 12.9 g/dL (12.9-16.9); Immature Granulocytes % 0.3 % (0-4); Lymphocytes # 1.5 K/mcL (0.6-4.6); Lymphocytes % 22.4 %; Mean Corpuscular HGB Conc 32.9 g/dL (31.6-35.5); Mean Corpuscular Hemoglobin 27.6 pg (28.0-33.3); Mean Corpuscular Volume 83.9 fL (83.0-100.0); Mean Platelet Volume 10.6 fL (9.4-12.4); Monocytes # 0.4 K/mcL (0.0-1.3); Monocytes % 6.1 %; Neutrophils # 4.6 K/mcL (1.6-8.9); Platelet Count 232 K/mcL (140-400); Red Blood Count 4.67 M/mcL (4.19-5.50); Red Cell Distribution Width 14.4 % (11.5-14.5); Segmented Neutrophils % 67.7 %; White Blood Count 6.8 K/mcL (4.3-11.1)
[2019-01-06 12:46] LABS: BUN/Creatinine Ratio 11 (6-26); Blood Urea Nitrogen 10 mg/dL (6-20); Calcium 9.9 mg/dL (8.6-10.3); Carbon Dioxide 25 mEq/L (23-29); Chloride 106 mEq/L (98-107); Glucose 126 mg/dL (70-105); Osmolality,Calculated 283 (280-300); Potassium 3.5 mEq/L (3.5-5.1); Sodium 136 mEq/L (136-145); Troponin I < 0.03 ng/mL (< 0.04); eGFR For African Americans > 60 (> 60); eGFR For Non-African Americans > 60 (> 60)
[2019-01-06] MEDS ORDERED: *HR* Heparin 5,000 UNIT/ML VIAL IVP ONE (13:47)
[2019-01-06] MEDS ORDERED: *HR* Heparin 5,000 UNIT/ML VIAL IVP PRN ×2 (13:47)
[2019-01-06] MEDS ORDERED: Heparin 25,000 UNIT/250 ML D5W 25,000 UNIT/250 ML IV.SOLN IVC SCH (14:00)
[2019-01-06] MEDS ORDERED: Aspirin 325 MG TABLET PO ONE (14:06)
[2019-01-06] MEDS ORDERED: Ondansetron 4 MG/2 ML VIAL IVP PRN (14:23)
[2019-01-06] MEDS ORDERED: Naloxone 0.4 MG/ML INJ IVP PRN (14:23)
[2019-01-06] MEDS ORDERED: 0.9 % Sodium Chloride 1,000 ML ONE ×2 (15:42→15:50)
[2019-01-06] MEDS ORDERED: ISOVUE-370 200 ML INFUS..BTL ONE (15:42)
[2019-01-06] MEDS ORDERED: *HR* Heparin 10,000 UNIT/10 ML VIAL ONE (15:42)
[2019-01-06] MEDS ORDERED: Nitroglycerin 1,000 MCG/10 ML VIAL IV ONE (15:42)
[2019-01-06] MEDS ORDERED: Heparin 1,000 UNITS/500 mL 500 ML ONE (15:42)
[2019-01-06] MEDS ORDERED: Verapamil 5 MG/2 ML VIAL ONE (15:48)
[2019-01-06] MEDS ORDERED: *HR* Midazolam HCl 2 MG/2 ML VIAL ONE ×2 (15:50→16:12)
[2019-01-06] MEDS ORDERED: *HR* FentaNYL (PF) 100 MCG/2 ML VIAL ONE (15:50)
[2019-01-06] MEDS ORDERED: Tirofiban 12.5 MG/250ML 0 MG/0 ML BAG ONE (16:14)
[2019-01-06] MEDS ORDERED: Ketorolac 15 MG/ML VIAL IVP ONE (17:07)
[2019-01-06] MEDS: Gabapentin 100 MG CAPSULE PO SCH ×2 (17:45→23:19)
[2019-01-06 18:24] LABS: Albumin 3.5 g/dL (3.5-5.7); Albumin/Globulin Ratio 1.3 (1.1-2.2); Bilirubin,Direct 0.1 mg/dL (0.0-0.2); Bilirubin,Indirect 0.4 mg/dL (0.0-1.2); Bilirubin,Total 0.5 mg/dL (0.3-1.0); Globulin 2.8 g/dL (2.4-3.5); Total Protein 6.3 g/dL (6.4-8.9)
[2019-01-06] MEDS: Sucralfate 1 GM TABLET PO SCH (21:23)
[2019-01-07 05:53] LABS: Basophils # 0.1 K/mcL (0.0-0.2); Basophils % 0.8 %; Eosinophils # 0.2 K/mcL (0.0-0.6); Eosinophils % 1.9 %; Hematocrit 40.8 % (37.5-50.1); Immature Granulocytes % 0.4 % (0-4); Lymphocytes # 2.1 K/mcL (0.6-4.6); Mean Corpuscular HGB Conc 31.9 g/dL (31.6-35.5); Mean Corpuscular Hemoglobin 27.1 pg (28.0-33.3); Mean Platelet Volume 10.4 fL (9.4-12.4); Monocytes # 0.4 K/mcL (0.0-1.3); Monocytes % 4.8 %; Neutrophils # 5.2 K/mcL (1.6-8.9); Platelet Count 238 K/mcL (140-400); Red Cell Distribution Width 14.5 % (11.5-14.5); Segmented Neutrophils % 66.1 %; White Blood Count 7.9 K/mcL (4.3-11.1)
[2019-01-07 06:14] LABS: BUN/Creatinine Ratio 12 (6-26); Blood Urea Nitrogen 13 mg/dL (6-20); Calcium 9.7 mg/dL (8.6-10.3); Carbon Dioxide 26 mEq/L (23-29); Chloride 104 mEq/L (98-107); Glucose 113 mg/dL (70-105); Osmolality,Calculated 289 (280-300); Sodium 139 mEq/L (136-145); eGFR For African Americans > 60 (> 60); eGFR For Non-African Americans > 60 (> 60)
[2019-01-07] MEDS: Gabapentin 100 MG CAPSULE PO SCH ×3 (08:27→19:23)
[2019-01-07] MEDS: Sucralfate 1 GM TABLET PO SCH ×2 (08:27→19:23)
[2019-01-07] MEDS: Aspirin 81 MG TAB.CHEW PO SCH (08:27)
[2019-01-07] MEDS ORDERED: Nitroglycerin 0.4 MG TAB.SUBL SL PRN (11:47)
[2019-01-07] MEDS ORDERED: Perflutren Lipid Microsphere 1.3 ML in 0.9 % Sodium Chloride 8.7 ML IVP ONE (12:27)
[2019-01-07] MEDS: *HR* Heparin 5,000 UNIT/ML VIAL SQ SCH (17:36)
[2019-01-07] MEDS ORDERED: *HR* OxyCODONE/APAP 5/325 TABLET PO ONE (17:47)
[2019-01-08 02:58] LABS: BUN/Creatinine Ratio 13 (6-26); Blood Urea Nitrogen 14 mg/dL (6-20); Calcium 9.4 mg/dL (8.6-10.3); Carbon Dioxide 25 mEq/L (23-29); Chloride 103 mEq/L (98-107); Glucose 102 mg/dL (70-105); Osmolality,Calculated 285 (280-300); Potassium 3.7 mEq/L (3.5-5.1); Sodium 137 mEq/L (136-145); eGFR For African Americans > 60 (> 60); eGFR For Non-African Americans > 60 (> 60)
[2019-01-08] MEDS ORDERED: *HR* OxyCODONE/APAP 5/325 TABLET PO ONE (04:49)
[2019-01-08] MEDS: *HR* Heparin 5,000 UNIT/ML VIAL SQ SCH (04:58)
[2019-01-08] MEDS: Gabapentin 100 MG CAPSULE PO SCH ×2 (08:47→15:39)
[2019-01-08] MEDS: Aspirin 81 MG TAB.CHEW PO SCH (08:47)
[2019-01-08] MEDS: Sucralfate 1 GM TABLET PO SCH (08:48)
[2019-01-08 09:38] LABS: Thyroid Stimulating Hormone 1.708 mcIU/mL (0.340-5.600)
[2019-01-08 15:52] VITALS: BP 113/70
== END 2019-01-08 16:27 | disposition home or self-care (01) | DRG 204 ==
LOC: EMEROOARM 11:41 → 3BNU 11:41 → SUATTDRO 13:40 → 3BNU 14:43
PROVIDERS: ADMIT Internal Medicine; ATTEND Internal Medicine

== ENCOUNTER 2019-05-21 18:16 | Observation (INO) ==
[2019-05-21 19:43] LABS: INR 1.1; Prothrombin Time 12.3 Seconds (9.4-12.1)
[2019-05-21 19:44] LABS: Basophils # 0.1 K/mcL (0.0-0.2); Basophils % 0.8 %; Eosinophils # 0.2 K/mcL (0.0-0.6); Eosinophils % 2.5 %; Hematocrit 41.6 % (37.5-50.1); Hemoglobin 14.1 g/dL (12.9-16.9); Immature Granulocytes % 0.4 % (0-4); Lymphocytes # 2.5 K/mcL (0.6-4.6); Lymphocytes % 31.5 %; Mean Corpuscular HGB Conc 33.9 g/dL (31.6-35.5); Mean Corpuscular Hemoglobin 29.1 pg (28.0-33.3); Mean Corpuscular Volume 85.8 fL (83.0-100.0); Mean Platelet Volume 10.2 fL (9.4-12.4); Monocytes # 0.4 K/mcL (0.0-1.3); Monocytes % 5.1 %; Neutrophils # 4.7 K/mcL (1.6-8.9); Platelet Count 264 K/mcL (140-400); Red Blood Count 4.85 M/mcL (4.19-5.50); Red Cell Distribution Width 13.2 % (11.5-14.5); Segmented Neutrophils % 59.7 %; White Blood Count 7.9 K/mcL (4.3-11.1)
[2019-05-21 19:46] LABS: Activated Partial Thrombo Time 32.9 Seconds (26.0-36.0)
[2019-05-21 19:50] LABS: BUN/Creatinine Ratio 11 (6-26); Blood Urea Nitrogen 14 mg/dL (6-20); Carbon Dioxide 27 mEq/L (23-29); Chloride 103 mEq/L (98-107); Glucose 113 mg/dL (70-105); Osmolality,Calculated 287 (280-300); Potassium 4.2 mEq/L (3.5-5.1); Sodium 138 mEq/L (136-145); Troponin I < 0.03 ng/mL (< 0.04); eGFR For African Americans > 60 (> 60); eGFR For Non-African Americans 60 (> 60)
[2019-05-21] MEDS ORDERED: *HR* HYDROmorphone 2 MG TABLET PO STA (21:18)
[2019-05-21] MEDS ORDERED: Naloxone 0.4 MG/ML INJ IVP PRN (23:21)
[2019-05-21] MEDS ORDERED: Nitroglycerin 0.4 MG TAB.SUBL SL PRN (23:24)
[2019-05-22] MEDS: *HR* Heparin 5,000 UNIT/ML VIAL SQ SCH ×3 (05:16→22:30)
[2019-05-22] MEDS: Gabapentin 100 MG CAPSULE PO SCH (08:25)
[2019-05-22] MEDS: Sucralfate 1 GM TABLET PO SCH ×2 (08:25→22:30)
[2019-05-22] MEDS: Aspirin 81 MG TAB.CHEW PO SCH (08:25)
[2019-05-22] MEDS: amLODIPine 5 MG TABLET PO SCH (08:27)
[2019-05-22] MEDS: Budesonide/Formoterol 80/4.5 1 PUFF INH IH SCH ×2 (10:20→20:25)
[2019-05-22] MEDS: Isosorbide MONOnitrate (24 HR) 30 MG TAB.ER.24H PO SCH (16:19)
[2019-05-22] MEDS: Acetaminophen 325 MG TABLET PO PRN ×2 (16:24→22:30)
[2019-05-22] MEDS ORDERED: Ipratropium/Albuterol Neb 3 ML IH PRN (16:40)
[2019-05-23 01:38] LABS: Basophils # 0.1 K/mcL (0.0-0.2); Basophils % 0.9 %; Eosinophils # 0.2 K/mcL (0.0-0.6); Hematocrit 41.5 % (37.5-50.1); Hemoglobin 13.7 g/dL (12.9-16.9); Immature Granulocytes % 0.3 % (0-4); Lymphocytes # 2.7 K/mcL (0.6-4.6); Lymphocytes % 36.8 %; Mean Corpuscular Hemoglobin 29.3 pg (28.0-33.3); Mean Corpuscular Volume 88.9 fL (83.0-100.0); Mean Platelet Volume 10.3 fL (9.4-12.4); Monocytes # 0.5 K/mcL (0.0-1.3); Monocytes % 6.6 %; Neutrophils # 3.9 K/mcL (1.6-8.9); Platelet Count 246 K/mcL (140-400); Red Blood Count 4.67 M/mcL (4.19-5.50); Red Cell Distribution Width 13.1 % (11.5-14.5); Segmented Neutrophils % 53.4 %; White Blood Count 7.4 K/mcL (4.3-11.1)
[2019-05-23 01:53] LABS: BUN/Creatinine Ratio 16 (6-26); Blood Urea Nitrogen 19 mg/dL (6-20); Calcium 9.5 mg/dL (8.6-10.3); Carbon Dioxide 25 mEq/L (23-29); Chloride 104 mEq/L (98-107); Glucose 105 mg/dL (70-105); Magnesium 2.2 mg/dL (1.6-2.6); Osmolality,Calculated 285 (280-300); Potassium 4.2 mEq/L (3.5-5.1); Sodium 136 mEq/L (136-145); eGFR For African Americans > 60 (> 60); eGFR For Non-African Americans > 60 (> 60)
[2019-05-23] MEDS: *HR* Heparin 5,000 UNIT/ML VIAL SQ SCH (05:11)
[2019-05-23 07:31] VITALS: BP 143/93
[2019-05-23] MEDS: Budesonide/Formoterol 80/4.5 1 PUFF INH IH SCH (07:31)
[2019-05-23] MEDS: Gabapentin 100 MG CAPSULE PO SCH (08:58)
[2019-05-23] MEDS: Sucralfate 1 GM TABLET PO SCH (08:58)
[2019-05-23] MEDS: Isosorbide MONOnitrate (24 HR) 30 MG TAB.ER.24H PO SCH (08:58)
[2019-05-23] MEDS: amLODIPine 5 MG TABLET PO SCH (08:58)
[2019-05-23] MEDS: Aspirin 81 MG TAB.CHEW PO SCH (08:58)
== END 2019-05-23 11:37 | disposition home or self-care (01) ==
LOC: EMEROOARM 18:16 → 2NENU 18:16 → SUATTDRO 21:55 → 2NENU 22:10
PROVIDERS: ADMIT Internal Medicine; ATTEND Pharmacist

== ENCOUNTER 2019-08-11 21:57 | Observation (INO) ==
[2019-08-11] MEDS ORDERED: Aspirin 81 MG TAB.CHEW PO STA (22:36)
[2019-08-11 23:20] LABS: BUN/Creatinine Ratio 17 (6-26); Blood Urea Nitrogen 17 mg/dL (6-20); Calcium 9.6 mg/dL (8.6-10.3); Carbon Dioxide 25 mEq/L (23-29); Chloride 107 mEq/L (98-107); Glucose 96 mg/dL (70-105); Osmolality,Calculated 285 (280-300); Potassium 3.9 mEq/L (3.5-5.1); Sodium 137 mEq/L (136-145); eGFR For African Americans > 60 (> 60); eGFR For Non-African Americans > 60 (> 60)
[2019-08-11 23:21] LABS: Troponin I < 0.03 ng/mL (< 0.04)
[2019-08-11 23:27] LABS: Basophils # 0.1 K/mcL (0.0-0.2); Basophils % 0.9 %; Eosinophils # 0.2 K/mcL (0.0-0.6); Hematocrit 39.4 % (37.5-50.1); Hemoglobin 13.1 g/dL (12.9-16.9); Immature Granulocytes % 0.3 % (0-4); Lymphocytes # 2.5 K/mcL (0.6-4.6); Lymphocytes % 34.1 %; Mean Corpuscular HGB Conc 33.2 g/dL (31.6-35.5); Mean Corpuscular Hemoglobin 29.6 pg (28.0-33.3); Mean Corpuscular Volume 89.1 fL (83.0-100.0); Mean Platelet Volume 10.5 fL (9.4-12.4); Monocytes # 0.5 K/mcL (0.0-1.3); Monocytes % 6.7 %; Neutrophils # 4.1 K/mcL (1.6-8.9); Platelet Count 220 K/mcL (140-400); Red Blood Count 4.42 M/mcL (4.19-5.50); Red Cell Distribution Width 13.1 % (11.5-14.5); White Blood Count 7.4 K/mcL (4.3-11.1)
[2019-08-12] MEDS ORDERED: Nitroglycerin 0.4 MG TAB.SUBL SL PRN ×2 (00:50→01:49)
[2019-08-12] MEDS ORDERED: Naloxone 0.4 MG/ML INJ IVP PRN (01:47)
[2019-08-12] MEDS ORDERED: Ondansetron 4 MG/2 ML VIAL IVP PRN (01:47)
[2019-08-12] MEDS: *HR* Heparin 5,000 UNIT/ML VIAL SQ SCH ×2 (05:05→17:04)
[2019-08-12] MEDS: Aspirin 81 MG TAB.CHEW PO SCH (08:39)
[2019-08-12] MEDS: allopurinoL 300 MG TABLET PO SCH (08:39)
[2019-08-12] MEDS: Sucralfate 1 GM TABLET PO SCH ×2 (08:39→19:29)
[2019-08-12] MEDS: Gabapentin 100 MG CAPSULE PO SCH (08:39)
[2019-08-12] MEDS: amLODIPine 5 MG TABLET PO SCH (08:39)
[2019-08-12] MEDS: Isosorbide MONOnitrate (24 HR) 60 MG TAB.ER.24H PO SCH (08:40)
[2019-08-12] MEDS: Budesonide/Formoterol 80/4.5 1 PUFF INH IH SCH ×2 (08:55→21:55)
[2019-08-12] MEDS ORDERED: Gabapentin 100 MG CAPSULE PO ONE (11:05)
[2019-08-13 04:01] LABS: Hematocrit 37.1 % (37.5-50.1); Hemoglobin 12.5 g/dL (12.9-16.9); Mean Corpuscular HGB Conc 33.7 g/dL (31.6-35.5); Mean Corpuscular Volume 89.2 fL (83.0-100.0); Mean Platelet Volume 9.9 fL (9.4-12.4); Platelet Count 216 K/mcL (140-400); Red Blood Count 4.16 M/mcL (4.19-5.50); Red Cell Distribution Width 13.2 % (11.5-14.5); White Blood Count 8.5 K/mcL (4.3-11.1)
[2019-08-13] MEDS: *HR* Heparin 5,000 UNIT/ML VIAL SQ SCH (06:00)
[2019-08-13 06:59] VITALS: BP 131/73
[2019-08-13] MEDS: allopurinoL 300 MG TABLET PO SCH (07:43)
[2019-08-13] MEDS: Gabapentin 100 MG CAPSULE PO SCH (07:43)
[2019-08-13] MEDS: Sucralfate 1 GM TABLET PO SCH (07:43)
[2019-08-13] MEDS: amLODIPine 5 MG TABLET PO SCH (07:44)
[2019-08-13] MEDS: Aspirin 81 MG TAB.CHEW PO SCH (07:44)
[2019-08-13] MEDS: Isosorbide MONOnitrate (24 HR) 60 MG TAB.ER.24H PO SCH (07:46)
[2019-08-13] MEDS: Budesonide/Formoterol 80/4.5 1 PUFF INH IH SCH (08:11)
== END 2019-08-13 09:32 | disposition home or self-care (01) ==
LOC: EMEROOARM 21:57 → 3BNU 21:57
PROVIDERS: ADMIT Student in an Organized Health Care Education/Training Program; ATTEND Student in an Organized Health Care Education/Training Program

== ENCOUNTER 2019-10-06 16:06 | Observation (INO) ==
[2019-10-06] MEDS ORDERED: Aspirin 81 MG TAB.CHEW PO ONE (16:26)
[2019-10-06 16:39] LABS: Basophils # 0.1 K/mcL (0.0-0.2); Basophils % 0.8 %; Eosinophils # 0.2 K/mcL (0.0-0.6); Eosinophils % 2.1 %; Hematocrit 39.9 % (37.5-50.1); Hemoglobin 13.2 g/dL (12.9-16.9); Immature Granulocytes % 0.3 % (0-4); Lymphocytes % 23.2 %; Mean Corpuscular HGB Conc 33.1 g/dL (31.6-35.5); Mean Corpuscular Hemoglobin 29.3 pg (28.0-33.3); Mean Corpuscular Volume 88.5 fL (83.0-100.0); Monocytes # 0.5 K/mcL (0.0-1.3); Monocytes % 5.7 %; Neutrophils # 5.9 K/mcL (1.6-8.9); Platelet Count 253 K/mcL (140-400); Red Blood Count 4.51 M/mcL (4.19-5.50); Red Cell Distribution Width 13.1 % (11.5-14.5); Segmented Neutrophils % 67.9 %; White Blood Count 8.7 K/mcL (4.3-11.1)
[2019-10-06 16:45] LABS: INR 1.1; Prothrombin Time 12.5 Seconds (9.4-12.1)
[2019-10-06 16:48] LABS: Activated Partial Thrombo Time 34.2 Seconds (26.0-36.0)
[2019-10-06] MEDS: Nitroglycerin 0.4 MG TAB.SUBL SL PRN ×3 (16:52→17:23)
[2019-10-06 17:02] LABS: Alanine Aminotransferase 16 Units/L (7-52); Albumin 3.9 g/dL (3.5-5.7); Albumin/Globulin Ratio 1.4 (1.1-2.2); Alkaline Phosphatase 85 Units/L (34-104); Aspartate Amino Transferase 14 Units/L (13-39); BUN/Creatinine Ratio 15 (6-26); Bilirubin,Total 0.4 mg/dL (0.3-1.0); Blood Urea Nitrogen 15 mg/dL (6-20); Calcium 9.8 mg/dL (8.6-10.3); Carbon Dioxide 24 mEq/L (23-29); Chloride 106 mEq/L (98-107); Globulin 2.8 g/dL (2.4-3.5); Glucose 108 mg/dL (70-105); Osmolality,Calculated 285 (280-300); Potassium 3.8 mEq/L (3.5-5.1); Sodium 137 mEq/L (136-145); Total Protein 6.7 g/dL (6.4-8.9); Troponin I < 0.03 ng/mL (< 0.04); eGFR For African Americans > 60 (> 60); eGFR For Non-African Americans > 60 (> 60)
[2019-10-06] MEDS ORDERED: Naloxone 0.4 MG/ML INJ IVP PRN (17:45)
[2019-10-06] MEDS ORDERED: Ondansetron 4 MG/2 ML VIAL IVP PRN (17:45)
[2019-10-06] MEDS ORDERED: Morphine Sulfate 2 MG/ML SYRINGE IVP PRN (18:21)
[2019-10-06] MEDS: Budesonide/Formoterol 160/4.5 1 PUFF INH IH SCH (20:23)
[2019-10-06] MEDS: Sucralfate 1 GM TABLET PO SCH (21:04)
[2019-10-06] MEDS: Gabapentin 100 MG CAPSULE PO SCH (21:04)
[2019-10-06] MEDS: *HR* Heparin 5,000 UNIT/ML VIAL SQ SCH (21:04)
[2019-10-07] MEDS: *HR* Heparin 5,000 UNIT/ML VIAL SQ SCH ×3 (05:07→20:26)
[2019-10-07 05:33] LABS: Basophils # 0.1 K/mcL (0.0-0.2); Basophils % 1.3 %; Eosinophils # 0.2 K/mcL (0.0-0.6); Eosinophils % 2.5 %; Hematocrit 40.7 % (37.5-50.1); Hemoglobin 13.6 g/dL (12.9-16.9); Immature Granulocytes % 0.4 % (0-4); Lymphocytes # 2.3 K/mcL (0.6-4.6); Lymphocytes % 32.4 %; Mean Corpuscular HGB Conc 33.4 g/dL (31.6-35.5); Mean Corpuscular Hemoglobin 29.7 pg (28.0-33.3); Mean Corpuscular Volume 88.9 fL (83.0-100.0); Mean Platelet Volume 10.2 fL (9.4-12.4); Monocytes # 0.4 K/mcL (0.0-1.3); Monocytes % 5.6 %; Neutrophils # 4.1 K/mcL (1.6-8.9); Platelet Count 232 K/mcL (140-400); Red Blood Count 4.58 M/mcL (4.19-5.50); Red Cell Distribution Width 13.2 % (11.5-14.5); Segmented Neutrophils % 57.8 %; White Blood Count 7.2 K/mcL (4.3-11.1)
[2019-10-07 05:51] LABS: BUN/Creatinine Ratio 16 (6-26); Blood Urea Nitrogen 16 mg/dL (6-20); Calcium 9.4 mg/dL (8.6-10.3); Carbon Dioxide 24 mEq/L (23-29); Chloride 106 mEq/L (98-107); Glucose 104 mg/dL (70-105); Osmolality,Calculated 279 (280-300); Potassium 4.1 mEq/L (3.5-5.1); Sodium 134 mEq/L (136-145); eGFR For African Americans > 60 (> 60); eGFR For Non-African Americans > 60 (> 60)
[2019-10-07 05:52] LABS: Troponin I < 0.03 ng/mL (< 0.04)
[2019-10-07] MEDS: allopurinoL 300 MG TABLET PO SCH (09:08)
[2019-10-07] MEDS: Gabapentin 100 MG CAPSULE PO SCH ×3 (09:08→20:25)
[2019-10-07] MEDS: Aspirin 81 MG TAB.CHEW PO SCH (09:08)
[2019-10-07] MEDS: Sucralfate 1 GM TABLET PO SCH ×2 (09:08→20:25)
[2019-10-07] MEDS: Ranolazine 500 MG TAB.ER.12H PO SCH ×2 (09:12→20:25)
[2019-10-07] MEDS: Budesonide/Formoterol 160/4.5 1 PUFF INH IH SCH ×2 (10:09→20:18)
[2019-10-07] MEDS: Isosorbide MONOnitrate (24 HR) 60 MG TAB.ER.24H PO SCH (11:23)
[2019-10-07] MEDS ORDERED: Perflutren Lipid Microsphere 1.3 ML in 0.9 % Sodium Chloride 8.7 ML IVP ONE (12:38)
[2019-10-08] MEDS: *HR* Heparin 5,000 UNIT/ML VIAL SQ SCH (05:50)
[2019-10-08] MEDS: Ranolazine 500 MG TAB.ER.12H PO SCH (07:58)
[2019-10-08] MEDS: allopurinoL 300 MG TABLET PO SCH (07:59)
[2019-10-08] MEDS: Aspirin 81 MG TAB.CHEW PO SCH (07:59)
[2019-10-08] MEDS: Sucralfate 1 GM TABLET PO SCH (07:59)
[2019-10-08] MEDS: Isosorbide MONOnitrate (24 HR) 60 MG TAB.ER.24H PO SCH (07:59)
[2019-10-08] MEDS: Gabapentin 100 MG CAPSULE PO SCH (07:59)
[2019-10-08] MEDS: Budesonide/Formoterol 160/4.5 1 PUFF INH IH SCH (08:07)
[2019-10-08 11:20] VITALS: BP 145/84
== END 2019-10-08 13:10 | disposition home or self-care (01) ==
LOC: 3BNU 16:06 → EMEROOARM 16:06 → SUATTDRO 17:58 → 3BNU 18:16
PROVIDERS: ADMIT Family Medicine; ATTEND Internal Medicine

== ENCOUNTER 2020-04-18 19:02 | Inpatient (IN) ==
[2020-04-18] MEDS ORDERED: Nitroglycerin 0.4 MG TAB.SUBL SL PRN (19:26)
[2020-04-18] MEDS ORDERED: Aspirin 325 MG TABLET PO ONE (19:26)
[2020-04-18 20:16] LABS: BUN/Creatinine Ratio 12 (6-26); Blood Urea Nitrogen 15 mg/dL (6-20); Calcium 9.6 mg/dL (8.6-10.3); Carbon Dioxide 25 mEq/L (23-29); Chloride 104 mEq/L (98-107); Glucose 100 mg/dL (70-105); Osmolality,Calculated 281 (280-300); Potassium 4.6 mEq/L (3.5-5.1); Sodium 135 mEq/L (136-145); Troponin I < 0.03 ng/mL (< 0.04); eGFR For African Americans > 60 (> 60); eGFR For Non-African Americans 60 (> 60)
[2020-04-18 20:46] LABS: Basophils # 0.1 K/mcL (0.0-0.2); Basophils % 0.8 %; Eosinophils # 0.2 K/mcL (0.0-0.6); Eosinophils % 2.5 %; Hematocrit 40.9 % (37.5-50.1); Hemoglobin 13.5 g/dL (12.9-16.9); Immature Granulocytes % 0.2 % (0-4); Lymphocytes # 2.5 K/mcL (0.6-4.6); Lymphocytes % 26.5 %; Mean Corpuscular Volume 87.8 fL (83.0-100.0); Mean Platelet Volume 10.3 fL (9.4-12.4); Monocytes # 0.5 K/mcL (0.0-1.3); Monocytes % 5.7 %; Neutrophils # 6.1 K/mcL (1.6-8.9); Platelet Count 240 K/mcL (140-400); Red Blood Count 4.66 M/mcL (4.19-5.50); Red Cell Distribution Width 13.2 % (11.5-14.5); Segmented Neutrophils % 64.3 %; White Blood Count 9.4 K/mcL (4.3-11.1)
[2020-04-18] MEDS ORDERED: Morphine Sulfate 2 MG/ML SYRINGE IVP PRN (22:42)
[2020-04-18] MEDS ORDERED: Budesonide/Formoterol 160/4.5 1 PUFF INH IH PRN (22:53)
[2020-04-18] MEDS ORDERED: Ondansetron 4 MG/2 ML VIAL IVP PRN (23:51)
[2020-04-19] MEDS: *HR* Heparin 5,000 UNIT/ML VIAL SQ SCH ×4 (00:10→21:04)
[2020-04-19 02:59] LABS: Basophils # 0.1 K/mcL (0.0-0.2); Basophils % 0.7 %; Eosinophils # 0.3 K/mcL (0.0-0.6); Eosinophils % 3.1 %; Hematocrit 41.6 % (37.5-50.1); Hemoglobin 13.3 g/dL (12.9-16.9); Immature Granulocytes % 0.2 % (0-4); Lymphocytes # 2.7 K/mcL (0.6-4.6); Lymphocytes % 32.5 %; Mean Corpuscular Hemoglobin 28.6 pg (28.0-33.3); Mean Corpuscular Volume 89.5 fL (83.0-100.0); Mean Platelet Volume 10.3 fL (9.4-12.4); Monocytes # 0.4 K/mcL (0.0-1.3); Monocytes % 4.5 %; Neutrophils # 4.9 K/mcL (1.6-8.9); Platelet Count 202 K/mcL (140-400); Red Blood Count 4.65 M/mcL (4.19-5.50); Red Cell Distribution Width 12.9 % (11.5-14.5); White Blood Count 8.4 K/mcL (4.3-11.1)
[2020-04-19 03:33] LABS: Alanine Aminotransferase 19 Units/L (7-52); Albumin 3.9 g/dL (3.5-5.7); Albumin/Globulin Ratio 1.4 (1.1-2.2); Alkaline Phosphatase 81 Units/L (34-104); Aspartate Amino Transferase 21 Units/L (13-39); BUN/Creatinine Ratio 13 (6-26); Bilirubin,Total 0.5 mg/dL (0.3-1.0); Blood Urea Nitrogen 15 mg/dL (6-20); Calcium 9.3 mg/dL (8.6-10.3); Carbon Dioxide 26 mEq/L (23-29); Chloride 104 mEq/L (98-107); Globulin 2.7 g/dL (2.4-3.5); Glucose 123 mg/dL (70-105); Osmolality,Calculated 284 (280-300); Potassium 4.3 mEq/L (3.5-5.1); Sodium 136 mEq/L (136-145); Total Protein 6.6 g/dL (6.4-8.9); Troponin I < 0.03 ng/mL (< 0.04); eGFR For African Americans > 60 (> 60); eGFR For Non-African Americans > 60 (> 60)
[2020-04-19 07:38] LABS: Estimated Average Glucose 128 mg/dl
[2020-04-19] MEDS ORDERED: allopurinoL 300 MG TABLET PO SCH (09:00)
[2020-04-19] MEDS: Aspirin 81 MG TAB.CHEW PO SCH (09:04)
[2020-04-19] MEDS: Gabapentin 100 MG CAPSULE PO SCH ×2 (09:04→14:50)
[2020-04-19] MEDS: Sucralfate 1 GM TABLET PO SCH ×2 (09:04→21:14)
[2020-04-19] MEDS: Ranolazine 500 MG TAB.ER.12H PO SCH ×2 (09:05→21:14)
[2020-04-19] MEDS ORDERED: Regadenoson 0.4 MG/5 ML SYRINGE IVP ONE (11:13)
[2020-04-20] MEDS: *HR* Heparin 5,000 UNIT/ML VIAL SQ SCH ×2 (05:21→13:08)
[2020-04-20 05:44] LABS: Basophils # 0.1 K/mcL (0.0-0.2); Basophils % 1.2 %; Eosinophils # 0.2 K/mcL (0.0-0.6); Eosinophils % 2.8 %; Hemoglobin 13.6 g/dL (12.9-16.9); Immature Granulocytes % 0.4 % (0-4); Lymphocytes # 2.3 K/mcL (0.6-4.6); Lymphocytes % 30.4 %; Mean Corpuscular HGB Conc 31.6 g/dL (31.6-35.5); Mean Corpuscular Hemoglobin 28.4 pg (28.0-33.3); Mean Corpuscular Volume 89.8 fL (83.0-100.0); Mean Platelet Volume 10.3 fL (9.4-12.4); Monocytes # 0.5 K/mcL (0.0-1.3); Monocytes % 6.2 %; Neutrophils # 4.5 K/mcL (1.6-8.9); Platelet Count 214 K/mcL (140-400); Red Blood Count 4.79 M/mcL (4.19-5.50); White Blood Count 7.6 K/mcL (4.3-11.1)
[2020-04-20 05:58] LABS: BUN/Creatinine Ratio 16 (6-26); Blood Urea Nitrogen 19 mg/dL (6-20); Calcium 9.3 mg/dL (8.6-10.3); Carbon Dioxide 25 mEq/L (23-29); Chloride 105 mEq/L (98-107); Glucose 108 mg/dL (70-105); Osmolality,Calculated 285 (280-300); Potassium 4.2 mEq/L (3.5-5.1); Sodium 136 mEq/L (136-145); eGFR For African Americans > 60 (> 60); eGFR For Non-African Americans > 60 (> 60)
[2020-04-20] MEDS ORDERED: Acetaminophen 325 MG TABLET PO PRN (06:00)
[2020-04-20] MEDS: Aspirin 81 MG TAB.CHEW PO SCH (09:04)
[2020-04-20] MEDS: Ranolazine 500 MG TAB.ER.12H PO SCH (09:04)
[2020-04-20] MEDS: Sucralfate 1 GM TABLET PO SCH (09:05)
[2020-04-20 11:24] VITALS: BP 152/89
== END 2020-04-20 14:00 | disposition home or self-care (01) | DRG 303 ==
LOC: EMEROOARM 19:02 → 3BNU 19:02 → SUATTDRO 21:44 → 3BNU 22:48
PROVIDERS: ADMIT Student in an Organized Health Care Education/Training Program; ATTEND Family Medicine

== ENCOUNTER 2020-10-06 15:22 | Inpatient (IN) ==
[2020-10-06] MEDS ORDERED: *HR* Heparin 5,000 UNIT/ML VIAL IVP ONE (15:42)
[2020-10-06] MEDS ORDERED: ISOVUE-370 200 ML INFUS..BTL ONE ×2 (15:44→16:31)
[2020-10-06] MEDS ORDERED: *HR* Heparin 10,000 UNIT/10 ML VIAL ONE (15:44)
[2020-10-06] MEDS ORDERED: 0.9 % Sodium Chloride 2,000 ML ONE (15:44)
[2020-10-06] MEDS ORDERED: Nitroglycerin 1,000 MCG/5 ML VIAL IV ONE (15:44)
[2020-10-06] MEDS ORDERED: Heparin 1,000 UNITS/500 mL 500 ML ONE (15:44)
[2020-10-06] MEDS ORDERED: Tirofiban 12.5 MG/250ML 12.5 MG/250 ML BAG ONE (15:49)
[2020-10-06] MEDS ORDERED: *HR* FentaNYL (PF) 100 MCG/2 ML VIAL ONE (15:50)
[2020-10-06] MEDS ORDERED: *HR* Midazolam HCl 2 MG/2 ML VIAL ONE (15:50)
[2020-10-06 15:52] LABS: Basophils # 0.1 K/mcL (0.0-0.2); Eosinophils # 0.2 K/mcL (0.0-0.6); Eosinophils % 2.5 %; Hematocrit 42.2 % (37.5-50.1); Hemoglobin 13.8 g/dL (12.9-16.9); Immature Granulocytes % 0.4 % (0-4); Lymphocytes # 2.4 K/mcL (0.6-4.6); Lymphocytes % 29.5 %; Mean Corpuscular HGB Conc 32.7 g/dL (31.6-35.5); Mean Corpuscular Hemoglobin 29.3 pg (28.0-33.3); Mean Corpuscular Volume 89.6 fL (83.0-100.0); Mean Platelet Volume 10.2 fL (9.4-12.4); Monocytes # 0.5 K/mcL (0.0-1.3); Monocytes % 5.8 %; Platelet Count 232 K/mcL (140-400); Red Blood Count 4.71 M/mcL (4.19-5.50); Red Cell Distribution Width 12.9 % (11.5-14.5); Segmented Neutrophils % 60.8 %; White Blood Count 8.3 K/mcL (4.3-11.1)
[2020-10-06 16:10] LABS: Alanine Aminotransferase 19 Units/L (7-52); Albumin 3.9 g/dL (3.5-5.7); Albumin/Globulin Ratio 1.4 (1.1-2.2); Alkaline Phosphatase 87 Units/L (34-104); Aspartate Amino Transferase 15 Units/L (13-39); BUN/Creatinine Ratio 13 (6-26); Bilirubin,Total 0.5 mg/dL (0.3-1.0); Blood Urea Nitrogen 13 mg/dL (6-20); Calcium 9.6 mg/dL (8.6-10.3); Carbon Dioxide 25 mEq/L (23-29); Chloride 107 mEq/L (98-107); Globulin 2.8 g/dL (2.4-3.5); Glucose 110 mg/dL (70-105); Osmolality,Calculated 287 (280-300); Sodium 138 mEq/L (136-145); Total Protein 6.7 g/dL (6.4-8.9); eGFR For African Americans > 60 (> 60); eGFR For Non-African Americans > 60 (> 60)
[2020-10-06] MEDS ORDERED: Perflutren Lipid Microsphere 1.3 ML in 0.9 % Sodium Chloride 8.7 ML IVP PRN (16:41)
[2020-10-06] MEDS ORDERED: Tirofiban 12.5 MG/250ML 12.5 MG/250 ML BAG IVC SCH (16:45)
[2020-10-06] MEDS ORDERED: *HR* Atropine Sulfate 1 MG/10 ML SYRINGE ONE (19:17)
[2020-10-07 04:48] LABS: Basophils # 0.1 K/mcL (0.0-0.2); Eosinophils # 0.2 K/mcL (0.0-0.6); Eosinophils % 3.4 %; Hematocrit 38.7 % (37.5-50.1); Hemoglobin 13.1 g/dL (12.9-16.9); Immature Granulocytes % 0.3 % (0-4); Lymphocytes # 1.3 K/mcL (0.6-4.6); Lymphocytes % 21.4 %; Mean Corpuscular HGB Conc 33.9 g/dL (31.6-35.5); Mean Corpuscular Hemoglobin 29.8 pg (28.0-33.3); Monocytes # 0.4 K/mcL (0.0-1.3); Neutrophils # 4.2 K/mcL (1.6-8.9); Platelet Count 156 K/mcL (140-400); Segmented Neutrophils % 66.9 %; White Blood Count 6.3 K/mcL (4.3-11.1)
[2020-10-07 05:09] LABS: BUN/Creatinine Ratio 13 (6-26); Blood Urea Nitrogen 12 mg/dL (6-20); Calcium 9.1 mg/dL (8.6-10.3); Carbon Dioxide 25 mEq/L (23-29); Chloride 107 mEq/L (98-107); Glucose 102 mg/dL (70-105); Osmolality,Calculated 284 (280-300); Sodium 137 mEq/L (136-145); eGFR For African Americans > 60 (> 60); eGFR For Non-African Americans > 60 (> 60)
[2020-10-07] MEDS ORDERED: Aspirin 81 MG TAB.CHEW PO SCH (09:00)
[2020-10-07] MEDS ORDERED: Nitroglycerin 0.4 MG TAB.SUBL SL PRN ×2 (09:02→11:09)
[2020-10-07] MEDS ORDERED: *HR* Heparin 5,000 UNIT/ML VIAL SQ SCH (11:00)
[2020-10-07] MEDS: *HR* Heparin 5,000 UNIT/ML VIAL SQ SCH (19:07)
[2020-10-08] MEDS: *HR* Heparin 5,000 UNIT/ML VIAL SQ SCH (06:20)
[2020-10-08] MEDS ORDERED: Aspirin 81 MG TAB.CHEW PO SCH (09:00)
[2020-10-08] MEDS ORDERED: Sucralfate 1 GM TABLET PO SCH ×2 (09:30)
[2020-10-08] MEDS ORDERED: Isosorbide MONOnitrate (24 HR) 30 MG TAB.ER.24H PO SCH (10:15)
[2020-10-08 11:19] VITALS: BP 121/66
== END 2020-10-08 12:04 | disposition home or self-care (01) | DRG 251 ==
LOC: EMEROOARM 15:22 → ICNU 16:00 → 2NENU 10-07 17:36
PROVIDERS: ADMIT Internal Medicine Cardiovascular Disease; ATTEND Internal Medicine Cardiovascular Disease

== ENCOUNTER 2020-11-17 16:26 | Inpatient (IN) ==
[2020-11-17 17:39] LABS: Basophils # 0.1 K/mcL (0.0-0.2); Basophils % 1.2 %; Eosinophils # 0.2 K/mcL (0.0-0.6); Eosinophils % 2.2 %; Hematocrit 42.1 % (37.5-50.1); Hemoglobin 13.5 g/dL (12.9-16.9); Immature Granulocytes % 0.5 % (0-4); Lymphocytes # 2.3 K/mcL (0.6-4.6); Lymphocytes % 26.3 %; Mean Corpuscular HGB Conc 32.1 g/dL (31.6-35.5); Mean Corpuscular Hemoglobin 28.7 pg (28.0-33.3); Mean Corpuscular Volume 89.4 fL (83.0-100.0); Mean Platelet Volume 10.1 fL (9.4-12.4); Monocytes # 0.4 K/mcL (0.0-1.3); Monocytes % 4.8 %; Neutrophils # 5.6 K/mcL (1.6-8.9); Platelet Count 218 K/mcL (140-400); Red Blood Count 4.71 M/mcL (4.19-5.50); Red Cell Distribution Width 12.5 % (11.5-14.5); White Blood Count 8.6 K/mcL (4.3-11.1)
[2020-11-17 17:51] LABS: INR 1.2; Prothrombin Time 13.4 Seconds (9.4-12.1)
[2020-11-17 17:53] LABS: Activated Partial Thrombo Time 24.4 Seconds (26.0-36.0)
[2020-11-17] MEDS: Nitroglycerin 0.4 MG TAB.SUBL SL SCH ×3 (17:53→22:31)
[2020-11-17 18:10] LABS: Troponin I < 0.03 ng/mL (< 0.04)
[2020-11-17 18:52] LABS: BUN/Creatinine Ratio 12 (6-26); Blood Urea Nitrogen 13 mg/dL (6-20); Calcium 9.7 mg/dL (8.6-10.3); Carbon Dioxide 22 mEq/L (23-29); Glucose 120 mg/dL (70-105); eGFR For African Americans > 60 (> 60); eGFR For Non-African Americans > 60 (> 60)
[2020-11-17 18:54] LABS: Chloride 106 mEq/L (98-107); Osmolality,Calculated 289 (280-300); Sodium 139 mEq/L (136-145)
[2020-11-17] MEDS ORDERED: *HR* FentaNYL (PF) 100 MCG/2 ML VIAL IVP ONE (19:42)
[2020-11-17] MEDS ORDERED: Naloxone 0.4 MG/ML INJ IVP PRN (20:04)
[2020-11-17] MEDS ORDERED: Ondansetron 4 MG/2 ML VIAL IVP PRN (20:04)
[2020-11-17] MEDS ORDERED: Nitroglycerin 0.4 MG TAB.SUBL SL PRN (20:06)
[2020-11-18 00:40] LABS: Hematocrit 38.7 % (37.5-50.1); Hemoglobin 12.7 g/dL (12.9-16.9); Mean Corpuscular HGB Conc 32.8 g/dL (31.6-35.5); Mean Corpuscular Hemoglobin 29.2 pg (28.0-33.3); Mean Platelet Volume 10.3 fL (9.4-12.4); Platelet Count 202 K/mcL (140-400); Red Blood Count 4.35 M/mcL (4.19-5.50); Red Cell Distribution Width 12.7 % (11.5-14.5); White Blood Count 9.1 K/mcL (4.3-11.1)
[2020-11-18 00:59] LABS: BUN/Creatinine Ratio 14 (6-26); Blood Urea Nitrogen 13 mg/dL (6-20); Calcium 9.2 mg/dL (8.6-10.3); Carbon Dioxide 23 mEq/L (23-29); Chloride 106 mEq/L (98-107); Glucose 101 mg/dL (70-105); Osmolality,Calculated 282 (280-300); Potassium 3.8 mEq/L (3.5-5.1); Sodium 136 mEq/L (136-145); Troponin I < 0.03 ng/mL (< 0.04); eGFR For African Americans > 60 (> 60); eGFR For Non-African Americans > 60 (> 60)
[2020-11-18] MEDS ORDERED: Sucralfate 1 GM TABLET PO SCH (09:15)
[2020-11-18] MEDS ORDERED: Aspirin 81 MG TAB.CHEW PO SCH (09:15)
[2020-11-18] MEDS ORDERED: Isosorbide MONOnitrate (24 HR) 60 MG TAB.ER.24H PO SCH (09:15)
[2020-11-18] MEDS: Ranolazine 500 MG TAB.ER.12H PO SCH ×2 (17:24→19:49)
[2020-11-19] MEDS: Morphine Sulfate 2 MG/ML SYRINGE IVP PRN ×2 (01:18→05:36)
[2020-11-19 07:06] VITALS: BP 123/80
[2020-11-19] MEDS ORDERED: Isosorbide MONOnitrate (24 HR) 60 MG TAB.ER.24H PO SCH (09:00)
== END 2020-11-19 11:22 | disposition home or self-care (01) | DRG 303 ==
LOC: 3BNU 16:26 → EMEROOARM 16:26 → SUATTDRO 19:51 → 3BNU 20:55
PROVIDERS: ADMIT Student in an Organized Health Care Education/Training Program; ATTEND Internal Medicine

== ENCOUNTER 2020-11-25 14:10 | Inpatient (IN) ==
[2020-11-25] MEDS ORDERED: *HR* Heparin 5,000 UNIT/ML VIAL IVP ONE (15:34)
[2020-11-25] MEDS ORDERED: *HR* Heparin 5,000 UNIT/ML VIAL IVP PRN ×2 (15:34)
[2020-11-25] MEDS ORDERED: Heparin 25,000UNIT/250ML 1/2NS 25,000 UNIT/250 ML IV.SOLN IVC SCH (15:45)
[2020-11-25 15:46] LABS: Basophils # 0.1 K/mcL (0.0-0.2); Basophils % 0.8 %; Eosinophils # 0.2 K/mcL (0.0-0.6); Eosinophils % 1.9 %; Hematocrit 42.8 % (37.5-50.1); Hemoglobin 14.3 g/dL (12.9-16.9); Immature Granulocytes % 0.4 % (0-4); Lymphocytes % 20.4 %; Mean Corpuscular HGB Conc 33.4 g/dL (31.6-35.5); Mean Corpuscular Volume 86.8 fL (83.0-100.0); Mean Platelet Volume 10.4 fL (9.4-12.4); Monocytes # 0.5 K/mcL (0.0-1.3); Monocytes % 4.9 %; Neutrophils # 6.9 K/mcL (1.6-8.9); Platelet Count 250 K/mcL (140-400); Red Blood Count 4.93 M/mcL (4.19-5.50); Red Cell Distribution Width 12.8 % (11.5-14.5); Segmented Neutrophils % 71.6 %; White Blood Count 9.6 K/mcL (4.3-11.1)
[2020-11-25 15:54] LABS: Heparin anti-factor XA UFH < 0.04 IU/mL (0.30-0.70); INR 1.2; Prothrombin Time 13.9 Seconds (9.4-12.1)
[2020-11-25 15:56] LABS: Activated Partial Thrombo Time 30.8 Seconds (26.0-36.0)
[2020-11-25 16:01] LABS: Alanine Aminotransferase 17 Units/L (7-52); Albumin 4.1 g/dL (3.5-5.7); Albumin/Globulin Ratio 1.4 (1.1-2.2); Alkaline Phosphatase 99 Units/L (34-104); Aspartate Amino Transferase 14 Units/L (13-39); BUN/Creatinine Ratio 13 (6-26); Bilirubin,Direct 0.2 mg/dL (0.0-0.2); Bilirubin,Indirect 0.4 mg/dL (0.0-1.0); Bilirubin,Total 0.6 mg/dL (0.3-1.0); Blood Urea Nitrogen 15 mg/dL (6-20); Calcium 10.2 mg/dL (8.6-10.3); Carbon Dioxide 22 mEq/L (23-29); Chloride 104 mEq/L (98-107); Globulin 2.9 g/dL (2.4-3.5); Glucose 108 mg/dL (70-105); Osmolality,Calculated 291 (280-300); Potassium 4.2 mEq/L (3.5-5.1); Sodium 140 mEq/L (136-145); Troponin I < 0.03 ng/mL (< 0.04); eGFR For African Americans > 60 (> 60); eGFR For Non-African Americans > 60 (> 60)
[2020-11-25] MEDS ORDERED: Heparin 1,000 UNITS/500 mL 500 ML ONE (16:01)
[2020-11-25] MEDS ORDERED: Nitroglycerin 1,000 MCG/5 ML VIAL IV ONE (16:01)
[2020-11-25] MEDS ORDERED: 0.9 % Sodium Chloride 2,000 ML ONE (16:01)
[2020-11-25] MEDS ORDERED: ISOVUE-370 200 ML INFUS..BTL ONE ×2 (16:01→17:11)
[2020-11-25] MEDS ORDERED: *HR* Heparin 10,000 UNIT/10 ML VIAL ONE (16:01)
[2020-11-25] MEDS ORDERED: *HR* FentaNYL (PF) 100 MCG/2 ML VIAL ONE (16:36)
[2020-11-25] MEDS ORDERED: *HR* Midazolam HCl 2 MG/2 ML VIAL ONE ×2 (16:36→16:53)
[2020-11-25] MEDS ORDERED: *HR* Bivalirudin 250 MG VIAL IVC ONE ×2 (16:56→17:16)
[2020-11-25] MEDS ORDERED: *HR* Ticagrelor 90 MG TABLET ONE (17:32)
[2020-11-25] MEDS ORDERED: Nitroglycerin 0.4 MG TAB.SUBL SL PRN (17:34)
[2020-11-25] MEDS ORDERED: Acetaminophen 325 MG TABLET PO PRN (17:36)
[2020-11-25] MEDS ORDERED: 0.9 % Sodium Chloride 1,000 ML IVC SCH (18:15)
[2020-11-25] MEDS ORDERED: *HR* Atropine Sulfate 1 MG/10 ML SYRINGE ONE (20:46)
[2020-11-25] MEDS ORDERED: Sucralfate 1 GM TABLET PO SCH (21:00)
[2020-11-25] MEDS ORDERED: Ranolazine 500 MG TAB.ER.12H PO SCH (21:00)
[2020-11-25] MEDS: Ranolazine 500 MG TAB.ER.12H PO SCH (21:28)
[2020-11-25] MEDS: Metoprolol XL (24 HR) Succ 25 MG TAB.ER.24H PO SCH (21:28)
[2020-11-25] MEDS: *HR* Heparin 5,000 UNIT/ML VIAL SQ SCH (21:29)
[2020-11-26] MEDS: *HR* Heparin 5,000 UNIT/ML VIAL SQ SCH (05:32)
[2020-11-26] MEDS: Ranolazine 500 MG TAB.ER.12H PO SCH (08:52)
[2020-11-26] MEDS ORDERED: Aspirin 81 MG TAB.CHEW PO SCH (09:00)
[2020-11-26] MEDS ORDERED: *HR* Ticagrelor 90 MG TABLET PO SCH (09:00)
[2020-11-26] MEDS ORDERED: Isosorbide MONOnitrate (24 HR) 60 MG TAB.ER.24H PO SCH (09:00)
[2020-11-26 11:31] VITALS: BP 110/65
[2020-11-26 13:28] LABS: Basophils # 0.1 K/mcL (0.0-0.2); Basophils % 0.7 %; Eosinophils # 0.2 K/mcL (0.0-0.6); Hematocrit 40.2 % (37.5-50.1); Hemoglobin 13.3 g/dL (12.9-16.9); Immature Granulocytes % 0.4 % (0-4); Lymphocytes # 1.7 K/mcL (0.6-4.6); Mean Corpuscular HGB Conc 33.1 g/dL (31.6-35.5); Mean Corpuscular Volume 87.6 fL (83.0-100.0); Mean Platelet Volume 10.1 fL (9.4-12.4); Monocytes # 0.3 K/mcL (0.0-1.3); Monocytes % 3.6 %; Neutrophils # 5.8 K/mcL (1.6-8.9); Platelet Count 214 K/mcL (140-400); Red Blood Count 4.59 M/mcL (4.19-5.50); Segmented Neutrophils % 72.3 %
[2020-11-26 13:44] LABS: BUN/Creatinine Ratio 15 (6-26); Blood Urea Nitrogen 17 mg/dL (6-20); Calcium 9.5 mg/dL (8.6-10.3); Carbon Dioxide 22 mEq/L (23-29); Chloride 107 mEq/L (98-107); Glucose 141 mg/dL (70-105); Osmolality,Calculated 284 (280-300); Potassium 4.1 mEq/L (3.5-5.1); Sodium 135 mEq/L (136-145); eGFR For African Americans > 60 (> 60); eGFR For Non-African Americans > 60 (> 60)
[2020-11-26] MEDS: Metoprolol XL (24 HR) Succ 25 MG TAB.ER.24H PO SCH (13:52)
== END 2020-11-26 15:57 | disposition home or self-care (01) | DRG 247 ==
LOC: 2NNU 14:10 → EMEROOARM 14:10 → 2NNU 18:30
PROVIDERS: ADMIT Internal Medicine; ATTEND Internal Medicine

== ENCOUNTER 2021-06-17 14:58 | Observation (INO) ==
[2021-06-17] MEDS ORDERED: 0.9 % Sodium Chloride 500 ML IVC ONE (15:17)
[2021-06-17] MEDS ORDERED: Aspirin 81 MG TAB.CHEW PO ONE ×2 (15:17→16:00)
[2021-06-17] MEDS ORDERED: *HR* FentaNYL (PF) 100 MCG/2 ML VIAL IVP ONE (15:29)
[2021-06-17 15:54] LABS: Basophils # 0.1 K/mcL (0.0-0.2); Basophils % 0.7 %; Eosinophils # 0.2 K/mcL (0.0-0.6); Eosinophils % 2.6 %; Hematocrit 43.1 % (37.5-50.1); Hemoglobin 14.5 g/dL (12.9-16.9); Immature Granulocytes % 0.4 % (0-4); Lymphocytes # 2.1 K/mcL (0.6-4.6); Lymphocytes % 27.8 %; Mean Corpuscular HGB Conc 33.6 g/dL (31.6-35.5); Mean Corpuscular Hemoglobin 29.8 pg (28.0-33.3); Mean Corpuscular Volume 88.7 fL (83.0-100.0); Mean Platelet Volume 10.3 fL (9.4-12.4); Monocytes # 0.4 K/mcL (0.0-1.3); Monocytes % 5.5 %; Neutrophils # 4.7 K/mcL (1.6-8.9); Platelet Count 220 K/mcL (140-400); Red Blood Count 4.86 M/mcL (4.19-5.50); Red Cell Distribution Width 13.2 % (11.5-14.5); White Blood Count 7.4 K/mcL (4.3-11.1)
[2021-06-17 16:11] LABS: INR 1.2; Prothrombin Time 12.9 Seconds (9.4-12.1)
[2021-06-17 16:14] LABS: Activated Partial Thrombo Time 35.1 Seconds (26.0-36.0)
[2021-06-17 16:15] LABS: Alanine Aminotransferase 27 Units/L (7-52); Albumin 4.1 g/dL (3.5-5.7); Albumin/Globulin Ratio 1.6 (1.1-2.2); Alkaline Phosphatase 79 Units/L (34-104); Aspartate Amino Transferase 17 Units/L (13-39); BUN/Creatinine Ratio 13 (6-26); Bilirubin,Direct 0.2 mg/dL (0.0-0.2); Bilirubin,Indirect 0.5 mg/dL (0.0-1.0); Bilirubin,Total 0.7 mg/dL (0.3-1.0); Blood Urea Nitrogen 15 mg/dL (6-20); Calcium 9.8 mg/dL (8.6-10.3); Carbon Dioxide 23 mEq/L (23-29); Chloride 105 mEq/L (98-107); Globulin 2.6 g/dL (2.4-3.5); Glucose 115 mg/dL (70-105); Lipase 38 Units/L (11-82); Osmolality,Calculated 282 (280-300); Potassium 4.1 mEq/L (3.5-5.1); Sodium 135 mEq/L (136-145); Total Protein 6.7 g/dL (6.4-8.9); Troponin I < 0.03 ng/mL (< 0.04); eGFR For African Americans > 60 (> 60); eGFR For Non-African Americans > 60 (> 60)
[2021-06-17] MEDS ORDERED: Ondansetron 4 MG/2 ML VIAL IVP PRN (18:07)
[2021-06-17] MEDS ORDERED: Naloxone 0.4 MG/ML INJ IVP PRN (18:07)
[2021-06-17] MEDS ORDERED: Melatonin 3 MG TABLET PO PRN (18:07)
[2021-06-17] MEDS: Ranolazine 500 MG TAB.ER.12H PO SCH (20:11)
[2021-06-18 05:04] LABS: Basophils # 0.1 K/mcL (0.0-0.2); Basophils % 0.9 %; Eosinophils # 0.2 K/mcL (0.0-0.6); Eosinophils % 2.5 %; Hematocrit 42.8 % (37.5-50.1); Hemoglobin 13.7 g/dL (12.9-16.9); Immature Granulocytes % 0.5 % (0-4); Lymphocytes # 2.5 K/mcL (0.6-4.6); Lymphocytes % 30.5 %; Mean Corpuscular Hemoglobin 29.1 pg (28.0-33.3); Mean Corpuscular Volume 90.9 fL (83.0-100.0); Mean Platelet Volume 10.3 fL (9.4-12.4); Monocytes # 0.5 K/mcL (0.0-1.3); Monocytes % 6.3 %; Neutrophils # 4.8 K/mcL (1.6-8.9); Platelet Count 203 K/mcL (140-400); Red Blood Count 4.71 M/mcL (4.19-5.50); Red Cell Distribution Width 13.2 % (11.5-14.5); Segmented Neutrophils % 59.3 %; White Blood Count 8.1 K/mcL (4.3-11.1)
[2021-06-18 05:25] LABS: BUN/Creatinine Ratio 17 (6-26); Blood Urea Nitrogen 19 mg/dL (6-20); Calcium 9.5 mg/dL (8.6-10.3); Carbon Dioxide 24 mEq/L (23-29); Chloride 108 mEq/L (98-107); Chol/HDL Ratio 3.2 (0-4.9); Cholesterol 126 mg/dL (< 200); Glucose 100 mg/dL (70-105); HDL Cholesterol 40 mg/dL (40-59); LDL Cholesterol,Calculated 69 mg/dL (< 100); Osmolality,Calculated 280 (280-300); Potassium 4.1 mEq/L (3.5-5.1); Sodium 134 mEq/L (136-145); Triglycerides 86 mg/dL (< 150); eGFR For African Americans > 60 (> 60); eGFR For Non-African Americans > 60 (> 60)
[2021-06-18] MEDS ORDERED: Perflutren Lipid Microsphere 1.3 ML in 0.9 % Sodium Chloride 8.7 ML IVP PRN (07:27)
[2021-06-18] MEDS: Ranolazine 500 MG TAB.ER.12H PO SCH ×2 (07:44→19:27)
[2021-06-18] MEDS: Aspirin Enteric Coated 81 MG Tablet PO SCH (07:44)
[2021-06-18 09:48] LABS: Amphetamine Screen,Urine Negative ng/mL (Cutoff=1000); Barbiturate Screen,Urine Negative ng/mL (Cutoff=200); Benzodiazepines Screen,Urine Negative ng/mL (Cutoff=200); Cannabinoid Screen,Urine Negative ng/mL (Cutoff = 50); Cocaine Screen,Urine Negative ng/mL (Cutoff= 300); Opiate Screen,Urine Negative ng/mL (Cutoff=300); Phencyclidine Screen,Urine Negative ng/mL (Cutoff=25)
[2021-06-18 10:18] LABS: Estimated Average Glucose 120 mg/dl; Hemoglobin A1C 5.8 %
[2021-06-18] MEDS: Isosorbide MONOnitrate (24 HR) 30 MG TAB.ER.24H PO SCH (11:14)
[2021-06-18] MEDS: Acetaminophen 325 MG TABLET PO PRN (14:51)
[2021-06-18] MEDS ORDERED: *HR* LORazepam 2 MG/ML VIAL IVP ONE (15:27)
[2021-06-19 06:13] VITALS: TEMP 97.4
[2021-06-19] MEDS: Ranolazine 500 MG TAB.ER.12H PO SCH (07:41)
[2021-06-19] MEDS: Isosorbide MONOnitrate (24 HR) 30 MG TAB.ER.24H PO SCH (07:41)
[2021-06-19] MEDS: Acetaminophen 325 MG TABLET PO PRN (07:41)
[2021-06-19] MEDS: Aspirin Enteric Coated 81 MG Tablet PO SCH (07:41)
[2021-06-19 10:35] VITALS: BP 133/72; PULSE 56; O2SAT 93
== END 2021-06-19 12:15 | disposition home or self-care (01) ==
LOC: 2ANU 14:58 → EMEROOARM 14:58 → SUATTDRO 17:31 → 2ANU 18:24
PROVIDERS: ADMIT Internal Medicine; ATTEND Internal Medicine

== ENCOUNTER 2021-07-22 12:20 | Inpatient (IN) ==
[2021-07-22] MEDS: Nitroglycerin 0.4 MG TAB.SUBL SL PRN ×3 (14:01→20:06)
[2021-07-22 14:35] LABS: Basophils # 0.1 K/mcL (0.0-0.2); Basophils % 0.6 %; Eosinophils # 0.2 K/mcL (0.0-0.6); Eosinophils % 2.2 %; Hematocrit 41.4 % (37.5-50.1); Hemoglobin 13.8 g/dL (12.9-16.9); Immature Granulocytes % 0.5 % (0-4); Lymphocytes # 1.9 K/mcL (0.6-4.6); Lymphocytes % 23.5 %; Mean Corpuscular HGB Conc 33.3 g/dL (31.6-35.5); Mean Corpuscular Hemoglobin 30.3 pg (28.0-33.3); Mean Corpuscular Volume 90.8 fL (83.0-100.0); Mean Platelet Volume 10.1 fL (9.4-12.4); Monocytes # 0.5 K/mcL (0.0-1.3); Monocytes % 5.8 %; Neutrophils # 5.5 K/mcL (1.6-8.9); Platelet Count 228 K/mcL (140-400); Red Blood Count 4.56 M/mcL (4.19-5.50); Red Cell Distribution Width 13.2 % (11.5-14.5); Segmented Neutrophils % 67.4 %; White Blood Count 8.1 K/mcL (4.3-11.1)
[2021-07-22 15:01] LABS: BUN/Creatinine Ratio 11 (6-26); Blood Urea Nitrogen 13 mg/dL (6-20); Calcium 9.9 mg/dL (8.6-10.3); Carbon Dioxide 27 mEq/L (23-29); Chloride 103 mEq/L (98-107); Glucose 99 mg/dL (70-105); Osmolality,Calculated 280 (280-300); Potassium 4.8 mEq/L (3.5-5.1); Sodium 135 mEq/L (136-145); Troponin I < 0.03 ng/mL (< 0.04); eGFR For African Americans > 60 (> 60); eGFR For Non-African Americans > 60 (> 60)
[2021-07-22] MEDS ORDERED: Ondansetron 4 MG/2 ML VIAL IVP PRN (15:40)
[2021-07-22] MEDS ORDERED: Naloxone 0.4 MG/ML INJ IVP PRN (15:40)
[2021-07-22 16:42] LABS: Influenza A PCR Negative (Negative); Influenza B PCR Negative (Negative); Resp. Syncytial Virus PCR Negative (Negative); SARS-CoV-2 by PCR (In House) Negative (Negative)
[2021-07-22] MEDS: Ranolazine 500 MG TAB.ER.12H PO SCH (20:06)
[2021-07-22] MEDS: Morphine Sulfate 2 MG/ML SYRINGE IVP PRN (20:28)
[2021-07-22 21:27] LABS: Magnesium 2.2 mg/dL (1.6-2.6)
[2021-07-22 21:28] LABS: Troponin I < 0.03 ng/mL (< 0.04)
[2021-07-23 02:51] LABS: Basophils # 0.1 K/mcL (0.0-0.2); Basophils % 0.6 %; Eosinophils # 0.2 K/mcL (0.0-0.6); Eosinophils % 2.3 %; Hematocrit 39.7 % (37.5-50.1); Immature Granulocytes % 0.5 % (0-4); Lymphocytes # 2.6 K/mcL (0.6-4.6); Lymphocytes % 29.6 %; Mean Corpuscular HGB Conc 32.7 g/dL (31.6-35.5); Mean Corpuscular Hemoglobin 29.3 pg (28.0-33.3); Mean Corpuscular Volume 89.4 fL (83.0-100.0); Mean Platelet Volume 10.2 fL (9.4-12.4); Monocytes # 0.5 K/mcL (0.0-1.3); Monocytes % 5.6 %; Neutrophils # 5.3 K/mcL (1.6-8.9); Platelet Count 207 K/mcL (140-400); Red Blood Count 4.44 M/mcL (4.19-5.50); Red Cell Distribution Width 13.2 % (11.5-14.5); Segmented Neutrophils % 61.4 %; White Blood Count 8.7 K/mcL (4.3-11.1)
[2021-07-23 02:52] LABS: BUN/Creatinine Ratio 13 (6-26); Blood Urea Nitrogen 15 mg/dL (6-20); Calcium 9.4 mg/dL (8.6-10.3); Carbon Dioxide 24 mEq/L (23-29); Chloride 105 mEq/L (98-107); Glucose 123 mg/dL (70-105); Magnesium 2.1 mg/dL (1.6-2.6); Osmolality,Calculated 282 (280-300); Phosphorous 3.1 mg/dL (2.7-4.5); Potassium 3.9 mEq/L (3.5-5.1); Sodium 135 mEq/L (136-145); eGFR For African Americans > 60 (> 60); eGFR For Non-African Americans > 60 (> 60)
[2021-07-23] MEDS: Aspirin 81 MG TAB.CHEW PO SCH (07:36)
[2021-07-23] MEDS: Morphine Sulfate 2 MG/ML SYRINGE IVP PRN ×3 (07:36→19:58)
[2021-07-23] MEDS: Ranolazine 500 MG TAB.ER.12H PO SCH ×2 (07:36→19:51)
[2021-07-23] MEDS ORDERED: Isosorbide MONOnitrate (24 HR) 30 MG TAB.ER.24H PO SCH (09:00)
[2021-07-24] MEDS ORDERED: Regadenoson 0.4 MG/5 ML SYRINGE IVP ONE (07:43)
[2021-07-24] MEDS: Ranolazine 500 MG TAB.ER.12H PO SCH (09:29)
[2021-07-24] MEDS: Aspirin 81 MG TAB.CHEW PO SCH (09:29)
[2021-07-24 10:34] VITALS: BP 131/79; PULSE 55; TEMP 97.8; O2SAT 96
[2021-07-24] MEDS ORDERED: Isosorbide MONOnitrate (24 HR) 60 MG TAB.ER.24H PO SCH (11:00)
== END 2021-07-24 15:48 | disposition home or self-care (01) | DRG 303 ==
LOC: EMEROOARM 12:20 → 2ANU 12:20 → SUATTDRO 16:51 → 2ANU 17:27
PROVIDERS: ADMIT Family Medicine; ATTEND Student in an Organized Health Care Education/Training Program

== ENCOUNTER 2022-01-20 20:32 | Observation (INO) ==
[2022-01-20 21:27] LABS: Basophils # 0.1 K/mcL (0.0-0.2); Basophils % 0.7 %; Eosinophils # 0.2 K/mcL (0.0-0.6); Eosinophils % 2.5 %; Hematocrit 41.2 % (37.5-50.1); Hemoglobin 13.7 g/dL (12.9-16.9); Immature Granulocytes % 0.4 % (0-4); Lymphocytes % 25.8 %; Mean Corpuscular HGB Conc 33.3 g/dL (31.6-35.5); Mean Corpuscular Hemoglobin 29.5 pg (28.0-33.3); Mean Corpuscular Volume 88.6 fL (83.0-100.0); Mean Platelet Volume 10.5 fL (9.4-12.4); Monocytes # 0.4 K/mcL (0.0-1.3); Monocytes % 5.3 %; Neutrophils # 4.9 K/mcL (1.6-8.9); Platelet Count 234 K/mcL (140-400); Red Blood Count 4.65 M/mcL (4.19-5.50); Red Cell Distribution Width 13.3 % (11.5-14.5); Segmented Neutrophils % 65.3 %; White Blood Count 7.6 K/mcL (4.3-11.1)
[2022-01-20 22:03] LABS: BUN/Creatinine Ratio 14 (6-26); Blood Urea Nitrogen 16 mg/dL (6-20); Calcium 9.8 mg/dL (8.6-10.3); Carbon Dioxide 20 mEq/L (23-29); Chloride 106 mEq/L (98-107); Glucose 118 mg/dL (70-105); Osmolality,Calculated 284 (280-300); Sodium 136 mEq/L (136-145)
[2022-01-20 22:10] LABS: Troponin I < 0.03 ng/mL (< 0.04)
[2022-01-20] MEDS ORDERED: Aspirin 325 MG TABLET PO ONE (22:42)
[2022-01-20] MEDS ORDERED: Morphine Sulfate 2 MG/ML SYRINGE IVP ONE (22:42)
[2022-01-20 22:45] LABS: INR 1.1; Prothrombin Time 12.6 Seconds (9.4-12.1)
[2022-01-20 22:46] LABS: Alanine Aminotransferase 19 Units/L (7-52); Albumin/Globulin Ratio 1.4 (1.1-2.2); Alkaline Phosphatase 103 Units/L (34-104); Aspartate Amino Transferase 14 Units/L (13-39); Bilirubin,Indirect 0.3 mg/dL (0.0-1.0); Bilirubin,Total 0.3 mg/dL (0.3-1.0); Globulin 2.9 g/dL (2.4-3.5); Lipase 45 Units/L (11-82); Total Protein 6.9 g/dL (6.4-8.9)
[2022-01-20 22:47] LABS: Activated Partial Thrombo Time 34.3 Seconds (26.0-36.0)
[2022-01-20] MEDS ORDERED: Ondansetron 4 MG/2 ML VIAL IVP ONE (23:15)
[2022-01-21] MEDS ORDERED: Morphine Sulfate 2 MG/ML SYRINGE IVP ONE (00:15)
[2022-01-21] MEDS ORDERED: Acetaminophen 325 MG TABLET PO PRN (01:17)
[2022-01-21] MEDS ORDERED: Naloxone 0.4 MG/ML INJ IVP PRN (01:17)
[2022-01-21] MEDS ORDERED: Ondansetron 4 MG/2 ML VIAL IVP PRN (01:17)
[2022-01-21 03:03] LABS: Basophils # 0.1 K/mcL (0.0-0.2); Eosinophils # 0.3 K/mcL (0.0-0.6); Eosinophils % 3.1 %; Hematocrit 41.5 % (37.5-50.1); Hemoglobin 13.5 g/dL (12.9-16.9); Immature Granulocytes % 0.5 % (0-4); Lymphocytes # 2.6 K/mcL (0.6-4.6); Lymphocytes % 32.3 %; Mean Corpuscular HGB Conc 32.5 g/dL (31.6-35.5); Mean Corpuscular Hemoglobin 29.1 pg (28.0-33.3); Mean Corpuscular Volume 89.4 fL (83.0-100.0); Mean Platelet Volume 10.6 fL (9.4-12.4); Monocytes # 0.5 K/mcL (0.0-1.3); Monocytes % 6.1 %; Neutrophils # 4.6 K/mcL (1.6-8.9); Platelet Count 217 K/mcL (140-400); Red Blood Count 4.64 M/mcL (4.19-5.50); Red Cell Distribution Width 13.5 % (11.5-14.5)
[2022-01-21 03:23] LABS: Calcium 9.7 mg/dL (8.6-10.3); Magnesium 2.1 mg/dL (1.6-2.6); Potassium 4.2 mEq/L (3.5-5.1)
[2022-01-21 03:27] LABS: INR 1.1; Prothrombin Time 12.2 Seconds (9.4-12.1)
[2022-01-21 03:32] LABS: Thyroid Stimulating Hormone 2.535 mcIU/mL (0.340-5.600)
[2022-01-21 06:18] LABS: Bilirubin,Urine Negative (Negative); Blood,Urine Negative (Negative); Clarity,Urine Clear (Clear); Color,Urine Light-Yellow (Yellow); Glucose,Urine (UA) Normal (Normal); Ketones,Urine Negative (Negative); Leukocyte Esterase,Urine Negative (Negative); Nitrite,Urine Negative (Negative); Protein,Urine Negative (Neg-Trace); Specific Gravity,Urine 1.012 (1.010-1.025); Urobilinogen,Urine Normal (Normal)
[2022-01-21] MEDS ORDERED: Regadenoson 0.4 MG/5 ML SYRINGE IVP ONE (06:29)
[2022-01-21 07:16] VITALS: BP 113/69; PULSE 52; TEMP 97.7; O2SAT 96
[2022-01-21] MEDS ORDERED: Ticagrelor [Brilinta] 60 MG Tablet PO SCH (09:00)
[2022-01-21] MEDS ORDERED: Aspirin 81 MG TAB.CHEW PO SCH (09:00)
[2022-01-21] MEDS ORDERED: Isosorbide MONOnitrate (24 HR) 60 MG TAB.ER.24H PO SCH (13:00)
[2022-01-21] MEDS ORDERED: Ranolazine 500 MG TAB.ER.12H PO SCH (21:00)
== END 2022-01-21 13:29 | disposition home or self-care (01) ==
LOC: 3BNU 20:32 → EMEROOARM 20:32 → SUATTDRO 01-21 00:48 → 3BNU 01-21 01:27
PROVIDERS: ADMIT Internal Medicine; ATTEND Internal Medicine

== ENCOUNTER 2022-03-11 17:57 | Inpatient (IN) ==
[2022-03-11 19:35] LABS: BUN/Creatinine Ratio 13 (6-26); Blood Urea Nitrogen 18 mg/dL (6-20); Calcium 10.2 mg/dL (8.6-10.3); Carbon Dioxide 24 mEq/L (23-29); Chloride 105 mEq/L (98-107); Glucose 104 mg/dL (70-105); Osmolality,Calculated 288 (280-300); Sodium 138 mEq/L (136-145); Troponin I < 0.03 ng/mL (< 0.04)
[2022-03-11 19:54] LABS: Basophils # 0.1 K/mcL (0.0-0.2); Basophils % 0.8 %; Eosinophils # 0.2 K/mcL (0.0-0.6); Eosinophils % 2.1 %; Hematocrit 40.1 % (37.5-50.1); Hemoglobin 13.3 g/dL (12.9-16.9); Immature Granulocytes % 0.5 % (0-4); Lymphocytes # 2.1 K/mcL (0.6-4.6); Lymphocytes % 23.5 %; Mean Corpuscular HGB Conc 33.2 g/dL (31.6-35.5); Mean Corpuscular Hemoglobin 29.4 pg (28.0-33.3); Mean Corpuscular Volume 88.7 fL (83.0-100.0); Mean Platelet Volume 10.1 fL (9.4-12.4); Monocytes # 0.4 K/mcL (0.0-1.3); Monocytes % 4.9 %; Platelet Count 233 K/mcL (140-400); Red Blood Count 4.52 M/mcL (4.19-5.50); Red Cell Distribution Width 13.4 % (11.5-14.5); Segmented Neutrophils % 68.2 %; White Blood Count 8.9 K/mcL (4.3-11.1)
[2022-03-11] MEDS ORDERED: Aspirin 325 MG TABLET PO ONE ×2 (20:14→20:30)
[2022-03-11] MEDS ORDERED: *HR* Heparin 5,000 UNIT/ML VIAL IVP ONE (20:15)
[2022-03-11] MEDS ORDERED: *HR* Heparin 5,000 UNIT/ML VIAL IVP PRN ×2 (20:15)
[2022-03-11] MEDS ORDERED: Melatonin 3 MG TABLET PO PRN (20:32)
[2022-03-11] MEDS: Heparin 25,000UNIT/250ML 1/2NS 25,000 UNIT/250 ML IV.SOLN IVC SCH (20:32)
[2022-03-11] MEDS ORDERED: Ondansetron ODT 4 MG TAB.RAPDIS SL PRN (20:32)
[2022-03-11] MEDS ORDERED: Acetaminophen 325 MG TABLET PO PRN ×2 (20:32)
[2022-03-11] MEDS ORDERED: Naloxone 0.4 MG/ML INJ IVP PRN (20:32)
[2022-03-11] MEDS ORDERED: Dextrose Gel 15 GM/37.5 ML TUBE PO PRN ×2 (20:38)
[2022-03-11] MEDS ORDERED: D5% in Water 1,000 ML IVC PRN (20:38)
[2022-03-11] MEDS ORDERED: *HR* Dextrose 50 % in Water (Syg) 50 ML SYRINGE IVP PRN (20:38)
[2022-03-11 21:08] LABS: Heparin anti-factor XA UFH < 0.04 IU/mL (0.30-0.70)
[2022-03-11 21:09] LABS: INR 1.1; Prothrombin Time 12.3 Seconds (9.4-12.1)
[2022-03-12 01:54] LABS: Hematocrit 41.2 % (37.5-50.1); Hemoglobin 13.5 g/dL (12.9-16.9); Mean Corpuscular HGB Conc 32.8 g/dL (31.6-35.5); Mean Corpuscular Hemoglobin 29.5 pg (28.0-33.3); Mean Platelet Volume 10.5 fL (9.4-12.4); Platelet Count 221 K/mcL (140-400); Red Blood Count 4.58 M/mcL (4.19-5.50); Red Cell Distribution Width 13.2 % (11.5-14.5); White Blood Count 9.4 K/mcL (4.3-11.1)
[2022-03-12 02:18] LABS: Calcium 9.8 mg/dL (8.6-10.3); Chol/HDL Ratio 3.1 (0-4.9); Phosphorous 3.5 mg/dL (2.7-4.5); Potassium 3.9 mEq/L (3.5-5.1)
[2022-03-12 02:30] LABS: Thyroid Stimulating Hormone 1.697 mcIU/mL (0.340-5.600)
[2022-03-12 03:13] LABS: Estimated Average Glucose 123 mg/dl; Hemoglobin A1C 5.9 %
[2022-03-12] MEDS ORDERED: Ticagrelor [Brilinta] 60 MG Tablet PO SCH (09:00)
[2022-03-12] MEDS ORDERED: Aspirin 81 MG TAB.CHEW PO SCH (09:00)
[2022-03-12] MEDS: Isosorbide MONOnitrate (24 HR) 60 MG TAB.ER.24H PO SCH (10:17)
[2022-03-12] MEDS: lisinopriL 5 MG TABLET PO SCH (10:17)
[2022-03-12] MEDS: Ranolazine 500 MG TAB.ER.12H PO SCH ×2 (10:17→20:23)
[2022-03-12] MEDS: Aspirin 81 MG TAB.CHEW PO SCH (10:18)
[2022-03-12] MEDS: Heparin 25,000UNIT/250ML 1/2NS 25,000 UNIT/250 ML IV.SOLN IVC SCH (11:08)
[2022-03-12] MEDS ORDERED: *HR* Heparin 10,000 UNIT/10 ML VIAL ONE (12:14)
[2022-03-12] MEDS ORDERED: Heparin 1,000 UNITS/500 mL 500 ML ONE ×2 (12:14→13:49)
[2022-03-12] MEDS ORDERED: Nitroglycerin 1,000 MCG/5 ML VIAL IV ONE (12:14)
[2022-03-12] MEDS ORDERED: 0.9 % Sodium Chloride 1,000 ML ONE ×2 (12:14→12:40)
[2022-03-12] MEDS ORDERED: Iopamidol - 370 200 ML INFUS..BTL ONE (12:14)
[2022-03-12] MEDS ORDERED: *HR* FentaNYL (PF) 100 MCG/2 ML VIAL ONE (12:37)
[2022-03-12] MEDS ORDERED: *HR* Midazolam HCl 2 MG/2 ML VIAL ONE (12:37)
[2022-03-12] MEDS ORDERED: *HR* Ticagrelor 90 MG TABLET ONE ×2 (13:49→13:52)
[2022-03-12] MEDS: 0.9 % Sodium Chloride 1,000 ML IVC SCH (15:31)
[2022-03-12] MEDS: *HR* Ticagrelor 90 MG TABLET PO SCH (20:23)
[2022-03-12] MEDS ORDERED: *HR* Ticagrelor 90 MG TABLET PO SCH (21:00)
[2022-03-13] MEDS: 0.9 % Sodium Chloride 1,000 ML IVC SCH (00:24)
[2022-03-13 03:08] VITALS: O2SAT 98
[2022-03-13 08:30] LABS: Hematocrit 38.6 % (37.5-50.1)
[2022-03-13 08:44] LABS: BUN/Creatinine Ratio 13 (6-26); Blood Urea Nitrogen 15 mg/dL (6-20)
[2022-03-13] MEDS: Aspirin 81 MG TAB.CHEW PO SCH (09:31)
[2022-03-13] MEDS: Isosorbide MONOnitrate (24 HR) 60 MG TAB.ER.24H PO SCH (09:31)
[2022-03-13] MEDS: lisinopriL 5 MG TABLET PO SCH (09:31)
[2022-03-13] MEDS: *HR* Ticagrelor 90 MG TABLET PO SCH (09:32)
[2022-03-13] MEDS: Ranolazine 500 MG TAB.ER.12H PO SCH (09:33)
[2022-03-13 11:45] VITALS: BP 134/78; PULSE 58; TEMP 98.3
== END 2022-03-13 11:47 | disposition home or self-care (01) | DRG 247 ==
LOC: 3NENU 17:57 → EMEROOARM 17:57 → SUATTDRO 20:30 → 3NENU 21:08
PROVIDERS: ADMIT Internal Medicine; ATTEND Internal Medicine